=== PATIENT | female | born 1965 | race Caucasian/White ===

== ENCOUNTER 2023-09-10 12:27 | Emergency (ER) | payer BC, SELFPAY ==
[2023-09-10 12:56] VITALS: BP 142/93; PULSE 92; TEMP 36.8; O2SAT 98; BMI 30.1
[2023-09-10 14:05] LABS: Bilirubin Urine NEGATIVE (NEGATIVE); Blood Urine NEGATIVE (NEGATIVE); Clarity Urine CLEAR (CLEAR); Color Urine YELLOW (YELLOW); Glucose Urine UA >=1000 mg/dL (NEGATIVE); Ketones Urine 40 mg/dL (NEGATIVE); Leukocyte Esterase Urine NEGATIVE (NEGATIVE); Nitrite Urine NEGATIVE (NEGATIVE); Protein Urine NEGATIVE (NEG/TRACE); Urobilinogen Urine 0.2 EU/dL (0.2-1.0); pH Urine 5.5 (5.0-9.0)
[2023-09-10 14:08] LABS: Urine Microscopic Indicated NO
[2023-09-10] MEDS: PROMETHAZINE HCL 25 MG in 0.9 % SODIUM CHLORIDE 50 ML 204 MG IV (14:19)
[2023-09-10] MEDS: 0.9 % SODIUM CHLORIDE 1,000 ML 999 ML IV (14:20)
[2023-09-10 14:25] LABS: Basophils Absolute Auto 0.1 10^3/uL (0.0-0.1); Basophils Percent Auto 0.5 % (0.2-2.0); Hematocrit 39.7 % (36.0-48.0); Immature Granulocytes Abs Auto 0.05 10^3/uL (0.00-0.03); Immature Granulocytes Pct Auto 0.4 % (0.0-0.5); Lymphocytes Absolute Auto 1.1 10^3/uL (1.2-3.8); Lymphocytes Percent Auto 9.6 % (20.5-60.0); Mean Corpuscular HGB Conc 27.7 g/dL (29.9-35.2); Mean Corpuscular Hemoglobin 19.8 pg (26.7-34.0); Mean Corpuscular Volume 71.4 fL (81.0-99.0); Mean Platelet Volume 10.2 fL (9.5-13.5); Monocytes Absolute Auto 0.2 10^3/uL (0.3-0.8); Monocytes Percent Auto 1.8 % (1.7-12.0); Neutrophils Absolute Auto 9.8 10^3/uL (1.4-6.5); Neutrophils Percent Auto 87.7 % (43.0-75.0); Platelet Count 392 10^3/uL (150-450); Red Cell Distribution Width 19.1 % (11.0-15.0); White Blood Count 11.2 10^3/uL (4.0-11.0)
[2023-09-10 14:43] LABS: Alanine Aminotransferase 23 U/L (14-59); Albumin Globulin Ratio 0.8; Albumin Level 3.6 g/dL (3.4-5.0); Alkaline Phosphatase 108 U/L (46-116); Anion Gap 20.6; Aspartate Amino Transferase 15 U/L (15-37); BUN Creatinine Ratio 23.9; Bilirubin Total 0.4 mg/dL (0.2-1.0); Calcium 9.7 mg/dL (8.5-10.1); Carbon Dioxide 21.4 mmol/L (21.0-32.0); Chloride 100 mmol/L (98-107); Estimated GFR (African America >60 (>=60); Estimated GFR (Non-African Ame >60 (>=60); Globulin 4.6 g/dL; Glucose 355 mg/dL (74-106); Magnesium 1.8 mg/dL (1.8-2.4); Sodium 138 mmol/L (136-145); Total Protein 8.2 g/dL (6.4-8.2)
[2023-09-10 15:11] LABS: Red Blood Count 5.56 10^6/uL (4.20-5.40)
--- NOTE | 2023-09-10 16:22 | ED_ITS ---
HPI HPI - General Adult General Chief complaint: Nausea/Vomiting/Diarrhea Time Seen by Provider: 09/10/23 13:22 Source: patient Mode of arrival: walk-in Limitations: no limitations History of Present Illness HPI narrative: 57-year-old female presents to the emergency department complaint of nausea, vomiting, and diarrhea since last night. States she was exposed to her who has similar symptoms. Has not been able to keep anything down. Did have some abdominal discomfort, none now. She is diabetic. Denies any fever. Quality:?as above Severity:?moderate Timing:?as above, constant Context: Normal setting and activity? Modifying factors:?none Associated symptoms: as above Related Data Home Medications ?Medication ?Instructions ?Recorded ?Confirmed cyclobenzaprine 5 mg tablet 5 mg PO TID 09/10/23 09/10/23 esomeprazole magnesium 40 mg 40 mg PO DAILY 09/10/23 09/10/23 capsule,delayed release lisinopril 2.5 mg tablet 2.5 mg PO DAILY 09/10/23 09/10/23 pioglitazone 30 mg tablet 30 mg PO DAILY 09/10/23 09/10/23 Previous Rx's ?Medication ?Instructions ?Recorded ondansetron 4 mg disintegrating 4 mg PO Q8H PRN nausea and 09/10/23 tablet vomiting #10 tabs Allergies Allergy/AdvReac Type Severity Reaction Status Date / Time sulfamethoxazole AdvReac Mild Verified 09/10/23 13:00 [From Bactrim] trimethoprim [From Bactrim] AdvReac Mild Verified 09/10/23 13:00 Opioid HPI Opioid Management Most Recent Opioid Data: No Data to Display Review of Systems ROS Narrative CONST: Denies any fever, chills HENT: Denies any congestion, sore throat RESP: Denies any cough, shortness of breath CV: Denies any chest pain, peripheral edema GI: +abd pain, nausea, vomiting, diarrhea : Denies any flank pain, dysuria MS: Denies any back pain, myalgias SKIN: Denies any color change, rash NEURO: Denies numbness, weakness PSYCHIATRIC: Denies confusion, agitation Exam Narrative Exam Narrative: Vital signs reviewed Nurses notes noted CONST: Nontoxic, well appearing, well nourished, in no distress.? No diaphoresis.?? HENT: normocephalic, atraumatic, moist mucous membrane, no abnormalities of the nose noted, hearing normal EYES: normal appearing conjunctiva, no apparent discharge bilat NECK: normal appearance CV: normal rate, regular rhythm, no murmur RESP: normal effort, speaking in complete sentences. Lung sounds clear and equal bilat.? No wheezes, rales, rhonchi GI: normal bowel sounds, soft, no distension, nontender : no CVA tenderness MS: no edema, tenderness SKIN: no pallor NEURO: A&Ox 3, no focal findings PSYCH: normal mood, affect d Constitutional Vital Signs, click to edit/add: Last Vital Signs Temp 98.2 F 09/10/23 12:56 Pulse 92 H 09/10/23 12:56 Resp 16 09/10/23 12:56 BP 142/93 H 09/10/23 12:56 Pulse Ox 98 09/10/23 12:56 O2 Del Method Room Air 09/10/23 12:56 Course Reevaluation(s) Reevaluation #1: Patient reports overall improvement. Has been eating ice chips. Still n auseous, not vomiting. Discussed with patient results, plan, and disposition. She is agreeable with plan. Patient feeling comfortable with going home Time: 16:31 Vital Signs Vital signs: Vital Signs Temperature 98.2 F 09/10/23 12:56 Pulse Rate 92 H 09/10/23 12:56 Respiratory Rate 16 09/10/23 12:56 Blood Pressure 142/93 H 09/10/23 12:56 Pulse Oximetry 98 09/10/23 12:56 Oxygen Delivery Method Room Air 09/10/23 12:56 Temperature 98.2 F 09/10/23 12:56 Pulse Rate 92 H 09/10/23 12:56 Respiratory Rate 16 09/10/23 12:56 Blood Pressure 142/93 H 09/10/23 12:56 Pulse Oximetry 98 09/10/23 12:56 Oxygen Delivery Method Room Air 09/10/23 12:56 Medical Decision Making MDM Narrative Medical decision making narrative: This is a pleasant 57-year-old female who presents to the emergency department with complaint of nausea, vomiting, and diarrhea since yesterday evening. Did have some abdominal discomfort, but this is since resolved. Patient was exposed to similar symptoms through her . Denies any known fever. Has had some chills. She is diabetic. On arrival, afebrile, vital signs are stable. On exam, nontoxic, well-appearing patient in no distress. Heart regular rate and rhythm. Lung sounds clear and equal bilaterally. Abdomen soft, nontender. No CVA tenderness. Labs reveal no leukocytosis, anemia, thrombocytopenia, electrolyte imbalance, renal impairment. Glucose 355. Bicarb 21.4. LFTs, lipase unremarkable. Urinalysis reveals ketones, glucose, otherwise no evidence of infection. Patient was hydrated, given Phenergan with improvement of vomiting during ED course. Still felt a little nauseous, but states this is manageable. She is on a PPI at home. Patient understands that diarrhea, has to run its course. It was stressed that patient continue hydrating herself. She states she has Zofran at home. Likely viral nausea, vomiting, diarrhea DKA less likely based on bicarb and gap Urinary tract infection less likely based on laboratory testing Disposition ? The patient was discharged. Plan: Patient will be discharged to home. Condition at time of disposition: stable and improved. ? Advised to follow up with primary provider. Advised to return for any worsening and/or development of new, concerning signs or symptoms PLEASE NOTE: Portions of the medical record may have been produced using electronic directional drill operator and may contain errors with respect to translation of words which may not have been identified prior to finalization of the chart. Lab Data Lab results reviewed: Yes I reviewed the patient's lab results Labs: Lab Results 09/10/23 09/10/23 Range/Units 13:46 14:11 WBC 11.2 H (4.0-11.0) 10^3/uL RBC 5.56 H (4.20-5.40) 10^6/uL Hgb 11.0 L (12.0-16.0) g/dL Hct 39.7 (36.0-48.0) % MCV 71.4 L (81.0-99.0) fL MCH 19.8 L (26.7-34.0) pg MCHC 27.7 L (29.9-35.2) g/dL RDW 19.1 H (11.0-15.0) % Plt Count 392 (150-450) 10^3/uL MPV 10.2 (9.5-13.5) fL Neut % (Auto) 87.7 H (43.0-75.0) % Lymph % (Auto) 9.6 L (20.5-60.0) % [place] % (Auto) 1.8 (1.7-12.0) % Eos % (Auto) 0.0 L (0.9-7.0) % Baso % (Auto) 0.5 (0.2-2.0) % Neut # (Auto) 9.8 H (1.4-6.5) 10^3/uL Lymph # (Auto) 1.1 L (1.2-3.8) 10^3/uL [place] # (Auto) 0.2 L (0.3-0.8) 10^3/uL Eos # (Auto) 0.0 (0.0-0.7) 10^3/uL Baso # (Auto) 0.1 (0.0-0.1) 10^3/uL Abs Immat Gran (auto) 0.05 H (0.00-0.03) 10^3/uL Imm/Tot Granulo (auto) 0.4 (0.0-0.5) % Sodium 138 (136-145) mmol/L Potassium 4.0 (3.5-5.1) mmol/L Chloride 100 (98-107) mmol/L Carbon Dioxide 21.4 (21.0-32.0) mmol/L Anion Gap 20.6 BUN 17.0 (7.0-18.0) mg/dL Creatinine 0.71 (0.55-1.02) mg/dL Est GFR ( Amer) >60 (>=60) Est GFR (Non-Af Amer) >60 (>=60) BUN/Creatinine Ratio 23.9 Glucose 355 H (74-106) mg/dL Calcium 9.7 (8.5-10.1) mg/dL Magnesium 1.8 (1.8-2.4) mg/dL Total Bilirubin 0.4 (0.2-1.0) mg/dL AST 15 (15-37) U/L ALT 23 (14-59) U/L Alkaline Phosphatase 108 (46-116) U/L Total Protein 8.2 (6.4-8.2) g/dL Albumin 3.6 (3.4-5.0) g/dL Globulin 4.6 g/dL Albumin/Globulin Ratio 0.8 Lipase 23.0 (16.0-77.0) U/L Urine Color Yellow (YELLOW) Urine Clarity Clear (CLEAR) Urine pH 5.5 (5.0-9.0) Ur Specific [place] 1.020 (1.005-1.025) Urine Protein Negative (NEG/TRACE) mg/dL Urine Glucose (UA) >=1000 A (NEGATIVE) mg/dL Urine Ketones 40 A (NEGATIVE) mg/dL Urine Occult Blood Negative (NEGATIVE) Urine Nitrite Negative (NEGATIVE) Urine Bilirubin Negative (NEGATIVE) Urine Urobilinogen 0.2 (0.2-1.0) EU/dL Ur Leukocyte Esterase Negative (NEGATIVE) Discharge Plan Discharge Stand Alone Forms: Portal Instructions Chief Complaint: Nausea/Vomiting/Diarrhea Clinical Impression: Nausea vomiting and diarrhea, Generalized abdominal pain Patient Disposition: Home, Self-Care Time of Disposition Decision: 16:31 Condition: Good Prescriptions / Home Meds: New ondansetron 4 mg tablet,disintegrating 4 mg PO Q8H PRN (Reason: nausea and vomiting) Qty: 10 0RF No Action cyclobenzaprine 5 mg tablet 5 mg PO TID esomeprazole magnesium 40 mg capsule,delayed release(DR/EC) 40 mg PO DAILY lisinopril 2.5 mg tablet 2.5 mg PO DAILY pioglitazone 30 mg tablet 30 mg PO DAILY Print Language: Japanese Instructions: Clear Liquid Diet (ED), Acute Nausea and Vomiting (ED), Acute Diarrhea (ED) Referrals: HUSAM GREWAL [Primary Care Provider] - 1 week Discharge Date/Time: 09/10/23 16:49
== END 2023-09-10 16:49 | disposition home or self-care (01) ==
PROVIDERS: Physician Assistant; Emergency Provider Emergency Medicine; PCP Family Medicine
DX: R11.2 Nausea with vomiting, unspecified (principal); R19.7 Diarrhea, unspecified; R10.84 Generalized abdominal pain; E11.9 Type 2 diabetes mellitus without complications; Z79.84 Long term (current) use of oral hypoglycemic drugs
CPT/HCPCS: 36415; 80053; 81003; 83690; 83735; 85025; 96365; 99285

== ENCOUNTER 2024-05-18 00:22 | Emergency (ER) | payer BC, SELFPAY ==
[2024-05-18 00:31] VITALS: BP 146/96; PULSE 92; TEMP 36.8; O2SAT 99; BMI 33.3
--- OUTSIDE RECORDS SUMMARY | 2024-05-18 00:31 | XMS_ITS | CCD ---
Author Organization [facility] CliniSywa Care Team Providers Care Environmental Marketing Representative Name Role Phone Husam Zamora Unavailable Alexandro-NematollaNina salazar Unavailable Abu-Thomas, Chente Unavailable Unavailable Cardiac Surgery Unavailable Unavailable Husam Zamora Unavailable Unavailable Unavailable Unavailable Unavailable NOAH, DR HUSAM Herbert Consulting Unavailable NOAH, DR HUSAM Herbert Attending Unavailable NOAH, DR HUSAM Herbert Admitting Unavailable NOAH, DR HUSAM Herbert Primary Care Unavailable HENDRIX, DR COLLEEN Herbert Admitting Unavailable HENDRIX, DR COLLEEN Herbert Consulting Unavailable HENDRIX, DR COLLEEN Herbert Attending Unavailable Husam Zamora Unavailable Sandra Triplett Unavailable NOAH, HUSAM Herbert Primary Care Physician HUSAM ZAMORA Admitting Unavailable NOAHHUSAM Attending Unavailable NOAHHUSAM Admitting Unavailable NOAHHUSAM Attending Unavailable NoahDO Husam. Primary Care Provider DO Mario Sánchez Attending Provider Husam Zamora DO. Primary Care Provider Mario Sánchez DO Attending Provider [phone] MARIO SÁNCHEZ. Referring Unavailable MARIO SÁNCHEZ. Attending Unavailable Mario Sánchez Admitting Unavailable Mario Sánchez Attending Unavailable Husam Zamora. Primary Care Unavailable Mario Sánchez Admitting Unavailable Mario Sánchez Attending Unavailable Husam Zamora Primary Care Unavailable Allergies Allergy Classification Reported Allergen(s) Allergy Type Date of Onset Reaction(s) Facility Anti-Epileptic Agents (1 source) gabapentin Drug Allergy 4 migraines [facility] Azelate / Cupric oxide / Folic Acid / Niacinamide / pyridoxine / Zinc Oxide (1 source) Azelate / Cupric oxide / Folic Acid / Niacinamide / pyridoxine / Zinc Oxide; Translations: [multivitamin with minerals] Drug Allergy Weal (disorder) [facility] Dihydrofolate Reductase Inhibitors (antibiotic) (1 source) Trimethoprim Drug Allergy 4 [facility] metFORMIN (1 source) metFORMIN Drug Allergy 4 [facility] Sulfonamides (antibiotic) (1 source) Sulfamethoxazole Drug Allergy 4 [facility] (1 source) Sulfamethoxazole / Trimethoprim Drug Allergy Rash [facility] (20 sources) Sulfamethoxazole / Trimethoprim; Translations: [Bactrim] Drug Allergy rash [facility] 600 DO Work Phone: (20 sources) gabapentin Drug Allergy 4 [facility] (3 sources) Azelate / Cupric oxide / Folic Acid / Niacinamide / pyridoxine / Zinc Oxide; Translations: [multivitamin with minerals] Drug Allergy Weal (disorder) [facility] (7 sources) Sulfamethoxazole; Translations: [sulfamethoxazole] Drug Allergy 4 [facility] (7 sources) Trimethoprim; Translations: [trimethoprim] Drug Allergy 4 [facility] (6 sources) metFORMIN; Translations: [metformin] Drug Allergy 4 [facility] (5 sources) DULoxetine; Translations: [duloxetine] Drug Allergy 4 [facility] (1 source) gabapentin Drug Allergy 4 [facility] Repository Medications Current Medications Medication Drug Class(es) Dates Sig (Normalized) Sig (Original) acetaminophen 325 mg / oxyCODONE hydrochloride 5 mg oral tablet (7 sources) Opioid Agonist Start: 02-12-2021 take 1 tablet by mouth every twelve hours oxyCODONE-Acetami nophen 5-325 MG 1 tablet as needed Orally every 12 hrs for 7 days Feb, Active Start: 07-02-2015 End: 02-03-2021 take 1 tablet by mouth every six hours as needed oxycodone-acetaminophen 5 mg-325 mg oral tablet ; 1 tab(s) orally every 6 hours x 5 days, As Needed for moderate to severe acute postop pain [G89.18]. (Percocet) Do not take any additional acetaminophen with this medication; may switch to plain tylenol when no longer taking percocet. Quantity: 20 Refills: 0 Ordered: 30-Jan-2021 Lizzy Carvalho Start: 30-Jan-2021 End: 03-Feb-2021 Generic Substitution Allowed Comments: Caution federal law prohibits the transfer of this drug to any person other than the person for whom it was prescribed.May cause drowsiness. Alcohol may intensify this effect. Use care when operating dangerous machinery.This prescription cannot be refilled.This product contains acetaminophen. Do not use with any other product containing acetaminophen to prevent possible liver damage.Using more of this medication than prescribed may cause serious breathing problems. Comment on above: Caution federal law prohibits the transfer of this drug to any person other than the person for whom it was prescribed.May cause drowsiness. Alcohol may intensify this effect. Use care when operating dangerous machinery.This prescription cannot be refilled.This product contains acetaminophen. Do not use with any other product containing acetaminophen to prevent possible liver damage.Using more of this medication than prescribed may cause serious breathing problems. albuterol HFA 90 mcg/inh MDI (2 sources) Start: 04-04-20 albuterol HFA 90 mcg/inh MDI 2 puff(s), Inhalation, QID, 8.5 gm, Refill(s) 0, [facility]/pharmacy #[id number], 180, cm, 01/19/21 12:41:00 EDT, Height/Length Dosing, 93, kg, 04/04/21 14:14:00 EST, Weight Dosing Start Date: 04/04/21 Status: Ordered azithromycin 250 mg oral tablet (10 sources) Macrolide Antimicrobial Start: 01-22-20 11 Zithromax Z-Jayson 250 MG 2 tablet on the first day, then 1 tablet daily for 4 days Orally Once a day for 5 day(s) Jan, Active Blood Glucose Monitor (1 source) Start: 01-31-20 Blood Glucose Monitor ; Use as Directed[E11.65] Quantity: 1 Refills: 0 Ordered: 30-Jan-2021 Lizzy Carvalho Start: 30-Jan-2021 Generic Substitution Allowed celecoxib 100 mg oral capsule (3 sources) Nonsteroidal Anti-inflammatory Drug Start: 12-01-19 take 100 mg by mouth once daily Celebrex 100 mg, Oral, Daily, Refills(s) 0, Arthritis Start Date: 12/01/19 Status: Ordered take 1 capsule by mouth twice da dominick celecoxib 200 mg oral capsule ; 1 cap(s) orally 2 times a day Quantity: 0 Refills: 0 Ordered: 30-Jan-2021 Lizzy Carvalho Status: Discontinued Generic Substitution Allowed ciprofloxacin 500 mg oral tablet (5 sources) Quinolone Antimicrobial Start: 12-21-2020 End: 02-05-2021 take 1 tablet by mouth every twelve hours Cipro 500 MG 1 tablet Orally every 12 hrs for 7 day(s) Dec, Active diclofenac sodium 75 mg extended release oral tablet (1 source) Nonsteroidal Anti-inflammatory Drug take 75 mg by mouth once daily diclofenac ; 75 milligram(s) orally once a day Quantity: 0 Refills: 0 Ordered: 29-Jun-2015 Corazon Lloyd Status: Discontinued Generic Substitution Allowed docusate sodium 100 mg oral capsule (1 source) Start: 01-29-2021 docusate sodium 100 mg oral capsule ; 1 cap(s) orally 2 times a day while on opioids, then as needed for hard stools [[id number] stool softener] Quantity: 0 Refills: 0 Ordered: 30-Jan-2021 Lizzy Carvalho Start: 29-Jan-2021 Generic Substitution Allowed doxycycline hyclate 100 mg oral tablet (12 sources) Tetracycline-class Drug Start: 03-27-2021 take 1 tablet by mouth every twelve hours 0.5 ml dulaglutide 3 mg/ml auto-injector (8 sources) GLP-1 Receptor Agonist Start: 11-10-2019 inject 1.5 mg by subcutaneous injection every week Trulicity Pen 1.5 mg/0.5 mL subcutaneous solution 1.5 mg, SubCutaneous, qWeek, Refills(s) 0, High blood sugar Start Date: 12/01/19 Status: Ordered fluconazole 200 mg oral tablet (16 sources) Azole Antifungal Start: 02-25-2024 End: 02-25-2024 take 1 tablet by mouth once daily Fluconazole (Diflucan) 200 mg tablet Active 200 MG PO Daily 3 3 February 25, 2024 1:36pm Start: 09-02-2018 take 1 tablet by aggie th every twenty-four hours Diflucan 150 MG 1 tablet Orally Once a day for 7 days Aug, Active furosemide 20 mg oral tablet (1 source) Loop Diuretic Start: 01-30-2021 End: 02-05-2021 take 1 tablet by mouth once daily furosemide 20 mg oral tablet ; 1 tab(s) orally once a day x 7 days Quantity: 7 Refills: 0 Ordered: 30-Jan-2021 Lizzy Carvalho Start: 30-Jan-2021 End: 05-Feb-2021 Generic Substitution Allowed indomethacin 50 mg oral capsule (20 sources) Nonsteroidal Anti-inflammatory Drug Start: 12-31-2023 End: 01-05-2024 take 1 capsule by mouth once daily Indomethacin 50 mg capsule Active 50 MG PO Daily January 05, 2024 10:43am Start: 12-04-2023 End: 12-31-2023 take 1 capsule by mouth twice daily at mealtime as needed for pain Indomethacin 50 mg capsule Discontinued 0 .ROUTE .COMPLEX 60 December 04, 2023 8:08am December 31, 2023 1:40pm TAKE 1 CAPSULE BY MOUTH TWICE A DAY WITH FOOD OR MILK NEEDED FOR PAIN Start: 11-02-2023 End: 12-04-2023 take 1 capsule by mouth twice daily as needed for pain Indomethacin 50 mg capsule Discontinued 50 MG PO Twice daily as needed for pain 60 November 01, 2023 11:00pm December 04, 2023 8:08am administer with food or milk insulin lispro 100 unt/ml injectable solution (20 sources) Insulin Analog Start: 01-30-2021 End: 02-28-2021 Insulin Lispro KwikPen 100 units/mL injectable solution ; 10 unit(s) injectable 3 times a day (with meals) Quantity: 4 Refills: 0 Ordered: 30-Jan-2021 Lizzy Carvalho Start: 30-Jan-2021 End: 28-Feb-2021 Generic Substitution Allowed inject 10 [IU] by dotson bcutaneous injection three times daily Insulin Lispro 1 00 UNIT/ML Subcutaneous Solution USE DIRECTED. Quantity: 0 Refills: 0 Ordered: 31-Jan-2021 DO Active Iron (3 sources) take 1 tablet by mouth once daily Iron 325 (65 Fe) MG 1 tablet Orally Once a day Active magnesium oxide 400 mg oral tablet (4 sources) Start: 01-30-2021 End: 02-05-2021 magnesium oxide 400 mg oral tablet ; 1 tab(s) orally once a day x 7 days, with the furosemide/Lasix Quantity: 7 Refills: 0 Ordered: 30-Jan-2021 Lizzy Carvalho Start: 30-Jan-2021 End: 05-Feb-2021 Generic Substitution Allowed take 1 tablet by aggie th every twenty-four hours Magnesium Oxide 400 MG 1 tablet as needed Orally Once a day Active Multiple Vitamins with Minerals oral tablet (1 source) Start: 01-29-2021 take 1 tablet by mouth once daily Multiple Vitamins with Minerals oral tablet ; 1 tab(s) orally once a day Quantity: 0 Refills: 0 Ordered: 29-Jan-2021 Tere Wallace Start: 29-Jan-2021 Generic Substitution Allowed nitrofurantoin, macrocrystals 25 mg / nitrofurantoin, monohydrate 75 mg oral capsule (16 sources) Nitrofuran Antibacterial Start: 02-25-2024 End: 02-25-2024 take 1 capsule by mouth every twelve hours Nitrofurantoin Monohyd/M-Cryst (Macrobid) 100 mg capsule Active 100 MG PO Q12H 14 February 25, 2024 1:36pm Start: 07-20-2023 End: 07-20-2023 take 1 capsule by mouth twice daily Nitrofurantoin Monohyd/M-Cryst 100 mg capsule Discontinued 1 CAP PO Twice daily July 20, 2023 12:00am July 20, 2023 8:14am Free[employer]Si capsule Orally twice a day; Note: Source Status: Refill; Refills: 0; Qty: 14 Capsule; Provider: Noah Herbert Start: 12-12-2020 take 1 capsule by mo [facility] every twelve hours Macrobid 100 MG 1 capsule Orally twice a day for 7 days Nov, Active omeprazole 40 mg delayed release oral capsule (13 sources) Proton Pump Inhibitor Start: 06-12-2015 omeprazole 40 mg Cap-DR 40 mg = 1 cap(s), Oral, Daily, Refills(s) 0, Control of stomach acid Start Date: 12/01/19 Status: Ordered orphenadrine citrate 100 mg oral tablet (1 source) Muscle Relaxant take 100 mg by mouth twice daily Norflex ; 100 milligram(s) orally 2 times a day Quantity: 0 Refills: 0 Ordered: 29-Jun-2015 Corazon Lloyd Status: Discontinued Generic Substitution Allowed polyethylene glycol 3350 83231 mg powder for oral solution (1 source) Osmotic Laxative Start: 01-29-2021 polyethylene glycol 3350 oral powder for reconstitution ; 17 gram(s) orally once a day, As Needed for constipation. [Miralax, cshl-eep-iuluzkz laxative] Quantity: 0 Refills: 0 Ordered: 30-Jan-2021 Lizzy Carvalho Start: 29-Jan-2021 Generic Substitution Allowed polysaccharide iron complex 150 mg oral capsule (3 sources) Start: 01-30-2021 End: 02-28-2021 take 1 capsule by mouth once daily iron polysaccharide (as elemental iron) 150 mg oral capsule ; 1 cap(s) orally once a day x 30 days, then stop Quantity: 30 Refills: 0 Ordered: 30-Jan-2021 Lizzy Carvalho Start: 30-Jan-2021 End: 28-Feb-2021 Generic Substitution Allowed potassium 99 mg extended release oral tablet (20 sources) take 1 tablet by mouth once daily potassium chloride 10 meq extended release oral tablet (1 source) Start: 01-30-2021 End: 02-05-2021 take 1 tablet by mouth once daily at mealtime potassium chloride 10 mEq oral tablet, extended release ; 1 tab(s) orally once a day x 7 days with the furosemide/Lasix Quantity: 7 Refills: 0 Ordered: 30-Jan-2021 Lizzy Carvalho Start: 30-Jan-2021 End: 05-Feb-2021 Generic Substitution Allowed Comments: It is very important that you take or use this exactly as directed. Do not skip doses or discontinue unless directed by your doctor.Medication should be taken with plenty of water.Take with food or milk. Comment on above: It is very important that you take or use this exactly as directed. Do not skip doses or discontinue unless directed by your doctor.Medication should be taken with plenty of water.Take with food or milk. predniSONE 20 mg oral tablet (16 sources) Start: 02-12-2024 take 3 tablets by mouth once daily Prednisone 20 mg tablet Active 60 MG PO daily 29 09February 11, 2024 11:00pm Start: 02-12-2024 take 60 mg by mouth once daily Prednisone Active 60 MG PO daily 29 09February 12, 2024 12:00am Start: 04-01-2021 Start: 04-01-2021 predniSONE 20 MG as directed Orally 3 po qday x 3 days, 2 po qday x 3 days, 1 po qday x 3 days for 9 days Mar, Active Start: 12-01-2019 End: 12-06-2019 take 2 tablets by mouth once daily predniSONE 20 mg Tab 40 mg = 2 tab(s), Oral, Daily, # 10 tab(s), Refills(s) 0, Pharmacy: [facility]/pharmacy #[id number], 163, cm, 12/01/19 18:12:00 EDT, Height/Length Measured, 89.5, kg, 12/01/19 18:12:00 EDT, Weight Measured Start Date: 12/01/19 Stop Date: 12/06/19 Status: Ordered pregabalin 50 mg oral capsule (20 sources) Start: 02-02-2024 take 1 capsule by mouth once daily at bedtime Pregabalin (Lyrica) 50 mg capsule Active 50 MG PO Daily at bedtime February 01, 2024 11:00pm Start: 03-19-2021 take 1 capsule by [facility] every twelve hours Pregabalin 75 MG 1 capsule Orally Twice a day for 30 days Mar, Active promethazine hydrochloride 12.5 mg oral tablet (20 sources) Phenothiazine Start: 04-01-2021 take 1 tablet by mouth every six hours as needed Phenergan 12.5 MG 1 tablet as needed Orally every 6 hrs for 7 day(s) Mar, Active Start: 04-01-2021 Semaglutide (16 sources) Start: 12-28-2023 Semaglutide (O zempic) 0.25 mg or 0.5 mg (2 mg/3 mL) pen injector Active 0.25 MG SUBCUT every week 1.84 December 28, 2023 1:06pm Start: 12-28-2023 Semaglutide (O zempic) 0.25 mg or 0.5 mg (2 mg/3 mL) pen injector Active 0.25 MG SUBCUT every week 1.84 December 28, 2023 2:06pm Start: 12-02-2023 End: 12-28-2023 Semaglutide (Ozempic) 0.25 m g or 0.5 mg (2 mg/3 mL) pen injector Discontinued 0.25 MG SUBCUT every week 1.84 December 02, 2023 4:03pm December 28, 2023 1:06pm Start: 12-02-2023 End: 12-28-2023 Semaglutide (Ozempic) 0.25 m g or 0.5 mg (2 mg/3 mL) pen injector Discontinued 0.25 MG SUBCUT every week 1.84 December 02, 2023 5:03pm December 28, 2023 2:06pm Start: 11-02-2023 End: 12-02-2023 Semaglutide (Ozempic) 0.25 m g or 0.5 mg (2 mg/3 mL) pen injector Discontinued 0.25 MG SUBCUT every week 1.84 November 01, 2023 11:00pm December 02, 2023 4:04pm for 4 weeks Start: 11-02-2023 End: 12-02-2023 Semaglutide (Ozempic) 0.25 m g or 0.5 mg (2 mg/3 mL) pen injector Discontinued 0.25 MG SUBCUT every week 1.84 November 02, 2023 12:00am December 02, 2023 5:04pm for 4 weeks Start: 11-02-2023 Semaglutide (O zempic) 0.25 mg or 0.5 mg (2 mg/3 mL) pen injector Active 0.25 MG SUBCUT every week 1.84 November 02, 2023 12:00am for 4 weeks Vitamin B Complex (20 sources) Vitamin B Comple x - as directed Orally Not-Taking Vitamin B Comple x - as directed Orally Active Zinc Magnesium Aspartate 150 -3.83-10 MG (20 sources) take 2 capsules by m outh once daily at bedtime take 2 capsules by m outh once daily at bedtime Zinc Magnesium Aspartate 150-3.83-10 MG 2 capsules 30 to 60 minutes before bedtime on an empty stomach Orally Once a day with calcium Not-Taking take 2 capsules by m outh once daily at bedtime Zinc Magnesium Aspartate 150-3.83-10 MG 2 capsules 30 to 60 minutes before bedtime on an empty stomach Orally Once a day with calcium Active Completed/Discontinued Medications Medication Drug Class(es) Dates Sig (Normalized) Sig (Original) acetaminophen 325 mg oral tablet (2 sources) take 1-2 tablets by mouth every four hours as needed Acetaminophen 325 MG Oral Tablet TAKE 1 TO 2 TABLETS EVERY 4 HOURS NEEDED Quantity: 108 Refills: 0 Ordered: 31-Jan-2021 DO Active amoxicillin 875 mg / clavulanate 125 mg oral tablet (11 sources) Penicillin-class Antibacterial Start: 02-06-2021 take 1 tablet by mouth once daily Amoxicillin-Pot Clavulanate 875-125 MG Oral Tablet TAKE 1 TABLET EVERY 12 HOURS DAILY for 7 days Quantity: 14 Refills: 0 Ordered: 06-Feb-2021 Chente Rios MD Start : 06-Feb-2021 Active Start: 09-08-2012 take 1 tablet by aggie th every twelve hours take 1 tablet by aggie th every twelve hours Amoxicillin-Pot Clavulanate 500-125 MG 1 tablet Orally bid Active aspirin 81 mg delayed release oral tablet (8 sources) Platelet Aggregation Inhibitor, Nonsteroidal Anti-inflammatory Drug take 1 tablet by mouth once daily Aspirin 81 MG Oral Tablet Delayed Release TAKE 1 TABLET DAILY. Quantity: 30 Refills: 11 Ordered: 11-Jun-2021 Colleen Hendrix MD Active atorvastatin 80 mg oral tablet (20 sources) HMG-CoA Reductase Inhibitor Start: 07-20-19 End: 07-20-19 take 1 tablet by mouth once daily Atorvastatin 80 mg tablet Discontinued 80 MG PO Daily July 20, 2023 12:00am July 20, 2023 8:13am Start: 01-30-2021 take 1 tablet by aggie th once daily atorvastatin 80 mg oral tablet ; 1 tab(s) orally once a day Quantity: 30 Refills: 0 Ordered: 30-Jan-2021 Lizzy Carvalho Start: 30-Jan-2021 Generic Substitution Allowed clopidogrel 75 mg oral tablet (20 sources) [id number] Platelet Inhibitor Start: 07-20-2023 End: 07-20-2023 take 1 tablet by mouth once daily Clopidogrel 75 mg tablet Discontinued 75 MG PO Daily July 20, 2023 12:00am July 20, 2023 8:13am Start: 01-30-2021 take 1 tablet by aggie th once daily clopidogrel 75 mg oral tablet ; 1 tab(s) orally once a day Quantity: 30 Refills: 0 Ordered: 30-Jan-2021 Lizzy Carvalho Start: 30-Jan-2021 Generic Substitution Allowed cyclobenzaprine hydrochloride 5 mg oral tablet (20 sources) Muscle Relaxant Start: 01-13-2024 End: 02-02-2024 take 1 tablet by mouth three times daily as needed for muscle spasms Cyclobenzaprine 5 mg tablet Discontinued 0 .ROUTE .COMPLEX January 13, 2024 8:29am February 02, 2024 7:46am TAKE 5 MG ORALLY THREE TIMES DAILY NEEDED FOR MUSCLE SPASM FOR 90 DAYS Start: 07-20-2023 End: 02-02-2024 take 1 tablet by mouth three times daily as needed for muscle spasms Cyclobenzaprine 5 mg tablet Discontinued 5 MG PO Three times daily as needed for muscle spasm 270 90 July 20, 2023 8:28am January 13, 2024 8:29am Start: 04-09-2015 take 1 tablet by aggie three times daily cyclobenzaprine 10 mg Tab 10 mg = 1 tab(s), Oral, TID, Refills(s) 0, Muscle pain Start Date: 12/01/19 Status: Ordered Start: 04-09-2015 take 1 tablet by aggie every eight hours as needed Cyclobenzaprine HCl - 10 MG Oral Tablet Take 1 tablet every 8 hours as needed Quantity: 21 Refills: 0 Ordered: 31-Jan-2021 DO Active DULoxetine 30 mg delayed release oral capsule (20 sources) Serotonin and Norepinephrine Reuptake Inhibitor Start: 07-20-2023 End: 07-20-2023 Duloxetine 30 mg capsule,delayed release(DR/EC) Discontinued 30 MG PO July 20, 2023 12:00am July 20, 2023 8:13am Start: 07-20-2023 End: 07-20-2023 Duloxetine 60 mg capsule,del ayed release(DR/EC) Discontinued 60 MG PO July 20, 2023 12:00am July 20, 2023 8:13am Start: 04-22-2021 take 1 capsule by mo [facility] every twenty-four hours DULoxetine HCl 30 MG 1 capsule Orally Once a day for 30 day(s) Apr, Active Start: 04-22-2021 take 1 capsule by [facility] every twenty-four hours DULoxetine HCl 60 MG 1 capsule Orally Once a day for 30 day(s) Apr, Active esomeprazole 40 mg delayed release oral capsule (20 sources) Proton Pump Inhibitor Start: 12-14-2023 End: 12-31-2023 take 1 capsule by mouth once daily Esomeprazole Magnesium Discontinued 0 .ROUTE .COMPLEX December 14, 2023 12:45pm December 31, 2023 2:41pm TAKE 1 CAPSULE BY MOUTH EVERY DAY Start: 07-20-2023 End: 02-02-2024 take 1 capsule by mouth once daily Esomeprazole Magnesium 40 mg capsule,delayed release(DR/EC) Discontinued 40 MG PO Daily 90 90 December 31, 2023 1:40pm February 02, 2024 7:44am take 1 capsule by [facility] every twenty-four hours Esomeprazole Magnesium 40 mg capsule,delayed release(DR/EC) (1 source) Start: 12-14-2023 End: 12-31-2023 take 1 capsule by mouth once daily Esomeprazole Magnesium 40 mg capsule,delayed release(DR/EC) Discontinued 0 .ROUTE .COMPLEX December 14, 2023 11:45am December 31, 2023 1:41pm TAKE 1 CAPSULE BY MOUTH EVERY DAY 3 ml insulin glargine 100 unt/ml pen injector (20 sources) Insulin Analog Start: 07-20-2023 End: 07-20-2023 Start: 06-25-2021 Basaglar KwikP en 100 UNIT/ML 60 units Subcutaneous daily for 30 days Jun, Not-Taking Start: 01-30-2021 End: 02-28-2021 Lantus Solostar Pen 100 unit s/mL subcutaneous solution ; (insulin glargine) 60 unit(s) subcutaneous once a day (in the morning) Quantity: 2 Refills: 0 Ordered: 30-Jan-2021 Lizzy Carvalho Start: 30-Jan-2021 End: 28-Feb-2021 Generic Substitution Allowed Comments: Do not drink alcoholic beverages when taking this medication.It is very important that you take or use this exactly as directed. Do not skip doses or discontinue unless directed by your doctor.Keep in refrigerator. Do not freeze. Lantus 100 UNIT/ ML Subcutaneous Solution INJECT SUBCUTANEOUSLY DIRECTED. Quantity: 1 Refills: 0 Ordered: 31-Jan-2021 DO Active Comment on above: Do not drink alcohol ic beverages when taking this medication.It is very important that you take or use this exactly as directed. Do not skip doses or discontinue unless directed by your doctor.Keep in refrigerator. Do not freeze. Insulin Lispro (Humalog Kwikpen Insulin) 100 unit/mL insulin pen (7 sources) Start: 07-20-2023 End: 07-20-2023 inject 10 [IU] by subcutaneous injection three times daily Start: 07-20-2023 End: 07-20-2023 inject 10 [IU] by subcutaneous injection three times d aily lisinopril 2.5 mg oral tablet (20 sources) Angiotensin Converting Enzyme Inhibitor Start: 07-20-2023 End: 12-31-2023 take 1 tablet by mouth once daily Lisinopril 2.5 mg tablet Discontinued 2.5 MG PO Daily 90 90 July 20, 2023 8:30am December 31, 2023 1:42pm Start: 01-30-2021 take 1 tablet by aggie th once daily lisinopril 2.5 mg oral tablet ; 1 tab(s) orally once a day Quantity: 30 Refills: 0 Ordered: 30-Jan-2021 Lizzy Carvalho Start: 30-Jan-2021 Generic Substitution Allowed 24 hr metoprolol succinate 50 mg extended release oral tablet (20 sources) beta-Adrenergic Javier Start: 07-20-2023 End: 07-20-2023 take 1 tablet by mouth once daily Metoprolol Succinate 50 mg tablet extended release 24 hr Discontinued 50 MG PO Daily July 20, 2023 12:00am July 20, 2023 8:14am Start: 01-30-2021 take 1 tablet by aggie th once daily metoprolol succinate 50 mg oral tablet, extended release ; 1 tab(s) orally once a day Quantity: 30 Refills: 0 Ordered: 30-Jan-2021 Lizzy Carvalho Start: 30-Jan-2021 Generic Substitution Allowed Multi-Vitamin TABS (7 sources) Multi-Vitamin TA BS TAKE 1 TABLET DAILY. Quantity: 0 Refills: 0 Ordered: 31-Jan-2021 DO Active ondansetron 4 mg disintegrating oral tablet (14 sources) Serotonin-3 Receptor Antagonist Start: 09-14-2023 End: 02-02-2024 Ondansetron 4 mg tablet,disintegrating Discontinued 4 MG PO EVERY 8-12 HOURS as needed September 13, 2023 11:00pm February 02, 2024 7:55am Start: 09-14-2023 End: 02-02-2024 take 1 tablet by mouth every eight hours as needed for nausea and vomiting Ondansetron 8 mg tablet,disintegrating Discontinued 8 MG PO Every 8 hours as needed for nausea and vomiting 21 7 September 13, 2023 11:00pm February 02, 2024 7:55am pioglitazone 30 mg oral tablet (20 sources) Peroxisome Proliferator Receptor alpha Agonist, Peroxisome Proliferator Receptor gamma Agonist, Thiazolidinedione Start: 07-20-2023 End: 12-31-2023 take 1 tablet by mouth once daily Pioglitazone (Actos) 30 mg tablet Discontinued 30 MG PO Daily 90 90 July 20, 2023 8:28am December 31, 2023 1:42pm Start: 06-05-2022 take 1 tablet by mouth every t wenty-four hours potassium gluconate 2.5 meq oral tablet (7 sources) Start: 07-20-2023 End: 07-20-2023 take 1 tablet by mouth once daily Potassium Gluconate 595 mg (99 mg) tablet Discontinued 595 MG PO Daily July 20, 2023 12:00am July 20, 2023 8:14am riboflavin 25 mg oral tablet (7 sources) Start: 07-20-2023 End: 07-20-2023 take 1 tablet by mouth once daily Riboflavin (Vitamin B2) 25 mg tablet Discontinued 25 MG PO Daily July 20, 2023 12:00am July 20, 2023 8:14am SITagliptin 100 mg oral tablet (20 sources) Dipeptidyl Peptidase 4 Inhibitor Start: 10-06-2017 End: 07-20-2023 take 1 tablet by mouth once daily Sitagliptin Phosphate 100 mg tablet Discontinued 100 MG PO Daily July 20, 2023 12:00am July 20, 2023 8:14am traMADol hydrochloride 50 mg oral tablet (14 sources) Opioid Agonist Start: 07-20-2023 End: 07-20-2023 take 1 tablet by mouth every eight hours as needed Tramadol 50 mg tablet Discontinued 50 MG PO Every 8 hours as needed July 20, 2023 12:00am July 20, 2023 8:14am Start: 09-24-2022 take 1 tablet by aggie th every eight hours Start: 02-11-2022 End: 02-14-2022 take 1 tablet by mouth every six hours as needed for pain traMADOL 50 mg Tab 50 mg = 1 tab(s), Oral, q6hr, PRN for pain, X 3 day(s), # 12 tab(s), Refills(s) 0, Pharmacy: [facility]/pharmacy #[id number], 160, cm, 02/11/22 16:18:00 EDT, Height/Length Dosing, 89, kg, 02/11/22 16:18:00 EDT, Weight Dosing Start Date: 02/11/22 Stop Date: 02/14/22 Status: Ordered triamcinolone acetonide 0.00 5 mg/mg topical ointment (20 sources) Corticosteroid Start: 07-20-2023 End: 07-20-2023 Start: 07-20-2023 End: 07-20-2023 Start: 01-08-2022 Start: 06-06-2020 Triamcinolone Acetonide 0.1 % 1 application Externally Twice a day for 14 days May, Not-Taking zinc gluconate 30 mg oral tablet (7 sources) Start: 07-20-2023 End: 07-20-2023 take 1 tablet by mouth once daily Zinc Gluconate 30 mg tablet Discontinued 30 MG PO Daily July 20, 2023 12:00am July 20, 2023 8:14am Problems Active Problems Problem Classification Problem Date Documented Da te Episodic/Chronic Allergic reactions (20 sources) Atopic dermatitis; Translations: [Atopic dermatitis, unspecified] Chronic Allergic reactions (20 sources) Eczema; Translations: [Dermatitis, unspecified] Episodic Anxiety disorders (16 sources) Mixed anxiety and depressive disorder; Translations: [Other specified anxiety disorders] Chronic Asthma (20 sources) Asthma; Translations: [Unspecified asthma, uncomplicated] Chronic Coronary atherosclerosis and other heart disease (20 sources) Coronary arteriosclerosis; Translations: [Coronary atherosclerosis of unspecified type of vessel, [place] or graft] Onset: 1 01-25-2021 Chronic Coronary atherosclerosis and other heart disease (2 sources) Presence of aortocoronary bypass graft; Translations: [PRESENCE AORTOCORONARY BYPASS GRAFT] Onset: 1 Resolved: Episodic Deficiency and other anemia (6 sources) Iron deficiency anemia; Translations: [Iron deficiency anemia, unspecified] 11-02-2023 Episodic Deficiency and other anemia (2 sources) Iron deficiency anemia, unspecified; Translations: [Iron deficiency anemia, unspecified] 11-02-2023 Episodic Diabetes mellitus with complications (20 sources) Hyperglycemia due to type 2 diabetes mellitus; Translations: [Diabetes mellitus without mention of complication, type II or unspecified type, not stated as uncontrolled] Onset: 1 Resolved: 2 Chronic Diabetes mellitus with complications (2 sources) Diabetes mellitus with complications 01-24-2021 Diabetes mellitus without complication (8 sources) Type 2 diabetes mellitus; Translations: [Type 2 diabetes mellitus without complications] 02-02-2024 Chronic Disorders of lipid metabolism (20 sources) Hypercholesterolemia; Translations: [Pure hypercholesterolemia] Onset: 1 Resolved: 1 Chronic Esophageal disorders (20 sources) Gastroesophageal reflux disease; Translations: [Gastro-esophageal reflux disease without esophagitis] Chronic Essential hypertension (7 sources) Malignant essential hypertension; Translations: [Malignant essential hypertension] Onset: 1 01-22-2021 Chronic Genitourinary symptoms and ill-defined conditions (7 sources) H/O: urinary anomaly; Translations: [Personal history of other specified urinary system disorders] Episodic Malaise and fatigue (11 sources) Fatigue; Translations: [Chronic fatigue, unspecified] Chronic Menopausal disorders (20 sources) Perimenopausal state; Translations: [Menopausal and female climacteric states] Chronic Noninfectious gastroenteritis (2 sources) Noninfective gastroenteritis and colitis, unspecified; Translations: [Other and unspecified noninfectious gastroenteritis and colitis] 09-14-2023 Episodic Nutritional deficiencies (11 sources) Vitamin D deficiency; Translations: [Vitamin D deficiency, unspecified] Chronic Osteoarthritis (20 sources) Arthritis of hand; Translations: [Primary osteoarthritis, unspecified hand] 11-02-2023 Chronic Other connective tissue disease (7 sources) H/O: arthritis; Translations: [Personal history of arthritis] Episodic Other diseases of bladder and urethra (20 sources) Bladder dysfunction; Translations: [Neuromuscular dysfunction of bladder, unspecified] Chronic Other gastrointestinal disorders (20 sources) Dysphagia; Translations: [Dysphagia, unspecified] Episodic Other gastrointestinal disorders (7 sources) History of gastroesophageal reflux disease; Translations: [Personal history of other diseases of digestive system] Episodic Other gastrointestinal disorders (7 sources) H/O: abdominal hernia; Translations: [Personal history of other diseases of digestive system] Episodic Other lower respiratory disease (7 sources) Snoring; Translations: [Other respiratory abnormalities] Episodic Other nervous system disorders (2 sources) Postoperative pain ; Translations: [Other acute postoperative pain] 01-25-2021 Episodic Other nervous system disorders (6 sources) Anesthesia of skin; Translations: [Bilateral hand numbness R20.0] Onset: 1 Resolved: 2 Episodic Other nervous system disorders (20 sources) Numbness of hand; Translations: [Anesthesia of skin] Episodic Other non-traumatic joint disorders (20 sources) Shoulder pain; Translations: [Pain in right shoulder] Episodic Other non-traumatic joint disorders (4 sources) Pain in left knee; Translations: [Pain in joint, lower leg] Onset: 4 12-31-2023 Episodic Other nutritional; endocrine; and metabolic disorders (1 source) Body mass index 30+ - obesity; Translations: [Body Mass Index 35.0-35.9, adult] Chronic Other nutritional; endocrine; and metabolic disorders (1 source) Severe obesity; Translations: [Morbid obesity] Chronic Other nutritional; endocrine; and metabolic disorders (6 sources) Obesity; Translations: [Obesity, unspecified] 12-01-2019 Chronic Other nutritional; endocrine; and metabolic disorders (7 sources) H/O: diabetes mellitus; Translations: [Personal history of other endocrine, metabolic, and immunity disorders] Episodic Residual codes; unclassified (7 sources) History of heartburn; Translations: [Personal history of other diseases of digestive system] Episodic Residual codes; unclassified (1 source) Flushing; Translations: [Flushing] 07-20-2023 Episodic Screening and history of mental health and substance abuse codes (5 sources) Ex-smoker; Translations: [Personal history of tobacco use] Episodic Sprains and strains (1 source) Sprain of knee; Translations: [Sprain of unspecified site of unspecified knee, initial encounter] Onset: 2 Episodic Substance-related disorders (3 sources) Tobacco user; Translations: [Tobacco use disorder] 01-25-2021 Chronic Comment on above: Added secondary to d ocumentation in Social History. 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, unspecified] Chronic Unclassified (2 sources) PFT IN PATIENT LT-5 01-22-2021 Comment on above: PFT IN PATIENT LT-5 Unclassified (1 source) XRAY 1 HR PRIOR 01-30-2021 Comment on above: XRAY 1 HR PRIOR Unclassified (1 source) VIRTUAL ONLY 01-30-2021 Comment on above: VIRTUAL ONLY Unclassified (1 source) Primary hypertension 01-22-2021 Unclassified (1 source) CAD (coronary artery disease) 01-25-2021 Unclassified (1 source) Tobacco abuse 01-25-2021 Unclassified (1 source) S/P CABG x 3 01-29-2021 Unclassified (1 source) Low back pain, unspecified; Translations: [Low back pain, unspecified] Onset: 4 Urinary tract infections (1 source) Acute cystitis with hematuria Episodic Past or Other Problems Problem Classification Problem Date Documented Da te Episodic/Chronic Complications of surgical procedures or medical care (12 sources) Local infection of wound; Translations: [Other postoperative infection] Resolved: 06-11-2021 Episodic Immunizations and screening for infectious disease (1 source) Contact with and (suspected) exposure to other viral communicable diseases Onset: 06-24-2021 Resolved: 06-24-2021 Episodic Nonspecific chest pain (2 sources) Other chest pain; Translations: [Other chest pain R07.89] Onset: 02-12-2021 Resolved: 02-27-2021 Episodic Other gastrointestinal disorders (4 sources) Personal history of other diseases of the digestive system; Translations: [History of dysphagia] Resolved: 06-11-2021 Episodic Other nervous system disorders (1 source) Other acute postprocedural pain; Translations: [Other acute postprocedural pain G89.18] Onset: 02-12-2021 Resolved: 02-12-2021 Episodic Other non-traumatic joint disorders (1 source) Pain in right shoulder Onset: 04-01-2021 Resolved: 04-01-2021 Episodic Other skin disorders (1 source) Follicular disorder, unspecified Onset: 03-27-2021 Resolved: 03-27-2021 Episodic Other upper respiratory infections (1 source) Acute pharyngitis, unspecified Onset: 03-27-2021 Resolved: 03-27-2021 Episodic Spondylosis; intervertebral disc disorders; other back problems (1 source) Torticollis Onset: 04-01-2021 Resolved: 04-01-2021 Episodic Unclassified (1 source) CAD 01-22-2021 Comment on above: CAD Unclassified (1 source) Cough R05.9 Onset: 06-25-2021 Resolved: 06-25-2021 Results Test Name Value Interpretation Reference Range Facility Nonvisit Note - PTon 024 Nonvisit Note - PT Nonvisit Note - PT Pt cancelled outpatient PT apt this date, isn't feeling well. Normal [facility] Nonvisit Note - PTon 024 Nonvisit Note - PT Nonvisit Note - PT Chart reviewed with eval prepped for scheduled eval. KK Normal [facility] XR knee LT 3V - NOT FOR ER U [place] 03-02-2024 XR knee LT 3V - NOT FOR ER USE [facility] [address] [place] [address] XRay Report Signed Patient: Fco Conroy MR#: [id number] 0 : 1965 Acct:[id number] Age/Sex: 58 / F ADM Date: 03/02/24 Loc: [facility] Room: Type: [facility] Attending Dr: Mario Sánchez DO Copies to: Mario Sánchez DO Ordering Provider: Mario Sánchez DO Date of Service: 03/02/24 XR/XR knee LT 3V - NOT FOR ER USE: M25.562 - Pain in left knee LEFT KNEE - 3 views COMPARISON: 11/27/2016 CLINICAL DATA: Left lateral knee pain for months. No injury. Weightbearing AP, lateral and sunrise views were obtained. No acute fracture or dislocation is identified. There is minimal lateral patellar subluxation. There is slight squaring off of the articular margins. There is no knee effusion or soft tissue swelling. There are hemostasis clips medial to the proximal tibia. XR/XR knee LT 3V - NOT FOR ER USE IMPRESSION: NO ACUTE BONY FINDINGS. MINIMAL DEGENERATIVE CHANGE. Impression dictated by: Smita Alejandre M.D.03/02/2024 9:37 AM Dictation Location: [place] [address] Transcribed By: [facility] 03/02/2437 Dictated By: Smita Alejandre MD 03/02/2426 Signed By: 03/02/2437 Normal [facility] XR lumbar spine AP/LAT/FLX/E XTon 03-02-2024 XR lumbar spine AP/LAT/FLX/EXT [facility] [address] [place] [address] XRay Report Signed Patient: Fco Conroy MR#: [id number] 0 : 1965 Acct:[id number] Age/Sex: 58 / F ADM Date: 03/02/24 Loc: [facility] [place] Room: Type: [facility] Attending Dr: Mario Sánchez DO Copies to: Mario Sánchez DO Ordering Provider: Mario Sánchez DO Date of Service: 03/02/24 XR/XR lumbar spine AP/LAT/FLX/EXT: M54.50 - Low back pain, unspecified XR lumbar spine AP/LAT/FLX/EXT 03/02/2024 9:23 AM SIGNS AND SYMPTOMS: Left knee pain laterally radiating down left leg PROTOCOLS: Frontal, lateral, and flexion extension views of the lumbar spine COMPARISON: None FINDINGS: There is a dextro convex curvature of the lumbar spine. There is 4 mm of anterolisthesis of L4 upon L5 without pathologic movement on flexion or extension. There is preservation of the vertebral body heights. There is mild disc height loss with minimal anterior osteophyte formation throughout. Facet degenerative changes are present, greatest at L4-5. Degenerative changes are noted in the sacroiliac joints. There is evidence of prior cholecystectomy in the right upper quadrant. XR/XR lumbar spine AP/LAT/FLX/EXT IMPRESSION: No acute bony injury. There is a dextro convex curvature of the lumbar spine. There is 4 mm of anterolisthesis of L4 upon L5 without pathologic movement on flexion or extension. Degenerative changes are noted throughout, as above. Impression dictated by: Christiano Valdovinos M.D.03/02/2024 12:08 PM Dictation Location: [place] [address] Transcribed By: MANUEL 03/02/24 120 Dictated By: Christiano Valdovinos II, MD 03/02/241201 Signed By: 03/02/24 120 Normal [facility] HbA1c HPLC (Bld) [Mass fract ion]on 02-02-2024 HbA1c (Bld) [Mass fraction] 6.8 % [facility] HbA1c (Bld) [Mass fraction] Hemoglobin A1c/Hemoglobin.total in Blood by HPLC [facility] HbA1c HPLC (Bld) [Mass fract ion]on 11-02-2023 HbA1c (Bld) [Mass fraction] 9.3 % [facility] Estrogens Totalon 10-28-2023 Estrogen [Mass/Vol] 67 pg/mL Invalid Interpretation Code [id number] [facility] Comment on above: Result Comment: Prep ubertal < 40 Female Cycle: 1-10 Days 16 - 328 11-20 Days 34 - 501 21-30 Days 48 - 350 Post-Menopausal 40 244 Performed at: [facility] [id number] MD Mejia Qiu Performed By: #### 1 [id number] #### [facility] [address] [place] [address] FSHon 10-28-2023 Follitropin Qn 52.8 m[IU]/mL Invalid Interpretation Code [facility] Comment on above: Result Comment: Adul t Female Range Follicular phase 3.5 - 12.5 Ovulation phase 4.7 - 21.5 Luteal phase 1.7 - 7.7 Postmenopausal 25.8 - 134.8 Performed at: [facility] [address] [id number] PhD Jose Antonio Barone Performed By: #### 2 [id number] #### [facility] [address] [place] [address] LHon 10-28-2023 Lutropin Qn 36.9 m[IU]/mL Invalid Interpretation Code [facility] Comment on above: Result Comment: Adul t Female Range Follicular phase 2.4 - 12.6 Ovulation phase 14.0 - 95.6 Luteal phase 1.0 - 11.4 Postmenopausal 7.7 - 58.5 Performed at: [facility] [address] [id number] PhD Jose Antonio Barone Performed By: #### 2 [id number] #### [facility] [address] [place] [address] Anisocytosis LM Ql (Bld)on 0 10-24-2023 Anisocytosis Ql (Bld) PRESENT [facility] Automated basophil countOrde red By: SYSTEM SYSTEM on 10-24-2023 Basophils/100 WBC (Bld) 1.1 % 0.0-2.0 R emisol Heme Automated blood monocyte cou ntOrdered By: SYSTEM SYSTEM on 10-24-2023 Monocytes/100 WBC (Bld) 5.2 % 4.0-14.0 R emisol Heme Basophils/100 WBC Auto (Bld) on 10-24-2023 Basophils/100 WBC (Bld) 0.1 E9/L 0.0-0.2 [facility] CBC w/ Auto Diffon Anisocytosis Ql (Bld) PRESENT Invalid Interpretation Code [facility] Comment on above: Performed By: #### 2 [id number] #### [facility] [address] [place] [address] Basophils/100 WBC (Bld) 1.1 % Normal 0.0-2.0 [facility] Comment on above: Performed By: #### 2 [id number] #### [facility] [address] [place] [address] Basophils/Leukocytes Auto (Bld) [Pure # fraction] 0.1 E9/L Normal 0.0-0.2 [facility] Comment on above: Performed By: #### 2 [id number] #### [facility] [address] [place] [address] Eosinophils (Bld) [#/Vol] 0.2 E9/L Normal 0.0-0.5 [facility] Comment on above: Performed By: #### 2 [id number] #### [facility] [address] [place] [address] Eosinophils/100 WBC (Bld) 2.7 % Normal 0.0-8.0 [facility] Comment on above: Performed By: #### 2 [id number] #### [facility] [address] [place] [address] Erythrocyte distribution width (RBC) [Ratio] 20.0 % High 10.9-14.2 [facility] Comment on above: Performed By: #### 2 [id number] #### [facility] [address] [place] [address] Hematocrit (Bld) [Volume fraction] 32.8 % Low 34.0-46.0 [facility] Comment on above: Performed By: #### 2 [id number] #### [facility] [address] [place] [address] Hemoglobin (Bld) [Mass/Vol] 10.5 g/dL Low 12.0-16.0 [facility] Comment on above: Performed By: #### 2 [id number] #### [facility] [address] [place] [address] Hypochromia Auto Ql (Bld) PRESENT Invalid Interpretation Code [facility] Comment on above: Performed By: #### 2 [id number] #### [facility] [address] [place] [address] Lymphocytes (Bld) [#/Vol] 1.7 E9/L Normal 1.0-4.0 [facility] Comment on above: Performed By: #### 2 [id number] #### [facility] [address] [place] [address] Lymphocytes/100 WBC (Bld) 30.0 % Normal 14.0-50.0 [facility] Comment on above: Performed By: #### 2 [id number] #### [facility] [address] [place] [address] MCH (RBC) [Entitic mass] 21.4 pg Low 27.0-34.0 [facility] Comment on above: Performed By: #### 2 [id number] #### [facility] [address] [place] [address] MCHC (RBC) [Mass/Vol] 31.9 g/dL Normal 31.4-36.0 [facility] Comment on above: Performed By: #### 2 [id number] #### [facility] [address] [place] [address] MCV (RBC) [Entitic vol] 67.1 fL Low 80.0-100.0 F [facility] Comment on above: Performed By: #### 2 [id number] #### [facility] [address] [place] [address] Microcytes Ql (Bld) PRESENT Invalid Interpretation Code [facility] Comment on above: Performed By: #### 2 [id number] #### [facility] [address] [place] [address] Monocytes (Bld) [#/Vol] 0.3 E9/L Normal 0.2-1.0 F [facility] Comment on above: Performed By: #### 2 [id number] #### [facility] [address] [place] [address] Neutrophils (Bld) [#/Vol] 3.4 E9/L Normal 2.0-7.5 [facility] Comment on above: Performed By: #### 2 [id number] #### [facility] [address] [place] [address] Neutrophils/100 WBC (Bld) 61.0 % Normal 36.0-75.0 [facility] Comment on above: Performed By: #### 2 [id number] #### [facility] [address] [place] [address] Platelet 266.0 E9/L Normal 150.0-500.0 [facility] Comment on above: Performed By: #### 2 [id number] #### [facility] [address] [place] [address] Platelet mean volume (Bld) [Entitic vol] 8.4 fL Normal 6.4-10.8 [facility] Comment on above: Performed By: #### 2 [id number] #### [facility] [address] [place] [address] RBC (Bld) [#/Vol] 4.9 E12/L Normal 4.3-5.9 [facility] Comment on above: Performed By: #### 2 [id number] #### [facility] [address] [place] [address] RBC size Nom (Bld) SEE MORPHOLOGY Invalid Interpretation Code [facility] Comment on above: Performed By: #### 2 [id number] #### [facility] [address] [place] [address] WBC corrected for nucl RBC Auto (Bld) [#/Vol] 5.6 E9/L Normal 4.0-11.0 [facility] Comment on above: Performed By: #### 2 [id number] #### [facility] [address] [place] [address] CHEMISTRYOrdered By: SYSTEM SYSTEM on 10-24-2023 ALP [Catalytic activity/Vol] 70 [iU]/d Normal 21 - 98 Int._Unit/L Remisol Chem ALT No additional P-5'-P [Catalytic activity/Vol] 11 [iU]/d Normal 6 - 46 Int._Unit/L Remisol Chem AST [Catalytic activity/Vol] 11 [iU]/d Normal 5 - 43 Int._Unit/L Remisol Chem eGFR 110 mL/min/1.73 m2 Normal >=59mL/mi n/ 1.73 m2 Remisol Chem Urea nitrogen/Creatinine [Mass ratio] 42 mg/mg High 10 - 20 Remisol Chem CMPon 10-24-2023 Albumin [Mass/Vol] 4.2 g/dL Normal 3.3-5.0 [facility] Comment on above: Performed By: #### 2 [id number] #### [facility] [address] [place] [address] Albumin/Globulin (S) [Mass conc ratio] 1.2 Normal 1.1-2.2 [facility] Comment on above: Performed By: #### 2 [id number] #### [facility] [address] [place] [address] ALP [Catalytic activity/Vol] 70 Int._Unit/L Normal 21-98 [facility] Comment on above: Performed By: #### 2 [id number] #### [facility] [address] [place] [address] ALT No additional P-5'-P [Catalytic activity/Vol] 11 Int._Unit/L Normal 6-46 [facility] Comment on above: Performed By: #### 2 [id number] #### [facility] [address] [place] [address] AST [Catalytic activity/Vol] 11 Int._Unit/L Normal 5-43 [facility] Comment on above: Performed By: #### 2 [id number] #### [facility] [address] [place] [address] Bilirubin [Mass/Vol] 0.4 mg/dL Normal 0.0-1.1 [facility] Comment on above: Performed By: #### 2 193917 #### [facility] [address] [place] [address] Globulin (S) [Mass/Vol] 3.4 g/dL Normal 1.4-4.0 [facility] Comment on above: Performed By: #### 2 [id number] #### [facility] [address] [place] [address] Protein [Mass/Vol] 7.6 g/dL Normal 6.0-7.8 [facility] Comment on above: Performed By: #### 2 [id number] #### [facility] [address] [place] [address] Anion gap [Moles/Vol] 12 mmol/L Normal 6-16 [facility] Comment on above: Performed By: #### 2 [id number] #### [facility] [address] [place] [address] Calcium [Mass/Vol] 9.0 mg/dL Normal 8.9-11.1 [facility] Comment on above: Performed By: #### 2 [id number] #### [facility] [address] [place] [address] Chloride [Moles/Vol] 103 mmol/L Normal 101-111 [facility] Comment on above: Performed By: #### 2 [id number] #### [facility] [address] [place] [address] CO2 [Moles/Vol] 26 mmol/L Normal 21-31 [facility] Comment on above: Performed By: #### 2 [id number] #### [facility] [address] [place] [address] Creatinine [Mass/Vol] 0.5 mg/dL Normal 0.5-1.3 [facility] Comment on above: Performed By: #### 2 [id number] #### [facility] [facility] [address] [place] [address] Glucose [Mass/Vol] 204 mg/dL High 55-199 [facility] Comment on above: Performed By: #### 2 [id number] #### [facility] [address] [place] [address] Potassium [Moles/Vol] 4.1 mmol/L Normal 3.5-5.3 [facility] Comment on above: Performed By: #### 2 [id number] #### [facility] [address] [place] [address] Sodium [Moles/Vol] 137 mmol/L Normal 135-145 [facility] Comment on above: Performed By: #### 2 [id number] #### [facility] [address] [place] [address] Urea nitrogen [Mass/Vol] 21 mg/dL Normal 5-21 [facility] Comment on above: Performed By: #### 2 [id number] #### [facility] [address] [place] [address] Urea nitrogen/Creatinine [Mass ratio] 42 No Units High - [facility] Comment on above: Performed By: #### 2 [id number] #### [facility] [address] [place] [address] Cholesterol in VLDL [Mass/vo lume] in Serum or Plasma by calculationOrdered By: SYSTEM SYSTEM on 10-24-2023 Cholesterol in VLDL [Mass/Vol] 26 mg/dL 7-40 Remisol Chem Consent for Treatmenton Consent for Treatment [id number] #1.00TIFF Normal [facility] Eosinophils/100 leukocytes i n Blood by Manual countOrdered By: SYSTEM SYSTEM on 10-24-2023 Eosinophils/100 WBC (Bld) 2.7 % 0.0-8.0 Remisol Heme Erythrocyte distribution wid th [Ratio] by Automated countOrdered By: SYSTEM SYSTEM on 10-24-2023 Erythrocyte distribution width (RBC) [Ratio] 20.0 % High 10.9-14.2 Remisol Heme Erythrocytes [#/volume] in B lood by Automated countOrdered By: SYSTEM SYSTEM on 10-24-2023 RBC (Bld) [#/Vol] 4.9 E12/L 4.3-5.9 Remisol Heme Estimated glomerular filtrat ion rate (GFR) non- Americanon 10-24-2023 GFR/1.73 sq M.predicted among non-blacks MDRD (S/P/Bld) [Vol rate/Area] 110 mL/min/1.73 m2 >=59 [facility] HEMATOLOGYOrdered By: SYSTEM SYSTEM on 10-24-2023 Anisocytosis Ql (Bld) PRESENT *NA* (10/24/23 10:28 AM) Invalid Interpretation Code Remisol Heme Basophils/Leukocytes Auto (Bld) [Pure # fraction] 0.1 E9/L Normal 0.0 - 0.2 E9/L Remisol Heme Eosinophils (Bld) [#/Vol] 0.2 E9/L Normal 0.0 - 0.5 E9/L Remisol Heme Hypochromia Auto Ql (Bld) PRESENT *NA* (10/24/23 10:28 AM) Invalid Interpretation Code Remisol Heme Lymphocytes (Bld) [#/Vol] 1.7 E9/L Normal 1.0 - 4.0 E9/L Remisol Heme Microcytes Ql (Bld) PRESENT *NA* (10/24/23 10:28 AM) Invalid Interpretation Code Remisol Heme Monocytes (Bld) [#/Vol] 0.3 E9/L Normal 0.2 - 1.0 E9/L Remisol Heme Platelet 266.0 E9/L Normal 150.0 - 500.0 E9/L Remisol Heme RBC size Nom (Bld) SEE MORPHOLOGY *NA* (10/24/23 10:28 AM) Invalid Interpretation Code Remisol Heme Hematocrit [Volume Fraction] of Blood by Automated countOrdered By: SYSTEM SYSTEM on 10-24-2023 Hematocrit (Bld) [Volume fraction] 32.8 % Low 34.0-46.0 Remisol Heme Hemoglobin [Mass/volume] in BloodOrdered By: SYSTEM SYSTEM on 10-24-2023 Hemoglobin (Bld) [Mass/Vol] 10.5 g/dL Low 12.0-16.0 Remisol Heme Hypochromia LM Ql (Bld)on Hypochromia Ql (Bld) PRESENT [facility] - Chemistry and C hemistry - challengeOrdered By: SYSTEM SYSTEM on 10-24-2023 Albumin [Mass/Vol] 4.2 g/dL 3.3-5.0 Remiso l Chem Bilirubin [Mass/Vol] 0.4 mg/dL 0.0-1.1 Cristi maynor Chem Calcium [Mass/Vol] 9.0 mg/dL 8.9-11.1 Remiso l Chem Chloride [Moles/Vol] 103 mmol/L 101-111 Cristi maynor Chem Cholesterol [Mass/Vol] 287 mg/dL High 120-200 Re misol Chem Cholesterol in HDL [Mass/Vol] 52 mg/dL Remisol Chem Comment on above: Result Comment: '>= 60 LOW RISK' '<= 40 HIGH RISK' Cholesterol in LDL [Mass/Vol] 205 mg/dL High <=129 Remisol Chem CO2 [Moles/Vol] 26 mmol/L 21-31 Remisol C hem Creatinine [Mass/Vol] 0.5 mg/dL 0.5-1.3 Rem isol Chem Glucose [Mass/Vol] 204 mg/dL High 55-199 Remiso l Chem Potassium [Moles/Vol] 4.1 mmol/L 3.5-5.3 Rem isol Chem Protein [Mass/Vol] 7.6 g/dL 6.0-7.8 Remiso l Chem Sodium [Moles/Vol] 137 mmol/L 135-145 Remiso l Chem Triglyceride [Mass/Vol] 128 mg/dL <=149 R emisol Chem TSH Qn 0.41 m[IU]/L 0.34-5.60 Remisol Chem Urea nitrogen [Mass/Vol] 21 mg/dL 5-21 Remisol Chem Laboratory - Hematology and Cell countsOrdered By: SYSTEM SYSTEM on 10-24-2023 Neutrophils/100 WBC (Bld) 61.0 % 36.0-75.0 Remisol Heme Leukocytes [#/volume] correc dulce maria for nucleated erythrocytes in Blood by Automated counOrdered By: SYSTEM SYSTEM on 10-24-2023 WBC corrected for nucl RBC Auto (Bld) [#/Vol] 5.6 E9/L 4.0-11.0 Remisol H julia Lipid Panelon 10-24-2023 Cholesterol [Mass/Vol] 287 mg/dL High 120-200 [facility] Comment on above: Performed By: #### 2 [id number] #### [facility] [address] [place] [address] Cholesterol in HDL [Mass/Vol] 52 mg/dL Invalid Interpretation Code [facility] Comment on above: Result Comment: '>= 60 LOW RISK' '<= 40 HIGH RISK' Performed By: #### 2 [id number] #### [facility] [address] [place] [address] Cholesterol in LDL [Mass/Vol] 205 mg/dL High <=129 [facility] Comment on above: Performed By: #### 2 [id number] #### [facility] [address] [place] [address] Cholesterol in VLDL [Mass/Vol] 26 mg/dL Normal 7-40 [facility] Comment on above: Performed By: #### 2 [id number] #### [facility] [address] [place] [address] Triglyceride [Mass/Vol] 128 mg/dL Normal <=149 [facility] Comment on above: Performed By: #### 2 [id number] #### [facility] [address] [place] [address] Lymphocytes [#/volume] in Bl ood by Automated countOrdered By: SYSTEM SYSTEM on 10-24-2023 Lymphocytes/100 WBC (Bld) 30.0 % 14.0-50.0 Remisol Heme MCH [Entitic mass] by Automa dulce maria countOrdered By: SYSTEM SYSTEM on 10-24-2023 MCH (RBC) [Entitic mass] 21.4 pg Low 27.0-34.0 Remisol Heme MCHC [Mass/volume] by Automa dulce maria countOrdered By: SYSTEM SYSTEM on 10-24-2023 MCHC (RBC) [Mass/Vol] 31.9 g/dL 31.4-36.0 Rem isol Heme MCV [Entitic volume] by Auto mated countOrdered By: SYSTEM SYSTEM on 10-24-2023 MCV (RBC) [Entitic vol] 67.1 fL Low 80.0-100.0 R emisol Heme Microcytes LM Ql (Bld)on Microcytes Ql (Bld) PRESENT [facility] Neutrophils [#/volume] in Bl ood by Automated countOrdered By: SYSTEM SYSTEM on 10-24-2023 Neutrophils (Bld) [#/Vol] 3.4 E9/L 2.0-7.5 Remisol Heme No Panel Informationon 10-23 Alanine Aminotransferase (ALT/SGPT) 11 Int._Unit/L 6-46 [facility] Alkaline Phosphatase 70 Int._Unit/L 21-98 [facility] Aspartate Amino Transf (AST/SGOT) 11 Int._Unit/L 5-43 [facility] BUN/Creatinine Ratio 42 No Units High 10-20 [facility] Eosinophils # (Auto) 0.2 E9/L 0.0-0.5 [facility] Follicle Stimulating Hormone 52.8 mIU/mL [facility] Lymphocytes # (Manual) 1.7 E9/L 1.0-4.0 Fi [facility] Miscellaneous Test 5 Peripheral Blood Smear: [facility] RBC Size SEE MORPHOLOGY [facility] Physician Orderon 10-24-2023 Physician Order [id number] #1.00TIFF Normal [facility] Platelet mean volume [Entiti c volume] in Blood by Automated countOrdered By: SYSTEM SYSTEM on 10-24-2023 Platelet mean volume (Bld) [Entitic vol] 8.4 fL 6.4-10.8 Remisol Heme Platelets Auto (Bld) [#/Vol] on 10-24-2023 Platelets (Bld) [#/Vol] 266.0 E9/L 150.0-500.0 [facility] Serum globulin measurement b y calculation (mass/volume)Ordered By: SYSTEM SYSTEM on 10-24-2023 Globulin (S) [Mass/Vol] 3.4 g/dL 1.4-4.0 R emisol Chem Serum or plasma albumin/glob ulin mass ratioOrdered By: SYSTEM SYSTEM on 10-24-2023 Albumin/Globulin [Mass ratio] 1.2 {ratio} 1.1-2.2 Remisol Chem Serum or plasma anion gap de terminationOrdered By: SYSTEM SYSTEM on 10-24-2023 Anion gap [Moles/Vol] 12 mmol/L 6-16 Rem isol Chem Serum or plasma lutropin zaida surement (units/volume)on 10-24-2023 Lutropin Qn 36.9 m[IU]/mL [facility] TSHon 10-24-2023 TSH Qn 0.41 m[IU]/L Normal 0.34-5.60 [facility] Comment on above: Performed By: #### 2 [id number] #### [facility] [address] [place] [address] Total estrogen measurementon 10-24-2023 Estrogen [Mass/Vol] 67 pg/mL 40-244 [facility] eGFRon 10-24-2023 eGFR 110 mL/min/1.73 m2 Normal >=59 [facility] Comment on above: Order Comment: Order added by Discern Expert. Performed By: #### 1 [id number] #### [facility] [address] [place] [address] Automated urine specific gra vity by refractometryon 09-10-2023 Specific gravity Refractometry automated (U) [Rel density] 1.020 1.005-1.025 [facility] Basophils Auto (Bld) [#/Vol] on 09-10-2023 Basophils (Bld) [#/Vol] 0.1 10 3/uL 0.0-0.1 [facility] Basophils/100 WBC Auto (Bld) on 09-10-2023 Basophils/100 WBC (Bld) 0.5 % 0.2-2.[address] [facility] Bilirubin Auto test strip (U ) [Mass/Vol]on 09-10-2023 Bilirubin (U) [Mass/Vol] Negative NEGATIVE [facility] Color Auto (U)on 09-10-2023 Color (U) YELLOW YELLOW [facility] Eosinophils/100 WBC Auto (Bl d)on 09-10-2023 Eosinophils/100 WBC (Bld) 0.0 % 0.9-7.0 [facility] Erythrocyte distribution wid th Auto (RBC) [Ratio]on 09-10-2023 Erythrocyte distribution width (RBC) [Ratio] 19.1 % 11.0-15.0 [facility] Estimated glomerular filtrat ion rate (GFR) non- Americanon 09-10-2023 GFR/1.73 sq M.predicted among non-blacks MDRD (S/P/Bld) [Vol rate/Area] mL/min/{1.73_m2} >=60 [facility] Globulin Calc (S) [Mass/Vol] on 09-10-2023 Globulin (S) [Mass/Vol] 4.6 g/dL [facility] Hematocrit Auto (Bld) [Volum e fraction]on 09-10-2023 Hematocrit (Bld) [Volume fraction] 39.7 % 36.0-48.0 [facility] Hemoglobin [Mass/volume] in Bloodon 09-10-2023 Hemoglobin (Bld) [Mass/Vol] 11.0 g/dL 12.0-16.0 [facility] Ketones Auto test strip (U) [Mass/Vol]on 09-10-2023 Ketones (U) [Mass/Vol] 40 mg/dL NEGATIVE [facility] - Chemistry and C hemistry - challengeon 09-10-2023 Albumin [Mass/Vol] 3.6 g/dL 3.4-5.0 [facility] ALP [Catalytic activity/Vol] 108 U/L 46-116 [facility] ALT [Catalytic activity/Vol] 23 U/L 14-59 [facility] AST [Catalytic activity/Vol] 15 U/L 15-37 [facility] Bilirubin [Mass/Vol] 0.4 mg/dL 0.2-1.0 [facility] Calcium [Mass/Vol] 9.7 mg/dL 8.5-10.1 [facility] Chloride [Moles/Vol] 100 mmol/L 98-107 [facility] CO2 [Moles/Vol] 21.4 mmol/L 21.0-32.0 [facility] Creatinine [Mass/Vol] 0.71 mg/dL 0.55-1.02 [facility] GFR/1.73 sq M.predicted MDRD (S/P/Bld) [Vol rate/Area] mL/min/{1.73_m2} >=60 [facility] Glucose [Mass/Vol] 355 mg/dL 74-106 [facility] Lipase [Catalytic activity/Vol] 23.0 U/L 16.0-77.0 [facility] Magnesium [Mass/Vol] 1.8 mg/dL 1.8-2.4 [facility] Potassium [Moles/Vol] 4.0 mmol/L 3.5-5.1 [facility] Protein [Mass/Vol] 8.2 g/dL 6.4-8.2 [facility] Sodium [Moles/Vol] 138 mmol/L 136-145 [facility] Urea nitrogen [Mass/Vol] 17.0 mg/dL 7.0-18.0 [facility] Urea nitrogen/Creatinine [Mass ratio] 23.9 mg/mg [facility] Laboratory - Hematology and Cell countson 09-10-2023 Immature granulocytes/100 WBC (Bld) 0.4 % 0.0-0.5 [facility] Leukocytes [#/volume] correc dulce maria for nucleated erythrocytes in Blood by Automated counon 09-10-2023 WBC corrected for nucl RBC Auto (Bld) [#/Vol] 11.2 10 3/uL 4.0-11.0 [facility] Lymphocytes Auto (Bld) [#/Vo l]on 09-10-2023 Lymphocytes (Bld) [#/Vol] 1.1 10 3/uL 1.2-3.8 [facility] Lymphocytes/100 WBC Auto (Bl d)on 09-10-2023 Lymphocytes/100 WBC (Bld) 9.6 % 20.5-60.0 [facility] MCH Auto (RBC) [Entitic mass ]on 09-10-2023 MCH (RBC) [Entitic mass] 19.8 pg 26.7-34.0 [facility] MCHC Auto (RBC) [Mass/Vol]on 09-10-2023 MCHC (RBC) [Mass/Vol] 27.7 g/dL 29.9-35.2 [facility] MCV Auto (RBC) [Entitic vol] on 09-10-2023 MCV (RBC) [Entitic vol] 71.4 fL 81.0-99.[address] [facility] Monocytes Auto (Bld) [#/Vol] on 09-10-2023 Monocytes (Bld) [#/Vol] 0.2 10 3/uL 0.3-0.8 [facility] Monocytes/100 WBC Auto (Bld) on 09-10-2023 Monocytes/100 WBC (Bld) 1.8 % 1.7-12.[address] [facility] Neutrophils Auto (Bld) [#/Vo l]on 09-10-2023 Neutrophils (Bld) [#/Vol] 9.8 10 3/uL 1.4-6.5 [facility] Neutrophils/100 WBC Auto (Bl d)on 09-10-2023 Neutrophils/100 WBC (Bld) 87.7 % 43.0-75.0 [facility] No Panel Informationon 09-09 Eosinophils # (Auto) 0.0 10 3/uL 0.0-0.7 [facility] Immature Granulocyte # (Auto) 0.05 10 3/uL 0.00-0.03 [facility] Urine Microscopic Review NO [facility] Platelet mean volume Auto (B ld) [Entitic vol]on 09-10-2023 Platelet mean volume (Bld) [Entitic vol] 10.2 fL 9.5-13.5 [facility] Platelets Auto (Bld) [#/Vol] on 09-10-2023 Platelets (Bld) [#/Vol] 392 10 3/uL 150-450 [facility] Protein Auto test strip (U) [Mass/Vol]on 09-10-2023 Protein (U) [Mass/Vol] Negative NEG/TRACE Fi [facility] RBC Auto (Bld) [#/Vol]on RBC (Bld) [#/Vol] 5.56 10 6/uL 4.20-5.40 [facility] Comment on above: HYPOCHROMASIA 1+MICR OCYTES 2+POLYCHROMASIA 1+ Serum or plasma albumin/glob ulin mass ratioon 09-10-2023 Albumin/Globulin [Mass ratio] 0.8 {ratio} [facility] Serum or plasma anion gap de terminationon 09-10-2023 Anion gap [Moles/Vol] 20.6 mmol/L Fi [facility] Specific gravity Auto test s trip (U) [Rel density]on 09-10-2023 Specific gravity (U) [Rel density] CLEAR CLEAR [facility] Urine glucose measurement by test strip (mass/volume)on 09-10-2023 Glucose Test strip (U) [Mass/Vol] >=1000 mg/dL NEGATIVE [facility] Urine hemoglobin detection b y automated test stripon 09-10-2023 Hemoglobin Auto test strip Ql (U) Negative NEGATIVE [facility] Urine nitrite detection by a utomated test stripon 09-10-2023 Nitrite Auto test strip Ql (U) Negative NEGATIVE [facility] Urobilinogen Auto test strip (U) [Mass/Vol]on 09-10-2023 Urobilinogen Qn (U) 0.2 {Rancho'U}/dL 0.2-1.0 [facility] pH Auto test strip (U)on pH (U) 5.5 [pH] 5.0-9.0 [facility] HbA1c HPLC (Bld) [Mass fract ion]on 07-20-2023 HbA1c (Bld) [Mass fraction] 10.2 % [facility] A1C HEMOGLOBINon 06-05-2022 HbA1c (Bld) [Mass fraction] 12.4 % [employer] Other HbA1c (Bld) [Mass fraction]o n 06-05-2022 A1C HEMOGLOBIN [facility] [employer] Other Echocardiogramon 07-01-[address], [place] [address] TRANSTHORACIC ECHOCARDIOGRAM REPORT Patient Name: FCO RAFIQ Huffman Physician: [id number] Colleen Hendrix MD, [facility] Study Date: 07/01/2021 Referring [id number] COLLEEN HENDRIX Physician: MRN/PID: [id number] PCP: Husam Zamora MD Accession/Order#: [id number] Department [facility] Location: Date of : 1965 Fellow: Gender: F Nurse: Admit Date: [employer] Worker: Lucretia Chan [facility], T Height: 160.02 cm CC Report to: Weight: 89.81 kg Study Type: Echocardiogram BSA: 1.93 m2 Blood Pressure: 146 /84 mmHg Diagnosis/ICD: I25.10-Atherosclerot ic heart disease of [place] coronary artery without angina pectoris; I25.5-Ischemic cardiomyopathy Indication: Diabetes, HTN, Hyperlipidemia, HI-01/19/2021, CABG-01/24/2021, Former Smoker, Obesity, COVID-19 03/2021 Procedure/CPT: Echo Complete w Full [id number] Study Detail: The following Echo studies were performed: 2D, M-Mode, Doppler and color flow. PHYSICIAN INTERPRETATION: Left Ventricle: The left ventricular systolic function is mildly decreased, with an estimated ejection fraction of 45-50%. Wall motion is abnormal. The left ventricular cavity size is normal. Spectral Doppler shows an impaired relaxation pattern of left ventricular diastolic filling. Severe septal hypokinesis. Left Atrium: The left atrium is normal in size. Right Ventricle: The right ventricle is normal in size. There is normal right ventricular global systolic function. Right Atrium: The right atrium is normal in size. Aortic Valve: The aortic valve appears structurally normal. There is no evidence of aortic valve regurgitation. The peak instantaneous gradient of the aortic valve is 12.7 mmHg. The mean gradient of the aortic valve is 6.0 mmHg. Mitral Valve: The mitral valve is normal in structure. There is no evidence of mitral valve regurgitation. Tricuspid Valve: The tricuspid valve is structurally normal. No evidence of tricuspid regurgitation. Pulmonic Valve: The pulmonic valve is structurally normal. There is no indication of pulmonic valve regurgitation. Pericardium: There is no pericardial effusion noted. Aorta: The aortic root is normal. Systemic Veins: The inferior vena cava appears to be of normal size. In comparison to the previous echocardiogram(s): When compared to a study from 02/05, the previously reported hypokinesis of the infrolateral wall has resolved. CONCLUSIONS: 1. The left ventricular systolic function is mildly decreased with a 45-50% estimated ejection fraction. 2. Severe septal hypokinesis. 3. Spectral Doppler shows an impaired relaxation pattern of left ventricular diastolic filling. 4. When compared to a study from 02/05, the previously reported hypokinesis of the infrolateral wall has resolved. QUANTITATIVE DATA SUMMARY: 2D MEASUREMENTS: Normal Ranges: Ao Root d: 2.50 cm (2.0-3.7cm) LAs: 3.30 cm (2.7-4.0cm) RVIDd: 2.20 cm (0.9-3.6cm) IVSd: 1.00 cm (0.6-1.1cm) LVPWd: 0.80 cm (0.6-1.1cm) LVIDd: 5.00 cm (3.9-5.9cm) LVIDs: 3.30 cm LV Mass Index: 82.2 g/m2 LV % FS 34.0 % LV SYSTOLIC FUNCTION BY 2D PLANIMETRY (MOD): Normal Ranges: EF-A4C View: 43.5 % (>55%) LV DIASTOLIC FUNCTION: Normal Ranges: MV Peak E: 0.74 m/s (0.7-1.2 m/s) MV Peak A: 0.93 m/s (0.42-0.7 m/s) E/A Ratio: 0.79 (1.0-2.2) MV lateral e' 0.10 m/s MV medial e' 0.05 m/s E/e' Ratio: 7.50 (<8.0) MITRAL VALVE: Normal Ranges: MV Vmax: 0.97 m/s (<1.3m/s) MV peak P.8 mmHg (<5mmHg) MV mean P.0 mmHg (<48mmHg) MITRAL INSUFFICIENCY: Normal Ranges: MR Vmax: 294.00 cm/s AORTIC VALVE: Normal Ranges: AoV Vmax: 1.78 m/s (<1.7m/s) AoV Peak P.7 mmHg (<20mmHg) AoV Mean P.0 mmHg (1.7-11.5mmHg) LVOT Max Phoenix: 0.96 m/s (<1.1m/s) AoV VTI: 31.10 cm (18-25cm) LVOT VTI: 17.40 cm LVOT Diameter: 2.10 cm (1.8-2.4cm) AoV Area, VTI: 1.94 cm2 (2.5-5.5cm2) AoV Area,Vmax: 1.86 cm2 (2.5-4.5cm2) AoV Dimensionless Index: 0.56 PULMONIC VALVE: Normal Ranges: PV Max Phoenix: 0.7 m/s (0.6-0.9m/s) PV Max P.0 mmHg [id number] Colleen Hendrix MD, FACC Electronically signed on 07/02/2021 at 9:28:[address] [facility] Echocardiography Please click on the link to view the study images Normal [facility] [address] [place] Work Phone: A1C HEMOGLOBINon 06-25-2021 HbA1c (Bld) [Mass fraction] 7.3 % Front [employer] Other HbA1c (Bld) [Mass fraction]o n 06-25-2021 A1C HEMOGLOBIN [employer] Other Office Visit (Cardiology)on 06-11-2021 Follow-up visit Diagnoses/Problems Assessed CAD (coronary artery disease) (414.00) (I25.10) S/P CABG x 3 (V45.81) (Z95.1) HOLLAND to LAD, SVG to OM, SVG to PDA Dyslipidemia (272.4) (E78.5) Essential hypertension, benign (401.1) (I10) Type 2 diabetes mellitus with hyperglycemia, unspecified whether snf insulin use (250.00) (E11.65) Class 2 obesity with body mass index (BMI) of 35.0 to 35.9 in adult (278.00,V85.35) (E66.9,Z68.35) Former smoker (V15.82) (Z87.891) Ischemic cardiomyopathy (414.8) (I25.5) 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) Orders CAD (coronary artery disease) Renew: Aspirin 81 MG Oral Tablet Delayed Release; TAKE 1 TABLET DAILY CAD (coronary artery disease), Essential hypertension, benign Renew: Lisinopril 2.5 MG Oral Tablet; TAKE 1 TABLET DAILY CAD (coronary artery disease), Essential hypertension, benign, Ischemic cardiomyopathy Renew: Metoprolol Succinate ER 50 MG Oral Tablet Extended Release 24 Hour; TAKE 1 TABLET DAILY CAD (coronary artery disease), Ischemic cardiomyopathy Echocardiogram; Status:Hold For - Scheduling,Retrospec tive Authorization; Requested for:11Jun2021; Class 2 obesity with body mass index (BMI) of 35.0 to 35.9 in adult Healthy Weight Tips; Status:Complete - Retrospective Authorization; Done: 11Jun2021 SocHx: Former smoker Tobacco Use Screening; Status:Complete; Done: 11Jun2021 Follow up in [6 ] months Retrieve lab Patient Instructions By signing my name below, IMargarette Lpn, Scribnaresh, attest that this documentation has been prepared under the direction and in the presence of Dr. Colleen Hendrix MD. All medical record entries made by the Scribe were at my direction and personally dictated by me. I have reviewed the chart and agree that the record accurately reflects my personal performance of the history, physical exam, discussion and plan. Please bring all medicines, vitamins, and herbal supplements with you when you come to the office. Prescriptions will not be filled unless you are compliant with your follow up appointments or have a follow up appointment scheduled as per instruction of your physician. Refills should be requested at the time of your visit. Chief Complaint FCO CONROY is being seen for a 3 month follow-up of. Patient came back to the office for follow-up her last visit back in February and has had no events since except for developing COVID-19 infection which was mild. She finished cardiac rehab she is currently back working full-time in a [employer] in [place]. She is motivated lost 3 pounds with a plan to lose more. She denies any palpitations, chest pain or dyspnea. She feels great and has been compliant medical therapy. She had blood work since her last visit which we requested from PCP. She tolerated medical therapy without any problems. Apart from obesity physical examination was unremarkable. Her medical therapy was reviewed with her. She is known to have mild left ventricular systolic dysfunction at 45%, repeat echocardiogram will be scheduled Assessment/recommend ations: 1?severe three-vessel coronary artery disease status post coronary artery bypass surgery January 2021 at [facility] using HOLLAND graft to LAD, left radial artery to left circumflex and saphenous vein graft to PDA. The patient was educated extensively on secondary prevention for CAD. Currently she is stable and present medical therapy will be left unchanged. 2?mild asymptomatic left ventricular systolic dysfunction, ejection fraction 45% by echocardiogram January 2021. A follow-up echocardiogram is scheduled 3?longstanding diabetes with no evidence of retinopathy, neuropathy or nephropathy. This is been managed by PCP. 4?hyperlipidemia on maximal dose atorvastatin. Target LDL 55-70, will retrieve recent lab done through PCP and make some determination on medical therapy 5?hypertension, currently under control on a small dose of AGUSTINA inhibitor plus beta-javier therapy. 6?longstanding history of tobacco abuse ended January 2021 with no plan to go back to smoking 7?significant obesity. Patient was advised that her weight is come down with lifestyle modifications including aggressive dieting and exercise. 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 The patient will be back in the office in 6 months Surgical History Problems History of Ablation Of Vaginal Lesion(S) History of Section History of Coronary artery bypass graft History of Gallbladder Surgery History Of Prior Surgery Lumpectomy History of Hysterectomy Past Medical History Problems History of High cholesterol (272.0) (E78.00) History of arthritis (V13.4) (Z87.39) History of bladder problems (V13.09) (Z87.448) History of diabetes mellitus (V12.29) (Z86.39) History of dysphagia (V12.79) (Z87.19) History of esophageal reflux (V12.79) (Z87.19) History of heartburn (V12.79) (Z87.898) History of hiatal hernia (V12.7 (more content not included)... Normal wishkicker Tobacco Screening.on 022 Fall risk assessment a) No falls within the last year [facility] 250 DO Work Phone: Tobacco use status CPHS b) No M [facility] ASSET4 DO Work Phone: LIPID PROFILEon 03-20-2021 CHOL-HDL RATIO NORM SEE BELOW Normal [facility] Comment on above: Result Comment: 3.3 - 4.4 LOW RISK 4.4 - 7.1 AVERAGE RISK 7.1 - 11.0 MODERATE RISK >11.0 HIGH RISK Performed By: #### L IPID #### [facility] [address] [place] [address] Dr. Gray Garcia Cholesterol [Mass/Vol] 143 mg/dL Normal <=200 Th [facility] Comment on above: Performed By: #### L IPID #### [facility] [address] [place] [address] Dr. Gray Garcia Cholesterol in HDL [Mass/Vol] 50 mg/dL Normal [facility] Comment on above: Performed By: #### L IPID #### [facility] [address] [address] [address] Gray Garcia Cholesterol in LDL [Mass/Vol] 71.6 mg/dL Normal [facility] Comment on above: Performed By: #### L IPID #### [facility] [address] [address] [address] Gray Garcia Cholesterol.total/Sheridan sterol in HDL [Mass ratio] 2.9 {ratio} Normal [facility] Comment on above: Performed By: #### L IPID #### [facility] [address] [place], [place] [address] Dr. Gray Garcia HDL NORMAL > or = 60 mg/dl - LOW CARDIOVASCULAR RISK <40 mg/dl - HIGH CARDIOVASCULAR RISK Normal [facility] Comment on above: Performed By: #### L IPID #### [facility] [address], [place] [address] Dr. Gray Garcia LDL CALC NORMAL SEE BELOW Normal [facility] Comment on above: Result Comment: <100 mg/dl OPTIMAL 100 - 129 mg/dl NEAR OR ABOVE OPTIMAL 130 - 159 mg/dl BORDERLINE HIGH 160 - 189 mg/dl HIGH >190 mg/dl VERY HIGH Performed By: #### L IPID #### [facility] [address], [place] [address] Dr. Gray Garcia Triglyceride [Mass/Vol] 107 mg/dL Normal <=150 T [facility] Comment on above: Performed By: #### L IPID #### [facility] [address], [place] [address] Dr. Gray Garcia VLDL CALC 21.4 mg/dL Normal [facility] Comment on above: Performed By: #### L IPID #### [facility] [address], [place] [address] Dr. Gray Garcia A1C HEMOGLOBINon 03-19-2021 HbA1c (Bld) [Mass fraction] 7.1 % Front App Other Office Visit (Cardiac Surger y)on 02-22-2021 Follow-up visit Diagnoses/Problems Assessed CAD (coronary artery disease) (414.00) (I25.10) Incisional infection (998.59) (T81.49XA) S/P CABG x 3 (V45.81) (Z95.1) HOLLAND to LAD, SVG to OM, SVG to PDA Provider Impressions Overall she has made an excellent recovery following coronary bypass grafting x3. I reassured her. I have discharged him from further follow-up. In view of her symptoms and signs of carpal tunnel syndrome advised her to contact her primary care physician. I am of course very happy to see her again if required. Chief Complaint Patient is here for a wound check s/p CABG x 3 done on January 24, 2021. Lennox Saenz RN Adult Risk ScreeningThere are no spiritual/cultural practices/values/nee ds that are important to know Initial Fall Risk Screening: FCO has not fallen in the last 6 months. The patient is not using an assistive device. Advance directives: Living Will: No living will on file. Healthcare POA: No healthcare proxy on file. History of Present Illness I reviewed her at the clinic today. She underwent CABG x3 on January 24 from which she made an excellent recovery. I I saw her recently where she complained of some discharge from the distal wound from the endoscopic radial artery harvest site. She reports that this radial artery harvest site is improving however she does report some occasional discharge from it. She also complains of some numbness and tingling in the tips of her fingers which are new since surgery. Otherwise she continues to improve and is making excellent progress overall. She was recently seen by Dr. Hendrix. Review of Systems Constitutional: not feeling tired. Cardiovascular: no intermittent leg claudication and as noted in HPI. Respiratory: no cough and no shortness of breath. Gastrointestinal: no change in bowel habits and no blood in stools. Integumentary: no skin rashes. Neurological: no seizures and no frequent falls. All other systems have been reviewed and are negative for complaint. 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) Past Medical History Problems History of High cholesterol (272.0) (E78.00) History of arthritis (V13.4) (Z87.39) History of bladder problems (V13.09) (Z87.448) History of diabetes mellitus (V12.29) (Z86.39) History of esophageal reflux (V12.79) (Z87.19) History of heartburn (V12.79) (Z87.898) History of hiatal hernia (V12.79) (Z87.19) History of Snoring (786.09) (R06.83) Surgical History Problems History of Ablation Of Vaginal Lesion(S) History of Section History of Coronary artery bypass graft History of Gallbladder Surgery History Of Prior Surgery Lumpectomy History of Hysterectomy Family History Mother Family history of arthritis (V17.7) (Z82.61) Family history of cerebrovascular accident (CVA) (V17.1) (Z82.3) Family history of chronic obstructive pulmonary disease (V17.6) (Z82.5) Family history of thyroid disease (V18.19) (Z83.49) Father Family history of arthritis (V17.7) (Z82.61) Family history of coronary artery disease (V17.3) (Z82.49) Family history of diabetes mellitus (V18.0) (Z83.3) Family history of lung cancer (V16.1) (Z80.1) Sister Family history of arthritis (V17.7) (Z82.61) Family history of cardiac arrest (V17.49) (Z82.49) Family history of chronic obstructive pulmonary disease (V17.6) (Z82.5) Family history of diabetes mellitus (V18.0) (Z83.3) Brother Family history of arthritis (V17.7) (Z82.61) Family history of Graves' disease (V18.19) (Z83.49) Social History Problems Currently working Drinks wine (V49.89) (Z78.9) Former smoker (V15.82) (Z87.891) *Allergies NonMedication No Known Environmental Allergies Recorded By: Olga Siu; 06/12/2015 10:27:15 AM No Known Drug Allergies Current Meds Medication NameInstruction Aspirin 81 MG Oral Tablet Delayed ReleaseTAKE 1 TABLET DAILY. Atorvastatin Calcium 80 MG Oral TabletTAKE 1 TABLET DAILY. Clopidogrel Bisulfate 75 MG Oral TabletTAKE 1 TABLET DAILY. Cyclobenzaprine HCl - 10 MG Oral TabletTake 1 tablet every 8 hours as needed Insulin Lispro 100 UNIT/ML Subcutaneous SolutionUSE DIRECTED. Januvia 100 MG Oral TabletTAKE 1 TABLET DAILY. Lantus 100 UNIT/ML Subcutaneous SolutionINJECT SUBCUTANEOUSLY DIRECTED. Lisinopril 2.5 MG Oral TabletTAKE 1 TABLET DAILY. Metoprolol Succinate ER 50 MG Oral Tablet Extended Release 24 HourTAKE 1 TABLET DAILY. Multi-Vitamin TABSTAKE 1 TABLET DAILY. Omeprazole 40 MG Oral Capsule Delayed ReleaseTAKE 1 CAPSULE Daily Trulicity 1.5 MG/0.5ML Subcutaneous Solution Pen-injectorUSE DIRECTED Vitals Vital Signs Recorded: 22Feb2021 03:02PM Heart Rate82 [id number], RUE, Sitting [id number], RUE, Sitting Blood Pressure C (more content not included)... Normal [facility] TH CHEST 2 VIEW PA AND LATon 02-22-2021 TH CHEST 2 VIEW PA AND LAT Normal [facility] Office Visit (Cardiology)on 02-21-2021 Follow-up visit Diagnoses/Problems Assessed CAD (coronary artery disease) (414.00) (I25.10) Dyslipidemia (272.4) (E78.5) Essential hypertension, benign (401.1) (I10) S/P CABG x 3 (V45.81) (Z95.1) HOLLAND to LAD, SVG to OM, SVG to PDA Sternal wound infection (875.1) (S21.101A,L08.9) Type 2 diabetes mellitus with hyperglycemia, unspecified whether snf insulin use (250.00) (E11.65) BMI 35.0-35.9,adult (V85.35) (Z68.35) Class 3 severe obesity due to excess calories without serious comorbidity with body mass index (BMI) greater than or equal to 70 in adult (278.01,V85.45) (E66.01,Z68.45) Orders CAD (coronary artery disease), Essential hypertension, benign, S/P CABG x 3 Cardiac Rehab Referral Evaluation and Treatment Evaluate AND Treat Status: Hold For - Scheduling Requested for: 21Feb2021 Agreement : I agree to have my patient participate in the phase III outpatient cardiac rehabilitation program after completion of the phase II program. Consent : I consent to have my patient participate in the cardiac rehabilitation program. I will continue regular medical care of my patient throughout his/her participation in the program. Individualized Treatment Plan and Exercise Prescription : Defer the patients ITP and exercise prescription to be developed by the staff for your review and approval I authorize the Cardiac Rehabilitation Department to : Current lab values are helpful in order to assess the lipid status and individualize diet therapy. A venous blood sample will be drawn and lipids analyzed at the laboratory I authorize the Cardiac Rehabilitation Department to : Schedule a symptom limited graded exercise test with 12 lead ECG prior to starting cardiac rehabilitation and at discharge, if needed. Follow-up visit in 3 months Outpatient Follow-up Status: Hold For - Scheduling Requested for: 21Feb2021 Health Maintenance Please bring all medicines, vitamins, and herbal supplements with you when you come to the office.; Status:Complete; Done: 21Feb2021 S/P CABG x 3 IO EKG Electrocardiogram- 12 Lead; Status:Complete; Done: 21Feb2021 SocHx: Former smoker Tobacco Use Screening; Status:Complete; Done: 21Feb2021 Patient Instructions I, Tracy Zimmerman LPN am scribing for, and in the presence of Dr. Colleen Hendrix MD, FACC I Dr. Colleen Hendrix MD, FACC, personally performed the service described in the documentation as scribed by Tracy Zimmerman LPN in my presence, and confirmed it is both accurate and complete. Chief Complaint FCO CONROY is being seen for New Patient. Patient is a new patient to be followed in the office after having acute ST elevation anterior myocardial infarction on January 19, 2021 and was transferred from [facility] to [facility] and underwent three-vessel coronary artery bypass surgery by means of HOLLAND graft to the LAD, left radial artery bypass to marginal and saphenous vein graft to the right coronary artery and the PDA. Her EF at that time was 45% by echocardiogram. The surgery was complicated by wound infection in the sternum which eventually healed and currently has healing wound in the left radial artery harvest site. The patient quit smoking the day of the event and has not been back to smoking and has no desire to do that anymore. She is known to be diabetic for nearly 15 years on medical therapy along with hypertension and dyslipidemia. She does have family history of diabetes. She is significantly obese with a BMI of 35 kg/m. The patient is scheduled tomorrow to be seen by cardiac surgery at [facility] for follow-up. Her EKG today revealed normal sinus rhythm with a heart rate in the upper 90s. Her cardiac summation is normal her lungs sounded normal and currently there is no oozing from the left radial artery harvest site. Sternal wounds have healed nicely. She complains of healing pains in the chest and reassurance is provided in that regard. Also since surgery she has numbness in her hands which I believe is related to trauma to the brachial plexus bilaterally during surgery which would likely be reversible over time. Her pulses are normal her hands are warm and the feet are warm. Her medical therapy was reviewed. Long-term therapy for secondary prevention of CAD were emphasized and discussed at length with the patient and her . Assessment/recommend ations: 1?severe three-vessel coronary artery disease status post coronary artery bypass surgery January 2021 at [facility] using HOLLAND graft to LAD, left radial artery to left circumflex and saphenous vein graft to PDA. The patient was educated extensively on secondary prevention for CAD. Currently she is stable and present medical therapy will be left unchanged. She will be enrolled in cardiac rehab at [facility] at her request. She is not allowed to drive yet. She will get the clearance from thoracic/cardiac surgery during next visit tomorrow. 2?mild asymptomat (more content not included)... Normal wishkicker Tobacco Screening.on 021 Tobacco use status CPHS b) No M [facility] 600 DO Work Phone: Blood Pressure Cuff Sizeon 0 02-08-2021 Fall risk assessment a) No falls within the last year [facility] [address] [address] [place] Work Phone: Tobacco use status CPHS b) No M -[facility] [address] [place] Work Phone: Blood Pressure Cuff Size Large [facility] [address] [place] Work Phone: Office Visit (Cardiac Surger y)on 02-08-2021 Follow-up visit Diagnoses/Problems Assessed CAD (coronary artery disease) (414.00) (I25.10) S/P CABG x 3 (V45.81) (Z95.1) Incisional infection (998.59) (T81.49XA) Provider Impressions Overall Mrs. Conroy is making good recovery. I have reassured her. She has been started on a course of antibiotics. I encouraged her to remain active within the usual limitations. I will arrange for her to be reviewed again in a few weeks time to check on her wounds and her overall recovery. She was rather anxious today and I reassured her repeatedly. Chief Complaint Patient is here for a wound check s/p CABG x 3 on Jan 24, 2021. GALEN MontesN, RN. Adult Risk ScreeningThere are no spiritual/cultural practices/values/nee ds that are important to know Initial Fall Risk Screening: FCO has not fallen in the last 6 months. The patient is not using an assistive device. Advance directives: Living Will: No living will on file. Healthcare POA: No healthcare proxy on file. History of Present Illness She requested to be reviewed today as she was concerned about her wounds. In general she is doing very well since the surgery and is. Shortness of with the radial artery was harvested. She was also concerned about some scabbing over the wounds. Review of Systems Constitutional: not feeling tired. Cardiovascular: no intermittent leg claudication and as noted in HPI . distal sternal incision open with drainage. Respiratory: no cough and no shortness of breath. Gastrointestinal: no change in bowel habits and no blood in stools. Musculoskeletal: limb pain, but as noted in HPI . left wrist incision drainage and pain. Integumentary: no skin rashes. Neurological: no seizures and no frequent falls. All other systems have been reviewed and are negative for complaint. 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) Past Medical History Problems History of High cholesterol (272.0) (E78.00) History of arthritis (V13.4) (Z87.39) History of bladder problems (V13.09) (Z87.448) History of diabetes mellitus (V12.29) (Z86.39) History of esophageal reflux (V12.79) (Z87.19) History of heartburn (V12.79) (Z87.898) History of hiatal hernia (V12.79) (Z87.19) History of Snoring (786.09) (R06.83) Surgical History Problems History of Ablation Of Vaginal Lesion(S) History of Section History of Coronary artery bypass graft History of Gallbladder Surgery History Of Prior Surgery Lumpectomy History of Hysterectomy Family History Mother Family history of arthritis (V17.7) (Z82.61) Family history of cerebrovascular accident (CVA) (V17.1) (Z82.3) Family history of chronic obstructive pulmonary disease (V17.6) (Z82.5) Family history of thyroid disease (V18.19) (Z83.49) Father Family history of arthritis (V17.7) (Z82.61) Family history of coronary artery disease (V17.3) (Z82.49) Family history of diabetes mellitus (V18.0) (Z83.3) Family history of lung cancer (V16.1) (Z80.1) Sister Family history of arthritis (V17.7) (Z82.61) Family history of cardiac arrest (V17.49) (Z82.49) Family history of chronic obstructive pulmonary disease (V17.6) (Z82.5) Family history of diabetes mellitus (V18.0) (Z83.3) Brother Family history of arthritis (V17.7) (Z82.61) Family history of Graves' disease (V18.19) (Z83.49) Social History Problems Currently working Drinks wine (V49.89) (Z78.9) Former smoker (V15.82) (Z87.891) Allergies Medication No Known Drug Allergies Recorded By: Olga Siu; 06/12/2015 10:27:15 AM NonMedication No Known Environmental Allergies Recorded By: Olga Siu; 06/12/2015 10:27:15 AM Current Meds Medication NameInstruction Acetaminophen 325 MG Oral TabletTAKE 1 TO 2 TABLETS EVERY 4 HOURS NEEDED Amoxicillin-Pot Clavulanate 875-125 MG Oral TabletTAKE 1 TABLET EVERY 12 HOURS DAILY for 7 days Aspirin 81 MG Oral Tablet Delayed ReleaseTAKE 1 TABLET DAILY. Atorvastatin Calcium 80 MG Oral TabletTAKE 1 TABLET DAILY. Clopidogrel Bisulfate 75 MG Oral TabletTAKE 1 TABLET DAILY. Cyclobenzaprine HCl - 10 MG Oral TabletTake 1 tablet every 8 hours as needed Insulin Lispro 100 UNIT/ML Subcutaneous SolutionUSE DIRECTED. Januvia 100 MG Oral TabletTAKE 1 TABLET DAILY. Lantus 100 UNIT/ML Subcutaneous SolutionINJECT SUBCUTANEOUSLY DIRECTED. Lisinopril 2.5 MG Oral TabletTAKE 1 TABLET DAILY. Metoprolol Succinate ER 50 MG Oral Tablet Extended Release 24 HourTAKE 1 TABLET DAILY. Multi-Vitamin TABSTAKE 1 TABLET DAILY. Omeprazole 40 MG Oral Capsule Delayed ReleaseTAKE 1 CAPSULE Daily oxyCODONE-Acetaminop hen 5-325 MG Oral Tablet Polyethylene Glycol 3350 17 GM/SCOOP Oral PowderMIX 1 CAPFUL (17GM) IN 8 OUNCES OF WATER, JUICE, OR TEA AND DRINK DAILY. Polysaccharide Iron 150 MG CAPSTake one capsule da (more content not included)... Normal [facility] CBCon 01-30-2021 Erythrocyte distribution width (RBC) [Ratio] 17.5 % High 11.5 - 14.5 [facility] Comment on above: Performed By: #### C BC ####[id number] [place] [address] Hematocrit (Bld) [Volume fraction] 24.3 % Low 36.0 - 46.0 [facility] Comment on above: Performed By: #### C BC ####[id number] [place] [address] Hemoglobin (Bld) [Mass/Vol] 7.8 g/dL Low 12.0 - 16.0 [facility] Comment on above: Performed By: #### C BC ####[id number] [place] [address] MCHC (RBC) [Mass/Vol] 32.1 g/dL Normal 32.0 - 36.0 [facility] Comment on above: Performed By: #### C BC ####[id number] [place] [address] MCV (RBC) [Entitic vol] 82 fL Normal 80 - 100 [facility] Comment on above: Performed By: #### C BC ####[id number] [place] [address] NUCLEATED RBC 0.4 /100 WBC Normal 0.0-0.0 [facility] Comment on above: Performed By: #### C BC ####[id number] [place] [address] Platelets (Bld) [#/Vol] 321 10*3/uL Normal 150 - 450 [facility] Comment on above: Performed By: #### C BC ####[id number] [place] [address] RBC 2.96 x10E12/L Low 4.00 - 5.20 [facility] Comment on above: Performed By: #### C BC ####[id number] [place] [address] WBC (Bld) [#/Vol] 11.1 10*3/uL Normal 4.4 - 11.3 [facility] Comment on above: Performed By: #### C BC ####[id number] [place] [address] Clinical Event Note-Epicardi al wire cuton 01-30-2021 Clinical Event Note-Epicardial wire cut Normal [facility] Cult, Urineon 01-30-2021 Bacteria identified Cx Nom (U) Abnormal [facility]- Admin Button Work Phone: Daily Progress Note-Cardiac Surgeryon 01-30-2021 Daily Progress Note-Cardiac Surgery Normal [facility] Daily Progress Note-Endocrin ologyon 01-30-2021 Daily Progress Note-Endocrinology Normal [facility] GLUCOSE-POCTon 01-30-2021 Glucose [Mass/Vol] 125 mg/dL High 74 - 99 [facility] Comment on above: Performed By: #### G PRASHANTH ####[id number] [place] [address] Glucose [Mass/Vol] 173 mg/dL High 74 - 99 [facility] Comment on above: Performed By: #### G PRASHANTH ####[id number] [place] [address] Glucose [Mass/Vol] 196 mg/dL High 74 - 99 [facility] Comment on above: Performed By: #### G PRASHANTH ####[id number] [place] [address] Laboratory - Chemistry and C hemistry - challengeon 01-30-2021 Glucose [Mass/Vol] 125 mg/dL above high threshold 74 - 99 [facility] Admin [place] Work Phone: Glucose [Mass/Vol] 173 mg/dL above high threshold 74 - 99 [facility] [place] Work Phone: Glucose [Mass/Vol] 196 mg/dL above high threshold 74 - 99 [facility] [place] Work Phone: Laboratory - Hematology and Cell countson 01-30-2021 Erythrocyte distribution width (RBC) [Ratio] 17.5 % above high threshold See Below [facility] [place] Work Phone: Comment on above: Reference Range: 11. 5 - 14.5 Hematocrit (Bld) [Volume fraction] 24.3 % below low threshold See Below [facility] [place] Work Phone: Comment on above: Reference Range: 36. 0 - 46.0 Hemoglobin (Bld) [Mass/Vol] 7.8 g/dL below low threshold See Below [facility] [place] Work Phone: Comment on above: Reference Range: 12. 0 - 16.0 MCHC (RBC) [Mass/Vol] 32.1 g/dL See Below [facility]- [facility]- [facility] [place] Work Phone: Comment on above: Reference Range: 32. 0 - 36.0 MCV (RBC) [Entitic vol] 82 fL 80 - 100 M [facility]- [facility] [place] Work Phone: Platelets (Bld) [#/Vol] 321 10*3/uL 150 - 450 [facility] [place] Work Phone: RBC (Bld) [#/Vol] 2.96 {x10E12/L} below low threshold See Below [facility] [place] Work Phone: Comment on above: Reference Range: 4.0 0 - 5.20 WBC (Bld) [#/Vol] 11.1 10*3/uL 4.4 - 11.3 MG-Ca rdiology- Admin [place] Work Phone: MAGNESIUMon 01-30-2021 Magnesium [Mass/Vol] 1.79 mg/dL Normal 1.60 - 2.40 [facility] Comment on above: Performed By: #### M G ####[id number] [place] [address] Magnesium, Serumon Magnesium [Mass/Vol] 1.79 mg/dL See Below MG-C ardiology- Admin [place] Work Phone: Comment on above: Reference Range: 1.6 0 - 2.40 No Panel Informationon 01-30 0.4 {/100_WBC} 0.0-0.0 [facility]iol ogy- [facility] [place] Work Phone: RENAL FUNCTION PANELon 01-30 Albumin [Mass/Vol] 3.2 g/dL Low 3.4 - 5.0 [facility] Comment on above: Performed By: #### R ENAL ####[id number] [place] [address] Anion gap [Moles/Vol] 16 mmol/L Normal 10 - 20 [facility] Comment on above: Performed By: #### R ENAL ####[id number] [place] [address] Calcium [Mass/Vol] 8.6 mg/dL Normal 8.6 - 10.6 [facility] Comment on above: Performed By: #### R ENAL ####[id number] [place] [address] Chloride [Moles/Vol] 98 mmol/L Normal 98 - 107 [facility] Comment on above: Performed By: #### R ENAL ####[id number] [place] [address] Creatinine [Mass/Vol] 0.36 mg/dL Low 0.50 - 1.05 [facility] Comment on above: Performed By: #### R ENAL ####[id number] [place] [address] GFR- AM. >60 Normal >60 [facility] Comment on above: Result Comment: CALC ULATIONS OF ESTIMATED GFR ARE PERFORMED USING THE MDRD STUDY EQUATION FOR THE IDMS-TRACEABLE CREATININE METHODS. CLIN CHEM 2007;53:766-72 Performed By: #### R ENAL ####[id number] [place] [address] GFR-NON AM. >60 Normal >60 [facility] Comment on above: Performed By: #### R ENAL ####[id number] [place] [address] Glucose [Mass/Vol] 173 mg/dL High 74 - 99 [facility] Comment on above: Performed By: #### R ENAL ####[id number] [place] [address] HCO3 (Bld) [Moles/Vol] 22 mmol/L Normal 21 - 32 [facility] Comment on above: Performed By: #### R ENAL ####[id number] [place] [address] Phosphate [Mass/Vol] 3.6 mg/dL Normal 2.5 - 4.9 [facility] Comment on above: Result Comment: The performance characteristics of phosphorus testing in heparinized plasma have been validated by the individual laboratory site where testing is performed. Testing on heparinized plasma is not approved by the FDA; however, such approval is not necessary. Performed By: #### R ENAL ####[id number] [place] [address] Potassium [Moles/Vol] 4.2 mmol/L Normal 3.5 - 5.3 [facility] Comment on above: Performed By: #### R ENAL ####[id number] [place] [address] Sodium [Moles/Vol] 132 mmol/L Low 136 - 145 [facility] Comment on above: Performed By: #### R ENAL ####[id number] [place] [address] Urea nitrogen [Mass/Vol] 9 mg/dL Normal 6 - 23 [facility] Comment on above: Performed By: #### R ENAL ####[id number] [place] [address] Renal Function Panelon 01-30 Albumin BCP dye [Mass/Vol] 3.2 g/dL below low threshold 3.4 - 5.0 [facility] Work Phone: Anion gap [Moles/Vol] 16 mmol/L 10 - 20 [facility] Work Phone: Calcium [Mass/Vol] 8.6 mg/dL 8.6 - 10.6 [facility] diology- [facility] Work Phone: Chloride [Moles/Vol] 98 mmol/L 98 - 107 [facility] ardiology- [facility] Work Phone: CO2 [Moles/Vol] 22 mmol/L 21 - 32 [facility] logy- [facility] Work Phone: Creatinine [Mass/Vol] 0.36 mg/dL below low threshold See Below [facility] Work Phone: Comment on above: Reference Range: 0.5 0 - 1.05 Glucose [Mass/Vol] 173 mg/dL above high threshold 74 - 99 [facility] Work Phone: Phosphate [Mass/Vol] 3.6 mg/dL 2.5 - 4.9 [facility] ardiology- [facility] Work Phone: Comment on above: The performance jam acteristics of phosphorus testing in heparinized plasma have been validated by the individual laboratory site where testing is performed. Testing on heparinized plasma is not approved by the FDA; however, such approval is not necessary. Potassium [Moles/Vol] 4.2 mmol/L 3.5 - 5.3 [facility] Work Phone: Sodium [Moles/Vol] 132 mmol/L below low threshold 136 - 145 [facility] Work Phone: Urea nitrogen [Mass/Vol] 9 mg/dL 6 - 23 [facility] Work Phone: Renal Function Panel >60 >60 [facility] ardiology- [facility] Work Phone: Comment on above: CALCULATIONS OF YARA MATED GFR ARE PERFORMED USING THE MDRD STUDY EQUATION FOR THE IDMS-TRACEABLE CREATININE METHODS. CLIN CHEM 2007;53:766-72 UA MICROSCOPICon 01-30-2021 BACTERIA 3+ /HPF Abnormal [facility] Comment on above: Performed By: #### U AMIC ####[id number] [place] [address] Mucus Ql (Urine sed) 1+ /LPF Normal [facility] Comment on above: Performed By: #### U AMIC ####[id number] [place] [address] RBC 14 /HPF Abnormal 0-5 [facility] Comment on above: Performed By: #### U AMIC ####[id number] [place] [address] SQUAMOUS EPITH. CELLS 2 /HPF Normal [facility] Comment on above: Performed By: #### U AMIC ####[id number] [place] [address] WBC (U) [#/Vol] /uL Abnormal 0-5 [facility] Comment on above: Performed By: #### U AMIC ####[id number] [place] [address] WBC CLUMPS RARE Normal [facility] Comment on above: Performed By: #### U AMIC ####[id number] [place] [address] URINALYSIS WITH CULTURE IF I NDICATEDon 01-30-2021 Appearance (U) HAZY Normal CLEAR [facility] Comment on above: Performed By: #### U ARFX ####[id number] [place] [address] Bilirubin Ql (U) Negative Normal NEGATIVE [facility] Comment on above: Performed By: #### U ARFX ####[id number] [place] [address] Color (U) BERHANE Normal STRAW,YELLO W [facility] Comment on above: Performed By: #### U ARFX ####[id number] [place] [address] Glucose Ql (U) Negative Normal NEGATIVE [facility] Comment on above: Performed By: #### U ARFX ####[id number] [place] [address] Hemoglobin Ql (U) SMALL (1+) Abnormal NEGATIVE [facility] Comment on above: Performed By: #### U ARFX ####[id number] [place] [address] Ketones Ql (U) Negative Normal NEGATIVE [facility] Comment on above: Performed By: #### U ARFX ####[id number] [place] [address] Leukocyte esterase Test strip Ql (U) LARGE (3+) Abnormal NEGATIVE [facility] Comment on above: Performed By: #### U ARFX ####[id number] [place] [address] Nitrite Ql (U) Positive Abnormal NEGATIVE [facility] Comment on above: Performed By: #### U ARFX ####[id number] [place] [address] pH (U) 6.0 [pH] Normal 5.0 - 8.0 [facility] Comment on above: Performed By: #### U ARFX ####[id number] [place] [address] Protein Ql (U) 30 (1+) Abnormal NEGATIVE [facility] Comment on above: Performed By: #### U ARFX ####[id number] [place] [address] Specific gravity (U) [Rel density] 1.016 Normal 1.005 - 1.035 [facility] Comment on above: Performed By: #### U ARFX ####[id number] [place] [address] Urobilinogen (U) [Mass/Vol] mg/dL Normal 0.0 - 1.9 [facility] Comment on above: Performed By: #### U ARFX ####[id number] [place] [address] Color (U) BERHANE See Below [facility] Work Phone: Comment on above: Reference Range: STR AW,YELLOW Glucose Ql (U) Negative NEGATIVE [facility]- [facility] Work Phone: Ketones Ql (U) Negative NEGATIVE [facility]- [facility] Work Phone: Leukocyte esterase Test strip Ql (U) LARGE (3+) Abnormal NEGATIVE [facility] Work Phone: pH (U) 6.0 [pH] 5.0 - 8.0 [facility] Work Phone: Protein (U) [Mass/Vol] 30 (1+) Abnormal NEGATIVE [facility] Work Phone: RBC (U) [#/Vol] SMALL (1+) Abnormal NEGATIVE [facility] logy- [facility] Work Phone: Specific gravity (U) [Rel density] 1.016 1 See Below [facility] Work Phone: Comment on above: Reference Range: 1.0 05 - 1.035 URINALYSIS WITH CULTURE IF INDICATED Positive Abnormal NEGATIVE [facility] Work Phone: URINALYSIS WITH CULTURE IF INDICATED <2.0 0.0 - 1.9 [facility] Work Phone: URINALYSIS WITH CULTURE IF INDICATED Negative NEGATIVE [facility] Work Phone: URINALYSIS WITH CULTURE IF INDICATED HAZY CLEAR [facility] Work Phone: URINE CULTURE,BACTERIALon 09 -15-2021 URINE CULTURE,BACTERIAL Normal [facility] Comment on above: Performed By: #### U RINC ####[id number] [place] [address] Urinalysis, Microscopicon Urinalysis, Microscopic 1+ M [facility] Work Phone: Urinalysis, Microscopic 3+ Abnormal M -Cardiology- [facility] Work Phone: Urinalysis, Microscopic 2 {/HPF} M [facility] Work Phone: Urinalysis, Microscopic 14 {/HPF} Abnormal 0-5 [facility]- [facility] Work Phone: Urinalysis, Microscopic RARE [facility] -Cardiology- [facility] Work Phone: Urinalysis, Microscopic >182 Abnormal 0-5 [facility] -Cardiology- [facility] Work Phone: CBCon 01-29-2021 Erythrocyte distribution width (RBC) [Ratio] 17.5 % High 11.5 - 14.5 [facility] Comment on above: Performed By: #### C BC ####[id number] [place] [address] Hematocrit (Bld) [Volume fraction] 25.7 % Low 36.0 - 46.0 [facility] Comment on above: Performed By: #### C BC ####[id number] [place] [address] Hemoglobin (Bld) [Mass/Vol] 7.9 g/dL Low 12.0 - 16.0 [facility] Comment on above: Performed By: #### C BC ####[id number] [place] [address] MCHC (RBC) [Mass/Vol] 30.7 g/dL Low 32.0 - 36.0 [facility] Comment on above: Performed By: #### C BC ####[id number] [place] [address] MCV (RBC) [Entitic vol] 82 fL Normal 80 - 100 [facility] Comment on above: Performed By: #### C BC ####[id number] [place] [address] NUCLEATED RBC 0.5 /100 WBC Normal 0.0-0.0 [facility] Comment on above: Performed By: #### C BC ####[id number] [place] [address] Platelets (Bld) [#/Vol] 284 10*3/uL Normal 150 - 450 [facility] Comment on above: Performed By: #### C BC ####[id number] [place] [address] RBC 3.12 x10E12/L Low 4.00 - 5.20 [facility] Comment on above: Performed By: #### C BC ####[id number] [place] [address] WBC (Bld) [#/Vol] 10.5 10*3/uL Normal 4.4 - 11.3 [facility] Comment on above: Performed By: #### C BC ####[id number] [place] [address] HCT Canceled Normal [facility] Comment on above: Order Comment: TEST CBC WAS CANCELLED, 01/29/2021 09:26 NO SPECIMEN RECEIVED IN LAB. Performed By: #### C BC ####[id number] [place] [address] HGB Canceled Normal [facility] Comment on above: Order Comment: TEST CBC WAS CANCELLED, 01/29/2021 09:26 NO SPECIMEN RECEIVED IN LAB. Performed By: #### C BC ####[id number] [place] [address] MCHC Canceled Normal [facility] Comment on above: Order Comment: TEST CBC WAS CANCELLED, 01/29/2021 09:26 NO SPECIMEN RECEIVED IN LAB. Performed By: #### C BC ####[id number] [place] [address] MCV Canceled Normal [facility] Comment on above: Order Comment: TEST CBC WAS CANCELLED, 01/29/2021 09:26 NO SPECIMEN RECEIVED IN LAB. Performed By: #### C BC ####[id number] [place] [address] NUCLEATED RBC Canceled Normal [facility] Comment on above: Order Comment: TEST CBC WAS CANCELLED, 01/29/2021 09:26 NO SPECIMEN RECEIVED IN LAB. Performed By: #### C BC ####[id number] [place] [address] PLT Canceled Normal [facility] Comment on above: Order Comment: TEST CBC WAS CANCELLED, 01/29/2021 09:26 NO SPECIMEN RECEIVED IN LAB. Performed By: #### C BC ####[id number] [place] [address] RBC Canceled Normal [facility] Comment on above: Order Comment: TEST CBC WAS CANCELLED, 01/29/2021 09:26 NO SPECIMEN RECEIVED IN LAB. Performed By: #### C BC ####[id number] [place] [address] RDW-CV Canceled Normal [facility] Comment on above: Order Comment: TEST CBC WAS CANCELLED, 01/29/2021 09:26 NO SPECIMEN RECEIVED IN LAB. Performed By: #### C BC ####[id number] [place] [address] WBC Canceled Normal [facility] Comment on above: Order Comment: TEST CBC WAS CANCELLED, 01/29/2021 09:26 NO SPECIMEN RECEIVED IN LAB. Performed By: #### C BC ####[id number] [place] [address] Daily Progress Note-Cardiac Surgeryon 01-29-2021 Daily Progress Note-Cardiac Surgery Normal [facility] Daily Progress Note-Endocrin ologyon 01-29-2021 Daily Progress Note-Endocrinology Normal [facility] Discharge [id number] Discharge Profile2 Normal [facility] EMR ADDONon 01-29-2021 ADDON CONFIRMATION REQUEST REC'D Normal [facility] Comment on above: Performed By: #### E MRAD ####NO LOCATION NEEDED GLUCOSE-POCTon 01-29-2021 Glucose [Mass/Vol] 161 mg/dL High 74 - 99 [facility] Comment on above: Performed By: #### G PRASHANTH ####[id number] [place] [address] Glucose [Mass/Vol] 202 mg/dL High 74 - 99 [facility] Comment on above: Performed By: #### G PRASHANTH ####[id number] [place] [address] Glucose [Mass/Vol] 301 mg/dL High 74 - 99 [facility] Comment on above: Performed By: #### G PRASHANTH ####[id number] [place] [address] Glucose [Mass/Vol] 235 mg/dL High - 99 [facility] Comment on above: Performed By: #### G PRASHANTH ####[id number] [place] [address] Glucose [Mass/Vol] 216 mg/dL High 74 - 99 [facility] Comment on above: Performed By: #### G PRASHANTH ####[id number] [place] [address] Glucose [Mass/Vol] 281 mg/dL High - 99 [facility] Comment on above: Performed By: #### G PRASHANTH ####[id number] [place] [address] HEMOGLOBIN A1Con 01-29-2021 Glucose [Mass/Vol] 212 mg/dL Normal [facility] Comment on above: Performed By: #### H BA1E ####[id number] [place] [address] HbA1c (Bld) [Mass fraction] 9.0 % Abnormal [facility] Comment on above: Result Comment: Diag nosis of Diabetes-Adults Non-Diabetic: < or = 5.6% Increased risk for developing diabetes: 5.7-6.4% Diagnostic of diabetes: > or = 6.5%. Monitoring of Diabetes Age (y) Therapeutic Goal (%) Adults: >18 <7.0 Pediatrics: 13-18 <7.5 7-12 <8.0 0- 6 7.5-8.5 [employer]. Diabetes Care 33(S1), May 2009. Performed By: #### H BA1E ####[id number] [place] [address] Hemoglobin A1Con 01-29-2021 Glucose [Mass/Vol] 212 mg/dL [facility] diology- [facility] Work Phone: HbA1c (Bld) [Mass fraction] 9.0 % Abnormal [facility] Work Phone: Comment on above: Diagnosis of Diabete s-Adults Non-Diabetic: < or = 5.6% Increased risk for developing diabetes: 5.7-6.4% Diagnostic of diabetes: > or = 6.5%. Monitoring of Diabetes Age (y) Therapeutic Goal (%) Adults: >18 <7.0 Pediatrics: 13-18 <7.5 7-12 <8.0 0- 6 7.5-8.5 [employer]. Diabetes Care 33(S1), May 2009. Laboratory - Chemistry and C hemistry - challengeon 01-29-2021 Glucose [Mass/Vol] 161 mg/dL above high threshold 74 - 99 [facility] Work Phone: Glucose [Mass/Vol] 202 mg/dL above high threshold 74 - 99 [facility] Work Phone: Glucose [Mass/Vol] 301 mg/dL above high threshold 74 - 99 [facility] Work Phone: Glucose [Mass/Vol] 235 mg/dL above high threshold 74 - 99 [facility] Work Phone: Glucose [Mass/Vol] 216 mg/dL above high threshold 74 - 99 [facility] Work Phone: Laboratory - Hematology and Cell countson 01-29-2021 Erythrocyte distribution width (RBC) [Ratio] 17.5 % above high threshold See Below [facility] Work Phone: Comment on above: Reference Range: 11. 5 - 14.5 Hematocrit (Bld) [Volume fraction] 25.7 % below low threshold See Below [facility] Work Phone: Comment on above: Reference Range: 36. 0 - 46.0 Hemoglobin (Bld) [Mass/Vol] 7.9 g/dL below low threshold See Below [facility] Work Phone: Comment on above: Reference Range: 12. 0 - 16.0 MCHC (RBC) [Mass/Vol] 30.7 g/dL below low threshold See Below [facility] Work Phone: Comment on above: Reference Range: 32. 0 - 36.0 MCV (RBC) [Entitic vol] 82 fL 80 - 100 [facility] Work Phone: Platelets (Bld) [#/Vol] 284 10*3/uL 150 - 450 [facility] Work Phone: RBC (Bld) [#/Vol] 3.12 {x10E12/L} below low threshold See Below [facility] Work Phone: Comment on above: Reference Range: 4.0 0 - 5.20 WBC (Bld) [#/Vol] 10.5 10*3/uL 4.4 - 11.3 MG-Ca rdiology- [facility] Work Phone: MAGNESIUMon 01-29-2021 Magnesium [Mass/Vol] 1.87 mg/dL Normal 1.60 - 2.40 [facility] Comment on above: Performed By: #### M G ####[id number] [place] [address] Magnesium, Serumon Magnesium [Mass/Vol] 1.87 mg/dL See Below MG-C ardiology- [facility] Work Phone: Comment on above: Reference Range: 1.6 0 - 2.40 No Panel Informationon 01-29 0.5 {/100_WBC} 0.0-0.0 [facility] Work Phone: Order Reconciliationon 01-29 Order Reconciliation Normal [facility] RENAL FUNCTION PANELon 01-29 Albumin [Mass/Vol] 3.4 g/dL Normal 3.4 - 5.0 [facility] Comment on above: Performed By: #### R ENAL ####[id number] [place] [address] Anion gap [Moles/Vol] 15 mmol/L Normal 10 - 20 [facility] Comment on above: Performed By: #### R ENAL ####[id number] [place] [address] Calcium [Mass/Vol] 8.8 mg/dL Normal 8.6 - 10.6 [facility] Comment on above: Performed By: #### R ENAL ####[id number] [place] [address] Chloride [Moles/Vol] 98 mmol/L Normal 98 - 107 [facility] Comment on above: Performed By: #### R ENAL ####[id number] [place] [address] Creatinine [Mass/Vol] 0.44 mg/dL Low 0.50 - 1.05 [facility] Comment on above: Performed By: #### R ENAL ####[id number] [place] [address] GFR- AM. >60 Normal >60 [facility] Comment on above: Result Comment: CALC ULATIONS OF ESTIMATED GFR ARE PERFORMED USING THE MDRD STUDY EQUATION FOR THE IDMS-TRACEABLE CREATININE METHODS. CLIN CHEM 2007;53:766-72 Performed By: #### R ENAL ####[id number] [place] [address] GFR-NON AM. >60 Normal >60 [facility] Comment on above: Performed By: #### R ENAL ####[id number] [place] [address] Glucose [Mass/Vol] 244 mg/dL High 74 - 99 [facility] Comment on above: Performed By: #### R ENAL ####[id number] [place] [address] HCO3 (Bld) [Moles/Vol] 23 mmol/L Normal 21 - 32 [facility] Comment on above: Performed By: #### R ENAL ####[id number] [place] [address] Phosphate [Mass/Vol] 3.2 mg/dL Normal 2.5 - 4.9 [facility] Comment on above: Result Comment: The performance characteristics of phosphorus testing in heparinized plasma have been validated by the individual laboratory site where testing is performed. Testing on heparinized plasma is not approved by the FDA; however, such approval is not necessary. Performed By: #### R ENAL ####[id number] [place] [address] Potassium [Moles/Vol] 4.1 mmol/L Normal 3.5 - 5.3 [facility] Comment on above: Result Comment: MILD HEMOLYSIS DETECTED. The result may be falsely elevated due tohemolysis or other interferents. Clinical correlation is recommended.Repeat testing may be considered. Performed By: #### R ENAL ####[id number] [place] [address] Sodium [Moles/Vol] 132 mmol/L Low 136 - 145 [facility] Comment on above: Performed By: #### R ENAL ####[id number] [place] [address] Urea nitrogen [Mass/Vol] 7 mg/dL Normal 6 - 23 [facility] Comment on above: Performed By: #### R ENAL ####[id number] [place] [address] Renal Function Panelon 01-29 Albumin BCP dye [Mass/Vol] 3.4 g/dL 3.4 - 5.0 [facility] Work Phone: Anion gap [Moles/Vol] 15 mmol/L 10 - 20 [facility] Work Phone: Calcium [Mass/Vol] 8.8 mg/dL 8.6 - 10.6 [facility] diology- [facility] Work Phone: Chloride [Moles/Vol] 98 mmol/L 98 - 107 MG-C ardiology- [facility] Work Phone: CO2 [Moles/Vol] 23 mmol/L 21 - 32 MG-Cardio logy- [facility] Work Phone: Creatinine [Mass/Vol] 0.44 mg/dL below low threshold See Below [facility] Work Phone: Comment on above: Reference Range: 0.5 0 - 1.05 Glucose [Mass/Vol] 244 mg/dL above high threshold 74 - 99 [facility] Work Phone: Phosphate [Mass/Vol] 3.2 mg/dL 2.5 - 4.9 [facility] Work Phone: Comment on above: The performance jam acteristics of phosphorus testing in heparinized plasma have been validated by the individual laboratory site where testing is performed. Testing on heparinized plasma is not approved by the FDA; however, such approval is not necessary. Potassium [Moles/Vol] 4.1 mmol/L 3.5 - 5.3 [facility] Work Phone: Comment on above: MILD HEMOLYSIS DETEC DULCE MARIA. The result may be falsely elevated due tohemolysis or other interferents. Clinical correlation is recommended.Repeat testing may be considered. Sodium [Moles/Vol] 132 mmol/L below low threshold 136 - 145 [facility] Work Phone: Urea nitrogen [Mass/Vol] 7 mg/dL 6 - 23 [facility] Work Phone: Renal Function Panel >60 >60 [facility] Work Phone: Comment on above: CALCULATIONS OF YARA MATED GFR ARE PERFORMED USING THE MDRD STUDY EQUATION FOR THE IDMS-TRACEABLE CREATININE METHODS. CLIN CHEM 2007;53:766-72 T3 - Free Triiodothyronine, Serumon 01-29-2021 Free T3 [Mass/Vol] 3.1 pg/mL 2.3 - 4.2 [facility] diology- [facility] Work Phone: THYROXINEon 01-29-2021 T4 [Mass/Vol] 13.8 ug/dL High 4.5 - 11.1 [facility] Comment on above: Performed By: #### T 4 ####[id number] [place] [address] TRIIODOTHYRONINEon TRIIODOTHYRONINE 156 ng/dL Normal 60 - 200 [facility] Comment on above: Performed By: #### T 3 ####[id number] [place] [address] TRIIODOTHYRONINE,FREEon 01-16 TRIIODOTHYRONINE,FREE 3.1 pg/mL Normal 2.3 - 4.2 [facility] Comment on above: Performed By: #### T 3FRE ####[id number] [place] [address] TSHon 01-29-2021 TSH Qn 1.88 m[IU]/L Normal 0.44 - 3.98 [facility] Comment on above: Result Comment: TSH testing is performed using different testing methodology at [facility] than at other [facility]. Direct result comparisons should only be made within the same method. Performed By: #### T SH2 ####[id number] [place] [address] Triiodothyronine, Level (T3) on 01-29-2021 T3 [Mass/Vol] 156 ng/dL 60 - 200 [facility]iolo gy- [facility] Work Phone: CBCon 01-28-2021 Erythrocyte distribution width (RBC) [Ratio] 16.9 % High 11.5 - 14.5 [facility] Comment on above: Performed By: #### C BC ####[id number] [place] [address] Hematocrit (Bld) [Volume fraction] 26.2 % Low 36.0 - 46.0 [facility] Comment on above: Performed By: #### C BC ####[id number] [place] [address] Hemoglobin (Bld) [Mass/Vol] 8.4 g/dL Low 12.0 - 16.0 [facility] Comment on above: Performed By: #### C BC ####[id number] [place] [address] MCHC (RBC) [Mass/Vol] 32.1 g/dL Normal 32.0 - 36.0 [facility] Comment on above: Performed By: #### C BC ####[id number] [place] [address] MCV (RBC) [Entitic vol] 82 fL Normal 80 - 100 [facility] Comment on above: Performed By: #### C BC ####[id number] [place] [address] NUCLEATED RBC 0.2 /100 WBC Normal 0.0-0.0 [facility] Comment on above: Performed By: #### C BC ####[id number] [place] [address] Platelets (Bld) [#/Vol] 272 10*3/uL Normal 150 - 450 [facility] Comment on above: Performed By: #### C BC ####[id number] [place] [address] RBC 3.20 x10E12/L Low 4.00 - 5.20 [facility] Comment on above: Performed By: #### C BC ####[id number] [place] [address] WBC (Bld) [#/Vol] 10.1 10*3/uL Normal 4.4 - 11.3 [facility] Comment on above: Performed By: #### C BC ####[id number] [place] [address] Clinical Event Noteon 2020 Clinical Event Note Normal [facility] Consult-Endocrinologyon 01-16 Consult-Endocrinology Normal [facility] Daily Progress Note-Anesthes ia - Painon 01-28-2021 Daily Progress Note-Anesthesia - Pain Normal [facility] Daily Progress Note-Cardiac Surgeryon 01-28-2021 Daily Progress Note-Cardiac Surgery Normal [facility] GLUCOSE-POCTon 01-28-2021 Glucose [Mass/Vol] 356 mg/dL High 74 - 99 [facility] Comment on above: Performed By: #### G PRASHANTH ####[id number] [place] [address] Glucose [Mass/Vol] 298 mg/dL High 74 - 99 [facility] Comment on above: Performed By: #### G PRASHANTH ####[id number] [place] [address] Glucose [Mass/Vol] 205 mg/dL High 74 - 99 [facility] Comment on above: Performed By: #### G PRASHANTH ####[id number] [place] [address] Laboratory - Chemistry and C hemistry - challengeon 01-28-2021 Glucose [Mass/Vol] 281 mg/dL above high threshold 74 - 99 [facility] Work Phone: Glucose [Mass/Vol] 356 mg/dL above high threshold 74 - 99 [facility] Work Phone: Glucose [Mass/Vol] 298 mg/dL above high threshold 74 - 99 [facility] Work Phone: Glucose [Mass/Vol] 205 mg/dL above high threshold 74 - 99 [facility] Work Phone: Laboratory - Hematology and Cell countson 01-28-2021 Erythrocyte distribution width (RBC) [Ratio] 16.9 % above high threshold See Below [facility] Work Phone: Comment on above: Reference Range: 11. 5 - 14.5 Hematocrit (Bld) [Volume fraction] 26.2 % below low threshold See Below [facility] Work Phone: Comment on above: Reference Range: 36. 0 - 46.0 Hemoglobin (Bld) [Mass/Vol] 8.4 g/dL below low threshold See Below [facility] Work Phone: Comment on above: Reference Range: 12. 0 - 16.0 MCHC (RBC) [Mass/Vol] 32.1 g/dL See Below [facility] Work Phone: Comment on above: Reference Range: 32. 0 - 36.0 MCV (RBC) [Entitic vol] 82 fL 80 - 100 [facility] Work Phone: Platelets (Bld) [#/Vol] 272 10*3/uL 150 - 450 [facility] Work Phone: RBC (Bld) [#/Vol] 3.20 {x10E12/L} below low threshold See Below [facility] Work Phone: Comment on above: Reference Range: 4.0 0 - 5.20 WBC (Bld) [#/Vol] 10.1 10*3/uL 4.4 - 11.3 [facility]-Ca rdiology- [facility] Work Phone: MAGNESIUMon 01-28-2021 Magnesium [Mass/Vol] 1.86 mg/dL Normal 1.60 - 2.40 [facility] Comment on above: Performed By: #### M G ####[id number] [place] [address] Magnesium, Serumon Magnesium [Mass/Vol] 1.86 mg/dL See Below [facility] ardiology- [facility] Work Phone: Comment on above: Reference Range: 1.6 0 - 2.40 No Panel Informationon 01-28 0.2 {/100_WBC} 0.0-0.0 [facility]iol ogy- [facility] Work Phone: RENAL FUNCTION PANELon 01-28 Albumin [Mass/Vol] 3.4 g/dL Normal 3.4 - 5.0 [facility] Comment on above: Performed By: #### R ENAL ####[id number] [place] [address] Anion gap [Moles/Vol] 15 mmol/L Normal 10 - 20 [facility] Comment on above: Performed By: #### R ENAL ####[id number] [place] [address] Calcium [Mass/Vol] 8.9 mg/dL Normal 8.6 - 10.6 [facility] Comment on above: Performed By: #### R ENAL ####[id number] [place] [address] Chloride [Moles/Vol] 99 mmol/L Normal 98 - 107 [facility] Comment on above: Performed By: #### R ENAL ####[id number] [place] [address] Creatinine [Mass/Vol] 0.40 mg/dL Low 0.50 - 1.05 [facility] Comment on above: Performed By: #### R ENAL ####[id number] [place] [address] GFR- AM. >60 Normal >60 [facility] Comment on above: Result Comment: CALC ULATIONS OF ESTIMATED GFR ARE PERFORMED USING THE MDRD STUDY EQUATION FOR THE IDMS-TRACEABLE CREATININE METHODS. CLIN CHEM 2007;53:766-72 Performed By: #### R ENAL ####[id number] [place] [address] GFR-NON AM. >60 Normal >60 [facility] Comment on above: Performed By: #### R ENAL ####[id number] [place] [address] Glucose [Mass/Vol] 264 mg/dL High 74 - 99 [facility] Comment on above: Performed By: #### R ENAL ####[id number] [place] [address] HCO3 (Bld) [Moles/Vol] 23 mmol/L Normal 21 - 32 [facility] Comment on above: Performed By: #### R ENAL ####[id number] [place] [address] Phosphate [Mass/Vol] 2.7 mg/dL Normal 2.5 - 4.9 [facility] Comment on above: Result Comment: The performance characteristics of phosphorus testing in heparinized plasma have been validated by the individual laboratory site where testing is performed. Testing on heparinized plasma is not approved by the FDA; however, such approval is not necessary. Performed By: #### R ENAL ####[id number] [place] [address] Potassium [Moles/Vol] 4.1 mmol/L Normal 3.5 - 5.3 [facility] Comment on above: Performed By: #### R ENAL ####[id number] [place] [address] Sodium [Moles/Vol] 133 mmol/L Low 136 - 145 [facility] Comment on above: Performed By: #### R ENAL ####[id number] [place] [address] Urea nitrogen [Mass/Vol] 8 mg/dL Normal 6 - 23 [facility] Comment on above: Performed By: #### R ENAL ####[id number] [place] [address] Radiologyon 01-28-2021 XR Chest 2 Views Normal [facility] ology- [facility] Work Phone: Renal Function Panelon 01-28 Albumin BCP dye [Mass/Vol] 3.4 g/dL 3.4 - 5.0 [facility] Work Phone: Anion gap [Moles/Vol] 15 mmol/L 10 - 20 [facility] Work Phone: Calcium [Mass/Vol] 8.9 mg/dL 8.6 - 10.6 MG-Car diology- [facility] Work Phone: Chloride [Moles/Vol] 99 mmol/L 98 - 107 MG-C ardiology- [employer] Work Phone: CO2 [Moles/Vol] 23 mmol/L 21 - 32 MG-Cardio logy- [facility] Work Phone: Creatinine [Mass/Vol] 0.40 mg/dL below low threshold See Below [facility] Work Phone: Comment on above: Reference Range: 0.5 0 - 1.05 Glucose [Mass/Vol] 264 mg/dL above high threshold 74 - 99 [facility] Work Phone: Phosphate [Mass/Vol] 2.7 mg/dL 2.5 - 4.9 MG-C Tinypay.mediology- [facility] Work Phone: Comment on above: The performance jam acteristics of phosphorus testing in heparinized plasma have been validated by the individual laboratory site where testing is performed. Testing on heparinized plasma is not approved by the FDA; however, such approval is not necessary. Potassium [Moles/Vol] 4.1 mmol/L 3.5 - 5.3 [facility] Work Phone: Sodium [Moles/Vol] 133 mmol/L below low threshold 136 - 145 [facility] Work Phone: Urea nitrogen [Mass/Vol] 8 mg/dL 6 - 23 [facility] Work Phone: Renal Function Panel >60 >60 [facility]-C ardiology- [facility] Work Phone: Comment on above: CALCULATIONS OF YARA MATED GFR ARE PERFORMED USING THE MDRD STUDY EQUATION FOR THE IDMS-TRACEABLE CREATININE METHODS. CLIN CHEM 2007;53:766-72 TH CHEST 2 VIEW PA AND LATon 01-28-2021 TH CHEST 2 VIEW PA AND LAT Normal [facility] TSH - Thyroid Stimulating Ho rmone, Serumon 01-28-2021 TSH Qn 1.88 m[IU]/L See Below [facility]iolog y- [facility] Work Phone: Comment on above: Reference Range: 0.4 4 - 3.98 TSH testing is performed using different testing methodology at [facility] than at other [facility]. Direct result comparisons should only be made within the same method. Thyroxine, Serum (T4)on 01-16 T4 [Mass/Vol] 13.8 ug/dL above high threshold 4.5 - 11.1 [facility] Work Phone: CALCIUM, IONIZEDon 1 CALCIUM,IONIZED 1.15 mmol/L Normal 1.10 - 1.33 [facility] Comment on above: Result Comment: The performance characteristics of ionized calcium tested in heparinized plasma or serum have been validated by the individual laboratory site where testing is performed. Testing on heparinized plasma or serum is not approved by the FDA; however, such approval is not necessary. Performed By: #### I ONC1 ####[id number] [place] [address] CBCon 01-27-2021 Erythrocyte distribution width (RBC) [Ratio] 17.1 % High 11.5 - 14.5 [facility] Comment on above: Performed By: #### C BC ####[id number] [place] [address] Hematocrit (Bld) [Volume fraction] 24.3 % Low 36.0 - 46.0 [facility] Comment on above: Performed By: #### C BC ####[id number] [place] [address] Hemoglobin (Bld) [Mass/Vol] 7.7 g/dL Low 12.0 - 16.0 [facility] Comment on above: Performed By: #### C BC ####[id number] [place] [address] MCHC (RBC) [Mass/Vol] 31.7 g/dL Low 32.0 - 36.0 [facility] Comment on above: Performed By: #### C BC ####[id number] [place] [address] MCV (RBC) [Entitic vol] 83 fL Normal 80 - 100 [facility] Comment on above: Performed By: #### C BC ####[id number] [place] [address] NUCLEATED RBC 0.0 /100 WBC Normal 0.0-0.0 [facility] Comment on above: Performed By: #### C BC ####[id number] [place] [address] Platelets (Bld) [#/Vol] 183 10*3/uL Normal 150 - 450 [facility] Comment on above: Performed By: #### C BC ####[id number] [place] [address] RBC 2.93 x10E12/L Low 4.00 - 5.20 [facility] Comment on above: Performed By: #### C BC ####[id number] [place] [address] WBC (Bld) [#/Vol] 11.9 10*3/uL High 4.4 - 11.3 [facility] Comment on above: Performed By: #### C BC ####[id number] [place] [address] Calcium, Ionized Levelon Calcium, Ionized Level 1.15 mmol/L See Below M [facility]- [facility] Work Phone: Comment on above: Reference Range: 1.1 0 - 1.33 The performance characteristics of ionized calcium tested in heparinized plasma or serum have been validated by the individual laboratory site where testing is performed. Testing on heparinized plasma or serum is not approved by the FDA; however, such approval is not necessary. Daily Progress Note - Critic al Care-CTICUon 01-27-2021 Daily Progress Note - Critical Care-CTICU Normal [facility] Daily Progress Note-Anesthes ia - Painon 01-27-2021 Daily Progress Note-Anesthesia - Pain Normal [facility] GLUCOSE-POCTon 01-27-2021 Glucose [Mass/Vol] 246 mg/dL High 74 - 99 [facility] Comment on above: Performed By: ###Darren ALFORD ####[id number] [place] [address] Glucose [Mass/Vol] 271 mg/dL High 74 - 99 [facility] Comment on above: Performed By: #### G PRASHANTH ####[id number] [place] [address] Glucose [Mass/Vol] 220 mg/dL High 74 - 99 [facility] Comment on above: Performed By: #### G PRASHANTH ####[id number] [place] [address] Glucose [Mass/Vol] 334 mg/dL High 74 - 99 [facility] Comment on above: Performed By: #### G PRASHANTH ####[id number] [place] [address] Laboratory - Chemistry and C hemistry - challengeon 01-27-2021 Glucose [Mass/Vol] 246 mg/dL above high threshold 74 - 99 [facility] Work Phone: Glucose [Mass/Vol] 271 mg/dL above high threshold 74 - 99 [facility] Work Phone: Glucose [Mass/Vol] 220 mg/dL above high threshold 74 - 99 [facility] Work Phone: Glucose [Mass/Vol] 334 mg/dL above high threshold 74 - 99 [facility] Work Phone: Laboratory - Hematology and Cell countson 01-27-2021 Erythrocyte distribution width (RBC) [Ratio] 17.1 % above high threshold See Below [facility] Work Phone: Comment on above: Reference Range: 11. 5 - 14.5 Hematocrit (Bld) [Volume fraction] 24.3 % below low threshold See Below [facility] Work Phone: Comment on above: Reference Range: 36. 0 - 46.0 Hemoglobin (Bld) [Mass/Vol] 7.7 g/dL below low threshold See Below [facility] Work Phone: Comment on above: Reference Range: 12. 0 - 16.0 MCHC (RBC) [Mass/Vol] 31.7 g/dL below low threshold See Below [facility] Work Phone: Comment on above: Reference Range: 32. 0 - 36.0 MCV (RBC) [Entitic vol] 83 fL 80 - 100 [facility] Work Phone: Platelets (Bld) [#/Vol] 183 10*3/uL 150 - 450 [facility] Work Phone: RBC (Bld) [#/Vol] 2.93 {x10E12/L} below low threshold See Below [facility] Work Phone: Comment on above: Reference Range: 4.0 0 - 5.20 WBC (Bld) [#/Vol] 11.9 10*3/uL above high threshold 4.4 - 11.3 [facility] Work Phone: MAGNESIUMon 01-27-2021 Magnesium [Mass/Vol] 4.42 mg/dL High 1.60 - 2.40 [facility] Comment on above: Performed By: #### M G ####[id number] [place] [address] Magnesium, Serumon Magnesium [Mass/Vol] 4.42 mg/dL above high threshold See Below [facility] Work Phone: Comment on above: Reference Range: 1.6 0 - 2.40 No Panel Informationon 01-27 0.0 {/100_WBC} 0.0-0.0 [facility]-Cardiol ogy- [facility] Work Phone: RENAL FUNCTION PANELon 01-27 Albumin [Mass/Vol] 3.1 g/dL Low 3.4 - 5.0 [facility] Comment on above: Performed By: #### R ENAL ####[id number] [place] [address] Anion gap [Moles/Vol] 12 mmol/L Normal 10 - 20 [facility] Comment on above: Performed By: #### R ENAL ####[id number] [place] [address] Calcium [Mass/Vol] 7.8 mg/dL Low 8.6 - 10.6 [facility] Comment on above: Performed By: #### R ENAL ####[id number] [place] [address] Chloride [Moles/Vol] 98 mmol/L Normal 98 - 107 [facility] Comment on above: Performed By: #### R ENAL ####[id number] [place] [address] Creatinine [Mass/Vol] 0.35 mg/dL Low 0.50 - 1.05 [facility] Comment on above: Performed By: #### R ENAL ####[id number] [place] [address] GFR- AM. >60 Normal >60 [facility] Comment on above: Result Comment: CALC ULATIONS OF ESTIMATED GFR ARE PERFORMED USING THE MDRD STUDY EQUATION FOR THE IDMS-TRACEABLE CREATININE METHODS. CLIN CHEM 2007;53:766-72 Performed By: #### R ENAL ####[id number] [place] [address] GFR-NON AM. >60 Normal >60 [facility] Comment on above: Performed By: #### R ENAL ####[id number] [place] [address] Glucose [Mass/Vol] 183 mg/dL High 74 - 99 [facility] Comment on above: Performed By: #### R ENAL ####[id number] [place] [address] HCO3 (Bld) [Moles/Vol] 25 mmol/L Normal 21 - 32 [facility] Comment on above: Performed By: #### R ENAL ####[id number] [place] [address] Phosphate [Mass/Vol] 2.3 mg/dL Low 2.5 - 4.9 [facility] Comment on above: Result Comment: The performance characteristics of phosphorus testing in heparinized plasma have been validated by the individual laboratory site where testing is performed. Testing on heparinized plasma is not approved by the FDA; however, such approval is not necessary. Performed By: #### R ENAL ####[id number] [place] [address] Potassium [Moles/Vol] 4.1 mmol/L Normal 3.5 - 5.3 [facility] Comment on above: Performed By: #### R ENAL ####[id number] [place] [address] Sodium [Moles/Vol] 131 mmol/L Low 136 - 145 [facility] Comment on above: Performed By: #### R ENAL ####[id number] [place] [address] Urea nitrogen [Mass/Vol] 9 mg/dL Normal 6 - 23 [facility] Comment on above: Performed By: #### R ENAL ####[id number] [place] [address] Radiologyon 01-27-2021 XR Chest Single view Normal [facility] ardiology- [facility] Work Phone: Renal Function Panelon 01-27 Albumin BCP dye [Mass/Vol] 3.1 g/dL below low threshold 3.4 - 5.0 [facility]- [facility] Work Phone: Anion gap [Moles/Vol] 12 mmol/L 10 - 20 [facility]- [facility] Work Phone: Calcium [Mass/Vol] 7.8 mg/dL below low threshold 8.6 - 10.6 [facility]- [facility] Work Phone: Chloride [Moles/Vol] 98 mmol/L 98 - 107 [facility] ardiology- [facility] Work Phone: CO2 [Moles/Vol] 25 mmol/L 21 - 32 [facility]-Cardio logy- [facility] Work Phone: Creatinine [Mass/Vol] 0.35 mg/dL below low threshold See Below [facility] Work Phone: Comment on above: Reference Range: 0.5 0 - 1.05 Glucose [Mass/Vol] 183 mg/dL above high threshold 74 - 99 [facility]- [facility] Work Phone: Phosphate [Mass/Vol] 2.3 mg/dL below low threshold 2.5 - 4.9 [facility] Work Phone: Comment on above: The performance jam acteristics of phosphorus testing in heparinized plasma have been validated by the individual laboratory site where testing is performed. Testing on heparinized plasma is not approved by the FDA; however, such approval is not necessary. Potassium [Moles/Vol] 4.1 mmol/L 3.5 - 5.3 [facility]- [facility] Work Phone: Sodium [Moles/Vol] 131 mmol/L below low threshold 136 - 145 [facility]- [facility] Work Phone: Urea nitrogen [Mass/Vol] 9 mg/dL 6 - 23 [facility]- [facility] Work Phone: Renal Function Panel >60 >60 [facility] ardiology- [facility] Work Phone: Comment on above: CALCULATIONS OF YARA MATED GFR ARE PERFORMED USING THE MDRD STUDY EQUATION FOR THE IDMS-TRACEABLE CREATININE METHODS. CLIN CHEM 2007;53:766-72 TH CHEST 1 VIEWon 01-27-2021 TH CHEST 1 VIEW Normal [facility] ARTERIAL FULL PANELon 2020 Anion gap [Moles/Vol] 7 mmol/L Low 10 - 25 [facility] Comment on above: Performed By: #### A FPA3 ####[id number] [place] [address] BASE EXCESS-BLOOD 1.9 mmol/L Normal -2.0 - 3.0 [facility] Comment on above: Performed By: #### A FPA3 ####[id number] [place] [address] BICARB, CALCULATED 25.3 mmol/L Normal 22.0 - 26.0 [facility] Comment on above: Performed By: #### A FPA3 ####[id number] [place] [address] CALCIUM,IONIZED 1.10 mmol/L Normal 1.10 - 1.33 [facility] Comment on above: Performed By: #### A FPA3 ####[id number] [place] [address] Chloride [Moles/Vol] 99 mmol/L Normal 98 - 107 [facility] Comment on above: Performed By: #### A FPA3 ####[id number] [place] [address] Glucose [Mass/Vol] 244 mg/dL High 74 - 99 [facility] Comment on above: Performed By: #### A FPA3 ####[id number] [place] [address] Hematocrit (Bld) [Volume fraction] 26.0 % Low 36.0 - 46.0 [facility] Comment on above: Performed By: #### A FPA3 ####[id number] [place] [address] HGB,CALCULATED 8.8 g/dL Low 12.0 - 16.0 [facility] Comment on above: Performed By: #### A FPA3 ####[id number] [place] [address] Lactate [Moles/Vol] 1.5 mmol/L Normal 0.4 - 2.0 [facility] Comment on above: Performed By: #### A FPA3 ####[id number] [place] [address] Oxygen (Bld) [Partial pressure] 119 mm[Hg] High 85 - 95 [facility] Comment on above: Performed By: #### A FPA3 ####[id number] [place] [address] PATIENT TEMPERATURE 37.0 degrees C Normal [facility] Comment on above: Result Comment: NOTE : PATIENT RESULTS ARE NOT CORRECTED FOR TEMPERATURE. Performed By: #### A FPA3 ####[id number] [place] [address] PCO2 34 mmHg Low 38 - 42 [facility] Comment on above: Performed By: #### A FPA3 ####[id number] [place] [address] pH (Bld) 7.48 [pH] High 7.38 - 7.42 [facility] Comment on above: Performed By: #### A FPA3 ####[id number] [place] [address] Potassium [Moles/Vol] 3.6 mmol/L Normal 3.5 - 5.3 [facility] Comment on above: Performed By: #### A FPA3 ####[id number] [place] [address] SO2 99 % Normal 94 - 100 [facility] Comment on above: Performed By: #### A FPA3 ####[id number] [place] [address] Sodium [Moles/Vol] 128 mmol/L Low 136 - 145 [facility] Comment on above: Performed By: #### A FPA3 ####[id number] [place] [address] CALCIUM, IONIZEDon 1 CALCIUM,IONIZED 1.12 mmol/L Normal 1.10 - 1.33 [facility] Comment on above: Result Comment: The performance characteristics of ionized calcium tested in heparinized plasma or serum have been validated by the individual laboratory site where testing is performed. Testing on heparinized plasma or serum is not approved by the FDA; however, such approval is not necessary. Performed By: #### I ONC1 ####[id number] [place] [address] CALCIUM,IONIZED 1.11 mmol/L Normal 1.10 - 1.33 [facility] Comment on above: Result Comment: The performance characteristics of ionized calcium tested in heparinized plasma or serum have been validated by the individual laboratory site where testing is performed. Testing on heparinized plasma or serum is not approved by the FDA; however, such approval is not necessary. Performed By: #### I ONC1 ####[id number] [place] [address] CBCon 01-26-2021 Erythrocyte distribution width (RBC) [Ratio] 17.0 % High 11.5 - 14.5 [facility] Comment on above: Performed By: #### C BC ####[id number] [place] [address] Hematocrit (Bld) [Volume fraction] 26.8 % Low 36.0 - 46.0 [facility] Comment on above: Performed By: #### C BC ####[id number] [place] [address] Hemoglobin (Bld) [Mass/Vol] 8.8 g/dL Low 12.0 - 16.0 [facility] Comment on above: Performed By: #### C BC ####[id number] [place] [address] MCHC (RBC) [Mass/Vol] 32.8 g/dL Normal 32.0 - 36.0 [facility] Comment on above: Performed By: #### C BC ####[id number] [place] [address] MCV (RBC) [Entitic vol] 78 fL Low 80 - 100 [facility] Comment on above: Performed By: #### C BC ####[id number] [place] [address] NUCLEATED RBC 0.0 /100 WBC Normal 0.0-0.0 [facility] Comment on above: Performed By: #### C BC ####[id number] [place] [address] Platelets (Bld) [#/Vol] 215 10*3/uL Normal 150 - 450 [facility] Comment on above: Performed By: #### C BC ####[id number] [place] [address] RBC 3.43 x10E12/L Low 4.00 - 5.20 [facility] Comment on above: Performed By: #### C BC ####[id number] [place] [address] WBC (Bld) [#/Vol] 13.6 10*3/uL High 4.4 - 11.3 [facility] Comment on above: Performed By: #### C BC ####[id number] [place] [address] Erythrocyte distribution width (RBC) [Ratio] 16.9 % High 11.5 - 14.5 [facility] Comment on above: Performed By: #### C BC ####[id number] [place] [address] Hematocrit (Bld) [Volume fraction] 26.6 % Low 36.0 - 46.0 [facility] Comment on above: Performed By: #### C BC ####[id number] [place] [address] Hemoglobin (Bld) [Mass/Vol] 8.6 g/dL Low 12.0 - 16.0 [facility] Comment on above: Performed By: #### C BC ####[id number] [place] [address] MCHC (RBC) [Mass/Vol] 32.3 g/dL Normal 32.0 - 36.0 [facility] Comment on above: Performed By: #### C BC ####[id number] [place] [address] MCV (RBC) [Entitic vol] 80 fL Normal 80 - 100 [facility] Comment on above: Performed By: #### C BC ####[id number] [place] [address] NUCLEATED RBC 0.0 /100 WBC Normal 0.0-0.0 [facility] [facility] Comment on above: Performed By: #### C BC ####[id number] [place] [address] Platelets (Bld) [#/Vol] 173 10*3/uL Normal 150 - 450 [facility] Comment on above: Performed By: #### C BC ####[id number] [place] [address] RBC 3.33 x10E12/L Low 4.00 - 5.20 [facility] Comment on above: Performed By: #### C BC ####[id number] [place] [address] WBC (Bld) [#/Vol] 11.7 10*3/uL High 4.4 - 11.3 [facility] Comment on above: Performed By: #### C BC ####[id number] [place] [address] Calcium, Ionized Levelon Calcium, Ionized Level 1.12 mmol/L See Below [facility] Button Work Phone: Comment on above: Reference Range: 1.1 0 - 1.33 The performance characteristics of ionized calcium tested in heparinized plasma or serum have been validated by the individual laboratory site where testing is performed. Testing on heparinized plasma or serum is not approved by the FDA; however, such approval is not necessary. Calcium, Ionized Level 1.11 mmol/L See Below [facility]iology[facility] Button Work Phone: Comment on above: Reference Range: 1.1 0 - 1.33 The performance characteristics of ionized calcium tested in heparinized plasma or serum have been validated by the individual laboratory site where testing is performed. Testing on heparinized plasma or serum is not approved by the FDA; however, such approval is not necessary. Complete Blood Count + Diffe rentialon 01-26-2021 Complete Blood Count + Differential 0.0 {/100_WBC} 0.0-0.0 [facility]- Admin Button Work Phone: Daily Progress Note - Critic al Care-CTICUon 01-26-2021 Daily Progress Note - Critical Care-CTICU Normal [facility] Daily Progress Note-Anesthes ia - Painon 01-26-2021 Daily Progress Note-Anesthesia - Pain Normal [facility] GLUCOSE-POCTon 01-26-2021 Glucose [Mass/Vol] 194 mg/dL High 74 - 99 [facility] Comment on above: Performed By: #### G PRASHANTH ####[id number] [place] [address] Glucose [Mass/Vol] 224 mg/dL High 74 - 99 [facility] Comment on above: Performed By: #### G PRASHANTH ####[id number] [place] [address] Glucose [Mass/Vol] 222 mg/dL High 74 - 99 [facility] Comment on above: Performed By: #### G PRASHANTH ####[id number] [place] [address] Glucose [Mass/Vol] 204 mg/dL High 74 - 99 [facility] Comment on above: Performed By: #### G PRASHANTH ####[id number] [place] [address] Glucose [Mass/Vol] 219 mg/dL High 74 - 99 [facility] Comment on above: Performed By: #### G PRASHANTH ####[id number] [place] [address] Glucose [Mass/Vol] 237 mg/dL High 74 - 99 [facility] Comment on above: Performed By: #### G PRASHANTH ####[id number] [place] [address] Laboratory - Blood bankon ABO group Nom (Bld) A [facility] rdiology- Admin [place] Work Phone: Blood group antibody screen Ql Negative [facility] [place] Work Phone: Rh immune globulin screen (Bld) [Interp] Positive [facility]- [facility] [place] Work Phone: Laboratory - Chemistry and C hemistry - challengeon 01-26-2021 Glucose [Mass/Vol] 194 mg/dL above high threshold 74 - 99 [facility] [place] Work Phone: Glucose [Mass/Vol] 224 mg/dL above high threshold 74 - 99 [facility] [place] Work Phone: Glucose [Mass/Vol] 222 mg/dL above high threshold 74 - 99 [facility] [place] Work Phone: Glucose [Mass/Vol] 204 mg/dL above high threshold 74 - 99 [facility] [place] Work Phone: Glucose [Mass/Vol] 219 mg/dL above high threshold 74 - 99 [facility] [place] Work Phone: Anion gap (Bld) [Moles/Vol] 7 mmol/L below low threshold 10 - 25 [facility] [place] Work Phone: Calcium.ionized (Bld) [Moles/Vol] 1.10 mmol/L See Below [facility] [place] Work Phone: Comment on above: Reference Range: 1.1 0 - 1.33 Chloride [Moles/Vol] 99 mmol/L 98 - 107 [facility] ardiology- Admin Button Work Phone: CO2 (Bld) [Partial pressure] 34 mm[Hg] below low threshold 38 - 42 [facility] [place] Work Phone: Glucose [Mass/Vol] 244 mg/dL above high threshold 74 - 99 [facility] [place] Work Phone: HCO3 (Bld) [Moles/Vol] 25.3 mmol/L See Below M [facility]- Admin Button Work Phone: Comment on above: Reference Range: 22. 0 - 26.0 Lactate [Moles/Vol] 1.5 mmol/L 0.4 - 2.0 [facility] rdiology- Admin Button Work Phone: Oxygen (Bld) [Partial pressure] 119 mm[Hg] above high threshold 85 - 95 [facility] [place] Work Phone: pH (Bld) 7.48 [pH] above high threshold See Below [facility] [place] Work Phone: Comment on above: Reference Range: 7.3 8 - 7.42 Potassium [Moles/Vol] 3.6 mmol/L 3.5 - 5.3 [facility]- Admin Button Work Phone: Sodium [Moles/Vol] 128 mmol/L below low threshold 136 - 145 [facility] Button Work Phone: Laboratory - Hematology and Cell countson 01-26-2021 Erythrocyte distribution width (RBC) [Ratio] 17.0 % above high threshold See Below [facility] Button Work Phone: Comment on above: Reference Range: 11. 5 - 14.5 Hematocrit (Bld) [Volume fraction] 26.8 % below low threshold See Below [facility] Group[facility]- Admin Button Work Phone: Comment on above: Reference Range: 36. 0 - 46.0 Hemoglobin (Bld) [Mass/Vol] 8.8 g/dL below low threshold See Below [facility]GM[facility] GroupCardiology- Admin Button Work Phone: Comment on above: Reference Range: 12. 0 - 16.0 MCHC (RBC) [Mass/Vol] 32.8 g/dL See Below [facility] Admin Button Work Phone: Comment on above: Reference Range: 32. 0 - 36.0 MCV (RBC) [Entitic vol] 78 fL below lo w threshold 80 - 100 [facility] Work Phone: Platelets (Bld) [#/Vol] 215 10*3/uL 150 - 450 [facility] Work Phone: RBC (Bld) [#/Vol] 3.43 {x10E12/L} below low threshold See Below [facility] GroupCardiologyM[facility] Admin Button Work Phone: Comment on above: Reference Range: 4.0 0 - 5.20 WBC (Bld) [#/Vol] 13.6 10*3/uL above high threshold 4.4 - 11.3 [facility] Admin Button Work Phone: Erythrocyte distribution width (RBC) [Ratio] 16.9 % above high threshold See Below [facility] Group[facility]- Admin Button Work Phone: Comment on above: Reference Range: 11. 5 - 14.5 Hematocrit (Bld) [Volume fraction] 26.6 % below low threshold See Below [facility]GM[facility] GroupCard[facility]- Admin Button Work Phone: Comment on above: Reference Range: 36. 0 - 46.0 Hemoglobin (Bld) [Mass/Vol] 8.6 g/dL below low threshold See Below [facility] Admin Button Work Phone: Comment on above: Reference Range: 12. 0 - 16.0 MCHC (RBC) [Mass/Vol] 32.3 g/dL See Below [facility] Admin Button Work Phone: Comment on above: Reference Range: 32. 0 - 36.0 MCV (RBC) [Entitic vol] 80 fL 80 - 100 M [facility] Work Phone: Platelets (Bld) [#/Vol] 173 10*3/uL 150 - 450 [facility] Work Phone: RBC (Bld) [#/Vol] 3.33 {x10E12/L} below low threshold See Below [facility] Admin Button Work Phone: Comment on above: Reference Range: 4.0 0 - 5.20 WBC (Bld) [#/Vol] 11.7 10*3/uL above high threshold 4.4 - 11.3 [facility] Work Phone: Hematocrit (Bld) [Volume fraction] 26.0 % below low threshold See Below [facility] Admin Button Work Phone: Comment on above: Reference Range: 36. 0 - 46.0 Hemoglobin (Bld) [Mass/Vol] 8.8 g/dL below low threshold See Below [facility] Admin Button Work Phone: Comment on above: Reference Range: 12. 0 - 16.0 MAGNESIUMon 01-26-2021 Magnesium [Mass/Vol] 1.92 mg/dL Normal 1.60 - 2.40 [facility] Comment on above: Performed By: #### M G ####[id number] [place] [address] Magnesium [Mass/Vol] 1.96 mg/dL Normal 1.60 - 2.40 [facility] Comment on above: Performed By: #### M G ####[id number] [place] [address] Magnesium, Serumon Magnesium [Mass/Vol] 1.92 mg/dL See Below [facility] ardiology- [facility] [place] Work Phone: Comment on above: Reference Range: 1.6 0 - 2.40 Magnesium [Mass/Vol] 1.96 mg/dL See Below [facility]- [facility] [place] Work Phone: Comment on above: Reference Range: 1.6 0 - 2.40 No Panel Informationon 01-26 0.0 {/100_WBC} 0.0-0.0 [facility]- [facility] [place] Work Phone: 1.9 mmol/L -2.0 - 3.0 [facility] [place] Work Phone: 99 % 94 - 100 [facility] [place] Work Phone: 37.0 {degrees_C} [facility]- [facility] [place] Work Phone: Comment on above: NOTE: PATIENT RESULT S ARE NOT CORRECTED FOR TEMPERATURE. RENAL FUNCTION PANELon 01-26 Albumin [Mass/Vol] 3.6 g/dL Normal 3.4 - 5.0 [facility] Comment on above: Performed By: #### R ENAL ####[id number] [place] [address] Anion gap [Moles/Vol] 14 mmol/L Normal 10 - 20 [facility] Comment on above: Performed By: #### R ENAL ####[id number] [place] [address] Calcium [Mass/Vol] 8.3 mg/dL Low 8.6 - 10.6 [facility] Comment on above: Performed By: #### R ENAL ####[id number] [place] [address] Chloride [Moles/Vol] 95 mmol/L Low 98 - 107 [facility] Comment on above: Performed By: #### R ENAL ####[id number] [place] [address] Creatinine [Mass/Vol] 0.42 mg/dL Low 0.50 - 1.05 [facility] Comment on above: Performed By: #### R ENAL ####[id number] [place] [address] GFR- AM. >60 Normal >60 [facility] Comment on above: Result Comment: CALC ULATIONS OF ESTIMATED GFR ARE PERFORMED USING THE MDRD STUDY EQUATION FOR THE IDMS-TRACEABLE CREATININE METHODS. CLIN CHEM 2007;53:766-72 Performed By: #### R ENAL ####[id number] [place] [address] GFR-NON AM. >60 Normal >60 [facility] Comment on above: Performed By: #### R ENAL ####[id number] [place] [address] Glucose [Mass/Vol] 254 mg/dL High 74 - 99 [facility] Comment on above: Performed By: #### R ENAL ####[id number] [place] [address] HCO3 (Bld) [Moles/Vol] 23 mmol/L Normal 21 - 32 [facility] Comment on above: Performed By: #### R ENAL ####[id number] [place] [address] Phosphate [Mass/Vol] 2.0 mg/dL Low 2.5 - 4.9 [facility] Comment on above: Result Comment: The performance characteristics of phosphorus testing in heparinized plasma have been validated by the individual laboratory site where testing is performed. Testing on heparinized plasma is not approved by the FDA; however, such approval is not necessary. Performed By: #### R ENAL ####[id number] [place] [address] Potassium [Moles/Vol] 3.6 mmol/L Normal 3.5 - 5.3 [facility] Comment on above: Performed By: #### R ENAL ####[id number] [place] [address] Sodium [Moles/Vol] 128 mmol/L Low 136 - 145 [facility] Comment on above: Performed By: #### R ENAL ####[id number] [place] [address] Urea nitrogen [Mass/Vol] 8 mg/dL Normal 6 - 23 [facility] Comment on above: Performed By: #### R ENAL ####[id number] [place] [address] Albumin [Mass/Vol] 3.4 g/dL Normal 3.4 - 5.0 [facility] Comment on above: Performed By: #### R ENAL ####[id number] [place] [address] Anion gap [Moles/Vol] 13 mmol/L Normal 10 - 20 [facility] Comment on above: Performed By: #### R ENAL ####[id number] [place] [address] Calcium [Mass/Vol] 7.9 mg/dL Low 8.6 - 10.6 [facility] Comment on above: Performed By: #### R ENAL ####[id number] [place] [address] Chloride [Moles/Vol] 97 mmol/L Low 98 - 107 [facility] Comment on above: Performed By: #### R ENAL ####[id number] [place] [address] Creatinine [Mass/Vol] 0.37 mg/dL Low 0.50 - 1.05 [facility] Comment on above: Performed By: #### R ENAL ####[id number] [place] [address] GFR- AM. >60 Normal >60 [facility] Comment on above: Result Comment: CALC ULATIONS OF ESTIMATED GFR ARE PERFORMED USING THE MDRD STUDY EQUATION FOR THE IDMS-TRACEABLE CREATININE METHODS. CLIN CHEM 2007;53:766-72 Performed By: #### R ENAL ####[id number] [place] [address] GFR-NON AM. >60 Normal >60 [facility] Comment on above: Performed By: #### R ENAL ####[id number] [place] [address] Glucose [Mass/Vol] 238 mg/dL High 74 - 99 [facility] Comment on above: Performed By: #### R ENAL ####[id number] [place] [address] HCO3 (Bld) [Moles/Vol] 25 mmol/L Normal 21 - 32 [facility] Comment on above: Performed By: #### R ENAL ####[id number] [place] [address] Phosphate [Mass/Vol] 2.7 mg/dL Normal 2.5 - 4.9 [facility] Comment on above: Result Comment: The performance characteristics of phosphorus testing in heparinized plasma have been validated by the individual laboratory site where testing is performed. Testing on heparinized plasma is not approved by the FDA; however, such approval is not necessary. Performed By: #### R ENAL ####[id number] [place] [address] Potassium [Moles/Vol] 3.6 mmol/L Normal 3.5 - 5.3 [facility] Comment on above: Performed By: #### R ENAL ####[id number] [place] [address] Sodium [Moles/Vol] 131 mmol/L Low 136 - 145 [facility] Comment on above: Performed By: #### R ENAL ####[id number] [place] [address] Urea nitrogen [Mass/Vol] 11 mg/dL Normal 6 - 23 [facility] Comment on above: Performed By: #### R ENAL ####[id number] [place] [address] Radiologyon 01-26-2021 XR Chest Single view Normal [facility]- [facility] [place] Work Phone: Renal Function Panelon 01-26 Albumin BCP dye [Mass/Vol] 3.6 g/dL 3.4 - 5.0 [facility] [place] Work Phone: Anion gap [Moles/Vol] 14 mmol/L 10 - 20 [facility] [place] Work Phone: Calcium [Mass/Vol] 8.3 mg/dL below low threshold 8.6 - 10.6 [facility] [place] Work Phone: Chloride [Moles/Vol] 95 mmol/L below low threshold 98 - 107 [facility] [place] Work Phone: CO2 [Moles/Vol] 23 mmol/L 21 - 32 [facility] logy- [facility] [place] Work Phone: Creatinine [Mass/Vol] 0.42 mg/dL below low threshold See Below [facility] [place] Work Phone: Comment on above: Reference Range: 0.5 0 - 1.05 Glucose [Mass/Vol] 254 mg/dL above high threshold 74 - 99 [facility] [place] Work Phone: Phosphate [Mass/Vol] 2.0 mg/dL below low threshold 2.5 - 4.9 [facility] [place] Work Phone: Comment on above: The performance jam acteristics of phosphorus testing in heparinized plasma have been validated by the individual laboratory site where testing is performed. Testing on heparinized plasma is not approved by the FDA; however, such approval is not necessary. Potassium [Moles/Vol] 3.6 mmol/L 3.5 - 5.3 [facility] [place] Work Phone: Sodium [Moles/Vol] 128 mmol/L below low threshold 136 - 145 [facility] [place] Work Phone: Urea nitrogen [Mass/Vol] 8 mg/dL 6 - 23 [facility] [place] Work Phone: Renal Function Panel >60 >60 [facility] ardiology- Admin Button Work Phone: Comment on above: CALCULATIONS OF YARA MATED GFR ARE PERFORMED USING THE MDRD STUDY EQUATION FOR THE IDMS-TRACEABLE CREATININE METHODS. CLIN CHEM 2007;53:766-72 Albumin BCP dye [Mass/Vol] 3.4 g/dL 3.4 - 5.0 [facility] [place] Work Phone: Anion gap [Moles/Vol] 13 mmol/L 10 - 20 [facility] [place] Work Phone: Calcium [Mass/Vol] 7.9 mg/dL below low threshold 8.6 - 10.6 [facility] [place] Work Phone: Chloride [Moles/Vol] 97 mmol/L below low threshold 98 - 107 [facility] [place] Work Phone: CO2 [Moles/Vol] 25 mmol/L 21 - 32 [facility] logy- [facility] [place] Work Phone: Creatinine [Mass/Vol] 0.37 mg/dL below low threshold See Below [facility] [place] Work Phone: Comment on above: Reference Range: 0.5 0 - 1.05 Glucose [Mass/Vol] 238 mg/dL above high threshold 74 - 99 [facility] [place] Work Phone: Phosphate [Mass/Vol] 2.7 mg/dL 2.5 - 4.9 [facility]- [facility] [place] Work Phone: Comment on above: The performance jam acteristics of phosphorus testing in heparinized plasma have been validated by the individual laboratory site where testing is performed. Testing on heparinized plasma is not approved by the FDA; however, such approval is not necessary. Potassium [Moles/Vol] 3.6 mmol/L 3.5 - 5.3 [facility] [place] Work Phone: Sodium [Moles/Vol] 131 mmol/L below low threshold 136 - 145 [facility] [place] Work Phone: Urea nitrogen [Mass/Vol] 11 mg/dL 6 - 23 [facility] [place] Work Phone: Renal Function Panel >60 >60 [facility]diology- [facility] [place] Work Phone: Comment on above: CALCULATIONS OF YARA MATED GFR ARE PERFORMED USING THE MDRD STUDY EQUATION FOR THE IDMS-TRACEABLE CREATININE METHODS. CLIN CHEM 2007;53:766-72 TH CHEST 1 VIEWon 01-26-2021 TH CHEST 1 VIEW Normal [facility] TYPE + SCREENon 01-26-2021 ABO TYPE A Normal [facility] Comment on above: Performed By: #### T +S ####[id number] [place] [address] RH TYPE Positive Normal [facility] Comment on above: Performed By: #### T +S ####[id number] [place] [address] ARTERIAL FULL PANELon 2020 BASE EXCESS-BLOOD 0.6 mmol/L Normal -2.0 - 3.0 [facility] Comment on above: Performed By: #### A FPA3 ####[id number] [place] [address] BICARB, CALCULATED 24.0 mmol/L Normal 22.0 - 26.0 [facility] Comment on above: Performed By: #### A FPA3 ####[id number] [place] [address] CALCIUM,IONIZED 1.14 mmol/L Normal 1.10 - 1.33 [facility] Comment on above: Performed By: #### A FPA3 ####[id number] [place] [address] Chloride [Moles/Vol] 98 mmol/L Normal 98 - 107 [facility] Comment on above: Performed By: #### A FPA3 ####[id number] [place] [address] Glucose [Mass/Vol] 236 mg/dL High 74 - 99 [facility] Comment on above: Performed By: #### A FPA3 ####[id number] [place] [address] Hematocrit (Bld) [Volume fraction] 28.0 % Low 36.0 - 46.0 [facility] Comment on above: Performed By: #### A FPA3 ####[id number] [place] [address], [place] HGB,CALCULATED 9.5 g/dL Low 12.0 - 16.0 [facility] Comment on above: Performed By: #### A FPA3 ####[id number], [place] Lactate [Moles/Vol] 1.0 mmol/L Normal 0.4 - 2.0 [facility] Comment on above: Performed By: #### A FPA3 ####[id number], [place] Oxygen (Bld) [Partial pressure] 64 mm[Hg] Low 85 - 95 [facility] Comment on above: Performed By: #### A FPA3 ####[id number], [place] PATIENT TEMPERATURE 37.0 degrees C Normal [facility] Comment on above: Result Comment: NOTE : PATIENT RESULTS ARE NOT CORRECTED FOR TEMPERATURE. Performed By: #### A FPA3 ####[id number] [place] [address] PCO2 33 mmHg Low 38 - 42 [facility] Comment on above: Performed By: #### A FPA3 ####[id number] [place] [address] pH (Bld) 7.47 [pH] High 7.38 - 7.42 [facility] Comment on above: Performed By: #### A FPA3 ####[id number] [place] [address] Potassium [Moles/Vol] 3.9 mmol/L Normal 3.5 - 5.3 [facility] Comment on above: Performed By: #### A FPA3 ####[id number] [place] [address] SO2 96 % Normal 94 - 100 [facility] Comment on above: Performed By: #### A FPA3 ####[id number] [place] [address] Sodium [Moles/Vol] 129 mmol/L Low 136 - 145 [facility] Comment on above: Performed By: #### A FPA3 ####[id number] [place] [address] Anion gap [Moles/Vol] 8 mmol/L Low 10 - 25 [facility] Comment on above: Performed By: #### A FPA3 ####[id number] [place] [address] BASE EXCESS-BLOOD 2.5 mmol/L Normal -2.0 - 3.0 [facility] Comment on above: Performed By: #### A FPA3 ####[id number] [place] [address] BICARB, CALCULATED 26.2 mmol/L High 22.0 - 26.0 [facility] Comment on above: Performed By: #### A FPA3 ####[id number] [place] [address] CALCIUM,IONIZED 1.08 mmol/L Low 1.10 - 1.33 [facility] Comment on above: Performed By: #### A FPA3 ####[id number] [place] [address] Chloride [Moles/Vol] 100 mmol/L Normal 98 - 107 [facility] Comment on above: Performed By: #### A FPA3 ####[id number] [place] [address] Glucose [Mass/Vol] 142 mg/dL High 74 - 99 [facility] Comment on above: Performed By: #### A FPA3 ####[id number] [place] [address] Hematocrit (Bld) [Volume fraction] 30.0 % Low 36.0 - 46.0 [facility] Comment on above: Performed By: #### A FPA3 ####[id number] [place] [address] HGB,CALCULATED 10.2 g/dL Low 12.0 - 16.0 [facility] Comment on above: Performed By: #### A FPA3 ####[id number] [place] [address] Lactate [Moles/Vol] 1.2 mmol/L Normal 0.4 - 2.0 [facility] Comment on above: Performed By: #### A FPA3 ####[id number] [place] [address] Oxygen (Bld) [Partial pressure] 79 mm[Hg] Low 85 - 95 [facility] Comment on above: Performed By: #### A FPA3 ####[id number] [place] [address] PATIENT TEMPERATURE 37.0 degrees C Normal [facility] Comment on above: Result Comment: NOTE : PATIENT RESULTS ARE NOT CORRECTED FOR TEMPERATURE. Performed By: #### A FPA3 ####[id number] [place] [address] PCO2 36 mmHg Low 38 - 42 [facility] Comment on above: Performed By: #### A FPA3 ####[id number] [place] [address] pH (Bld) 7.47 [pH] High 7.38 - 7.42 [facility] Comment on above: Performed By: #### A FPA3 ####[id number] [place] [address] Potassium [Moles/Vol] 3.6 mmol/L Normal 3.5 - 5.3 [facility] Comment on above: Performed By: #### A FPA3 ####[id number] [place] [address] SO2 97 % Normal 94 - 100 [facility] Comment on above: Performed By: #### A FPA3 ####[id number] [place] [address] Sodium [Moles/Vol] 131 mmol/L Low 136 - 145 [facility] Comment on above: Performed By: #### A FPA3 ####[id number] [place] [address] Anion gap [Moles/Vol] 7 mmol/L Low 10 - 25 [facility] Comment on above: Performed By: #### A FPA3 ####[id number] [place] [address] BASE EXCESS-BLOOD 1.8 mmol/L Normal -2.0 - 3.0 [facility] Comment on above: Performed By: #### A FPA3 ####[id number] [place] [address] BICARB, CALCULATED 25.6 mmol/L Normal 22.0 - 26.0 [facility] Comment on above: Performed By: #### A FPA3 ####[id number] [place] [address] CALCIUM,IONIZED 1.10 mmol/L Normal 1.10 - 1.33 [facility] Comment on above: Performed By: #### A FPA3 ####[id number] [place] [address] Chloride [Moles/Vol] 102 mmol/L Normal 98 - 107 [facility] Comment on above: Performed By: #### A FPA3 ####[id number] [place] [address] Glucose [Mass/Vol] 141 mg/dL High 74 - 99 [facility] Comment on above: Performed By: #### A FPA3 ####[id number] [place] [address] Hematocrit (Bld) [Volume fraction] 29.0 % Low 36.0 - 46.0 [facility] Comment on above: Performed By: #### A FPA3 ####[id number] [place] [address] HGB,CALCULATED 9.9 g/dL Low 12.0 - 16.0 [facility] Comment on above: Performed By: #### A FPA3 ####[id number] [place] [address] Lactate [Moles/Vol] 1.1 mmol/L Normal 0.4 - 2.0 [facility] Comment on above: Performed By: #### A FPA3 ####[id number] [place] [address] Oxygen (Bld) [Partial pressure] 59 mm[Hg] Low 85 - 95 [facility] Comment on above: Performed By: #### A FPA3 ####[id number] [place] [address] PATIENT TEMPERATURE 37.0 degrees C Normal [facility] Comment on above: Result Comment: NOTE : PATIENT RESULTS ARE NOT CORRECTED FOR TEMPERATURE. Performed By: #### A FPA3 ####[id number] [place] [address] PCO2 36 mmHg Low 38 - 42 [facility] Comment on above: Performed By: #### A FPA3 ####[id number] [place] [address] pH (Bld) 7.46 [pH] High 7.38 - 7.42 [facility] Comment on above: Performed By: #### A FPA3 ####[id number] [place] [address] SO2 93 % Low 94 - 100 [facility] Comment on above: Performed By: #### A FPA3 ####[id number] [place] [address] Sodium [Moles/Vol] 131 mmol/L Low 136 - 145 [facility] Comment on above: Performed By: #### A FPA3 ####[id number] [place] [address] CALCIUM, IONIZEDon 1 CALCIUM,IONIZED 1.11 mmol/L Normal 1.10 - 1.33 [facility] Comment on above: Result Comment: The performance characteristics of ionized calcium tested in heparinized plasma or serum have been validated by the individual laboratory site where testing is performed. Testing on heparinized plasma or serum is not approved by the FDA; however, such approval is not necessary. Performed By: #### I ONC1 ####[id number] [place] [address] CALCIUM,IONIZED 1.10 mmol/L Normal 1.10 - 1.33 [facility] Comment on above: Result Comment: The performance characteristics of ionized calcium tested in heparinized plasma or serum have been validated by the individual laboratory site where testing is performed. Testing on heparinized plasma or serum is not approved by the FDA; however, such approval is not necessary. Performed By: #### I ONC1 ####[id number] [place] [address] CALCIUM,IONIZED 1.10 mmol/L Normal 1.10 - 1.33 [facility] Comment on above: Result Comment: The performance characteristics of ionized calcium tested in heparinized plasma or serum have been validated by the individual laboratory site where testing is performed. Testing on heparinized plasma or serum is not approved by the FDA; however, such approval is not necessary. Performed By: #### I ONC1 ####[id number] [place] [address] CBC AND DIFFERENTIALon 01-25 % AUTOMATED IMMATURE GRAN 0.6 % Normal 0.0 - 0.9 [facility] Comment on above: Result Comment: Leatha ture Granulocyte Count (IG) includes promyelocytes, myelocytes and metamyelocytes but does not include bands. Percent differential counts (%) should be interpreted in the context of the absolute cell counts (cells/L). Performed By: #### C BCDF ####[id number] [place] [address] Basophils (Bld) [#/Vol] 0.05 10*3/uL Normal 0.00 - 0.1 0 [facility] Comment on above: Performed By: #### C BCDF ####[id number] [place] [address] Eosinophils (Bld) [#/Vol] 0.16 10*3/uL Normal 0.00 - 0.70 [facility] Comment on above: Performed By: #### C BCDF ####[id number] [place] [address] Eosinophils/100 WBC (Bld) 1.3 % Normal 0.0 - 6.0 [facility] Comment on above: Performed By: #### C BCDF ####[id number] [place] [address] Lymphocytes (Bld) [#/Vol] 1.17 10*3/uL Low 1.20 - 4.80 [facility] Comment on above: Performed By: #### C BCDF ####[id number] [place] [address] Monocytes (Bld) [#/Vol] 0.70 10*3/uL Normal 0.10 - 1.0 0 [facility] Comment on above: Performed By: #### C BCDF ####[id number] [place] [address] Neutrophils (Bld) [#/Vol] 10.46 10*3/uL High 1.20 - 7.70 [facility] Comment on above: Performed By: #### C BCDF ####[id number] [place] [address] NUCLEATED RBC 0.0 /100 WBC Normal 0.0-0.0 [facility] Comment on above: Performed By: #### C BCDF ####[id number] [place] [address] RBC 3.70 x10E12/L Low 4.00 - 5.20 [facility] Comment on above: Performed By: #### C BCDF ####[id number] [place] [address] Calcium, Ionized Levelon Calcium, Ionized Level 1.11 mmol/L See Below [facility] Work Phone: Comment on above: Reference Range: 1.1 0 - 1.33 The performance characteristics of ionized calcium tested in heparinized plasma or serum have been validated by the individual laboratory site where testing is performed. Testing on heparinized plasma or serum is not approved by the FDA; however, such approval is not necessary. Calcium, Ionized Level 1.10 mmol/L See Below [facility] Work Phone: Comment on above: Reference Range: 1.1 0 - 1.33 The performance characteristics of ionized calcium tested in heparinized plasma or serum have been validated by the individual laboratory site where testing is performed. Testing on heparinized plasma or serum is not approved by the FDA; however, such approval is not necessary. Complete Blood Count + Diffe fernando 01-25-2021 RBC (Bld) [#/Vol] 3.70 {x10E12/L} below low threshold See Below [facility] Work Phone: Comment on above: Reference Range: 4.0 0 - 5.20 Complete Blood Count + Differential 0.05 {x10E9/L} See Below [facility] Work Phone: Comment on above: Reference Range: 0.0 0 - 0.10 Complete Blood Count + Differential 0.16 {x10E9/L} See Below [facility] Work Phone: Comment on above: Reference Range: 0.0 0 - 0.70 Complete Blood Count + Differential 0.70 {x10E9/L} See Below [facility] Work Phone: Comment on above: Reference Range: 0.1 0 - 1.00 Complete Blood Count + Differential 1.17 {x10E9/L} below low threshold See Below [facility] Work Phone: Comment on above: Reference Range: 1.2 0 - 4.80 Complete Blood Count + Differential 10.46 {x10E9/L} above high threshold See Below [facility] Work Phone: Comment on above: Reference Range: 1.2 0 - 7.70 Complete Blood Count + Differential 1.3 % 0.0 - 6.0 [facility] Work Phone: Complete Blood Count + Differential 0.6 % 0.0 - 0.9 [facility] Work Phone: Comment on above: Immature Granulocyte Count (IG) includes promyelocytes, myelocytes and metamyelocytes but does not include bands. Percent differential counts (%) should be interpreted in the context of the absolute cell counts (cells/L). Basophils/100 WBC (Bld) 0.4 % Normal 0.0 - 2.0 [facility] Work Phone: Comment on above: Performed By: #### C BCDF ####[id number] [place] [address] Erythrocyte distribution width (RBC) [Ratio] 16.2 % High 11.5 - 14.5 [facility] Work Phone: Comment on above: Reference Range: 11. 5 - 14.5 Performed By: #### C BCDF ####[id number] [place] [address] Hematocrit (Bld) [Volume fraction] 29.3 % Low 36.0 - 46.0 [facility] Work Phone: Comment on above: Reference Range: 36. 0 - 46.0 Performed By: #### C BCDF ####[id number] [place] [address] Hemoglobin (Bld) [Mass/Vol] 9.4 g/dL Low 12.0 - 16.0 [facility] Work Phone: Comment on above: Reference Range: 12. 0 - 16.0 Performed By: #### C BCDF ####[id number] [place] [address] Lymphocytes/100 WBC (Bld) 9.3 % Normal 13.0 - 44.0 [facility] Work Phone: Comment on above: Reference Range: 13. 0 - 44.0 Performed By: #### C BCDF ####[id number] [place] [address] MCHC (RBC) [Mass/Vol] 32.1 g/dL Normal 32.0 - 36.0 [facility] Work Phone: Comment on above: Reference Range: 32. 0 - 36.0 Performed By: #### C BCDF ####[id number] [place] [address] MCV (RBC) [Entitic vol] 79 fL Low 80 - 100 [facility] Work Phone: Comment on above: Performed By: #### C BCDF ####[id number] [place] [address] Monocytes/100 WBC (Bld) 5.5 % Normal 2.0 - 10.0 [facility] Work Phone: Comment on above: Performed By: #### C BCDF ####[id number] [place] [address] Neutrophils/100 WBC (Bld) 82.9 % Normal 40.0 - 80.0 [facility] Work Phone: Comment on above: Reference Range: 40. 0 - 80.0 Performed By: #### C BCDF ####[id number] [place] [address] Platelets (Bld) [#/Vol] 171 10*3/uL Normal 150 - 450 [facility] Work Phone: Comment on above: Performed By: #### C BCDF ####[id number] [place] [address] WBC (Bld) [#/Vol] 12.6 10*3/uL High 4.4 - 11.3 [facility] Work Phone: Comment on above: Performed By: #### C BCDF ####[id number] [place] [address] Daily Progress Note - Critic al Careon 01-25-2021 Daily Progress Note - Critical Care Normal [facility] Daily Progress Note-Anesthes ia - Painon 01-25-2021 Daily Progress Note-Anesthesia - Pain Normal [facility] GLUCOSE-POCTon 01-25-2021 Glucose [Mass/Vol] 245 mg/dL High 74 - 99 [facility] Comment on above: Performed By: #### Jodee ALFORD ####[id number] [place] [address] Glucose [Mass/Vol] 229 mg/dL High 74 - 99 [facility] Comment on above: Performed By: #### G PRASHANTH ####[id number] [place] [address] Glucose [Mass/Vol] 282 mg/dL High 74 - 99 [facility] Comment on above: Performed By: #### G PRASHANTH ####[id number] [place] [address] Glucose [Mass/Vol] 138 mg/dL High 74 - 99 [facility] Comment on above: Performed By: #### G PRASHANTH ####[id number] [place] [address] Glucose [Mass/Vol] 147 mg/dL High 74 - 99 [facility] Comment on above: Performed By: #### G PRASHANTH ####[id number] [place] [address] Glucose [Mass/Vol] 145 mg/dL High 74 - 99 [facility] Comment on above: Performed By: #### G PRASHANTH ####[id number] [place] [address] Glucose [Mass/Vol] 172 mg/dL High 74 - 99 [facility] Comment on above: Performed By: #### G PRASHANTH ####[id number] [place] [address] Glucose [Mass/Vol] 164 mg/dL High 74 - 99 [facility] Comment on above: Performed By: #### G PRASHANTH ####[id number] [place] [address] Glucose [Mass/Vol] 164 mg/dL High 74 - 99 [facility] Comment on above: Performed By: #### G PRASHANTH ####[id number] [place] [address] Glucose [Mass/Vol] 178 mg/dL High 74 - 99 [facility] Comment on above: Performed By: #### G PRASHANTH ####[id number] [place] [address] Glucose [Mass/Vol] 184 mg/dL High 74 - 99 [facility] Comment on above: Performed By: #### G PRASHANTH ####[id number] [place] [address] Glucose [Mass/Vol] 143 mg/dL High 74 - 99 [facility] Comment on above: Performed By: #### G PRASHANTH ####[id number] [place] [address] Glucose [Mass/Vol] 175 mg/dL High 74 - 99 [facility] Comment on above: Performed By: #### G PRASHANTH ####[id number] [place] [address] Glucose [Mass/Vol] 189 mg/dL High 74 - 99 [facility] Comment on above: Performed By: #### G PRASHANTH ####[id number] [place] [address] Laboratory - Chemistry and C hemistry - challengeon 01-25-2021 Glucose [Mass/Vol] 237 mg/dL above high threshold 74 - 99 [facility] Work Phone: Glucose [Mass/Vol] 245 mg/dL above high threshold 74 - 99 [facility] Work Phone: Glucose [Mass/Vol] 229 mg/dL above high threshold 74 - 99 [facility] Work Phone: Anion gap (Bld) [Moles/Vol] 11 mmol/L 10 - 25 [facility] Work Phone: Calcium.ionized (Bld) [Moles/Vol] 1.14 mmol/L See Below [facility] Work Phone: Comment on above: Reference Range: 1.1 0 - 1.33 Chloride [Moles/Vol] 98 mmol/L 98 - 107 [facility] Work Phone: CO2 (Bld) [Partial pressure] 33 mm[Hg] below low threshold 38 - 42 [facility] Work Phone: Glucose [Mass/Vol] 236 mg/dL above high threshold 74 - 99 [facility] Work Phone: HCO3 (Bld) [Moles/Vol] 24.0 mmol/L See Below [facility] Work Phone: Comment on above: Reference Range: 22. 0 - 26.0 Lactate [Moles/Vol] 1.0 mmol/L 0.4 - 2.0 [facility] Work Phone: Oxygen (Bld) [Partial pressure] 64 mm[Hg] below low threshold 85 - 95 [facility] Work Phone: pH (Bld) 7.47 [pH] above high threshold See Below [facility] Work Phone: Comment on above: Reference Range: 7.3 8 - 7.42 Potassium [Moles/Vol] 3.9 mmol/L 3.5 - 5.3 [facility] Work Phone: Sodium [Moles/Vol] 129 mmol/L below low threshold 136 - 145 [facility] Work Phone: Glucose [Mass/Vol] 282 mg/dL above high threshold 74 - 99 [facility] Work Phone: Glucose [Mass/Vol] 138 mg/dL above high threshold 74 - 99 [facility] Work Phone: Glucose [Mass/Vol] 147 mg/dL above high threshold 74 - 99 [facility] Work Phone: Anion gap (Bld) [Moles/Vol] 8 mmol/L below low threshold 10 - 25 [facility] Work Phone: Calcium.ionized (Bld) [Moles/Vol] 1.08 mmol/L below low threshold See Below [facility] Work Phone: Comment on above: Reference Range: 1.1 0 - 1.33 Chloride [Moles/Vol] 100 mmol/L 98 - 107 [facility] Work Phone: CO2 (Bld) [Partial pressure] 36 mm[Hg] below low threshold 38 - 42 [facility] Work Phone: Glucose [Mass/Vol] 142 mg/dL above high threshold 74 - 99 [facility] Work Phone: HCO3 (Bld) [Moles/Vol] 26.2 mmol/L above hig h threshold See Below [facility] Work Phone: Comment on above: Reference Range: 22. 0 - 26.0 Lactate [Moles/Vol] 1.2 mmol/L 0.4 - 2.0 [facility] Work Phone: Oxygen (Bld) [Partial pressure] 79 mm[Hg] below low threshold 85 - 95 [facility] Work Phone: pH (Bld) 7.47 [pH] above high threshold See Below [facility] Work Phone: Comment on above: Reference Range: 7.3 8 - 7.42 Potassium [Moles/Vol] 3.6 mmol/L 3.5 - 5.3 [facility] Work Phone: Sodium [Moles/Vol] 131 mmol/L below low threshold 136 - 145 [facility] Work Phone: Anion gap (Bld) [Moles/Vol] 7 mmol/L below low threshold 10 - 25 [facility] Work Phone: Calcium.ionized (Bld) [Moles/Vol] 1.10 mmol/L See Below [facility] Work Phone: Comment on above: Reference Range: 1.1 0 - 1.33 Chloride [Moles/Vol] 102 mmol/L 98 - 107 [facility] Work Phone: CO2 (Bld) [Partial pressure] 36 mm[Hg] below low threshold 38 - 42 [facility] Work Phone: Glucose [Mass/Vol] 141 mg/dL above high threshold 74 - 99 [facility] Work Phone: HCO3 (Bld) [Moles/Vol] 25.6 mmol/L See Below [facility] Work Phone: Comment on above: Reference Range: 22. 0 - 26.0 Lactate [Moles/Vol] 1.1 mmol/L 0.4 - 2.0 [facility] Work Phone: Oxygen (Bld) [Partial pressure] 59 mm[Hg] below low threshold 85 - 95 [facility] Work Phone: pH (Bld) 7.46 [pH] above high threshold See Below [facility] Work Phone: Comment on above: Reference Range: 7.3 8 - 7.42 Sodium [Moles/Vol] 131 mmol/L below low threshold 136 - 145 [facility] Work Phone: Anion gap (Bld) [Moles/Vol] 8 mmol/L below low threshold 10 - 25 [facility] Work Phone: Calcium.ionized (Bld) [Moles/Vol] 1.07 mmol/L below low threshold See Below [facility] Work Phone: Comment on above: Reference Range: 1.1 0 - 1.33 CO2 (BldMV) [Partial pressure] 41 {mmHg} [facility] Work Phone: Glucose [Mass/Vol] 135 mg/dL above high threshold 74 - 99 [facility] Work Phone: HCO3 (Bld) [Moles/Vol] 26.6 mmol/L [facility] Work Phone: Lactate [Moles/Vol] 1.4 mmol/L 0.4 - 2.0 [facility] Work Phone: Oxygen (BldMV) [Partial pressure] 33 {mmHg} [facility] Work Phone: pH (BldMV) 7.42 1 [facility] Work Phone: Potassium [Moles/Vol] 4.5 mmol/L 3.5 - 5.3 [facility] Work Phone: Sodium [Moles/Vol] 133 mmol/L below low threshold 136 - 145 [facility] Work Phone: Glucose [Mass/Vol] 145 mg/dL above high threshold 74 - 99 [facility] Work Phone: Glucose [Mass/Vol] 172 mg/dL above high threshold 74 - 99 [facility] Work Phone: Glucose [Mass/Vol] 164 mg/dL above high threshold 74 - 99 [facility] Work Phone: Glucose [Mass/Vol] 164 mg/dL above high threshold 74 - 99 [facility] Work Phone: Glucose [Mass/Vol] 178 mg/dL above high threshold 74 - 99 [facility] Work Phone: Glucose [Mass/Vol] 184 mg/dL above high threshold 74 - 99 [facility] Work Phone: Glucose [Mass/Vol] 143 mg/dL above high threshold 74 - 99 [facility] Work Phone: Laboratory - Hematology and Cell countson 01-25-2021 Hematocrit (Bld) [Volume fraction] 28.0 % below low threshold See Below [facility] Work Phone: Comment on above: Reference Range: 36. 0 - 46.0 Hemoglobin (Bld) [Mass/Vol] 9.5 g/dL below low threshold See Below [facility] Work Phone: Comment on above: Reference Range: 12. 0 - 16.0 Hematocrit (Bld) [Volume fraction] 30.0 % below low threshold See Below [facility] Work Phone: Comment on above: Reference Range: 36. 0 - 46.0 Hemoglobin (Bld) [Mass/Vol] 10.2 g/dL below low threshold See Below [facility] Work Phone: Comment on above: Reference Range: 12. 0 - 16.0 Hematocrit (Bld) [Volume fraction] 29.0 % below low threshold See Below [facility] Work Phone: Comment on above: Reference Range: 36. 0 - 46.0 Hemoglobin (Bld) [Mass/Vol] 9.9 g/dL below low threshold See Below [facility] Work Phone: Comment on above: Reference Range: 12. 0 - 16.0 Hematocrit (Bld) [Volume fraction] 29.0 % below low threshold See Below [facility] Work Phone: Comment on above: Reference Range: 36. 0 - 46.0 Hemoglobin (Bld) [Mass/Vol] 9.9 g/dL below low threshold See Below [facility] Work Phone: Comment on above: Reference Range: 12. 0 - 16.0 MAGNESIUMon 01-25-2021 Magnesium [Mass/Vol] 2.40 mg/dL Normal 1.60 - 2.40 [facility] Comment on above: Performed By: #### M G ####[id number] [place] [address] Magnesium [Mass/Vol] 2.47 mg/dL High 1.60 - 2.40 [facility] Comment on above: Performed By: #### M G ####[id number] [place] [address] MV FULL PANELon 01-25-2021 Anion gap [Moles/Vol] 8 mmol/L Low 10 - 25 [facility] Comment on above: Performed By: #### M VPA3 ####[id number] [place] [address] BASE EXCESS-BLOOD 1.9 mmol/L Normal [facility] Comment on above: Performed By: #### M VPA3 ####[id number] [place] [address] BICARB, CALCULATED 26.6 mmol/L Normal [facility] Comment on above: Performed By: #### M VPA3 ####[id number] [place] [address] CALCIUM,IONIZED 1.07 mmol/L Low 1.10 - 1.33 [facility] Comment on above: Performed By: #### M VPA3 ####[id number] [place] [address] Glucose [Mass/Vol] 135 mg/dL High 74 - 99 [facility] Comment on above: Performed By: #### M VPA3 ####[id number] [place] [address] Hematocrit (Bld) [Volume fraction] 29.0 % Low 36.0 - 46.0 [facility] Comment on above: Performed By: #### M VPA3 ####[id number] [place] [address] HGB,CALCULATED 9.9 g/dL Low 12.0 - 16.0 [facility] Comment on above: Performed By: #### M VPA3 ####[id number] [place] [address] Lactate [Moles/Vol] 1.4 mmol/L Normal 0.4 - 2.0 [facility] Comment on above: Performed By: #### M VPA3 ####[id number] [place] [address] Oxygen (Bld) [Partial pressure] 33 mm[Hg] Normal [facility] Comment on above: Performed By: #### M VPA3 ####[id number] [place] [address] PATIENT TEMPERATURE 37.0 degrees Normal [facility] Comment on above: Result Comment: NOTE : PATIENT RESULTS ARE NOT CORRECTED FOR TEMPERATURE. Performed By: #### M VPA3 ####[id number] [place] [address] PCO2 41 mmHg Normal [facility] Comment on above: Performed By: #### M VPA3 ####[id number] [place] [address] pH (Bld) 7.42 [pH] Normal [facility] Comment on above: Performed By: #### M VPA3 ####[id number] [place] [address] Potassium [Moles/Vol] 4.5 mmol/L Normal 3.5 - 5.3 [facility] Comment on above: Performed By: #### M VPA3 ####[id number] [place] [address] SO2 59 % Normal [facility] Comment on above: Performed By: #### M VPA3 ####[id number] [place] [address] Sodium [Moles/Vol] 133 mmol/L Low 136 - 145 [facility] Comment on above: Performed By: #### M VPA3 ####[id number] [place] [address] Magnesium, Serumon 1 Magnesium [Mass/Vol] 2.40 mg/dL See Below [facility] Work Phone: Comment on above: Reference Range: 1.6 0 - 2.40 Magnesium [Mass/Vol] 2.47 mg/dL above high threshold See Below [facility] Work Phone: Comment on above: Reference Range: 1.6 0 - 2.40 Magnesium [Mass/Vol] 2.84 mg/dL High 1.60 - 2.40 [facility] Work Phone: Comment on above: Reference Range: 1.6 0 - 2.40 Performed By: #### M G ####[id number] [place] [address] No Panel Informationon 01-25 0.6 mmol/L -2.0 - 3.0 [facility] Work Phone: 96 % 94 - 100 [facility] Work Phone: 37.0 {degrees_C} [facility] Work Phone: Comment on above: NOTE: PATIENT RESULT S ARE NOT CORRECTED FOR TEMPERATURE. 2.5 mmol/L -2.0 - 3.0 [facility] Work Phone: 97 % 94 - 100 [facility] Work Phone: 37.0 {degrees_C} [facility] Work Phone: Comment on above: NOTE: PATIENT RESULT S ARE NOT CORRECTED FOR TEMPERATURE. 1.8 mmol/L -2.0 - 3.0 [facility] Work Phone: 93 % below low threshold 94 - 100 [facility] Work Phone: 37.0 {degrees_C} [facility] Work Phone: Comment on above: NOTE: PATIENT RESULT S ARE NOT CORRECTED FOR TEMPERATURE. 1.9 mmol/L [facility] Work Phone: 59 % [facility] Work Phone: 37.0 {degrees} [facility] Work Phone: Comment on above: NOTE: PATIENT RESULT S ARE NOT CORRECTED FOR TEMPERATURE. RENAL FUNCTION PANELon 01-25 Albumin [Mass/Vol] 3.6 g/dL Normal 3.4 - 5.0 [facility] Comment on above: Performed By: #### R ENAL ####[id number] [place] [address] Anion gap [Moles/Vol] 10 mmol/L Normal 10 - 20 [facility] Comment on above: Performed By: #### R ENAL ####[id number] [place] [address] Calcium [Mass/Vol] 8.5 mg/dL Low 8.6 - 10.6 [facility] Comment on above: Performed By: #### R ENAL ####[id number] [place] [address] Chloride [Moles/Vol] 97 mmol/L Low 98 - 107 [facility] Comment on above: Performed By: #### R ENAL ####[id number] [place] [address] Creatinine [Mass/Vol] 0.41 mg/dL Low 0.50 - 1.05 [facility] Comment on above: Performed By: #### R ENAL ####[id number] [place] [address] GFR- AM. >60 Normal >60 [facility] Comment on above: Result Comment: CALC ULATIONS OF ESTIMATED GFR ARE PERFORMED USING THE MDRD STUDY EQUATION FOR THE IDMS-TRACEABLE CREATININE METHODS. CLIN CHEM 2007;53:766-72 Performed By: #### R ENAL ####[id number] [place] [address] GFR-NON AM. >60 Normal >60 [facility] Comment on above: Performed By: #### R ENAL ####[id number] [place] [address] Glucose [Mass/Vol] 259 mg/dL High 74 - 99 [facility] Comment on above: Performed By: #### R ENAL ####[id number] [place] [address] HCO3 (Bld) [Moles/Vol] 28 mmol/L Normal 21 - 32 [facility] Comment on above: Performed By: #### R ENAL ####[id number] [place] [address] Phosphate [Mass/Vol] 3.3 mg/dL Normal 2.5 - 4.9 [facility] Comment on above: Result Comment: The performance characteristics of phosphorus testing in heparinized plasma have been validated by the individual laboratory site where testing is performed. Testing on heparinized plasma is not approved by the FDA; however, such approval is not necessary. Performed By: #### R ENAL ####[id number] [place] [address] Potassium [Moles/Vol] 4.5 mmol/L Normal 3.5 - 5.3 [facility] Comment on above: Performed By: #### R ENAL ####[id number] [place] [address] Sodium [Moles/Vol] 130 mmol/L Low 136 - 145 [facility] Comment on above: Performed By: #### R ENAL ####[id number] [place] [address] Urea nitrogen [Mass/Vol] 14 mg/dL Normal 6 - 23 [facility] Comment on above: Performed By: #### R ENAL ####[id number] [place] [address] Albumin [Mass/Vol] 3.7 g/dL Normal 3.4 - 5.0 [facility] Comment on above: Performed By: #### R ENAL ####[id number] [place] [address] Anion gap [Moles/Vol] 15 mmol/L Normal 10 - 20 [facility] Comment on above: Performed By: #### R ENAL ####[id number] [place] [address] Calcium [Mass/Vol] 8.0 mg/dL Low 8.6 - 10.6 [facility] Comment on above: Performed By: #### R ENAL ####[id number] [place] [address] Chloride [Moles/Vol] 98 mmol/L Normal 98 - 107 [facility] Comment on above: Performed By: #### R ENAL ####[id number] [place] [address] Creatinine [Mass/Vol] 0.38 mg/dL Low 0.50 - 1.05 [facility] Comment on above: Performed By: #### R ENAL ####[id number] [place] [address] GFR- AM. >60 Normal >60 [facility] Comment on above: Result Comment: CALC ULATIONS OF ESTIMATED GFR ARE PERFORMED USING THE MDRD STUDY EQUATION FOR THE IDMS-TRACEABLE CREATININE METHODS. CLIN CHEM 2007;53:766-72 Performed By: #### R ENAL ####[id number] [place] [address] GFR-NON AM. >60 Normal >60 [facility] Comment on above: Performed By: #### R ENAL ####[id number] [place] [address] Glucose [Mass/Vol] 114 mg/dL High 74 - 99 [facility] Comment on above: Performed By: #### R ENAL ####[id number] [place] [address] HCO3 (Bld) [Moles/Vol] 24 mmol/L Normal 21 - 32 [facility] Comment on above: Performed By: #### R ENAL ####[id number] [place] [address] Phosphate [Mass/Vol] 3.6 mg/dL Normal 2.5 - 4.9 [facility] Comment on above: Result Comment: The performance characteristics of phosphorus testing in heparinized plasma have been validated by the individual laboratory site where testing is performed. Testing on heparinized plasma is not approved by the FDA; however, such approval is not necessary. Performed By: #### R ENAL ####[id number] [place] [address] Sodium [Moles/Vol] 133 mmol/L Low 136 - 145 [facility] Comment on above: Performed By: #### R ENAL ####[id number] [place] [address] Urea nitrogen [Mass/Vol] 13 mg/dL Normal 6 - 23 [facility] Comment on above: Performed By: #### R ENAL ####[id number] [place] [address] Albumin [Mass/Vol] 3.7 g/dL Normal 3.4 - 5.0 [facility] Comment on above: Performed By: #### R ENAL ####[id number] [address] GFR- AM. >60 Normal >60 [facility] Comment on above: Result Comment: CALC ULATIONS OF ESTIMATED GFR ARE PERFORMED USING THE MDRD STUDY EQUATION FOR THE IDMS-TRACEABLE CREATININE METHODS. CLIN CHEM 2007;53:766-72 Performed By: #### R ENAL ####[id number] [address], [place] GFR-NON AM. >60 Normal >60 [facility] Comment on above: Performed By: #### R ENAL ####[id number], [place] HCO3 (Bld) [Moles/Vol] 27 mmol/L Normal 21 - 32 [facility] Comment on above: Performed By: #### R ENAL ####[id number] [address], [place] Radiologyon 01-25-2021 XR Chest Single view Normal [facility] ardiology- [facility] Work Phone: Renal Function Panelon 01-25 Anion gap [Moles/Vol] 11 mmol/L Normal 10 - 20 [facility]- [facility] Work Phone: Comment on above: Performed By: #### A FPA3 ####[id number] [address], [place] Performed By: #### R ENAL ####[id number] [address], [place] Albumin BCP dye [Mass/Vol] 3.6 g/dL 3.4 - 5.0 [facility] Work Phone: Anion gap [Moles/Vol] 10 mmol/L 10 - 20 [facility] Work Phone: Calcium [Mass/Vol] 8.5 mg/dL below low threshold 8.6 - 10.6 [facility] Work Phone: Chloride [Moles/Vol] 97 mmol/L below low threshold 98 - 107 [facility] Work Phone: CO2 [Moles/Vol] 28 mmol/L 21 - 32 [facility] logy- [facility] Work Phone: Creatinine [Mass/Vol] 0.41 mg/dL below low threshold See Below [facility] Work Phone: Comment on above: Reference Range: 0.5 0 - 1.05 Glucose [Mass/Vol] 259 mg/dL above high threshold 74 - 99 [facility] Work Phone: Phosphate [Mass/Vol] 3.3 mg/dL 2.5 - 4.9 [facility] Work Phone: Comment on above: The performance jam acteristics of phosphorus testing in heparinized plasma have been validated by the individual laboratory site where testing is performed. Testing on heparinized plasma is not approved by the FDA; however, such approval is not necessary. Potassium [Moles/Vol] 4.5 mmol/L 3.5 - 5.3 [facility]- [facility] Work Phone: Sodium [Moles/Vol] 130 mmol/L below low threshold 136 - 145 [facility] Work Phone: Urea nitrogen [Mass/Vol] 14 mg/dL 6 - 23 [facility] Work Phone: Renal Function Panel >60 >60 [facility] ardiology- [facility] Work Phone: Comment on above: CALCULATIONS OF YARA MATED GFR ARE PERFORMED USING THE MDRD STUDY EQUATION FOR THE IDMS-TRACEABLE CREATININE METHODS. CLIN CHEM 2007;53:766-72 CO2 [Moles/Vol] 27 mmol/L 21 - 32 [facility] logy- [facility] Work Phone: Albumin BCP dye [Mass/Vol] 3.7 g/dL 3.4 - 5.0 [facility] Work Phone: Anion gap [Moles/Vol] 15 mmol/L 10 - 20 [facility]- [facility] Work Phone: Calcium [Mass/Vol] 8.0 mg/dL below low threshold 8.6 - 10.6 [facility] Work Phone: Chloride [Moles/Vol] 98 mmol/L 98 - 107 [facility] ardiology- [facility] Work Phone: CO2 [Moles/Vol] 24 mmol/L 21 - 32 [facility] logy- [facility] Work Phone: Creatinine [Mass/Vol] 0.38 mg/dL below low threshold See Below [facility]- [facility] Work Phone: Comment on above: Reference Range: 0.5 0 - 1.05 Glucose [Mass/Vol] 114 mg/dL above high threshold 74 - 99 [facility] Work Phone: Phosphate [Mass/Vol] 3.6 mg/dL 2.5 - 4.9 [facility] ardiology- [facility] Work Phone: Comment on above: The performance jam acteristics of phosphorus testing in heparinized plasma have been validated by the individual laboratory site where testing is performed. Testing on heparinized plasma is not approved by the FDA; however, such approval is not necessary. Potassium [Moles/Vol] 4.0 mmol/L Normal 3.5 - 5.3 [facility]- [facility] Work Phone: Comment on above: Performed By: #### R ENAL ####[id number] [place] [address] Performed By: #### Lonnie FPA3 ####[id number] [place] [address] Sodium [Moles/Vol] 133 mmol/L below low threshold 136 - 145 [facility] Work Phone: Urea nitrogen [Mass/Vol] 13 mg/dL 6 - 23 [facility] Work Phone: Renal Function Panel >60 >60 [facility] ardiology- [facility] Work Phone: Comment on above: CALCULATIONS OF YARA MATED GFR ARE PERFORMED USING THE MDRD STUDY EQUATION FOR THE IDMS-TRACEABLE CREATININE METHODS. CLIN CHEM 2007;53:766-72 Chloride [Moles/Vol] 103 mmol/L Normal 98 - 107 [facility] ardiology- [facility] Work Phone: Comment on above: Performed By: #### M VPA3 ####[id number] [place] [address] Performed By: #### R ENAL ####[id number] [place] [address] Calcium [Mass/Vol] 7.8 mg/dL Low 8.6 - 10.6 [facility] diology- [facility] Work Phone: Comment on above: Performed By: #### R ENAL ####[id number] [place] [address] Creatinine [Mass/Vol] 0.32 mg/dL Low 0.50 - 1.05 [facility] Work Phone: Comment on above: Reference Range: 0.5 0 - 1.05 Performed By: #### R ENAL ####[id number] [id number] Glucose [Mass/Vol] 181 mg/dL High 74 - 99 [facility] diology- [facility] Work Phone: Comment on above: Performed By: #### R ENAL ####[id number] [place] [address] Phosphate [Mass/Vol] 3.5 mg/dL Normal 2.5 - 4.9 [facility] azdiology- [facility] Work Phone: Comment on above: The performance jam acteristics of phosphorus testing in heparinized plasma have been validated by the individual laboratory site where testing is performed. Testing on heparinized plasma is not approved by the FDA; however, such approval is not necessary. Result Comment: The performance characteristics of phosphorus testing in heparinized plasma have been validated by the individual laboratory site where testing is performed. Testing on heparinized plasma is not approved by the FDA; however, such approval is not necessary. Performed By: #### R ENAL ####[id number] [place] [address] Sodium [Moles/Vol] 137 mmol/L Normal 136 - 145 [facility] diology- [facility] Work Phone: Comment on above: Performed By: #### R ENAL ####[id number] [place] [address] Urea nitrogen [Mass/Vol] 15 mg/dL Normal 6 - 23 [facility] Work Phone: Comment on above: Performed By: #### R ENAL ####[id number] [place] [address] TH CHEST 1 VIEWon 01-25-2021 TH CHEST 1 VIEW Normal [facility] ACT-HIGH RANGEon 01-24-2021 ACT-HIGH RANGE 122 SECONDS Normal 96 - 152 [facility] Comment on above: Result Comment: Note new reference range as of 08/20/2018. Target ACT range will vary based on the patient population, clinical status, and surgical intervention occurring. Performed By: #### A CTP ####[id number] [place] [address] ACT-HIGH RANGE 433 SECONDS High 96 - 152 [facility] Comment on above: Result Comment: Note new reference range as of 08/20/2018. Target ACT range will vary based on the patient population, clinical status, and surgical intervention occurring. Performed By: #### A CTP ####[id number] [place] [address] ACT-HIGH RANGE 498 SECONDS High 96 - 152 [facility] Comment on above: Result Comment: Note new reference range as of 08/20/2018. Target ACT range will vary based on the patient population, clinical status, and surgical intervention occurring. Performed By: #### A CTP ####[id number] [place] [address] ACT-HIGH RANGE 469 SECONDS High 96 - 152 [facility] Comment on above: Result Comment: Note new reference range as of 08/20/2018. Target ACT range will vary based on the patient population, clinical status, and surgical intervention occurring. Performed By: #### A CTP ####[id number] [place] [address] ACT-HIGH RANGE 429 SECONDS High 96 - 152 [facility] Comment on above: Result Comment: Note new reference range as of 08/20/2018. Target ACT range will vary based on the patient population, clinical status, and surgical intervention occurring. Performed By: #### A CTP ####[id number] [place] [address] ACT-HIGH RANGE 465 SECONDS High 96 - 152 [facility] Comment on above: Result Comment: Note new reference range as of 08/20/2018. Target ACT range will vary based on the patient population, clinical status, and surgical intervention occurring. Performed By: #### A CTP ####[id number] [place] [address] ACT-HIGH RANGE 437 SECONDS High 96 - 152 [facility] Comment on above: Result Comment: Note new reference range as of 08/20/2018. Target ACT range will vary based on the patient population, clinical status, and surgical intervention occurring. Performed By: #### A CTP ####[id number] [place] [address] ACT-HIGH RANGE 491 SECONDS High 96 - 152 [facility] Comment on above: Result Comment: Note new reference range as of 08/20/2018. Target ACT range will vary based on the patient population, clinical status, and surgical intervention occurring. Performed By: #### A CTP ####[id number] [place] [address] ACT-HIGH RANGE 463 SECONDS High 96 - 152 [facility] Comment on above: Result Comment: Note new reference range as of 08/20/2018. Target ACT range will vary based on the patient population, clinical status, and surgical intervention occurring. Performed By: #### A CTP ####[id number] [place] [address] ACT-HIGH RANGE 470 SECONDS High 96 - 152 [facility] Comment on above: Result Comment: Note new reference range as of 08/20/2018. Target ACT range will vary based on the patient population, clinical status, and surgical intervention occurring. Performed By: #### A CTP ####[id number] [place] [address] ACT-HIGH RANGE 485 SECONDS High 96 - 152 [facility] Comment on above: Result Comment: Note new reference range as of 08/20/2018. Target ACT range will vary based on the patient population, clinical status, and surgical intervention occurring. Performed By: #### A CTP ####[id number] [id number] ACT-HIGH RANGE 108 SECONDS Normal 96 - 152 [facility] Comment on above: Result Comment: Note new reference range as of 08/20/2018. Target ACT range will vary based on the patient population, clinical status, and surgical intervention occurring. Performed By: #### A CTP ####[id number] [id number] ARTERIAL FULL PANELon 2020 Anion gap [Moles/Vol] 8 mmol/L Low 10 - 25 [facility] Comment on above: Performed By: #### A FPA3 ####[id number] [id number] BASE EXCESS-BLOOD 1.4 mmol/L Normal -2.0 - 3.0 [facility] Comment on above: Performed By: #### A FPA3 ####[id number] [id number] BICARB, CALCULATED 26.6 mmol/L High 22.0 - 26.0 [facility] Comment on above: Performed By: #### A FPA3 ####[id number] [id number] CALCIUM,IONIZED 1.09 mmol/L Low 1.10 - 1.33 [facility] Comment on above: Performed By: #### A FPA3 ####[id number] [place] [address] Chloride [Moles/Vol] 106 mmol/L Normal 98 - 107 [facility] Comment on above: Performed By: #### A FPA3 ####[id number] [place] [address] Glucose [Mass/Vol] 222 mg/dL High 74 - 99 [facility] Comment on above: Performed By: #### A FPA3 ####[id number] [place] [address] Hematocrit (Bld) [Volume fraction] 30.0 % Low 36.0 - 46.0 [facility] Comment on above: Performed By: #### A FPA3 ####[id number] [place] [address] HGB,CALCULATED 10.2 g/dL Low 12.0 - 16.0 [facility] Comment on above: Performed By: #### A FPA3 ####[id number] [place] [address] Lactate [Moles/Vol] 2.0 mmol/L Normal 0.4 - 2.0 [facility] Comment on above: Performed By: #### A FPA3 ####[id number] [place] [address] Oxygen (Bld) [Partial pressure] 69 mm[Hg] Low 85 - 95 [facility] Comment on above: Performed By: #### A FPA3 ####[id number] [place] [address] PATIENT TEMPERATURE 37.0 degrees C Normal [facility] Comment on above: Result Comment: NOTE : PATIENT RESULTS ARE NOT CORRECTED FOR TEMPERATURE. Performed By: #### A FPA3 ####[id number] [place] [address] PCO2 44 mmHg High 38 - 42 [facility] Comment on above: Performed By: #### A FPA3 ####[id number] [place] [address] pH (Bld) 7.39 [pH] Normal 7.38 - 7.42 [facility] Comment on above: Performed By: #### A FPA3 ####[id number] [place] [address] Potassium [Moles/Vol] 4.6 mmol/L Normal 3.5 - 5.3 [facility] Comment on above: Performed By: #### A FPA3 ####[id number] [place] [address] SO2 96 % Normal 94 - 100 [facility] Comment on above: Performed By: #### A FPA3 ####[id number] [place] [address] Sodium [Moles/Vol] 136 mmol/L Normal 136 - 145 [facility] Comment on above: Performed By: #### A FPA3 ####[id number] [place] [address] Anion gap [Moles/Vol] 8 mmol/L Low 10 - 25 [facility] Comment on above: Performed By: #### A FPA3 ####[id number] [place] [address] BASE EXCESS-BLOOD 1.2 mmol/L Normal -2.0 - 3.0 [facility] Comment on above: Performed By: #### A FPA3 ####[id number] [place] [address] BICARB, CALCULATED 26.6 mmol/L High 22.0 - 26.0 [facility] Comment on above: Performed By: #### A FPA3 ####[id number] [place] [address] CALCIUM,IONIZED 1.12 mmol/L Normal 1.10 - 1.33 [facility] Comment on above: Performed By: #### A FPA3 ####[id number] [place] [address] Chloride [Moles/Vol] 106 mmol/L Normal 98 - 107 [facility] Comment on above: Performed By: #### A FPA3 ####[id number] [place] [address] Glucose [Mass/Vol] 217 mg/dL High 74 - 99 [facility] Comment on above: Performed By: #### A FPA3 ####[id number] [place] [address] Hematocrit (Bld) [Volume fraction] 29.0 % Low 36.0 - 46.0 [facility] Comment on above: Performed By: #### A FPA3 ####[id number] [place] [address] HGB,CALCULATED 9.9 g/dL Low 12.0 - 16.0 [facility] Comment on above: Performed By: #### A FPA3 ####[id number] [place] [address] Lactate [Moles/Vol] 2.3 mmol/L High 0.4 - 2.0 [facility] Comment on above: Performed By: #### A FPA3 ####[id number] [place] [address] Oxygen (Bld) [Partial pressure] 106 mm[Hg] High 85 - 95 [facility] Comment on above: Performed By: #### A FPA3 ####[id number] [place] [address] PATIENT TEMPERATURE 37.0 degrees C Normal [facility] Comment on above: Result Comment: NOTE : PATIENT RESULTS ARE NOT CORRECTED FOR TEMPERATURE. Performed By: #### A FPA3 ####[id number] [place] [address] PCO2 45 mmHg High 38 - 42 [facility] Comment on above: Performed By: #### A FPA3 ####[id number] [place] [address] pH (Bld) 7.38 [pH] Normal 7.38 - 7.42 [facility] Comment on above: Performed By: #### A FPA3 ####[id number] [place] [address] Potassium [Moles/Vol] 5.0 mmol/L Normal 3.5 - 5.3 [facility] Comment on above: Performed By: #### A FPA3 ####[id number] [place] [address] SO2 99 % Normal 94 - 100 [facility] Comment on above: Performed By: #### A FPA3 ####[id number] [place] [address] Sodium [Moles/Vol] 136 mmol/L Normal 136 - 145 [facility] Comment on above: Performed By: #### A FPA3 ####[id number] [place] [address] Anion gap [Moles/Vol] 11 mmol/L Normal 10 - 25 [facility] Comment on above: Performed By: #### A FPA3 ####[id number] [place] [address] BASE EXCESS-BLOOD -0.6 mmol/L Normal -2.0 - 3.0 [facility] Comment on above: Performed By: #### A FPA3 ####[id number] [place] [address] BICARB, CALCULATED 25.4 mmol/L Normal 22.0 - 26.0 [facility] Comment on above: Performed By: #### A FPA3 ####[id number] [place] [address] CALCIUM,IONIZED 1.15 mmol/L Normal 1.10 - 1.33 [facility] Comment on above: Performed By: #### A FPA3 ####[id number] [place] [address] Chloride [Moles/Vol] 105 mmol/L Normal 98 - 107 [facility] Comment on above: Performed By: #### A FPA3 ####[id number] [place] [address] Glucose [Mass/Vol] 228 mg/dL High 74 - 99 [facility] Comment on above: Performed By: #### A FPA3 ####[id number] [place] [address] Hematocrit (Bld) [Volume fraction] 30.0 % Low 36.0 - 46.0 [facility] Comment on above: Performed By: #### A FPA3 ####[id number] [address], [place] HGB,CALCULATED 10.2 g/dL Low 12.0 - 16.0 [facility] Comment on above: Performed By: #### A FPA3 ####[id number] [place] [address] Lactate [Moles/Vol] 3.3 mmol/L High 0.4 - 2.0 [facility] Comment on above: Performed By: #### A FPA3 ####[id number] [place] [address], [place] Oxygen (Bld) [Partial pressure] 88 mm[Hg] Normal 85 - 95 [facility] Comment on above: Performed By: #### A FPA3 ####[id number] [place] [address], [place] PATIENT TEMPERATURE 37.0 degrees C Normal [facility] Comment on above: Result Comment: NOTE : PATIENT RESULTS ARE NOT CORRECTED FOR TEMPERATURE. Performed By: #### A FPA3 ####[id number] [place] [address] PCO2 47 mmHg High 38 - 42 [facility] Comment on above: Performed By: #### A FPA3 ####[id number] [place] [address] pH (Bld) 7.34 [pH] Low 7.38 - 7.42 [facility] Comment on above: Performed By: #### A FPA3 ####[id number] [place] [address] Potassium [Moles/Vol] 4.4 mmol/L Normal 3.5 - 5.3 [facility] Comment on above: Performed By: #### A FPA3 ####[id number] [place] [address] SO2 98 % Normal 94 - 100 [facility] Comment on above: Performed By: #### A FPA3 ####[id number] [place] [address] Sodium [Moles/Vol] 137 mmol/L Normal 136 - 145 [facility] Comment on above: Performed By: #### A FPA3 ####[id number] [place] [address] Anion gap [Moles/Vol] 10 mmol/L Normal 10 - 25 [facility] Comment on above: Performed By: #### A FPA3 ####[id number] [place] [address] BASE EXCESS-BLOOD -2.2 mmol/L Low -2.0 - 3.0 [facility] Comment on above: Performed By: #### A FPA3 ####[id number] [place] [address] BICARB, CALCULATED 23.7 mmol/L Normal 22.0 - 26.0 [facility] Comment on above: Performed By: #### A FPA3 ####[id number] [place] [address] CALCIUM,IONIZED 1.17 mmol/L Normal 1.10 - 1.33 [facility] Comment on above: Performed By: #### A FPA3 ####[id number] [place] [address] Chloride [Moles/Vol] 107 mmol/L Normal 98 - 107 [facility] Comment on above: Performed By: #### A FPA3 ####[id number] [place] [address] Glucose [Mass/Vol] 261 mg/dL High 74 - 99 [facility] Comment on above: Performed By: #### A FPA3 ####[id number] [place] [address] Hematocrit (Bld) [Volume fraction] 26.0 % Low 36.0 - 46.0 [facility] Comment on above: Performed By: #### A FPA3 ####[id number] [place] [address] HGB,CALCULATED 8.8 g/dL Low 12.0 - 16.0 [facility] Comment on above: Performed By: #### A FPA3 ####[id number] [place] [address] Lactate [Moles/Vol] 4.2 mmol/L Critically high 0.4 - 2.0 [facility] Comment on above: Performed By: #### A FPA3 ####[id number] [place] [address] Oxygen (Bld) [Partial pressure] 147 mm[Hg] High 85 - 95 [facility] Comment on above: Performed By: #### A FPA3 ####[id number] [place] [address] PATIENT TEMPERATURE 37.0 degrees C Normal [facility] Comment on above: Result Comment: NOTE : PATIENT RESULTS ARE NOT CORRECTED FOR TEMPERATURE. Performed By: #### A FPA3 ####[id number] [place] [address] PCO2 45 mmHg High 38 - 42 [facility] Comment on above: Performed By: #### A FPA3 ####[id number] [place] [address] pH (Bld) 7.33 [pH] Low 7.38 - 7.42 [facility] Comment on above: Performed By: #### A FPA3 ####[id number] [place] [address] Potassium [Moles/Vol] 3.8 mmol/L Normal 3.5 - 5.3 [facility] Comment on above: Performed By: #### A FPA3 ####[id number] [place] [address] SO2 99 % Normal 94 - 100 [facility] Comment on above: Performed By: #### A FPA3 ####[id number] [place] [address] Sodium [Moles/Vol] 137 mmol/L Normal 136 - 145 [facility] Comment on above: Performed By: #### A FPA3 ####[id number] [place] [address] Anion gap [Moles/Vol] 11 mmol/L Normal 10 - 25 [facility] Comment on above: Performed By: #### A FPA3 ####[id number] [place] [address] BASE EXCESS-BLOOD -1.9 mmol/L Normal -2.0 - 3.0 [facility] Comment on above: Performed By: #### A FPA3 ####[id number] [place] [address] BICARB, CALCULATED 24.2 mmol/L Normal 22.0 - 26.0 [facility] Comment on above: Performed By: #### A FPA3 ####[id number] [place] [address] CALCIUM,IONIZED 1.24 mmol/L Normal 1.10 - 1.33 [facility] Comment on above: Performed By: #### A FPA3 ####[id number] [place] [address] Chloride [Moles/Vol] 105 mmol/L Normal 98 - 107 [facility] Comment on above: Performed By: #### A FPA3 ####[id number] [place] [address] Glucose [Mass/Vol] 324 mg/dL High 74 - 99 [facility] Comment on above: Performed By: #### A FPA3 ####[id number] [place] [address] Hematocrit (Bld) [Volume fraction] 22.0 % Low 36.0 - 46.0 [facility] Comment on above: Performed By: #### A FPA3 ####[id number] [place] [address] HGB,CALCULATED 7.5 g/dL Low 12.0 - 16.0 [facility] Comment on above: Performed By: #### A FPA3 ####[id number] [place] [address] Lactate [Moles/Vol] 5.4 mmol/L Critically high 0.4 - 2.0 [facility] Comment on above: Performed By: #### A FPA3 ####[id number] [place] [address] Oxygen (Bld) [Partial pressure] 407 mm[Hg] High 85 - 95 [facility] Comment on above: Performed By: #### A FPA3 ####[id number] [place] [address] PATIENT TEMPERATURE 37.0 degrees C Normal [facility] Comment on above: Result Comment: NOTE : PATIENT RESULTS ARE NOT CORRECTED FOR TEMPERATURE. Performed By: #### A FPA3 ####[id number] [place] [address] PCO2 47 mmHg High 38 - 42 [facility] Comment on above: Performed By: #### A FPA3 ####[id number] [place] [address] pH (Bld) 7.32 [pH] Low 7.38 - 7.42 [facility] Comment on above: Performed By: #### A FPA3 ####[id number] [place] [address] Potassium [Moles/Vol] 3.8 mmol/L Normal 3.5 - 5.3 [facility] Comment on above: Performed By: #### A FPA3 ####[id number] [place] [address] SO2 100 % Normal 94 - 100 [facility] Comment on above: Performed By: #### A FPA3 ####[id number] [place] [address] Sodium [Moles/Vol] 136 mmol/L Normal 136 - 145 [facility] Comment on above: Performed By: #### A FPA3 ####[id number] [place] [address] Anion gap [Moles/Vol] 11 mmol/L Normal 10 - 25 [facility] Comment on above: Performed By: #### A FPA3 ####[id number] [place] [address] BASE EXCESS-BLOOD -4.3 mmol/L Low -2.0 - 3.0 [facility] Comment on above: Performed By: #### A FPA3 ####[id number] [place] [address] BICARB, CALCULATED 22.1 mmol/L Normal 22.0 - 26.0 [facility] Comment on above: Performed By: #### A FPA3 ####[id number] [place] [address] CALCIUM,IONIZED 1.54 mmol/L High 1.10 - 1.33 [facility] Comment on above: Performed By: #### A FPA3 ####[id number] [place] [address] Chloride [Moles/Vol] 105 mmol/L Normal 98 - 107 [facility] Comment on above: Performed By: #### A FPA3 ####[id number] [place] [address] Glucose [Mass/Vol] 317 mg/dL High 74 - 99 [facility] Comment on above: Performed By: #### A FPA3 ####[id number] [place] [address] Hematocrit (Bld) [Volume fraction] 20.0 % Low 36.0 - 46.0 [facility] Comment on above: Performed By: #### A FPA3 ####[id number] [place] [address] HGB,CALCULATED 6.8 g/dL Low 12.0 - 16.0 [facility] Comment on above: Performed By: #### A FPA3 ####[id number] [place] [address] Lactate [Moles/Vol] 5.4 mmol/L Critically high 0.4 - 2.0 [facility] Comment on above: Performed By: #### A FPA3 ####[id number] [place] [address] Oxygen (Bld) [Partial pressure] 346 mm[Hg] High 85 - 95 [facility] Comment on above: Performed By: #### A FPA3 ####[id number] [place] [address] PATIENT TEMPERATURE 37.0 degrees C Normal [facility] Comment on above: Result Comment: NOTE : PATIENT RESULTS ARE NOT CORRECTED FOR TEMPERATURE. Performed By: #### A FPA3 ####[id number] [place] [address] PCO2 46 mmHg High 38 - 42 [facility] Comment on above: Performed By: #### A FPA3 ####[id number] [place] [address] pH (Bld) 7.29 [pH] Low 7.38 - 7.42 [facility] Comment on above: Performed By: #### A FPA3 ####[id number] [place] [address] Potassium [Moles/Vol] 4.6 mmol/L Normal 3.5 - 5.3 [facility] Comment on above: Performed By: #### A FPA3 ####[id number] [place] [address] SO2 99 % Normal 94 - 100 [facility] Comment on above: Performed By: #### A FPA3 ####[id number] [place] [address] Sodium [Moles/Vol] 133 mmol/L Low 136 - 145 [facility] Comment on above: Performed By: #### A FPA3 ####[id number] [place] [address] Anion gap [Moles/Vol] 9 mmol/L Low 10 - 25 [facility] Comment on above: Performed By: #### A FPA3 ####[id number] [place] [address] BASE EXCESS-BLOOD -1.8 mmol/L Normal -2.0 - 3.0 [facility] Comment on above: Performed By: #### A FPA3 ####[id number] [place] [address] BICARB, CALCULATED 23.7 mmol/L Normal 22.0 - 26.0 [facility] Comment on above: Performed By: #### A FPA3 ####[id number] [place] [address] CALCIUM,IONIZED 1.00 mmol/L Low 1.10 - 1.33 [facility] Comment on above: Performed By: #### A FPA3 ####[id number] [place] [address] Chloride [Moles/Vol] 105 mmol/L Normal 98 - 107 [facility] Comment on above: Performed By: #### A FPA3 ####[id number] [place] [address] Glucose [Mass/Vol] 300 mg/dL High 74 - 99 [facility] Comment on above: Performed By: #### A FPA3 ####[id number] [place] [address] Hematocrit (Bld) [Volume fraction] 21.0 % Low 36.0 - 46.0 [facility] Comment on above: Performed By: #### A FPA3 ####[id number] [place] [address] HGB,CALCULATED 7.1 g/dL Low 12.0 - 16.0 [facility] Comment on above: Performed By: #### A FPA3 ####[id number] [place] [address] Lactate [Moles/Vol] 4.1 mmol/L Critically high 0.4 - 2.0 [facility] Comment on above: Performed By: #### A FPA3 ####[id number] [place] [address] Oxygen (Bld) [Partial pressure] 384 mm[Hg] High 85 - 95 [facility] Comment on above: Performed By: #### A FPA3 ####[id number] [place] [address] PATIENT TEMPERATURE 37.0 degrees C Normal [facility] Comment on above: Result Comment: NOTE : PATIENT RESULTS ARE NOT CORRECTED FOR TEMPERATURE. Performed By: #### A FPA3 ####[id number] [place] [address] PCO2 43 mmHg High 38 - 42 [facility] Comment on above: Performed By: #### A FPA3 ####[id number] [place] [address] pH (Bld) 7.35 [pH] Low 7.38 - 7.42 [facility] Comment on above: Performed By: #### A FPA3 ####[id number] [place] [address] Potassium [Moles/Vol] 4.6 mmol/L Normal 3.5 - 5.3 [facility] Comment on above: Performed By: #### A FPA3 ####[id number] [place] [address] SO2 100 % Normal 94 - 100 [facility] Comment on above: Performed By: #### A FPA3 ####[id number] [place] [address] Sodium [Moles/Vol] 133 mmol/L Low 136 - 145 [facility] Comment on above: Performed By: #### A FPA3 ####[id number] [place] [address] Anion gap [Moles/Vol] 10 mmol/L Normal 10 - 25 [facility] Comment on above: Performed By: #### A FPA3 ####[id number] [place] [address] BASE EXCESS-BLOOD -1.9 mmol/L Normal -2.0 - 3.0 [facility] Comment on above: Performed By: #### A FPA3 ####[id number] [place] [address] BICARB, CALCULATED 24.2 mmol/L Normal 22.0 - 26.0 [facility] Comment on above: Performed By: #### A FPA3 ####[id number] [place] [address] CALCIUM,IONIZED 0.99 mmol/L Low 1.10 - 1.33 [facility] Comment on above: Performed By: #### A FPA3 ####[id number] [place] [address] Chloride [Moles/Vol] 105 mmol/L Normal 98 - 107 [facility] Comment on above: Performed By: #### A FPA3 ####[id number] [place] [address] Glucose [Mass/Vol] 301 mg/dL High 74 - 99 [facility] Comment on above: Performed By: #### A FPA3 ####[id number] [place] [address] Hematocrit (Bld) [Volume fraction] 20.0 % Low 36.0 - 46.0 [facility] Comment on above: Performed By: #### A FPA3 ####[id number] [place] [address] HGB,CALCULATED 6.8 g/dL Low 12.0 - 16.0 [facility] Comment on above: Performed By: #### A FPA3 ####[id number] [place] [address] Lactate [Moles/Vol] 3.7 mmol/L High 0.4 - 2.0 [facility] Comment on above: Performed By: #### A FPA3 ####[id number] [place] [address] Oxygen (Bld) [Partial pressure] 335 mm[Hg] High 85 - 95 [facility] Comment on above: Performed By: #### A FPA3 ####[id number] [place] [address] PATIENT TEMPERATURE 37.0 degrees C Normal [facility] Comment on above: Result Comment: NOTE : PATIENT RESULTS ARE NOT CORRECTED FOR TEMPERATURE. Performed By: #### A FPA3 ####[id number] [place] [address] PCO2 47 mmHg High 38 - 42 [facility] Comment on above: Performed By: #### A FPA3 ####[id number] [place] [address] pH (Bld) 7.32 [pH] Low 7.38 - 7.42 [facility] Comment on above: Performed By: #### A FPA3 ####[id number] [place] [address] Potassium [Moles/Vol] 5.9 mmol/L High 3.5 - 5.3 [facility] Comment on above: Performed By: #### A FPA3 ####[id number] [place] [address] SO2 100 % Normal 94 - 100 [facility] Comment on above: Performed By: #### A FPA3 ####[id number] [place] [address] Sodium [Moles/Vol] 133 mmol/L Low 136 - 145 [facility] Comment on above: Performed By: #### A FPA3 ####[id number] [place] [address] Anion gap [Moles/Vol] 15 mmol/L Normal 10 - 25 [facility] Comment on above: Performed By: #### A FPA3 ####[id number] [place] [address] BASE EXCESS-BLOOD -4.5 mmol/L Low -2.0 - 3.0 [facility] Comment on above: Performed By: #### A FPA3 ####[id number] [place] [address] BICARB, CALCULATED 21.1 mmol/L Low 22.0 - 26.0 [facility] Comment on above: Performed By: #### A FPA3 ####[id number] [place] [address] CALCIUM,IONIZED 0.90 mmol/L Low 1.10 - 1.33 [facility] Comment on above: Performed By: #### A FPA3 ####[id number] [place] [address] Chloride [Moles/Vol] 100 mmol/L Normal 98 - 107 [facility] Comment on above: Performed By: #### A FPA3 ####[id number] [place] [address] FIO2 80 % Normal [facility] Comment on above: Performed By: #### A FPA3 ####[id number] [place] [address] Glucose [Mass/Vol] 267 mg/dL High 74 - 99 [facility] Comment on above: Performed By: #### A FPA3 ####[id number] [place] [address] Hematocrit (Bld) [Volume fraction] 24.0 % Low 36.0 - 46.0 [facility] Comment on above: Performed By: #### A FPA3 ####[id number] [place] [address] HGB,CALCULATED 8.2 g/dL Low 12.0 - 16.0 [facility] Comment on above: Performed By: #### A FPA3 ####[id number] [place] [address] Lactate [Moles/Vol] 2.8 mmol/L High 0.4 - 2.0 [facility] Comment on above: Performed By: #### A FPA3 ####[id number] [place] [address] Oxygen (Bld) [Partial pressure] 365 mm[Hg] High 85 - 95 [facility] Comment on above: Performed By: #### A FPA3 ####[id number] [place] [address] PATIENT TEMPERATURE 37.0 degrees C Normal [facility] Comment on above: Result Comment: NOTE : PATIENT RESULTS ARE NOT CORRECTED FOR TEMPERATURE. Performed By: #### A FPA3 ####[id number] [place] [address] PCO2 40 mmHg Normal 38 - 42 [facility] Comment on above: Performed By: #### A FPA3 ####[id number] [place] [address] pH (Bld) 7.33 [pH] Low 7.38 - 7.42 [facility] Comment on above: Performed By: #### A FPA3 ####[id number] [place] [address] Potassium [Moles/Vol] 3.6 mmol/L Normal 3.5 - 5.3 [facility] Comment on above: Performed By: #### A FPA3 ####[id number] [place] [address] SO2 100 % Normal 94 - 100 [facility] Comment on above: Performed By: #### A FPA3 ####[id number] [place] [address] Sodium [Moles/Vol] 132 mmol/L Low 136 - 145 [facility] Comment on above: Performed By: #### A FPA3 ####[id number] [place] [address] Anion gap [Moles/Vol] 11 mmol/L Normal 10 - 25 [facility] Comment on above: Performed By: #### A FPA3 ####[id number] [place] [address] BASE EXCESS-BLOOD -3.7 mmol/L Low -2.0 - 3.0 [facility] Comment on above: Performed By: #### A FPA3 ####[id number] [place] [address] BICARB, CALCULATED 22.1 mmol/L Normal 22.0 - 26.0 [facility] Comment on above: Performed By: #### A FPA3 ####[id number] [place] [address] CALCIUM,IONIZED 0.99 mmol/L Low 1.10 - 1.33 [facility] Comment on above: Performed By: #### A FPA3 ####[id number] [place] [address] Chloride [Moles/Vol] 106 mmol/L Normal 98 - 107 [facility] Comment on above: Performed By: #### A FPA3 ####[id number] [place] [address] FIO2 60 % Normal [facility] Comment on above: Performed By: #### A FPA3 ####[id number] [place] [address] Glucose [Mass/Vol] 249 mg/dL High 74 - 99 [facility] Comment on above: Performed By: #### A FPA3 ####[id number] [place] [address] Hematocrit (Bld) [Volume fraction] 30.0 % Low 36.0 - 46.0 [facility] Comment on above: Performed By: #### A FPA3 ####[id number] [place] [address] HGB,CALCULATED 10.2 g/dL Low 12.0 - 16.0 [facility] Comment on above: Performed By: #### A FPA3 ####[id number] [place] [address] Lactate [Moles/Vol] 2.4 mmol/L High 0.4 - 2.0 [facility] Comment on above: Performed By: #### A FPA3 ####[id number] [place] [address] Oxygen (Bld) [Partial pressure] 264 mm[Hg] High 85 - 95 [facility] Comment on above: Performed By: #### A FPA3 ####[id number] [place] [address] PATIENT TEMPERATURE 37.0 degrees C Normal [facility] Comment on above: Result Comment: NOTE : PATIENT RESULTS ARE NOT CORRECTED FOR TEMPERATURE. Performed By: #### A FPA3 ####[id number] [place] [address] PCO2 42 mmHg Normal 38 - 42 [facility] Comment on above: Performed By: #### A FPA3 ####[id number] [place] [address] pH (Bld) 7.33 [pH] Low 7.38 - 7.42 [facility] Comment on above: Performed By: #### A FPA3 ####[id number] [place] [address] Potassium [Moles/Vol] 3.0 mmol/L Low 3.5 - 5.3 [facility] Comment on above: Performed By: #### A FPA3 ####[id number] [place] [address] SO2 100 % Normal 94 - 100 [facility] Comment on above: Performed By: #### A FPA3 ####[id number] [place] [address] Sodium [Moles/Vol] 136 mmol/L Normal 136 - 145 [facility] Comment on above: Performed By: #### A FPA3 ####[id number] [place] [address] Anion gap [Moles/Vol] 11 mmol/L Normal 10 - 25 [facility] Comment on above: Performed By: #### A FPA3 ####[id number] [place] [address] BASE EXCESS-BLOOD -1.4 mmol/L Normal -2.0 - 3.0 [facility] Comment on above: Performed By: #### A FPA3 ####[id number] [place] [address] BICARB, CALCULATED 24.8 mmol/L Normal 22.0 - 26.0 [facility] Comment on above: Performed By: #### A FPA3 ####[id number] [place] [address] CALCIUM,IONIZED 1.08 mmol/L Low 1.10 - 1.33 [facility] Comment on above: Performed By: #### A FPA3 ####[id number] [place] [address] Chloride [Moles/Vol] 102 mmol/L Normal 98 - 107 [facility] Comment on above: Performed By: #### A FPA3 ####[id number] [place] [address] FIO2 60 % Normal [facility] Comment on above: Performed By: #### A FPA3 ####[id number] [place] [address] Glucose [Mass/Vol] 253 mg/dL High 74 - 99 [facility] Comment on above: Performed By: #### A FPA3 ####[id number] [place] [address] Hematocrit (Bld) [Volume fraction] 35.0 % Low 36.0 - 46.0 [facility] Comment on above: Performed By: #### A FPA3 ####[id number] [place] [address] HGB,CALCULATED 11.9 g/dL Low 12.0 - 16.0 [facility] Comment on above: Performed By: #### A FPA3 ####[id number] [place] [address] Lactate [Moles/Vol] 2.4 mmol/L High 0.4 - 2.0 [facility] Comment on above: Performed By: #### A FPA3 ####[id number] [place] [address] Oxygen (Bld) [Partial pressure] 332 mm[Hg] High 85 - 95 [facility] Comment on above: Performed By: #### A FPA3 ####[id number] [place] [address] PATIENT TEMPERATURE 37.0 degrees C Normal [facility] Comment on above: Result Comment: NOTE : PATIENT RESULTS ARE NOT CORRECTED FOR TEMPERATURE. Performed By: #### A FPA3 ####[id number] [place] [address] PCO2 47 mmHg High 38 - 42 [facility] Comment on above: Performed By: #### A FPA3 ####[id number] [place] [address] pH (Bld) 7.33 [pH] Low 7.38 - 7.42 [facility] Comment on above: Performed By: #### A FPA3 ####[id number] [place] [address] Potassium [Moles/Vol] 3.6 mmol/L Normal 3.5 - 5.3 [facility] Comment on above: Performed By: #### A FPA3 ####[id number] [place] [address] SO2 100 % Normal 94 - 100 [facility] Comment on above: Performed By: #### A FPA3 ####[id number] [place] [address] Sodium [Moles/Vol] 134 mmol/L Low 136 - 145 [facility] Comment on above: Performed By: #### A FPA3 ####[id number] [place] [address] Anion gap [Moles/Vol] 10 mmol/L Normal 10 - 25 [facility] Comment on above: Performed By: #### A FPA3 ####[id number] [place] [address] BASE EXCESS-BLOOD 0.1 mmol/L Normal -2.0 - 3.0 [facility] Comment on above: Performed By: #### A FPA3 ####[id number] [place] [address] BICARB, CALCULATED 25.4 mmol/L Normal 22.0 - 26.0 [facility] Comment on above: Performed By: #### A FPA3 ####[id number] [place] [address] Chloride [Moles/Vol] 100 mmol/L Normal 98 - 107 [facility] Comment on above: Performed By: #### A FPA3 ####[id number] [place] [address] FIO2 60 % Normal [facility] Comment on above: Performed By: #### A FPA3 ####[id number] [place] [address] Glucose [Mass/Vol] 306 mg/dL High 74 - 99 [facility] Comment on above: Performed By: #### A FPA3 ####[id number] [place] [address] Hematocrit (Bld) [Volume fraction] 39.0 % Normal 36.0 - 46.0 [facility] Comment on above: Performed By: #### A FPA3 ####[id number] [place] [address] HGB,CALCULATED 13.3 g/dL Normal 12.0 - 16.0 [facility] Comment on above: Performed By: #### A FPA3 ####[id number] [place] [address] Lactate [Moles/Vol] 1.9 mmol/L Normal 0.4 - 2.0 [facility] Comment on above: Performed By: #### A FPA3 ####[id number] [place] [address] Oxygen (Bld) [Partial pressure] 175 mm[Hg] High 85 - 95 [facility] Comment on above: Performed By: #### A FPA3 ####[id number] [place] [address] PATIENT TEMPERATURE 37.0 degrees C Normal [facility] Comment on above: Result Comment: NOTE : PATIENT RESULTS ARE NOT CORRECTED FOR TEMPERATURE. Performed By: #### A FPA3 ####[id number] [place] [address] PCO2 43 mmHg High 38 - 42 [facility] Comment on above: Performed By: #### A FPA3 ####[id number] [place] [address] pH (Bld) 7.38 [pH] Normal 7.38 - 7.42 [facility] Comment on above: Performed By: #### A FPA3 ####[id number] [place] [address] Potassium [Moles/Vol] 4.2 mmol/L Normal 3.5 - 5.3 [facility] Comment on above: Performed By: #### A FPA3 ####[id number] [place] [address] SO2 100 % Normal 94 - 100 [facility] Comment on above: Performed By: #### A FPA3 ####[id number] [address] Sodium [Moles/Vol] 131 mmol/L Low 136 - 145 [facility] Comment on above: Performed By: #### A FPA3 ####[id number] [place] [address] CALCIUM, IONIZEDon 1 CALCIUM,IONIZED 1.14 mmol/L Normal 1.10 - 1.33 [facility] Comment on above: Result Comment: The performance characteristics of ionized calcium tested in heparinized plasma or serum have been validated by the individual laboratory site where testing is performed. Testing on heparinized plasma or serum is not approved by the FDA; however, such approval is not necessary. Performed By: #### I ONC1 ####[id number] [place] [address] Performed By: #### A FPA3 ####[id number] [place] [address] CBCon 01-24-2021 Erythrocyte distribution width (RBC) [Ratio] 16.1 % High 11.5 - 14.5 [facility] Comment on above: Performed By: #### C BC ####[id number] [place] [address] Hematocrit (Bld) [Volume fraction] 34.0 % Low 36.0 - 46.0 [facility] Comment on above: Performed By: #### C BC ####[id number] [place] [address] Hemoglobin (Bld) [Mass/Vol] 10.5 g/dL Low 12.0 - 16.0 [facility] Comment on above: Performed By: #### C BC ####[id number] [place] [address] MCHC (RBC) [Mass/Vol] 30.9 g/dL Low 32.0 - 36.0 [facility] Comment on above: Performed By: #### C BC ####[id number] [place] [address] MCV (RBC) [Entitic vol] 83 fL Normal 80 - 100 [facility] Comment on above: Performed By: #### C BC ####[id number] [place] [address] NUCLEATED RBC 0.0 /100 WBC Normal 0.0-0.0 [facility] Comment on above: Performed By: #### C BC ####[id number] [place] [address] Platelets (Bld) [#/Vol] 174 10*3/uL Normal 150 - 450 [facility] Comment on above: Performed By: #### C BC ####[id number] [place] [address] RBC 4.12 x10E12/L Normal 4.00 - 5.20 [facility] Comment on above: Performed By: #### C BC ####[id number] [place] [address] WBC (Bld) [#/Vol] 12.1 10*3/uL High 4.4 - 11.3 [facility] Comment on above: Performed By: #### C BC ####[id number] [place] [address] HCT Canceled Normal [facility] Comment on above: Order Comment: TEST CBC WAS CANCELLED, 01/24/2021 13:48 Performed By: #### C BC ####[id number] [place] [address] HGB Canceled Normal [facility] Comment on above: Order Comment: TEST CBC WAS CANCELLED, 01/24/2021 13:48 Performed By: #### C BC ####[id number] [place] [address] MCHC Canceled Normal [facility] Comment on above: Order Comment: TEST CBC WAS CANCELLED, 01/24/2021 13:48 Performed By: #### C BC ####[id number] [place] [address] MCV Canceled Normal [facility] Comment on above: Order Comment: TEST CBC WAS CANCELLED, 01/24/2021 13:48 Performed By: #### C BC ####[id number] [place] [address] NUCLEATED RBC Canceled Normal [facility] Comment on above: Order Comment: TEST CBC WAS CANCELLED, 01/24/2021 13:48 Performed By: #### C BC ####[id number] [place] [address] PLT Canceled Normal [facility] Comment on above: Order Comment: TEST CBC WAS CANCELLED, 01/24/2021 13:48 Performed By: #### C BC ####[id number] [place] [address] RBC Canceled Normal [facility] Comment on above: Order Comment: TEST CBC WAS CANCELLED, 01/24/2021 13:48 Performed By: #### C BC ####[id number] [place] [address] RDW-CV Canceled Normal [facility] Comment on above: Order Comment: TEST CBC WAS CANCELLED, 01/24/2021 13:48 Performed By: #### C BC ####[id number] [place] [address] WBC Canceled Normal [facility] Comment on above: Order Comment: TEST CBC WAS CANCELLED, 01/24/2021 13:48 Performed By: #### C BC ####[id number] [place] [address] COOX PANEL, ARTERIALon 01-24 CO HGB 1.5 % Normal [facility] Comment on above: Result Comment: REF VALUESNONSMOKERS 0.5-1.5%SMOKERS 0.5-10.0% Performed By: #### C OOXA ####[id number] [place] [address] DEOXY HGB 0.9 % Normal 0.0 - 5.0 [facility] Comment on above: Performed By: #### C OOXA ####[id number] [place] [address] Hemoglobin (Bld) [Mass/Vol] 9.3 g/dL Low 12.0 - 16.0 [facility] Comment on above: Performed By: #### C OOXA ####[id number] [place] [address] MET HGB 0.0 % Normal 0.0 - 1.5 [facility] Comment on above: Performed By: #### C OOXA ####[id number] [place] [address] OXY HGB 97.7 % Normal 94.0 - 98.0 [facility] Comment on above: Performed By: #### C OOXA ####[id number] [place] [address] CO HGB 1.6 % Abnormal [facility] Comment on above: Result Comment: REF VALUESNONSMOKERS 0.5-1.5%SMOKERS 0.5-10.0% Performed By: #### C OOXA ####[id number] [place] [address] DEOXY HGB 0.0 % Normal 0.0 - 5.0 [facility] Comment on above: Performed By: #### C OOXA ####[id number] [place] [address] Hemoglobin (Bld) [Mass/Vol] 8.1 g/dL Low 12.0 - 16.0 [facility] Comment on above: Performed By: #### C OOXA ####[id number] [place] [address] MET HGB 0.0 % Normal 0.0 - 1.5 [facility] Comment on above: Performed By: #### C OOXA ####[id number] [place] [address] OXY HGB 98.4 % High 94.0 - 98.0 [facility] Comment on above: Performed By: #### C OOXA ####[id number] [place] [address] CO HGB 0.8 % Normal [facility] Comment on above: Result Comment: REF VALUESNONSMOKERS 0.5-1.5%SMOKERS 0.5-10.0% Performed By: #### C OOXA ####[id number] [place] [address] DEOXY HGB 1.1 % Normal 0.0 - 5.0 [facility] Comment on above: Performed By: #### C OOXA ####[id number] [place] [address] Hemoglobin (Bld) [Mass/Vol] 7.9 g/dL Low 12.0 - 16.0 [facility] Comment on above: Performed By: #### C OOXA ####[id number] [place] [address] MET HGB 0.0 % Normal 0.0 - 1.5 [facility] Comment on above: Performed By: #### C OOXA ####[id number] [place] [address] OXY HGB 98.1 % High 94.0 - 98.0 [facility] Comment on above: Performed By: #### C OOXA ####[id number] [place] [address] CO HGB 1.4 % Normal [facility] Comment on above: Result Comment: REF VALUESNONSMOKERS 0.5-1.5%SMOKERS 0.5-10.0% Performed By: #### C OOXA ####[id number] [place] [address] DEOXY HGB 0.2 % Normal 0.0 - 5.0 [facility] Comment on above: Performed By: #### C OOXA ####[id number] [place] [address] Hemoglobin (Bld) [Mass/Vol] 8.0 g/dL Low 12.0 - 16.0 [facility] Comment on above: Performed By: #### C OOXA ####[id number] [place] [address] MET HGB 0.0 % Normal 0.0 - 1.5 [facility] Comment on above: Performed By: #### C OOXA ####[id number] [place] [address] OXY HGB 98.4 % High 94.0 - 98.0 [facility] Comment on above: Performed By: #### C OOXA ####[id number] [place] [address] CO HGB 1.4 % Normal [facility] Comment on above: Result Comment: REF VALUESNONSMOKERS 0.5-1.5%SMOKERS 0.5-10.0% Performed By: #### C OOXA ####[id number] [place] [address] DEOXY HGB 0.2 % Normal 0.0 - 5.0 [facility] Comment on above: Performed By: #### C OOXA ####[id number] [place] [address] Hemoglobin (Bld) [Mass/Vol] 7.9 g/dL Low 12.0 - 16.0 [facility] Comment on above: Performed By: #### C OOXA ####[id number] [place] [address] MET HGB 0.0 % Normal 0.0 - 1.5 [facility] Comment on above: Performed By: #### C OOXA ####[id number] [place] [address] OXY HGB 98.3 % High 94.0 - 98.0 [facility] Comment on above: Performed By: #### C OOXA ####[id number] [place] [address] CO HGB 1.6 % Abnormal [facility] Comment on above: Result Comment: REF VALUESNONSMOKERS 0.5-1.5%SMOKERS 0.5-10.0% Performed By: #### C OOXA ####[id number] [place] [address] DEOXY HGB 0.2 % Normal 0.0 - 5.0 [facility] Comment on above: Performed By: #### C OOXA ####[id number] [place] [address] Hemoglobin (Bld) [Mass/Vol] 8.5 g/dL Low 12.0 - 16.0 [facility] Comment on above: Performed By: #### C OOXA ####[id number] [place] [address] MET HGB 0.4 % Normal 0.0 - 1.5 [facility] Comment on above: Performed By: #### C OOXA ####[id number] [place] [address] OXY HGB 97.8 % Normal 94.0 - 98.0 [facility] Comment on above: Performed By: #### C OOXA ####[id number] [place] [address] CO HGB 1.7 % Abnormal [facility] Comment on above: Result Comment: REF VALUESNONSMOKERS 0.5-1.5%SMOKERS 0.5-10.0% Performed By: #### C OOXA ####[id number] [place] [address] DEOXY HGB 0.2 % Normal 0.0 - 5.0 [facility] Comment on above: Performed By: #### C OOXA ####[id number] [place] [address] Hemoglobin (Bld) [Mass/Vol] 10.3 g/dL Low 12.0 - 16.0 [facility] Comment on above: Performed By: #### C OOXA ####[id number] [place] [address] MET HGB 0.0 % Normal 0.0 - 1.5 [facility] Comment on above: Performed By: #### C OOXA ####[id number] [place] [address] OXY HGB 98.0 % Normal 94.0 - 98.0 [facility] Comment on above: Performed By: #### C OOXA ####[id number] [place] [address] CO HGB 1.7 % Abnormal [facility] Comment on above: Result Comment: REF VALUESNONSMOKERS 0.5-1.5%SMOKERS 0.5-10.0% Performed By: #### C OOXA ####[id number] [place] [address] DEOXY HGB 0.1 % Normal 0.0 - 5.0 [facility] Comment on above: Performed By: #### C OOXA ####[id number] [place] [address] Hemoglobin (Bld) [Mass/Vol] 11.5 g/dL Low 12.0 - 16.0 [facility] Comment on above: Performed By: #### C OOXA ####[id number] [place] [address] MET HGB 0.0 % Normal 0.0 - 1.5 [facility] Comment on above: Performed By: #### C OOXA ####[id number] [place] [address] OXY HGB 98.2 % High 94.0 - 98.0 [facility] Comment on above: Performed By: #### C OOXA ####[id number] [place] [address] CO HGB 1.8 % Abnormal [facility] Comment on above: Result Comment: REF VALUESNONSMOKERS 0.5-1.5%SMOKERS 0.5-10.0% Performed By: #### C OOXA ####[id number] [place] [address] DEOXY HGB 0.4 % Normal 0.0 - 5.0 [facility] Comment on above: Performed By: #### C OOXA ####[id number] [place] [address] Hemoglobin (Bld) [Mass/Vol] 12.4 g/dL Normal 12.0 - 16.0 [facility] Comment on above: Performed By: #### C OOXA ####[id number] [place] [address] MET HGB 0.1 % Normal 0.0 - 1.5 [facility] Comment on above: Performed By: #### C OOXA ####[id number] [place] [address] OXY HGB 97.7 % Normal 94.0 - 98.0 [facility] Comment on above: Performed By: #### C OOXA ####[id number] [place] [address] COOX PANEL,VENOUSon 01-25-20 21 CO HGB 1.6 % Abnormal [facility] Comment on above: Result Comment: REF VALUESNONSMOKERS 0.5-1.5%SMOKERS 0.5-10.0% Performed By: #### C OOXV ####[id number] [place] [address] MET HGB 0.0 % Normal 0.0 - 1.5 [facility] Comment on above: Performed By: #### C OOXV ####[id number] [place] [address] Calcium, Ionized Levelon Calcium, Ionized Level 1.14 mmol/L See Below [facility] [place] Work Phone: Comment on above: Reference Range: 1.1 0 - 1.33 The performance characteristics of ionized calcium tested in heparinized plasma or serum have been validated by the individual laboratory site where testing is performed. Testing on heparinized plasma or serum is not approved by the FDA; however, such approval is not necessary. Consult-Anesthesia - Painon 01-24-2021 Consult-Anesthesia - Pain Normal [facility] GLUCOSE-POCTon 01-24-2021 Glucose [Mass/Vol] 192 mg/dL High 74 - 99 [facility] Comment on above: Performed By: #### Jodee ALFORD ####[id number] [place] [address] Glucose [Mass/Vol] 227 mg/dL High 74 - 99 [facility] Comment on above: Performed By: #### Jodee PRASHANTH ####[id number] [place] [address] Intraoperative Transesophage al Echoon 01-24-2021 Intraoperative Transesophageal Echo Normal [facility] - Chemistry and C hemistry - challengeon 01-24-2021 Glucose [Mass/Vol] 175 mg/dL above high threshold 74 - 99 [facility] [place] Work Phone: Glucose [Mass/Vol] 189 mg/dL above high threshold 74 - 99 [facility] [place] Work Phone: Glucose [Mass/Vol] 192 mg/dL above high threshold 74 - 99 [facility] [place] Work Phone: Glucose [Mass/Vol] 227 mg/dL above high threshold 74 - 99 [facility] [place] Work Phone: Anion gap (Bld) [Moles/Vol] 8 mmol/L below low threshold 10 - 25 [facility] [place] Work Phone: Calcium.ionized (Bld) [Moles/Vol] 1.09 mmol/L below low threshold See Below [facility] [place] Work Phone: Comment on above: Reference Range: 1.1 0 - 1.33 Chloride [Moles/Vol] 106 mmol/L 98 - 107 [facility]di[facility]- [facility] [place] Work Phone: CO2 (Bld) [Partial pressure] 44 mm[Hg] above high threshold 38 - 42 [facility] [place] Work Phone: Glucose [Mass/Vol] 222 mg/dL above high threshold 74 - 99 [facility] [place] Work Phone: HCO3 (Bld) [Moles/Vol] 26.6 mmol/L above hig h threshold See Below [facility] [place] Work Phone: Comment on above: Reference Range: 22. 0 - 26.0 Lactate [Moles/Vol] 2.0 mmol/L 0.4 - 2.0 [facility] rdiology- [facility] [place] Work Phone: Oxygen (Bld) [Partial pressure] 69 mm[Hg] below low threshold 85 - 95 [facility] [place] Work Phone: pH (Bld) 7.39 [pH] See Below [facility] [place] Work Phone: Comment on above: Reference Range: 7.3 8 - 7.42 Potassium [Moles/Vol] 4.6 mmol/L 3.5 - 5.3 [facility] [place] Work Phone: Sodium [Moles/Vol] 136 mmol/L 136 - 145 [facility]- [facility] [place] Work Phone: Anion gap (Bld) [Moles/Vol] 8 mmol/L below low threshold 10 - 25 [facility] [place] Work Phone: Calcium.ionized (Bld) [Moles/Vol] 1.12 mmol/L See Below [facility] [place] Work Phone: Comment on above: Reference Range: 1.1 0 - 1.33 Chloride [Moles/Vol] 106 mmol/L 98 - 107 [facility]di[facility]- [facility] [place] Work Phone: CO2 (Bld) [Partial pressure] 45 mm[Hg] above high threshold 38 - 42 [facility] [place] Work Phone: Glucose [Mass/Vol] 217 mg/dL above high threshold 74 - 99 [facility] [place] Work Phone: HCO3 (Bld) [Moles/Vol] 26.6 mmol/L above hig h threshold See Below [facility] [place] Work Phone: Comment on above: Reference Range: 22. 0 - 26.0 Lactate [Moles/Vol] 2.3 mmol/L above high threshold 0.4 - 2.0 [facility] [place] Work Phone: Oxygen (Bld) [Partial pressure] 106 mm[Hg] above high threshold 85 - 95 [facility] [place] Work Phone: pH (Bld) 7.38 [pH] See Below [facility] [place] Work Phone: Comment on above: Reference Range: 7.3 8 - 7.42 Potassium [Moles/Vol] 5.0 mmol/L 3.5 - 5.3 [facility] [place] Work Phone: Sodium [Moles/Vol] 136 mmol/L 136 - 145 [facility] [place] Work Phone: Anion gap (Bld) [Moles/Vol] 11 mmol/L 10 - 25 [facility] Work Phone: Calcium.ionized (Bld) [Moles/Vol] 1.15 mmol/L See Below [facility] Work Phone: Comment on above: Reference Range: 1.1 0 - 1.33 Chloride [Moles/Vol] 105 mmol/L 98 - 107 [facility]diology- [employer] Work Phone: CO2 (Bld) [Partial pressure] 47 mm[Hg] above high threshold 38 - 42 [facility] [employer] Work Phone: Glucose [Mass/Vol] 228 mg/dL above high threshold 74 - 99 [facility] [place] Work Phone: HCO3 (Bld) [Moles/Vol] 25.4 mmol/L See Below [facility] [employer] Work Phone: Comment on above: Reference Range: 22. 0 - 26.0 Lactate [Moles/Vol] 3.3 mmol/L above high threshold 0.4 - 2.0 [facility] Work Phone: Oxygen (Bld) [Partial pressure] 88 mm[Hg] 85 - 95 [facility] [employer] [place] Work Phone: pH (Bld) 7.34 [pH] below low threshold See Below [facility] [place] Work Phone: Comment on above: Reference Range: 7.3 8 - 7.42 Potassium [Moles/Vol] 4.4 mmol/L 3.5 - 5.3 [facility] Work Phone: Sodium [Moles/Vol] 137 mmol/L 136 - 145 [facility]- [facility] Work Phone: Anion gap (Bld) [Moles/Vol] 10 mmol/L 10 - 25 [facility] Work Phone: Calcium.ionized (Bld) [Moles/Vol] 1.17 mmol/L See Below [facility] [place] Work Phone: Comment on above: Reference Range: 1.1 0 - 1.33 Carboxyhemoglobin (BldA) [Mass fraction] 1.5 % [facility] logy- [facility] [place] Work Phone: Comment on above: REF VALUESNONSMOKERS 0.5-1.5%SMOKERS 0.5-10.0% Chloride [Moles/Vol] 107 mmol/L 98 - 107 [facility]diology- [employer] [place] Work Phone: CO2 (Bld) [Partial pressure] 45 mm[Hg] above high threshold 38 - 42 [facility] [place] Work Phone: Glucose [Mass/Vol] 261 mg/dL above high threshold 74 - 99 [facility] [place] Work Phone: HCO3 (Bld) [Moles/Vol] 23.7 mmol/L See Below [facility] [place] Work Phone: Comment on above: Reference Range: 22. 0 - 26.0 Lactate [Moles/Vol] 4.2 mmol/L Critically high 0.4 - 2.0 [facility] [place] Work Phone: Methemoglobin (BldA) [Mass fraction] 0.0 % 0.0 - 1.5 [facility] [place] Work Phone: Oxygen (Bld) [Partial pressure] 147 mm[Hg] above high threshold 85 - 95 [facility] [place] Work Phone: Oxyhemoglobin (BldA) [Mass fraction] 97.7 % See Below [facility] [place] Work Phone: Comment on above: Reference Range: 94. 0 - 98.0 pH (Bld) 7.33 [pH] below low threshold See Below [facility] [place] Work Phone: Comment on above: Reference Range: 7.3 8 - 7.42 Potassium [Moles/Vol] 3.8 mmol/L 3.5 - 5.3 [facility] Work Phone: Sodium [Moles/Vol] 137 mmol/L 136 - 145 [facility]- [facility] Work Phone: Anion gap (Bld) [Moles/Vol] 11 mmol/L 10 - 25 [facility] [place] Work Phone: Calcium.ionized (Bld) [Moles/Vol] 1.24 mmol/L See Below [facility] [place] Work Phone: Comment on above: Reference Range: 1.1 0 - 1.33 Carboxyhemoglobin (BldA) [Mass fraction] 1.6 % Abnormal [facility] logy- [facility] [employer] Work Phone: Comment on above: REF VALUESNONSMOKERS 0.5-1.5%SMOKERS 0.5-10.0% Chloride [Moles/Vol] 105 mmol/L 98 - 107 [facility] ardiology- [employer] Work Phone: CO2 (Bld) [Partial pressure] 47 mm[Hg] above high threshold 38 - 42 [facility] [place] Work Phone: Glucose [Mass/Vol] 324 mg/dL above high threshold 74 - 99 [facility] [place] Work Phone: HCO3 (Bld) [Moles/Vol] 24.2 mmol/L See Below [facility] Work Phone: Comment on above: Reference Range: 22. 0 - 26.0 Lactate [Moles/Vol] 5.4 mmol/L Critically high 0.4 - 2.0 [facility] Work Phone: Methemoglobin (BldA) [Mass fraction] 0.0 % 0.0 - 1.5 [facility] Work Phone: Oxygen (Bld) [Partial pressure] 407 mm[Hg] above high threshold 85 - 95 [facility] Work Phone: Oxyhemoglobin (BldA) [Mass fraction] 98.4 % above high threshold See Below [facility] Work Phone: Comment on above: Reference Range: 94. 0 - 98.0 pH (Bld) 7.32 [pH] below low threshold See Below [facility] Work Phone: Comment on above: Reference Range: 7.3 8 - 7.42 Potassium [Moles/Vol] 3.8 mmol/L 3.5 - 5.3 [facility] Work Phone: Sodium [Moles/Vol] 136 mmol/L 136 - 145 [facility]- [facility] Work Phone: Anion gap (Bld) [Moles/Vol] 11 mmol/L 10 - 25 [facility] Work Phone: Calcium.ionized (Bld) [Moles/Vol] 1.54 mmol/L above high threshold See Below [facility] Work Phone: Comment on above: Reference Range: 1.1 0 - 1.33 Carboxyhemoglobin (BldA) [Mass fraction] 0.8 % [facility] logy- [employer] Work Phone: Comment on above: REF VALUESNONSMOKERS 0.5-1.5%SMOKERS 0.5-10.0% Chloride [Moles/Vol] 105 mmol/L 98 - 107 [facility] ardiology- [facility] [employer] Work Phone: CO2 (Bld) [Partial pressure] 46 mm[Hg] above high threshold 38 - 42 [facility] Work Phone: Glucose [Mass/Vol] 317 mg/dL above high threshold 74 - 99 [facility] Work Phone: HCO3 (Bld) [Moles/Vol] 22.1 mmol/L See Below [facility] Work Phone: Comment on above: Reference Range: 22. 0 - 26.0 Lactate [Moles/Vol] 5.4 mmol/L Critically high 0.4 - 2.0 [facility] Work Phone: Methemoglobin (BldA) [Mass fraction] 0.0 % 0.0 - 1.5 [facility] [place] Work Phone: Oxygen (Bld) [Partial pressure] 346 mm[Hg] above high threshold 85 - 95 [facility] Work Phone: Oxyhemoglobin (BldA) [Mass fraction] 98.1 % above high threshold See Below [facility] [place] Work Phone: Comment on above: Reference Range: 94. 0 - 98.0 pH (Bld) 7.29 [pH] below low threshold See Below [facility] [place] Work Phone: Comment on above: Reference Range: 7.3 8 - 7.42 Potassium [Moles/Vol] 4.6 mmol/L 3.5 - 5.3 [facility] Work Phone: Sodium [Moles/Vol] 133 mmol/L below low threshold 136 - 145 [facility] [place] Work Phone: Anion gap (Bld) [Moles/Vol] 9 mmol/L below low threshold 10 - 25 [facility] [place] Work Phone: Calcium.ionized (Bld) [Moles/Vol] 1.00 mmol/L below low threshold See Below [facility] Work Phone: Comment on above: Reference Range: 1.1 0 - 1.33 Carboxyhemoglobin (BldA) [Mass fraction] 1.4 % [facility] logy- [facility] Work Phone: Comment on above: REF VALUESNONSMOKERS 0.5-1.5%SMOKERS 0.5-10.0% Chloride [Moles/Vol] 105 mmol/L 98 - 107 [facility] ardiology- [facility] [place] Work Phone: CO2 (Bld) [Partial pressure] 43 mm[Hg] above high threshold 38 - 42 [facility] [place] Work Phone: Glucose [Mass/Vol] 300 mg/dL above high threshold 74 - 99 [facility] [place] Work Phone: HCO3 (Bld) [Moles/Vol] 23.7 mmol/L See Below [facility] [place] Work Phone: Comment on above: Reference Range: 22. 0 - 26.0 Lactate [Moles/Vol] 4.1 mmol/L Critically high 0.4 - 2.0 [facility] [place] Work Phone: Methemoglobin (BldA) [Mass fraction] 0.0 % 0.0 - 1.5 [facility] [place] Work Phone: Oxygen (Bld) [Partial pressure] 384 mm[Hg] above high threshold 85 - 95 [facility] [place] Work Phone: Oxyhemoglobin (BldA) [Mass fraction] 98.4 % above high threshold See Below [facility] [place] Work Phone: Comment on above: Reference Range: 94. 0 - 98.0 pH (Bld) 7.35 [pH] below low threshold See Below [facility] [place] Work Phone: Comment on above: Reference Range: 7.3 8 - 7.42 Potassium [Moles/Vol] 4.6 mmol/L 3.5 - 5.3 [facility] [place] Work Phone: Sodium [Moles/Vol] 133 mmol/L below low threshold 136 - 145 [facility] [place] Work Phone: Anion gap (Bld) [Moles/Vol] 10 mmol/L 10 - 25 [facility] [place] Work Phone: Calcium.ionized (Bld) [Moles/Vol] 0.99 mmol/L below low threshold See Below [facility] Admin Button Work Phone: Comment on above: Reference Range: 1.1 0 - 1.33 Carboxyhemoglobin (BldA) [Mass fraction] 1.4 % [facility]io logy- Admin Button Work Phone: Comment on above: REF VALUESNONSMOKERS 0.5-1.5%SMOKERS 0.5-10.0% Chloride [Moles/Vol] 105 mmol/L 98 - 107 [facility] ardiology- Admin Button Work Phone: CO2 (Bld) [Partial pressure] 47 mm[Hg] above high threshold 38 - 42 [facility] Admin Button Work Phone: Glucose [Mass/Vol] 301 mg/dL above high threshold 74 - 99 [facility] [employer] Work Phone: HCO3 (Bld) [Moles/Vol] 24.2 mmol/L See Below M [facility]- Admin Button Work Phone: Comment on above: Reference Range: 22. 0 - 26.0 Lactate [Moles/Vol] 3.7 mmol/L above high threshold 0.4 - 2.0 [facility] Admin Button Work Phone: Methemoglobin (BldA) [Mass fraction] 0.0 % 0.0 - 1.5 [facility] Admin Button Work Phone: Oxygen (Bld) [Partial pressure] 335 mm[Hg] above high threshold 85 - 95 [facility] Admin Button Work Phone: Oxyhemoglobin (BldA) [Mass fraction] 98.3 % above high threshold See Below [facility] Admin Button Work Phone: Comment on above: Reference Range: 94. 0 - 98.0 pH (Bld) 7.32 [pH] below low threshold See Below [facility] Admin Button Work Phone: Comment on above: Reference Range: 7.3 8 - 7.42 Potassium [Moles/Vol] 5.9 mmol/L above high threshold 3.5 - 5.3 [facility] Admin Button Work Phone: Sodium [Moles/Vol] 133 mmol/L below low threshold 136 - 145 [facility] Admin [place] Work Phone: Anion gap (Bld) [Moles/Vol] 11 mmol/L 10 - 25 [facility] Admin [place] Work Phone: Calcium.ionized (Bld) [Moles/Vol] 1.00 mmol/L below low threshold See Below [facility] [place] Work Phone: Comment on above: Reference Range: 1.1 0 - 1.33 Carboxyhemoglobin (BldV) [Mass fraction] 1.6 % Abnormal [facility] logy- Admin [place] Work Phone: Comment on above: REF VALUESNONSMOKERS 0.5-1.5%SMOKERS 0.5-10.0% Chloride [Moles/Vol] 101 mmol/L 98 - 107 [facility] ardiology- Admin Button Work Phone: CO2 (BldV) [Partial pressure] 59 mm[Hg] above high threshold 41 - 51 [facility] Admin [place] Work Phone: Glucose [Mass/Vol] 309 mg/dL above high threshold 74 - 99 [facility] [place] Work Phone: HCO3 (Bld) [Moles/Vol] 27.7 mmol/L above hig h threshold See Below [facility] [place] Work Phone: Comment on above: Reference Range: 22. 0 - 26.0 Lactate [Moles/Vol] 3.6 mmol/L above high threshold 0.4 - 2.0 [facility] Admin Button Work Phone: Methemoglobin (BldV) [Mass fraction] 0.0 % 0.0 - 1.5 [facility] Admin Button Work Phone: Oxygen (BldV) [Partial pressure] 48 mm[Hg] above high threshold 35 - 45 [facility] Admin Button Work Phone: pH (BldV) 7.28 [pH] below low threshold See Below [facility] Admin [place] Work Phone: Comment on above: Reference Range: 7.3 3 - 7.43 Potassium [Moles/Vol] 3.7 mmol/L 3.5 - 5.3 [facility] [place] Work Phone: Sodium [Moles/Vol] 136 mmol/L 136 - 145 [facility] diology- Admin Button Work Phone: Anion gap (Bld) [Moles/Vol] 15 mmol/L 10 - 25 [facility] [place] Work Phone: Calcium.ionized (Bld) [Moles/Vol] 0.90 mmol/L below low threshold See Below [facility] [place] Work Phone: Comment on above: Reference Range: 1.1 0 - 1.33 Carboxyhemoglobin (BldA) [Mass fraction] 1.6 % Abnormal [facility] logy- [employer] [place] Work Phone: Comment on above: REF VALUESNONSMOKERS 0.5-1.5%SMOKERS 0.5-10.0% Chloride [Moles/Vol] 100 mmol/L 98 - 107 [facility] ardiology- [employer] [place] Work Phone: CO2 (Bld) [Partial pressure] 40 mm[Hg] 38 - 42 [facility] Admin [place] Work Phone: Glucose [Mass/Vol] 267 mg/dL above high threshold 74 - 99 [facility] [place] Work Phone: HCO3 (Bld) [Moles/Vol] 21.1 mmol/L below low threshold See Below [facility] [place] Work Phone: Comment on above: Reference Range: 22. 0 - 26.0 Lactate [Moles/Vol] 2.8 mmol/L above high threshold 0.4 - 2.0 [facility] [place] Work Phone: Methemoglobin (BldA) [Mass fraction] 0.4 % 0.0 - 1.5 [facility] Admin Button Work Phone: Oxygen (Bld) [Partial pressure] 365 mm[Hg] above high threshold 85 - 95 [facility] Admin Button Work Phone: Oxyhemoglobin (BldA) [Mass fraction] 97.8 % See Below [facility] Admin [place] Work Phone: Comment on above: Reference Range: 94. 0 - 98.0 pH (Bld) 7.33 [pH] below low threshold See Below [facility] [place] Work Phone: Comment on above: Reference Range: 7.3 8 - 7.42 Potassium [Moles/Vol] 3.6 mmol/L 3.5 - 5.3 [facility] Admin [place] Work Phone: Sodium [Moles/Vol] 132 mmol/L below low threshold 136 - 145 [facility] [place] Work Phone: Anion gap (Bld) [Moles/Vol] 11 mmol/L 10 - 25 [facility]- [employer] [place] Work Phone: Calcium.ionized (Bld) [Moles/Vol] 0.99 mmol/L below low threshold See Below [facility] [place] Work Phone: Comment on above: Reference Range: 1.1 0 - 1.33 Carboxyhemoglobin (BldA) [Mass fraction] 1.7 % Abnormal [facility] log[facility]- [employer] Work Phone: Comment on above: REF VALUESNONSMOKERS 0.5-1.5%SMOKERS 0.5-10.0% Chloride [Moles/Vol] 106 mmol/L 98 - 107 [facility] ardiology- [employer] Work Phone: CO2 (Bld) [Partial pressure] 42 mm[Hg] 38 - 42 [facility] [employer] Work Phone: Glucose [Mass/Vol] 249 mg/dL above high threshold 74 - 99 [facility] Admin [place] Work Phone: HCO3 (Bld) [Moles/Vol] 22.1 mmol/L See Below M [facility]- Admin [place] Work Phone: Comment on above: Reference Range: 22. 0 - 26.0 Lactate [Moles/Vol] 2.4 mmol/L above high threshold 0.4 - 2.0 [facility] [place] Work Phone: Methemoglobin (BldA) [Mass fraction] 0.0 % 0.0 - 1.5 [facility] [place] Work Phone: Oxygen (Bld) [Partial pressure] 264 mm[Hg] above high threshold 85 - 95 [facility] [place] Work Phone: Oxyhemoglobin (BldA) [Mass fraction] 98.0 % See Below [facility] [place] Work Phone: Comment on above: Reference Range: 94. 0 - 98.0 pH (Bld) 7.33 [pH] below low threshold See Below [facility] [place] Work Phone: Comment on above: Reference Range: 7.3 8 - 7.42 Potassium [Moles/Vol] 3.0 mmol/L below low threshold 3.5 - 5.3 [facility] [place] Work Phone: Sodium [Moles/Vol] 136 mmol/L 136 - 145 [facility] diology- Admin [place] Work Phone: Anion gap (Bld) [Moles/Vol] 11 mmol/L 10 - 25 [facility] [place] Work Phone: Calcium.ionized (Bld) [Moles/Vol] 1.08 mmol/L below low threshold See Below [facility] [place] Work Phone: Comment on above: Reference Range: 1.1 0 - 1.33 Carboxyhemoglobin (BldA) [Mass fraction] 1.7 % Abnormal [facility] logy- Admin Button Work Phone: Comment on above: REF VALUESNONSMOKERS 0.5-1.5%SMOKERS 0.5-10.0% Chloride [Moles/Vol] 102 mmol/L 98 - 107 [facility] ardiology- Admin Button Work Phone: CO2 (Bld) [Partial pressure] 47 mm[Hg] above high threshold 38 - 42 [facility] [place] Work Phone: Glucose [Mass/Vol] 253 mg/dL above high threshold 74 - 99 [facility] [place] Work Phone: HCO3 (Bld) [Moles/Vol] 24.8 mmol/L See Below M [facility]- Admin Button Work Phone: Comment on above: Reference Range: 22. 0 - 26.0 Lactate [Moles/Vol] 2.4 mmol/L above high threshold 0.4 - 2.0 [facility] [place] Work Phone: Methemoglobin (BldA) [Mass fraction] 0.0 % 0.0 - 1.5 [facility] [place] Work Phone: Oxygen (Bld) [Partial pressure] 332 mm[Hg] above high threshold 85 - 95 [facility] [place] Work Phone: Oxyhemoglobin (BldA) [Mass fraction] 98.2 % above high threshold See Below [facility] [place] Work Phone: Comment on above: Reference Range: 94. 0 - 98.0 pH (Bld) 7.33 [pH] below low threshold See Below [facility] [place] Work Phone: Comment on above: Reference Range: 7.3 8 - 7.42 Potassium [Moles/Vol] 3.6 mmol/L 3.5 - 5.3 [facility] Admin Button Work Phone: Sodium [Moles/Vol] 134 mmol/L below low threshold 136 - 145 [facility] Admin Button Work Phone: Anion gap (Bld) [Moles/Vol] 10 mmol/L 10 - 25 [facility] [place] Work Phone: Calcium.ionized (Bld) [Moles/Vol] 1.14 mmol/L See Below [facility] [place] Work Phone: Comment on above: Reference Range: 1.1 0 - 1.33 Carboxyhemoglobin (BldA) [Mass fraction] 1.8 % Abnormal [facility] logy- Admin [place] Work Phone: Comment on above: REF VALUESNONSMOKERS 0.5-1.5%SMOKERS 0.5-10.0% Chloride [Moles/Vol] 100 mmol/L 98 - 107 [facility] ardiology- [employer] [place] Work Phone: CO2 (Bld) [Partial pressure] 43 mm[Hg] above high threshold 38 - 42 [facility] Admin [place] Work Phone: Glucose [Mass/Vol] 306 mg/dL above high threshold 74 - 99 [facility] Admin [place] Work Phone: HCO3 (Bld) [Moles/Vol] 25.4 mmol/L See Below M [facility]- Admin [place] Work Phone: Comment on above: Reference Range: 22. 0 - 26.0 Lactate [Moles/Vol] 1.9 mmol/L 0.4 - 2.0 MG-Ca rdiology- Admin [place] Work Phone: Methemoglobin (BldA) [Mass fraction] 0.1 % 0.0 - 1.5 [facility] Admin [place] Work Phone: Oxygen (Bld) [Partial pressure] 175 mm[Hg] above high threshold 85 - 95 [facility] Admin [place] Work Phone: Oxyhemoglobin (BldA) [Mass fraction] 97.7 % See Below [facility] Admin [place] Work Phone: Comment on above: Reference Range: 94. 0 - 98.0 pH (Bld) 7.38 [pH] See Below [facility] Work Phone: Comment on above: Reference Range: 7.3 8 - 7.42 Potassium [Moles/Vol] 4.2 mmol/L 3.5 - 5.3 [employer] Work Phone: Sodium [Moles/Vol] 131 mmol/L below low threshold 136 - 145 [employer] Work Phone: Laboratory - Hematology and Cell countson 01-24-2021 Hematocrit (Bld) [Volume fraction] 30.0 % below low threshold See Below [facility] Work Phone: Comment on above: Reference Range: 36. 0 - 46.0 Hemoglobin (Bld) [Mass/Vol] 10.2 g/dL below low threshold See Below [employer] Work Phone: Comment on above: Reference Range: 12. 0 - 16.0 Hematocrit (Bld) [Volume fraction] 29.0 % below low threshold See Below [employer] Work Phone: Comment on above: Reference Range: 36. 0 - 46.0 Hemoglobin (Bld) [Mass/Vol] 9.9 g/dL below low threshold See Below [employer] Work Phone: Comment on above: Reference Range: 12. 0 - 16.0 Erythrocyte distribution width (RBC) [Ratio] 16.1 % above high threshold See Below [facility] Work Phone: Comment on above: Reference Range: 11. 5 - 14.5 Hematocrit (Bld) [Volume fraction] 34.0 % below low threshold See Below [facility] Work Phone: Comment on above: Reference Range: 36. 0 - 46.0 Hemoglobin (Bld) [Mass/Vol] 10.5 g/dL below low threshold See Below [facility] Work Phone: Comment on above: Reference Range: 12. 0 - 16.0 MCHC (RBC) [Mass/Vol] 30.9 g/dL below low threshold See Below [employer] [facility] Admin Button Work Phone: Comment on above: Reference Range: 32. 0 - 36.0 MCV (RBC) [Entitic vol] 83 fL 80 - 100 [facility] Work Phone: Platelets (Bld) [#/Vol] 174 10*3/uL 150 - 450 [facility] [place] Work Phone: RBC (Bld) [#/Vol] 4.12 {x10E12/L} See Below [employer] [facility] Admin [place] Work Phone: Comment on above: Reference Range: 4.0 0 - 5.20 WBC (Bld) [#/Vol] 12.1 10*3/uL above high threshold 4.4 - 11.3 [facility] Work Phone: Hematocrit (Bld) [Volume fraction] 30.0 % below low threshold See Below [facility] Work Phone: Comment on above: Reference Range: 36. 0 - 46.0 Hemoglobin (Bld) [Mass/Vol] 10.2 g/dL below low threshold See Below [facility] [place] Work Phone: Comment on above: Reference Range: 12. 0 - 16.0 Deoxyhemoglobin (BldA) [Mass fraction] 0.9 % 0.0 - 5.0 [facility] Work Phone: Hematocrit (Bld) [Volume fraction] 26.0 % below low threshold See Below [employer] [facility] Admin [place] Work Phone: Comment on above: Reference Range: 36. 0 - 46.0 Hemoglobin (Bld) [Mass/Vol] 9.3 g/dL below low threshold See Below [employer] [facility] Admin [place] Work Phone: Comment on above: Reference Range: 12. 0 - 16.0 Hemoglobin (Bld) [Mass/Vol] 8.8 g/dL below low threshold See Below [employer] [facility] Admin Button Work Phone: Comment on above: Reference Range: 12. 0 - 16.0 Deoxyhemoglobin (BldA) [Mass fraction] 0.0 % 0.0 - 5.0 [facility]- Admin Button Work Phone: Hematocrit (Bld) [Volume fraction] 22.0 % below low threshold See Below [facility] Work Phone: Comment on above: Reference Range: 36. 0 - 46.0 Hemoglobin (Bld) [Mass/Vol] 7.5 g/dL below low threshold See Below [employer]-[facility]- Admin Button Work Phone: Comment on above: Reference Range: 12. 0 - 16.0 Hemoglobin (Bld) [Mass/Vol] 8.1 g/dL below low threshold See Below [facility] Work Phone: Comment on above: Reference Range: 12. 0 - 16.0 Deoxyhemoglobin (BldA) [Mass fraction] 1.1 % 0.0 - 5.0 [employer]-[facility]- Admin Button Work Phone: Hematocrit (Bld) [Volume fraction] 20.0 % below low threshold See Below [facility] Work Phone: Comment on above: Reference Range: 36. 0 - 46.0 Hemoglobin (Bld) [Mass/Vol] 6.8 g/dL below low threshold See Below [employer]-[facility]- Admin Button Work Phone: Comment on above: Reference Range: 12. 0 - 16.0 Hemoglobin (Bld) [Mass/Vol] 7.9 g/dL below low threshold See Below [facility] Admin Button Work Phone: Comment on above: Reference Range: 12. 0 - 16.0 Deoxyhemoglobin (BldA) [Mass fraction] 0.2 % 0.0 - 5.0 [facility]- Admin Button Work Phone: Hematocrit (Bld) [Volume fraction] 21.0 % below low threshold See Below [facility] Work Phone: Comment on above: Reference Range: 36. 0 - 46.0 Hemoglobin (Bld) [Mass/Vol] 7.1 g/dL below low threshold See Below [employer] [facility] [place] Work Phone: Comment on above: Reference Range: 12. 0 - 16.0 Hemoglobin (Bld) [Mass/Vol] 8.0 g/dL below low threshold See Below [employer] [facility] Admin [facility] Work Phone: Comment on above: Reference Range: 12. 0 - 16.0 Deoxyhemoglobin (BldA) [Mass fraction] 0.2 % 0.0 - 5.0 [employer] [facility] Admin [place] Work Phone: Hematocrit (Bld) [Volume fraction] 20.0 % below low threshold See Below [employer] [facility] [place] Work Phone: Comment on above: Reference Range: 36. 0 - 46.0 Hemoglobin (Bld) [Mass/Vol] 6.8 g/dL below low threshold See Below [employer] [facility] Admin [place] Work Phone: Comment on above: Reference Range: 12. 0 - 16.0 Hemoglobin (Bld) [Mass/Vol] 7.9 g/dL below low threshold See Below [employer] [facility] [place] Work Phone: Comment on above: Reference Range: 12. 0 - 16.0 Hematocrit (Bld) [Volume fraction] 22.0 % below low threshold See Below [employer] [facility] Admin [facility] Work Phone: Comment on above: Reference Range: 36. 0 - 46.0 Hemoglobin (Bld) [Mass/Vol] 7.5 g/dL below low threshold See Below [employer] [facility] [place] Work Phone: Comment on above: Reference Range: 12. 0 - 16.0 Deoxyhemoglobin (BldA) [Mass fraction] 0.2 % 0.0 - 5.0 [employer] [facility]iology[facility] Admin Button Work Phone: Hematocrit (Bld) [Volume fraction] 24.0 % below low threshold See Below [employer]iology[facility] Work Phone: Comment on above: Reference Range: 36. 0 - 46.0 Hemoglobin (Bld) [Mass/Vol] 8.2 g/dL below low threshold See Below [facility]- Admin [facility] Work Phone: Comment on above: Reference Range: 12. 0 - 16.0 Hemoglobin (Bld) [Mass/Vol] 8.5 g/dL below low threshold See Below [facility]- Admin [facility] Work Phone: Comment on above: Reference Range: 12. 0 - 16.0 Deoxyhemoglobin (BldA) [Mass fraction] 0.2 % 0.0 - 5.0 [employer]-Cardiology- Admin Button Work Phone: Hematocrit (Bld) [Volume fraction] 30.0 % below low threshold See Below [facility] Work Phone: Comment on above: Reference Range: 36. 0 - 46.0 Hemoglobin (Bld) [Mass/Vol] 10.2 g/dL below low threshold See Below [employer]-Cardiology- Admin Button Work Phone: Comment on above: Reference Range: 12. 0 - 16.0 Hemoglobin (Bld) [Mass/Vol] 10.3 g/dL below low threshold See Below [employer]-Cardiology- Admin Button Work Phone: Comment on above: Reference Range: 12. 0 - 16.0 Deoxyhemoglobin (BldA) [Mass fraction] 0.1 % 0.0 - 5.0 [facility] Work Phone: Hematocrit (Bld) [Volume fraction] 35.0 % below low threshold See Below [facility] Work Phone: Comment on above: Reference Range: 36. 0 - 46.0 Hemoglobin (Bld) [Mass/Vol] 11.9 g/dL below low threshold See Below [facility]- Admin [facility] Work Phone: Comment on above: Reference Range: 12. 0 - 16.0 Hemoglobin (Bld) [Mass/Vol] 11.5 g/dL below low threshold See Below [facility]- Admin [place] Work Phone: Comment on above: Reference Range: 12. 0 - 16.0 Deoxyhemoglobin (BldA) [Mass fraction] 0.4 % 0.0 - 5.0 [facility]- Admin [place] Work Phone: Hematocrit (Bld) [Volume fraction] 39.0 % See Below [facility]- Admin [place] Work Phone: Comment on above: Reference Range: 36. 0 - 46.0 Hemoglobin (Bld) [Mass/Vol] 13.3 g/dL See Below [facility]- Admin [place] Work Phone: Comment on above: Reference Range: 12. 0 - 16.0 Hemoglobin (Bld) [Mass/Vol] 12.4 g/dL See Below [facility] Admin [place] Work Phone: Comment on above: Reference Range: 12. 0 - 16.0 MAGNESIUMon 01-24-2021 Magnesium [Mass/Vol] 4.21 mg/dL High 1.60 - 2.40 [facility] Comment on above: Performed By: #### M G [id number] [address] [address] Magnesium, Serumon Magnesium [Mass/Vol] 4.21 mg/dL above high threshold See Below [facility]- Admin [place] Work Phone: Comment on above: Reference Range: 1.6 0 - 2.40 No Panel Informationon 01-24 1.4 mmol/L -2.0 - 3.0 [facility]- Admin [place] Work Phone: 96 % 94 - 100 [facility]- Admin [place] Work Phone: 37.0 {degrees_C} [facility]-Cardi ology- Admin [place] Work Phone: Comment on above: NOTE: PATIENT RESULT S ARE NOT CORRECTED FOR TEMPERATURE. 1.2 mmol/L -2.0 - 3.0 [facility]- Admin [place] Work Phone: 99 % 94 - 100 [facility]- Admin [place] Work Phone: 37.0 {degrees_C} [facility]i ology- Admin [place] Work Phone: Comment on above: NOTE: PATIENT RESULT S ARE NOT CORRECTED FOR TEMPERATURE. 0.0 {/100_WBC} 0.0-0.0 [facility]-Cardiol ogy- Admin [place] Work Phone: -0.6 mmol/L -2.0 - 3.0 [facility] - Admin [place] Work Phone: 98 % 94 - 100 [facility]- Admin [place] Work Phone: 37.0 {degrees_C} [facility]i ology- Admin [place] Work Phone: Comment on above: NOTE: PATIENT RESULT S ARE NOT CORRECTED FOR TEMPERATURE. [email or web address] [id number]=0 01-24-2021&Time=15%3a [id number]&TestTyp e=ECG&Site=1&OutputT ype=PDF&Ext=PDF [facility]- Admin [place] Work Phone: Sinus rhythm with Premature supraventricular complexes [facility]- Admin [place] Work Phone: Abnormal [facility]- Admin [place] Work Phone: [phone] [facility]- Admin [place] Work Phone: [phone] [facility]- Admin [place] Work Phone: 190 1 [facility]- Admin [place] Work Phone: 140 1 [facility]- Admin [place] Work Phone: [phone] [facility]- Admin [place] Work Phone: 16 1 [facility]- Admin [place] Work Phone: 2 1 [facility]- Admin [place] Work Phone: -13 1 [facility]- Admin [place] Work Phone: 26 1 [facility]- Admin [place] Work Phone: [phone] [facility]- Admin [place] Work Phone: [phone] [facility]- Admin [place] Work Phone: 86 1 [facility]- Admin [place] Work Phone: 148 1 [facility]- Admin [place] Work Phone: 100 1 [facility]- Admin [place] Work Phone: -2.2 mmol/L below low threshold -2.0 - 3.0 [facility]- Admin [place] Work Phone: 99 % 94 - 100 [facility]- Admin [place] Work Phone: 37.0 {degrees_C} [facility]i ology- Admin [place] Work Phone: Comment on above: NOTE: PATIENT RESULT S ARE NOT CORRECTED FOR TEMPERATURE. 122 {SECONDS} 96 - 152 [facility]-Cardiolo gy- Admin [place] Work Phone: Comment on above: Note new reference r corine as of 08/20/2018. Target ACT range will vary based on the patient population, clinical status, and surgical intervention occurring. -1.9 mmol/L -2.0 - 3.0 [facility] - Admin [place] Work Phone: 100 % 94 - 100 [facility]- Admin [place] Work Phone: 37.0 {degrees_C} [facility]i ology- Admin [place] Work Phone: Comment on above: NOTE: PATIENT RESULT S ARE NOT CORRECTED FOR TEMPERATURE. 433 {SECONDS} above high threshold 96 - 152 [facility]- Admin [place] Work Phone: Comment on above: Note new reference r corine as of 08/20/2018. Target ACT range will vary based on the patient population, clinical status, and surgical intervention occurring. -4.3 mmol/L below low threshold -2.0 - 3.0 [facility]- Admin [place] Work Phone: 99 % 94 - 100 [facility]- Admin [place] Work Phone: 37.0 {degrees_C} [facility]i ology- Admin [place] Work Phone: Comment on above: NOTE: PATIENT RESULT S ARE NOT CORRECTED FOR TEMPERATURE. 498 {SECONDS} above high threshold 96 - 152 [facility]- Admin [place] Work Phone: Comment on above: Note new reference r corine as of 08/20/2018. Target ACT range will vary based on the patient population, clinical status, and surgical intervention occurring. -1.8 mmol/L -2.0 - 3.0 [facility] - Admin [place] Work Phone: 100 % 94 - 100 [facility]- Admin [place] Work Phone: 37.0 {degrees_C} [facility]i ology- Admin [place] Work Phone: Comment on above: NOTE: PATIENT RESULT S ARE NOT CORRECTED FOR TEMPERATURE. 469 {SECONDS} above high threshold 96 - 152 [facility]- Admin [place] Work Phone: Comment on above: Note new reference r corine as of 08/20/2018. Target ACT range will vary based on the patient population, clinical status, and surgical intervention occurring. -1.9 mmol/L -2.0 - 3.0 [facility] - Admin [place] Work Phone: 100 % 94 - 100 [facility]- [facility] [place] Work Phone: 37.0 {degrees_C} [facility]i ology- Admin [place] Work Phone: Comment on above: NOTE: PATIENT RESULT S ARE NOT CORRECTED FOR TEMPERATURE. 429 {SECONDS} above high threshold 96 - 152 [facility]- [facility] [place] Work Phone: Comment on above: Note new reference r corine as of 08/20/2018. Target ACT range will vary based on the patient population, clinical status, and surgical intervention occurring. Inhaled oxygen concentration 75 % [facility]- Admin [place] Work Phone: 0.5 mmol/L -2.0 - 3.0 [facility]- [facility] [place] Work Phone: 80 % above high threshold 45 - 75 [facility]- [facility] [place] Work Phone: 37.0 {degrees_C} [facility]i ology- Admin [place] Work Phone: Comment on above: NOTE: PATIENT RESULT S ARE NOT CORRECTED FOR TEMPERATURE. 465 {SECONDS} above high threshold 96 - 152 [facility]- Admin [place] Work Phone: Comment on above: Note new reference r corine as of 08/20/2018. Target ACT range will vary based on the patient population, clinical status, and surgical intervention occurring. Inhaled oxygen concentration 80 % [facility]- [facility] [place] Work Phone: -4.5 mmol/L below low threshold -2.0 - 3.0 [facility]- [facility] [place] Work Phone: 100 % 94 - 100 [facility]- Admin [place] Work Phone: 37.0 {degrees_C} [facility]i ology- Admin [place] Work Phone: Comment on above: NOTE: PATIENT RESULT S ARE NOT CORRECTED FOR TEMPERATURE. 437 {SECONDS} above high threshold 96 - 152 [facility]- [facility] [place] Work Phone: Comment on above: Note new reference r corine as of 08/20/2018. Target ACT range will vary based on the patient population, clinical status, and surgical intervention occurring. 491 {SECONDS} above high threshold 96 - 152 [facility]- [facility] [place] Work Phone: Comment on above: Note new reference r corine as of 08/20/2018. Target ACT range will vary based on the patient population, clinical status, and surgical intervention occurring. 463 {SECONDS} above high threshold 96 - 152 [facility]- [facility] [place] Work Phone: Comment on above: Note new reference r corine as of 08/20/2018. Target ACT range will vary based on the patient population, clinical status, and surgical intervention occurring. Inhaled oxygen concentration 60 % [facility]- [facility] [place] Work Phone: -3.7 mmol/L below low threshold -2.0 - 3.0 [facility] [place] Work Phone: 100 % 94 - 100 [facility] Work Phone: 37.0 {degrees_C} [facility]- [facility] [place] Work Phone: Comment on above: NOTE: PATIENT RESULT S ARE NOT CORRECTED FOR TEMPERATURE. 470 {SECONDS} above high threshold 96 - 152 [facility] Work Phone: Comment on above: Note new reference r corine as of 08/20/2018. Target ACT range will vary based on the patient population, clinical status, and surgical intervention occurring. 485 {SECONDS} above high threshold 96 - 152 [facility] [place] Work Phone: Comment on above: Note new reference r corine as of 08/20/2018. Target ACT range will vary based on the patient population, clinical status, and surgical intervention occurring. [facility] [place] Work Phone: Inhaled oxygen concentration 60 % [facility] [place] Work Phone: -1.4 mmol/L -2.0 - 3.0 [facility] [place] Work Phone: 100 % 94 - 100 [facility] [place] Work Phone: 37.0 {degrees_C} [facility]- [facility] [place] Work Phone: Comment on above: NOTE: PATIENT RESULT S ARE NOT CORRECTED FOR TEMPERATURE. 108 {SECONDS} 96 - 152 [facility] gy- [facility] [place] Work Phone: Comment on above: Note new reference r corine as of 08/20/2018. Target ACT range will vary based on the patient population, clinical status, and surgical intervention occurring. Inhaled oxygen concentration 60 % [facility] Work Phone: 0.1 mmol/L -2.0 - 3.0 [facility] [place] Work Phone: 100 % 94 - 100 [facility] [place] Work Phone: 37.0 {degrees_C} [facility]- [facility] [place] Work Phone: Comment on above: NOTE: PATIENT RESULT S ARE NOT CORRECTED FOR TEMPERATURE. Operative Reports - CMCon Operative Reports - [facility] [place] [facility] Preop Checkliston 01-24-2021 Preop Checklist Normal [facility] RENAL FUNCTION PANELon 01-24 Albumin [Mass/Vol] 3.8 g/dL Normal 3.4 - 5.0 [facility] Comment on above: Performed By: #### R ENAL ####[id number] [place] [address] Anion gap [Moles/Vol] 14 mmol/L Normal 10 - 20 [facility] Comment on above: Performed By: #### R ENAL ####[id number] [place] [address] Calcium [Mass/Vol] 8.3 mg/dL Low 8.6 - 10.6 [facility] Comment on above: Performed By: #### R ENAL ####[id number] [place] [address] Chloride [Moles/Vol] 104 mmol/L Normal 98 - 107 [facility] Comment on above: Performed By: #### R ENAL ####[id number] [place] [address] Creatinine [Mass/Vol] 0.53 mg/dL Normal 0.50 - 1.05 [facility] Comment on above: Performed By: #### R ENAL ####[id number] [place] [address] GFR- AM. >60 Normal >60 [facility] Comment on above: Result Comment: CALC ULATIONS OF ESTIMATED GFR ARE PERFORMED USING THE MDRD STUDY EQUATION FOR THE IDMS-TRACEABLE CREATININE METHODS. CLIN CHEM 2007;53:766-72 Performed By: #### R ENAL ####[id number] [place] [address] GFR-NON AM. >60 Normal >60 [facility] Comment on above: Performed By: #### R ENAL ####[id number] [place] [address] Glucose [Mass/Vol] 228 mg/dL High 74 - 99 [facility] Comment on above: Performed By: #### R ENAL ####[id number] [place] [address] HCO3 (Bld) [Moles/Vol] 26 mmol/L Normal 21 - 32 [facility] Comment on above: Performed By: #### R ENAL ####[id number] [place] [address] Phosphate [Mass/Vol] 4.4 mg/dL Normal 2.5 - 4.9 [facility] Comment on above: Result Comment: The performance characteristics of phosphorus testing in heparinized plasma have been validated by the individual laboratory site where testing is performed. Testing on heparinized plasma is not approved by the FDA; however, such approval is not necessary. Performed By: #### R ENAL ####[id number] [place] [address] Potassium [Moles/Vol] 4.2 mmol/L Normal 3.5 - 5.3 [facility] Comment on above: Performed By: #### R ENAL ####[id number] [place] [address] Sodium [Moles/Vol] 140 mmol/L Normal 136 - 145 [facility] Comment on above: Performed By: #### R ENAL ####[id number] [place] [address] Urea nitrogen [Mass/Vol] 12 mg/dL Normal 6 - 23 [facility] Comment on above: Performed By: #### R ENAL ####[id number] [place] [address] ALBUMIN Canceled Normal [facility] Comment on above: Order Comment: TEST RENAL FUNCTION PANEL WAS CANCELLED, 01/24/2021 13:48 Performed By: #### R ENAL ####[id number] [place] [address] ANION GAP Canceled Normal [facility] Comment on above: Order Comment: TEST RENAL FUNCTION PANEL WAS CANCELLED, 01/24/2021 13:48 Performed By: #### R ENAL ####[id number] [place] [address] BICARBONATE Canceled Normal [facility] Comment on above: Order Comment: TEST RENAL FUNCTION PANEL WAS CANCELLED, 01/24/2021 13:48 Performed By: #### R ENAL ####[id number] [place] [address] CALCIUM Canceled Normal [facility] Comment on above: Order Comment: TEST RENAL FUNCTION PANEL WAS CANCELLED, 01/24/2021 13:48 Performed By: #### R ENAL ####[id number] [place] [address] CHLORIDE Canceled Normal [facility] Comment on above: Order Comment: TEST RENAL FUNCTION PANEL WAS CANCELLED, 01/24/2021 13:48 Performed By: #### R ENAL ####[id number] [place] [address] CREATININE Canceled Normal [facility] Comment on above: Order Comment: TEST RENAL FUNCTION PANEL WAS CANCELLED, 01/24/2021 13:48 Performed By: #### R ENAL ####[id number] [place] [address] GFR- AM. Canceled Normal [facility] Comment on above: Order Comment: TEST RENAL FUNCTION PANEL WAS CANCELLED, 01/24/2021 13:48 Result Comment: CALC ULATIONS OF ESTIMATED GFR ARE PERFORMED USING THE MDRD STUDY EQUATION FOR THE IDMS-TRACEABLE CREATININE METHODS. CLIN CHEM 2007;53:766-72 Performed By: #### R ENAL ####[id number] [place] [address] GFR-NON AM. Canceled Normal [facility] Comment on above: Order Comment: TEST RENAL FUNCTION PANEL WAS CANCELLED, 01/24/2021 13:48 Performed By: #### R ENAL ####[id number] [place] [address] GLUCOSE Canceled Normal [facility] Comment on above: Order Comment: TEST RENAL FUNCTION PANEL WAS CANCELLED, 01/24/2021 13:48 Performed By: #### R ENAL ####[id number] [place] [address] PHOSPHORUS Canceled Normal [facility] Comment on above: Order Comment: TEST RENAL FUNCTION PANEL WAS CANCELLED, 01/24/2021 13:48 Result Comment: The performance characteristics of phosphorus testing in heparinized plasma have been validated by the individual laboratory site where testing is performed. Testing on heparinized plasma is not approved by the FDA; however, such approval is not necessary. Performed By: #### R ENAL ####[id number] [place] [address] POTASSIUM Canceled Normal [facility] Comment on above: Order Comment: TEST RENAL FUNCTION PANEL WAS CANCELLED, 01/24/2021 13:48 Performed By: #### R ENAL ####[id number] [place] [address] SODIUM Canceled Normal [facility] Comment on above: Order Comment: TEST RENAL FUNCTION PANEL WAS CANCELLED, 01/24/2021 13:48 Performed By: #### R ENAL ####[id number] [place] [address] UREA NITROGEN Canceled Normal [facility] Comment on above: Order Comment: TEST RENAL FUNCTION PANEL WAS CANCELLED, 01/24/2021 13:48 Performed By: #### R ENAL ####[id number] [place] [address] Radiologyon 01-24-2021 XR Chest Single view Normal [facility]diology- [facility] [place] Work Phone: Renal Function Panelon 01-24 Albumin BCP dye [Mass/Vol] 3.8 g/dL 3.4 - 5.0 [facility] [place] Work Phone: Anion gap [Moles/Vol] 14 mmol/L 10 - 20 [facility] [place] Work Phone: Calcium [Mass/Vol] 8.3 mg/dL below low threshold 8.6 - 10.6 [facility] [place] Work Phone: Chloride [Moles/Vol] 104 mmol/L 98 - 107 [facility] ardiology- [employer] Work Phone: CO2 [Moles/Vol] 26 mmol/L 21 - 32 [facility] logy- [facility] [place] Work Phone: Creatinine [Mass/Vol] 0.53 mg/dL See Below [facility] [place] Work Phone: Comment on above: Reference Range: 0.5 0 - 1.05 Glucose [Mass/Vol] 228 mg/dL above high threshold 74 - 99 [facility] [place] Work Phone: Phosphate [Mass/Vol] 4.4 mg/dL 2.5 - 4.9 [facility] [employer] [place] Work Phone: Comment on above: The performance jam acteristics of phosphorus testing in heparinized plasma have been validated by the individual laboratory site where testing is performed. Testing on heparinized plasma is not approved by the FDA; however, such approval is not necessary. Potassium [Moles/Vol] 4.2 mmol/L 3.5 - 5.3 [facility] [place] Work Phone: Sodium [Moles/Vol] 140 mmol/L 136 - 145 [facility] diology- [facility] [place] Work Phone: Urea nitrogen [Mass/Vol] 12 mg/dL 6 - 23 [facility] [place] Work Phone: Renal Function Panel >60 >60 [facility] ardiology- [employer] Work Phone: Comment on above: CALCULATIONS OF YARA MATED GFR ARE PERFORMED USING THE MDRD STUDY EQUATION FOR THE IDMS-TRACEABLE CREATININE METHODS. CLIN CHEM 2007;53:766-72 TH CHEST 1 VIEWon 01-24-2021 CHEST 1 VIEW Normal [facility] VENOUS FULL PANELon 01-25-20 21 Anion gap [Moles/Vol] 11 mmol/L Normal 10 - 25 [facility] Comment on above: Performed By: #### V FPA3 ####[id number] [place] [address] BASE EXCESS-BLOOD 0.5 mmol/L Normal -2.0 - 3.0 [facility] Comment on above: Performed By: #### V FPA3 ####[id number] [place] [address] BICARB, CALCULATED 27.7 mmol/L High 22.0 - 26.0 [facility] Comment on above: Performed By: #### V FPA3 ####[id number] [place] [address] CALCIUM,IONIZED 1.00 mmol/L Low 1.10 - 1.33 [facility] Comment on above: Performed By: #### V FPA3 ####[id number] [place] [address] Chloride [Moles/Vol] 101 mmol/L Normal 98 - 107 [facility] Comment on above: Performed By: #### V FPA3 ####[id number] [place] [address] FIO2 75 % Normal [facility] Comment on above: Performed By: #### V FPA3 ####[id number] [place] [address] Glucose [Mass/Vol] 309 mg/dL High 74 - 99 [facility] Comment on above: Performed By: #### V FPA3 ####[id number] [place] [address] Hematocrit (Bld) [Volume fraction] 22.0 % Low 36.0 - 46.0 [facility] Comment on above: Performed By: #### V FPA3 ####[id number] [place] [address] HGB,CALCULATED 7.5 g/dL Low 12.0 - 16.0 [facility] Comment on above: Performed By: #### V FPA3 ####[id number] [place] [address] Lactate [Moles/Vol] 3.6 mmol/L High 0.4 - 2.0 [facility] Comment on above: Performed By: #### V FPA3 ####[id number] [place] [address] Oxygen (Bld) [Partial pressure] 48 mm[Hg] High 35 - 45 [facility] Comment on above: Performed By: #### V FPA3 ####[id number] [place] [address] PATIENT TEMPERATURE 37.0 degrees C Normal [facility] Comment on above: Result Comment: NOTE : PATIENT RESULTS ARE NOT CORRECTED FOR TEMPERATURE. Performed By: #### V FPA3 ####[id number] [place] [address] PCO2 59 mmHg High 41 - 51 [facility] Comment on above: Performed By: #### V FPA3 ####[id number] [place] [address] pH (Bld) 7.28 [pH] Low 7.33 - 7.43 [facility] Comment on above: Performed By: #### V FPA3 ####[id number] [place] [address] Potassium [Moles/Vol] 3.7 mmol/L Normal 3.5 - 5.3 [facility] Comment on above: Performed By: #### V FPA3 ####[id number] [place] [address] SO2 80 % High 45 - 75 [facility] Comment on above: Performed By: #### V FPA3 ####[id number] [place] [address] Sodium [Moles/Vol] 136 mmol/L Normal 136 - 145 [facility] Comment on above: Performed By: #### V FPA3 ####[id number] [place] [address] CBCon 01-23-2021 Erythrocyte distribution width (RBC) [Ratio] 16.2 % High 11.5 - 14.5 [facility] Comment on above: Performed By: #### C BC ####[id number] [place] [address] Hematocrit (Bld) [Volume fraction] 38.7 % Normal 36.0 - 46.0 [facility] Comment on above: Performed By: #### C BC ####[id number] [place] [address] Hemoglobin (Bld) [Mass/Vol] 12.6 g/dL Normal 12.0 - 16.0 [facility] Comment on above: Performed By: #### C BC ####[id number] [place] [address] MCHC (RBC) [Mass/Vol] 32.6 g/dL Normal 32.0 - 36.0 [facility] Comment on above: Performed By: #### C BC ####[id number] [place] [address] MCV (RBC) [Entitic vol] 80 fL Normal 80 - 100 [facility] Comment on above: Performed By: #### C BC ####[id number] [place] [address] NUCLEATED RBC 0.0 /100 WBC Normal 0.0-0.0 [facility] Comment on above: Performed By: #### C BC ####[id number] [place] [address] Platelets (Bld) [#/Vol] 259 10*3/uL Normal 150 - 450 [facility] Comment on above: Performed By: #### C BC ####[id number] [place] [address] RBC 4.81 x10E12/L Normal 4.00 - 5.20 [facility] Comment on above: Performed By: #### C BC ####[id number] [place] [address] WBC (Bld) [#/Vol] 7.2 10*3/uL Normal 4.4 - 11.3 [facility] Comment on above: Performed By: #### C BC ####[id number] [place] [address] Daily Progress Note-Cardiolo gyon 01-23-2021 Daily Progress Note-Cardiology Normal [facility] GLUCOSE-POCTon 01-23-2021 Glucose [Mass/Vol] 184 mg/dL High 74 - 99 [facility] Comment on above: Performed By: #### G PRASHANTH ####[id number] [place] [address] Glucose [Mass/Vol] 239 mg/dL High 74 - 99 [facility] Comment on above: Performed By: #### G PRASHANTH ####[id number] [place] [address] Glucose [Mass/Vol] 223 mg/dL High 74 - 99 [facility] Comment on above: Performed By: #### G PRASHANTH ####[id number] [place] [address] HEPARIN ASSAY,UFHon 01-24-20 21 HEPARIN ASSAY,UFH 0.3 IU/mL Normal [facility] Comment on above: Result Comment: The therapeutic reference range for UFH may be either 0.3-0.6 IU/mL or 0.3-0.7 IU/mL based on the clinical setting for anticoagulant therapy and the associated nomogram used. For heparin dosing guidelines based on clinical scenario and Heparin Assay results, please refer to local Pharmacy and the [facility] Guidelines for Anticoagulation therapy available on the [facility] intranet at:[email or web address]_Guidelines_[email or web address]_Anticoagu.aspx Performed By: #### H AUF ####[id number] [place] [address] HEPARIN ASSAY,UFH 0.3 IU/mL Normal [facility] Comment on above: Result Comment: The therapeutic reference range for UFH may be either 0.3-0.6 IU/mL or 0.3-0.7 IU/mL based on the clinical setting for anticoagulant therapy and the associated nomogram used. For heparin dosing guidelines based on clinical scenario and Heparin Assay results, please refer to local Pharmacy and the [facility] Guidelines for Anticoagulation therapy available on the [facility] intranet at:https://counts include 234 beds at the [facility]/Pharmacy/Pages/[facility]_Guidelines_for_Anticoagu.aspx Performed By: #### H AUF ####[id number] [place] [address] Heparin assay, UFHon 021 Heparin unfractionated Chromogenic method Qn (PPP) 0.3 {IU/mL} [facility] Work Phone: Comment on above: The therapeutic refe rence range for UFH may be either 0.3-0.6 IU/mL or 0.3-0.7 IU/mL based on the clinical setting for anticoagulant therapy and the associated nomogram used. For heparin dosing guidelines based on clinical scenario and Heparin Assay results, please refer to local Pharmacy and the [facility] Guidelines for Anticoagulation therapy available on the [facility] intranet at:[email or web address]://[facility]/Pharmacy/Pages/[facility]_Guidelines_for_Anticoagu.aspx Heparin unfractionated Chromogenic method Qn (PPP) 0.3 {IU/mL} [facility] [place] Work Phone: Comment on above: The therapeutic refe rence range for UFH may be either 0.3-0.6 IU/mL or 0.3-0.7 IU/mL based on the clinical setting for anticoagulant therapy and the associated nomogram used. For heparin dosing guidelines based on clinical scenario and Heparin Assay results, please refer to local Pharmacy and the [facility] Guidelines for Anticoagulation therapy available on the [facility] intranet at:https://counts include 234 beds at the [facility].org/Pharmacy/Pages/[facility]_Guidelines_for_Anticoagu.aspx Laboratory - Blood bankon ABO group Nom (Bld) A [facility] rdiology- [facility] Work Phone: Blood group antibody screen Ql Negative [facility] [place] Work Phone: Rh immune globulin screen (Bld) [Interp] Positive [facility] ogy- [facility] Work Phone: Laboratory - Chemistry and C hemistry - challengeon 01-23-2021 Glucose [Mass/Vol] 184 mg/dL above high threshold 74 - 99 [facility] [place] Work Phone: Glucose [Mass/Vol] 239 mg/dL above high threshold 74 - 99 [facility] [place] Work Phone: Glucose [Mass/Vol] 223 mg/dL above high threshold 74 - 99 [facility] [place] Work Phone: Laboratory - Hematology and Cell countson 01-23-2021 Erythrocyte distribution width (RBC) [Ratio] 16.2 % above high threshold See Below [facility] Work Phone: Comment on above: Reference Range: 11. 5 - 14.5 Hematocrit (Bld) [Volume fraction] 38.7 % See Below [facility] [employer] Work Phone: Comment on above: Reference Range: 36. 0 - 46.0 Hemoglobin (Bld) [Mass/Vol] 12.6 g/dL See Below [facility] [employer] Work Phone: Comment on above: Reference Range: 12. 0 - 16.0 MCHC (RBC) [Mass/Vol] 32.6 g/dL See Below [facility] [employer] Work Phone: Comment on above: Reference Range: 32. 0 - 36.0 MCV (RBC) [Entitic vol] 80 fL 80 - 100 M [facility]- [facility] [employer] Work Phone: Platelets (Bld) [#/Vol] 259 10*3/uL 150 - 450 [facility] [employer] Work Phone: RBC (Bld) [#/Vol] 4.81 {x10E12/L} See Below [facility]- [facility] [employer] Work Phone: Comment on above: Reference Range: 4.0 0 - 5.20 WBC (Bld) [#/Vol] 7.2 10*3/uL 4.4 - 11.3 [facility] diology- [employer] Work Phone: MAGNESIUMon 01-23-2021 Magnesium [Mass/Vol] 1.70 mg/dL Normal 1.60 - 2.40 [facility] Comment on above: Performed By: #### M G ####[id number] [place] [address] Magnesium, Serumon Magnesium [Mass/Vol] 1.70 mg/dL See Below [facility] ardiology- [employer] Work Phone: Comment on above: Reference Range: 1.6 0 - 2.40 No Panel Informationon 01-23 0.0 {/100_WBC} 0.0-0.0 [facility] ogy- [facility] [employer] Work Phone: [email or web address] estByDateTime?Patien [email or web address]=[id number]&Date=0 12-24-2020&Time=06%3a 13%3a40%3a00&TestTyp e=ECG&Site=1&OutputT ype=PDF&Ext=PDF [facility] [employer] Work Phone: Normal sinus rhythm [facility] rdiology- [employer] Work Phone: Abnormal [facility] [employer] Work Phone: [phone] [facility]- [facility] [employer] Work Phone: [phone] [facility]- [employer] Work Phone: 194 1 [facility]- [facility] [employer] Work Phone: 145 1 [facility]- [facility] [employer] Work Phone: 216 1 [facility]- [facility] [employer] Work Phone: 12 1 [facility]- [facility] [employer] Work Phone: 54 1 [facility]- [facility] [employer] Work Phone: -6 1 [facility]- [facility] [employer] Work Phone: 41 1 [facility]- [facility] [employer] Work Phone: 453 1 [facility]- [facility] [employer] Work Phone: [phone] 1 [facility]- [facility] [employer] Work Phone: 98 1 [facility] [employer] Work Phone: 142 1 [facility]- [facility] [employer] Work Phone: 73 1 [facility] [employer] Work Phone: [email or web address] estByDateTime?Patien bHF=[id number]&Date=0 12-24-2020&Time=06%3a 12%3a28%3a00&TestTyp e=ECG&Site=1&OutputT ype=PDF&Ext=PDF [facility] [employer] Work Phone: Normal sinus rhythm [facility] rdiology- [facility] [employer] Work Phone: Abnormal [facility]- [facility] [employer] Work Phone: [phone] [facility] [employer] Work Phone: [phone] [facility]- [facility] [employer] Work Phone: 204 1 [facility]- [facility] [employer] Work Phone: 155 1 [facility]- [facility] [employer] Work Phone: 222 1 [facility]- [facility] [employer] Work Phone: 13 1 [facility]- [facility] [employer] Work Phone: 49 1 [facility]- [facility] [employer] Work Phone: -5 1 [facility]- [facility] [employer] Work Phone: 38 1 [facility]- [facility] [employer] Work Phone: [phone] 1 [facility]- [facility] [employer] Work Phone: [phone] 1 [facility]- [facility] [employer] Work Phone: 100 1 [facility]- [facility] [employer] Work Phone: 134 1 [facility]- [facility] [employer] Work Phone: [phone] 1 [facility] [employer] Work Phone: RENAL FUNCTION PANELon 01-23 Albumin [Mass/Vol] 3.9 g/dL Normal 3.4 - 5.0 [facility] Comment on above: Performed By: #### R ENAL ####[id number] [place] [address] Anion gap [Moles/Vol] 15 mmol/L Normal 10 - 20 [facility] Comment on above: Performed By: #### R ENAL ####[id number] [place] [address] Calcium [Mass/Vol] 9.4 mg/dL Normal 8.6 - 10.6 [facility] Comment on above: Performed By: #### R ENAL ####[id number] [place] [address] Chloride [Moles/Vol] 100 mmol/L Normal 98 - 107 [facility] Comment on above: Performed By: #### R ENAL ####[id number] [place] [address] Creatinine [Mass/Vol] 0.55 mg/dL Normal 0.50 - 1.05 [facility] Comment on above: Performed By: #### R ENAL ####[id number] [place] [address] GFR- AM. >60 Normal >60 [facility] Comment on above: Result Comment: CALC ULATIONS OF ESTIMATED GFR ARE PERFORMED USING THE MDRD STUDY EQUATION FOR THE IDMS-TRACEABLE CREATININE METHODS. CLIN CHEM 2007;53:766-72 Performed By: #### R ENAL ####[id number] [place] [address] GFR-NON AM. >60 Normal >60 [facility] Comment on above: Performed By: #### R ENAL ####[id number] [place] [address] Glucose [Mass/Vol] 248 mg/dL High 74 - 99 [facility] Comment on above: Performed By: #### R ENAL ####[id number] [place] [address] HCO3 (Bld) [Moles/Vol] 23 mmol/L Normal 21 - 32 [facility] Comment on above: Performed By: #### R ENAL ####[id number] [place] [address] Phosphate [Mass/Vol] 3.7 mg/dL Normal 2.5 - 4.9 [facility] Comment on above: Result Comment: The performance characteristics of phosphorus testing in heparinized plasma have been validated by the individual laboratory site where testing is performed. Testing on heparinized plasma is not approved by the FDA; however, such approval is not necessary. Performed By: #### R ENAL ####[id number] [place] [address] Potassium [Moles/Vol] 4.3 mmol/L Normal 3.5 - 5.3 [facility] Comment on above: Performed By: #### R ENAL ####[id number] [place] [address] Sodium [Moles/Vol] 134 mmol/L Low 136 - 145 [facility] Comment on above: Performed By: #### R ENAL ####[id number] [place] [address] Urea nitrogen [Mass/Vol] 12 mg/dL Normal 6 - 23 [facility] Comment on above: Performed By: #### R ENAL ####[id number] [place] [address] Renal Function Panelon 01-23 Albumin BCP dye [Mass/Vol] 3.9 g/dL 3.4 - 5.0 [facility] [employer] Work Phone: Anion gap [Moles/Vol] 15 mmol/L 10 - 20 [facility] [place] Work Phone: Calcium [Mass/Vol] 9.4 mg/dL 8.6 - 10.6 MG-Car diology- [facility] [place] Work Phone: Chloride [Moles/Vol] 100 mmol/L 98 - 107 MG-C ardiology- [facility] [place] Work Phone: CO2 [Moles/Vol] 23 mmol/L 21 - 32 [facility]-Cardio logy- [facility] [place] Work Phone: Creatinine [Mass/Vol] 0.55 mg/dL See Below [facility] [place] Work Phone: Comment on above: Reference Range: 0.5 0 - 1.05 Glucose [Mass/Vol] 248 mg/dL above high threshold 74 - 99 [facility] [place] Work Phone: Phosphate [Mass/Vol] 3.7 mg/dL 2.5 - 4.9 MG-[facility] ardiology- [employer] [place] Work Phone: Comment on above: The performance jam acteristics of phosphorus testing in heparinized plasma have been validated by the individual laboratory site where testing is performed. Testing on heparinized plasma is not approved by the FDA; however, such approval is not necessary. Potassium [Moles/Vol] 4.3 mmol/L 3.5 - 5.3 [facility] [place] Work Phone: Sodium [Moles/Vol] 134 mmol/L below low threshold 136 - 145 [facility] [place] Work Phone: Urea nitrogen [Mass/Vol] 12 mg/dL 6 - 23 [facility] [place] Work Phone: Renal Function Panel >60 >60 [facility] ardiology- [facility] [place] Work Phone: Comment on above: CALCULATIONS OF YARA MATED GFR ARE PERFORMED USING THE MDRD STUDY EQUATION FOR THE IDMS-TRACEABLE CREATININE METHODS. CLIN CHEM 2007;53:766-72 TYPE + SCREENon 01-23-2021 ABO TYPE A Normal [facility] Comment on above: Performed By: #### T +S ####[id number] [id number] RH TYPE Positive Normal [facility] Comment on above: Performed By: #### T +S ####[id number] [place] [address] ARTERIAL BLOOD GASon 021 BASE EXCESS-BLOOD 0.8 mmol/L Normal -2.0 - 3.0 [facility] Comment on above: Performed By: #### B LGA1 ####[id number] [id number] BICARB, CALCULATED 24.2 mmol/L Normal 22.0 - 26.0 [facility] Comment on above: Performed By: #### B LGA1 ####[id number] [id number] FIO2 21 % Normal [facility] Comment on above: Performed By: #### B LGA1 ####[id number] [place] [address] Oxygen (Bld) [Partial pressure] 89 mm[Hg] Normal 85 - 95 [facility] Comment on above: Performed By: #### B LGA1 ####[id number] [place] [address] PATIENT TEMPERATURE 37.0 degrees C Normal [facility] Comment on above: Result Comment: NOTE : PATIENT RESULTS ARE NOT CORRECTED FOR TEMPERATURE. Performed By: #### B LGA1 ####[id number] [place] [address] PCO2 34 mmHg Low 38 - 42 [facility] Comment on above: Performed By: #### B LGA1 ####[id number] [id number] pH (Bld) 7.46 [pH] High 7.38 - 7.42 [facility] Comment on above: Performed By: #### B LGA1 ####[id number] [place] [address] SO2 98 % Normal 94 - 100 [facility] Comment on above: Performed By: #### B LGA1 ####[id number], [place] ARTERIAL H+Hon 01-22-2021 Hematocrit (Bld) [Volume fraction] 43.0 % Normal 36.0 - 46.0 [facility] Comment on above: Performed By: #### H HNA1 ####[id number], [place] HGB,CALCULATED 14.6 g/dL Normal 12.0 - 16.0 [facility] Comment on above: Performed By: #### H HNA1 ####[id number], [place] ARTERIAL POTASSIUMon 021 Potassium [Moles/Vol] 4.2 mmol/L Normal 3.5 - 5.3 [facility] Comment on above: Performed By: #### P OTGA ####[id number], [place] CBCon 01-22-2021 Erythrocyte distribution width (RBC) [Ratio] 16.8 % High 11.5 - 14.5 [facility] Comment on above: Performed By: #### C BC ####[id number] Hematocrit (Bld) [Volume fraction] 41.9 % Normal 36.0 - 46.0 [facility] Comment on above: Performed By: #### C BC ####[id number] [place] [address] Hemoglobin (Bld) [Mass/Vol] 13.4 g/dL Normal 12.0 - 16.0 [facility] Comment on above: Performed By: #### C BC ####[id number] MCHC (RBC) [Mass/Vol] 32.0 g/dL Normal 32.0 - 36.0 [facility] Comment on above: Performed By: #### C BC ####[id number] [place] [address] MCV (RBC) [Entitic vol] 82 fL Normal 80 - 100 [facility] Comment on above: Performed By: #### C BC ####[id number] [place] [address] NUCLEATED RBC 0.0 /100 WBC Normal 0.0-0.0 [facility] Comment on above: Performed By: #### C BC ####[id number] [place] [address] Platelets (Bld) [#/Vol] 305 10*3/uL Normal 150 - 450 [facility] Comment on above: Performed By: #### C BC ####[id number] [place] [address] RBC 5.14 x10E12/L Normal 4.00 - 5.20 [facility] Comment on above: Performed By: #### C BC ####[id number] [place] [address] WBC (Bld) [#/Vol] 8.3 10*3/uL Normal 4.4 - 11.3 [facility] Comment on above: Performed By: #### C BC ####[id number] [place] [address] COOX PANEL, ARTERIALon 01-22 CO HGB 1.5 % Normal [facility] Comment on above: Result Comment: REF VALUESNONSMOKERS 0.5-1.5%SMOKERS 0.5-10.0% Performed By: #### C OOXA ####[id number] [place] [address] DEOXY HGB 1.6 % Normal 0.0 - 5.0 [facility] Comment on above: Performed By: #### C OOXA ####[id number] [place] [address] Hemoglobin (Bld) [Mass/Vol] 13.6 g/dL Normal 12.0 - 16.0 [facility] Comment on above: Performed By: #### C OOXA ####[id number] [place] [address] MET HGB 0.7 % Normal 0.0 - 1.5 [facility] Comment on above: Performed By: #### C OOXA ####[id number] [place] [address] OXY HGB 96.1 % Normal 94.0 - 98.0 [facility] Comment on above: Performed By: #### C OOXA ####[id number] [place] [address] Daily Progress Note-Cardiolo gyon 01-22-2021 Daily Progress Note-Cardiology Normal [facility] GLUCOSE-POCTon 01-22-2021 Glucose [Mass/Vol] 166 mg/dL High 74 - 99 [facility] Comment on above: Performed By: #### G PRASHANTH ####[id number] [place] [address] Glucose [Mass/Vol] 190 mg/dL High 74 - 99 [facility] Comment on above: Performed By: #### G PARSHANTH ####[id number] [place] [address] Glucose [Mass/Vol] 164 mg/dL High 74 - 99 [facility] Comment on above: Performed By: #### Jodee ALFORD ####[id number] [place] [address] Laboratory - Chemistry and C hemistry - challengeon 01-22-2021 Glucose [Mass/Vol] 166 mg/dL above high threshold 74 - 99 [facility] [place] Work Phone: Carboxyhemoglobin (BldA) [Mass fraction] 1.5 % [facility] logy- [facility] [place] Work Phone: Comment on above: REF VALUESNONSMOKERS 0.5-1.5%SMOKERS 0.5-10.0% CO2 (Bld) [Partial pressure] 34 mm[Hg] below low threshold 38 - 42 [facility] [employer] Work Phone: HCO3 (Bld) [Moles/Vol] 24.2 mmol/L See Below M [facility] [employer] [facility] [employer] Work Phone: Comment on above: Reference Range: 22. 0 - 26.0 Methemoglobin (BldA) [Mass fraction] 0.7 % 0.0 - 1.5 [facility] Admin [facility] Work Phone: Oxygen (Bld) [Partial pressure] 89 mm[Hg] 85 - 95 [facility] GroupCardiology[facility] Admin [facility] Work Phone: Oxyhemoglobin (BldA) [Mass fraction] 96.1 % See Below [employer] [facility] [employer] [facility] [place] Work Phone: Comment on above: Reference Range: 94. 0 - 98.0 pH (Bld) 7.46 [pH] above high threshold See Below [employer] [facility] [place] Work Phone: Comment on above: Reference Range: 7.3 8 - 7.42 Potassium [Moles/Vol] 4.2 mmol/L 3.5 - 5.3 - [facility] Work Phone: Glucose [Mass/Vol] 190 mg/dL above high threshold 74 - 99 [facility] [place] Work Phone: Glucose [Mass/Vol] 164 mg/dL above high threshold 74 - 99 [facility] [place] Work Phone: Laboratory - Hematology and Cell countson 01-22-2021 Erythrocyte distribution width (RBC) [Ratio] 16.8 % above high threshold See Below MGMerr[facility] GroupCardiology- [facility] [place] Work Phone: Comment on above: Reference Range: 11. 5 - 14.5 Hematocrit (Bld) [Volume fraction] 41.9 % See Below MGMerr[facility] Technologies GroupCardiology- [facility] [place] Work Phone: Comment on above: Reference Range: 36. 0 - 46.0 Hemoglobin (Bld) [Mass/Vol] 13.4 g/dL See Below MGMerr[facility] GroupCardiology- [facility] [place] Work Phone: Comment on above: Reference Range: 12. 0 - 16.0 MCHC (RBC) [Mass/Vol] 32.0 g/dL See Below [facility] [place] Work Phone: Comment on above: Reference Range: 32. 0 - 36.0 MCV (RBC) [Entitic vol] 82 fL 80 - 100 M GC[facility]iology[facility] [place] Work Phone: Platelets (Bld) [#/Vol] 305 10*3/uL 150 - 450 [facility] [place] Work Phone: RBC (Bld) [#/Vol] 5.14 {x10E12/L} See Below MG [employer] Group[facility] [place] Work Phone: Comment on above: Reference Range: 4.0 0 - 5.20 WBC (Bld) [#/Vol] 8.3 10*3/uL 4.4 - 11.3 [facility]ology[facility] Work Phone: Deoxyhemoglobin (BldA) [Mass fraction] 1.6 % 0.0 - 5.0 [facility] [place] Work Phone: Hematocrit (Bld) [Volume fraction] 43.0 % See Below [employer] [facility]iology[facility] [employer] [facility] Admin [place] Work Phone: Comment on above: Reference Range: 36. 0 - 46.0 Hemoglobin (Bld) [Mass/Vol] 14.6 g/dL See Below [employer] [facility] [place] Work Phone: Comment on above: Reference Range: 12. 0 - 16.0 Hemoglobin (Bld) [Mass/Vol] 13.6 g/dL See Below MGMerrill Technologies GroupCardiologyM[facility] Admin [place] Work Phone: Comment on above: Reference Range: 12. 0 - 16.0 No Panel Informationon 01-22 0.0 {/100_WBC} 0.0-0.0 MG-Cardiol ogy- [facility] Work Phone: Inhaled oxygen concentration 21 % [facility] [place] Work Phone: 0.8 mmol/L -2.0 - 3.0 [facility] [place] Work Phone: 98 % 94 - 100 [facility] [place] Work Phone: 37.0 {degrees_C} [facility]i ology- [facility] [place] Work Phone: Comment on above: NOTE: PATIENT RESULT S ARE NOT CORRECTED FOR TEMPERATURE. RENAL FUNCTION PANELon 01-22 Albumin [Mass/Vol] 4.0 g/dL Normal 3.4 - 5.0 [facility] Comment on above: Performed By: #### R ENAL ####[id number] [place] [address] Anion gap [Moles/Vol] 18 mmol/L Normal 10 - 20 [facility] Comment on above: Performed By: #### R ENAL ####[id number] [place] [address] Calcium [Mass/Vol] 9.1 mg/dL Normal 8.6 - 10.6 [facility] Comment on above: Performed By: #### R ENAL ####[id number] [place] [address] Chloride [Moles/Vol] 100 mmol/L Normal 98 - 107 [facility] Comment on above: Performed By: #### R ENAL ####[id number] [place] [address] Creatinine [Mass/Vol] 0.56 mg/dL Normal 0.50 - 1.05 [facility] Comment on above: Performed By: #### R ENAL ####[id number] [place] [address] GFR- AM. >60 Normal >60 [facility] Comment on above: Result Comment: CALC ULATIONS OF ESTIMATED GFR ARE PERFORMED USING THE MDRD STUDY EQUATION FOR THE IDMS-TRACEABLE CREATININE METHODS. CLIN CHEM 2007;53:766-72 Performed By: #### R ENAL ####[id number] [place] [address] GFR-NON AM. >60 Normal >60 [facility] Comment on above: Performed By: #### R ENAL ####[id number] [place] [address] Glucose [Mass/Vol] 164 mg/dL High 74 - 99 [facility] Comment on above: Performed By: #### R ENAL ####[id number] [place] [address] HCO3 (Bld) [Moles/Vol] 21 mmol/L Normal 21 - 32 [facility] Comment on above: Performed By: #### R ENAL ####[id number] [place] [address] Phosphate [Mass/Vol] 4.8 mg/dL Normal 2.5 - 4.9 [facility] Comment on above: Result Comment: The performance characteristics of phosphorus testing in heparinized plasma have been validated by the individual laboratory site where testing is performed. Testing on heparinized plasma is not approved by the FDA; however, such approval is not necessary. Performed By: #### R ENAL ####[id number] [place] [address] Potassium [Moles/Vol] 4.3 mmol/L Normal 3.5 - 5.3 [facility] Comment on above: Performed By: #### R ENAL ####[id number] [place] [address] Sodium [Moles/Vol] 135 mmol/L Low 136 - 145 [facility] Comment on above: Performed By: #### R ENAL ####[id number] [place] [address] Urea nitrogen [Mass/Vol] 12 mg/dL Normal 6 - 23 [facility] Comment on above: Performed By: #### R ENAL ####[id number] [place] [address] Renal Function Panelon 01-22 Albumin BCP dye [Mass/Vol] 4.0 g/dL 3.4 - 5.0 [facility] [place] Work Phone: Anion gap [Moles/Vol] 18 mmol/L 10 - 20 [facility] [place] Work Phone: Calcium [Mass/Vol] 9.1 mg/dL 8.6 - 10.6 MG-Car diology- Admin [employer] Work Phone: Chloride [Moles/Vol] 100 mmol/L 98 - 107 [facility] ardiology- [employer] Work Phone: CO2 [Moles/Vol] 21 mmol/L 21 - 32 MG-Cardio logy- [employer] Work Phone: Creatinine [Mass/Vol] 0.56 mg/dL See Below [facility] [place] Work Phone: Comment on above: Reference Range: 0.5 0 - 1.05 Glucose [Mass/Vol] 164 mg/dL above high threshold 74 - 99 [facility] [place] Work Phone: Phosphate [Mass/Vol] 4.8 mg/dL 2.5 - 4.9 [facility] Work Phone: Comment on above: The performance jam acteristics of phosphorus testing in heparinized plasma have been validated by the individual laboratory site where testing is performed. Testing on heparinized plasma is not approved by the FDA; however, such approval is not necessary. Potassium [Moles/Vol] 4.3 mmol/L 3.5 - 5.3 [facility]- [facility] [place] Work Phone: Sodium [Moles/Vol] 135 mmol/L below low threshold 136 - 145 [facility]- Admin [facility] Work Phone: Urea nitrogen [Mass/Vol] 12 mg/dL 6 - 23 [facility] [place] Work Phone: Renal Function Panel >60 >60 [facility] Work Phone: Comment on above: CALCULATIONS OF YARA MATED GFR ARE PERFORMED USING THE MDRD STUDY EQUATION FOR THE IDMS-TRACEABLE CREATININE METHODS. CLIN CHEM 2007;53:766-72 [facility] Arterial Duplex Ult rasoundon 01-22-2021 VASC LAB Arterial Duplex Ultrasound Normal [facility] VASC LAB Carotid Artery Dupl ex Ultrasounon 01-22-2021 VASC LAB Carotid Artery Duplex Ultrasoun Normal [facility] VASC LAB Carotid Artery Dupl ex Ultrasoundon 01-22-2021 US.doppler Carotid arteries [facility] [place] Work Phone: VASC LAB PVR CARLOS onlyon VASC LAB PVR CARLOS only Normal [facility] VASC LAB PVR CARLOS only Normal [facility] VASC LAB PVR CARLOS only [facility]- [facility]- [facility] [place] Work Phone: VASC LAB PVR CARLOS only [facility]- [facility] [place] Work Phone: [facility] LAB Pre-op Vessel Vein Mappingon 01-22-2021 [facility]ASC LAB Pre-op Vessel Vein Mapping Normal [facility] VASC LAB Pre-op Vessel Vein Mapping [facility] [place] Work Phone: Admission Risk Screen - Adul ton 01-21-2021 Admission Risk Screen - Adult Normal [facility] CBCon 01-21-2021 Erythrocyte distribution width (RBC) [Ratio] 16.4 % High 11.5 - 14.5 [facility] Comment on above: Performed By: #### C BC ####[id number] [place] [address] Hematocrit (Bld) [Volume fraction] 45.1 % Normal 36.0 - 46.0 [facility] Comment on above: Performed By: #### C BC ####[id number] [place] [address] Hemoglobin (Bld) [Mass/Vol] 13.4 g/dL Normal 12.0 - 16.0 [facility] Comment on above: Performed By: #### C BC ####[id number] [place] [address] MCHC (RBC) [Mass/Vol] 29.7 g/dL Low 32.0 - 36.0 [facility] Comment on above: Performed By: #### C BC ####[id number] [place] [address] MCV (RBC) [Entitic vol] 84 fL Normal 80 - 100 [facility] Comment on above: Performed By: #### C BC ####[id number] [place] [address] NUCLEATED RBC 0.0 /100 WBC Normal 0.0-0.0 [facility] Comment on above: Performed By: #### C BC ####[id number] [place] [address] Platelets (Bld) [#/Vol] 242 10*3/uL Normal 150 - 450 [facility] Comment on above: Performed By: #### C BC ####[id number] [place] [address] RBC 5.38 x10E12/L High 4.00 - 5.20 [facility] Comment on above: Performed By: #### C BC ####[id number] [place] [address] WBC (Bld) [#/Vol] 7.3 10*3/uL Normal 4.4 - 11.3 [facility] Comment on above: Performed By: #### C BC ####[id number] [place] [address] CBC AND DIFFERENTIALon 01-21 % AUTOMATED IMMATURE GRAN 0.5 % Normal 0.0 - 0.9 [facility] Comment on above: Result Comment: Leatha ture Granulocyte Count (IG) includes promyelocytes, myelocytes and metamyelocytes but does not include bands. Percent differential counts (%) should be interpreted in the context of the absolute cell counts (cells/L). Performed By: #### C BCDF ####[id number] [place] [address] Basophils (Bld) [#/Vol] 0.05 10*3/uL Normal 0.00 - 0.1 0 [facility] Comment on above: Performed By: #### C BCDF ####[id number] [place] [address] Basophils/100 WBC (Bld) 0.8 % Normal 0.0 - 2.0 [facility] Comment on above: Performed By: #### C BCDF ####[id number] [place] [address] Eosinophils (Bld) [#/Vol] 0.12 10*3/uL Normal 0.00 - 0.70 [facility] Comment on above: Performed By: #### C BCDF ####[id number] [place] [address] Eosinophils/100 WBC (Bld) 1.8 % Normal 0.0 - 6.0 [facility] Comment on above: Performed By: #### C BCDF ####[id number] [place] [address] Erythrocyte distribution width (RBC) [Ratio] 16.7 % High 11.5 - 14.5 [facility] Comment on above: Performed By: #### C BCDF ####[id number] [place] [address] Hematocrit (Bld) [Volume fraction] 40.4 % Normal 36.0 - 46.0 [facility] Comment on above: Performed By: #### C BCDF ####[id number] [place] [address] Hemoglobin (Bld) [Mass/Vol] 12.7 g/dL Normal 12.0 - 16.0 [facility] Comment on above: Performed By: #### C BCDF ####[id number] [place] [address] Lymphocytes (Bld) [#/Vol] 2.97 10*3/uL Normal 1.20 - 4.80 [facility] Comment on above: Performed By: #### C BCDF ####[id number] [place] [address] Lymphocytes/100 WBC (Bld) 44.9 % Normal 13.0 - 44.0 [facility] Comment on above: Performed By: #### C BCDF ####[id number] [place] [address] MCHC (RBC) [Mass/Vol] 31.4 g/dL Low 32.0 - 36.0 [facility] Comment on above: Performed By: #### C BCDF ####[id number] [place] [address] MCV (RBC) [Entitic vol] 81 fL Normal 80 - 100 [facility] Comment on above: Performed By: #### C BCDF ####[id number] [place] [address] Monocytes (Bld) [#/Vol] 0.33 10*3/uL Normal 0.10 - 1.0 0 [facility] Comment on above: Performed By: #### C BCDF ####[id number] [place] [address] Monocytes/100 WBC (Bld) 5.0 % Normal 2.0 - 10.0 [facility] Comment on above: Performed By: #### C BCDF ####[id number] [place] [address] Neutrophils (Bld) [#/Vol] 3.12 10*3/uL Normal 1.20 - 7.70 [facility] Comment on above: Performed By: #### C BCDF ####[id number] [place] [address] Neutrophils/100 WBC (Bld) 47.0 % Normal 40.0 - 80.0 [facility] Comment on above: Performed By: #### C BCDF ####[id number] [place] [address] NUCLEATED RBC 0.0 /100 WBC Normal 0.0-0.0 [facility] Comment on above: Performed By: #### C BCDF ####[id number] [place] [address] Platelets (Bld) [#/Vol] 251 10*3/uL Normal 150 - 450 [facility] Comment on above: Performed By: #### C BCDF ####[id number] [place] [address] RBC 5.00 x10E12/L Normal 4.00 - 5.20 [facility] Comment on above: Performed By: #### C BCDF ####[id number] [place] [address] WBC (Bld) [#/Vol] 6.6 10*3/uL Normal 4.4 - 11.3 [facility] Comment on above: Performed By: #### C BCDF ####[id number] [place] [address] COAGULATION SCREENon 021 aPTT Coag (Bld) [Time] 25 s Normal 25 - 35 [facility] Comment on above: Result Comment: THE APTT IS NO LONGER USED FOR MONITORING UNFRACTIONATED HEPARIN THERAPY. FOR MONITORING HEPARIN THERAPY, USE THE HEPARIN ASSAY. Performed By: #### C OAGS ####[id number] [place] [address] PT Coag (PPP) [Time] 11.7 s Normal 10.1 - 13.3 [facility] Comment on above: Performed By: #### C OAGS ####[id number] [place] [address] PT, INR 1.0 Normal 0.9 - 1.1 [facility] Comment on above: Performed By: #### C OAGS ####[id number] [place] [address] COMPREHENSIVE PANELon 2020 Albumin [Mass/Vol] 3.7 g/dL Normal 3.4 - 5.0 [facility] Comment on above: Performed By: #### C MP ####[id number] [place] [address] ALP [Catalytic activity/Vol] 87 U/L Normal 33 - 110 [facility] Comment on above: Performed By: #### C MP ####[id number] [place] [address] ALT [Catalytic activity/Vol] 47 U/L High 7 - 45 [facility] Comment on above: Result Comment: Samantha ents treated with Sulfasalazine may generate falsely decreased results for ALT. Performed By: #### C MP ####[id number] [place] [address] Anion gap [Moles/Vol] 13 mmol/L Normal 10 - 20 [facility] Comment on above: Performed By: #### C MP ####[id number] [place] [address] AST [Catalytic activity/Vol] 66 U/L High 9 - 39 [facility] Comment on above: Performed By: #### C MP ####[id number] [place] [address] Bilirubin [Mass/Vol] 0.4 mg/dL Normal 0.0 - 1.2 [facility] Comment on above: Performed By: #### C MP ####[id number] [place] [address] Calcium [Mass/Vol] 9.1 mg/dL Normal 8.6 - 10.6 [facility] Comment on above: Performed By: #### C MP ####[id number] [place] [address] Chloride [Moles/Vol] 103 mmol/L Normal 98 - 107 [facility] Comment on above: Performed By: #### C MP ####[id number] [place] [address] Creatinine [Mass/Vol] 0.50 mg/dL Normal 0.50 - 1.05 [facility] Comment on above: Performed By: #### C MP ####[id number] [place] [address] GFR- AM. >60 Normal >60 [facility] Comment on above: Result Comment: CALC ULATIONS OF ESTIMATED GFR ARE PERFORMED USING THE MDRD STUDY EQUATION FOR THE IDMS-TRACEABLE CREATININE METHODS. CLIN CHEM 2007;53:766-72 Performed By: #### C MP ####[id number] [place] [address] GFR-NON AM. >60 Normal >60 [facility] Comment on above: Performed By: #### C MP ####[id number] [place] [address] Glucose [Mass/Vol] 142 mg/dL High 74 - 99 [facility] Comment on above: Performed By: #### C MP ####[id number] [place] [address] HCO3 (Bld) [Moles/Vol] 25 mmol/L Normal 21 - 32 [facility] Comment on above: Performed By: #### C MP ####[id number] [place] [address] Potassium [Moles/Vol] 3.9 mmol/L Normal 3.5 - 5.3 [facility] Comment on above: Performed By: #### C MP ####[id number] [place] [address] Protein [Mass/Vol] 6.8 g/dL Normal 6.4 - 8.2 [facility] Comment on above: Performed By: #### C MP ####[id number] [place] [address] Sodium [Moles/Vol] 137 mmol/L Normal 136 - 145 [facility] Comment on above: Performed By: #### C MP ####[id number] [place] [address] Urea nitrogen [Mass/Vol] 11 mg/dL Normal 6 - 23 [facility] Comment on above: Performed By: #### C MP ####[id number] [place] [address] Clinical Event Note-Update o n Plan of Careon 01-21-2021 Clinical Event Note-Update on Plan of Care Normal [facility] Complete Blood Count + Diffe rentialon 01-21-2021 Basophils/100 WBC (Bld) 0.8 % 0.0 - 2.0 M [facility] Work Phone: Erythrocyte distribution width (RBC) [Ratio] 16.7 % above high threshold See Below [facility] Work Phone: Comment on above: Reference Range: 11. 5 - 14.5 Hematocrit (Bld) [Volume fraction] 40.4 % See Below [facility] Work Phone: Comment on above: Reference Range: 36. 0 - 46.0 Hemoglobin (Bld) [Mass/Vol] 12.7 g/dL See Below [facility] Work Phone: Comment on above: Reference Range: 12. 0 - 16.0 Lymphocytes/100 WBC (Bld) 44.9 % See Below [facility] [place] Work Phone: Comment on above: Reference Range: 13. 0 - 44.0 MCHC (RBC) [Mass/Vol] 31.4 g/dL below low threshold See Below [facility] [place] Work Phone: Comment on above: Reference Range: 32. 0 - 36.0 MCV (RBC) [Entitic vol] 81 fL 80 - 100 M [facility] Work Phone: Monocytes/100 WBC (Bld) 5.0 % 2.0 - 10.0 M [facility] Work Phone: Neutrophils/100 WBC (Bld) 47.0 % See Below [facility] [employer] [facility] [place] Work Phone: Comment on above: Reference Range: 40. 0 - 80.0 Platelets (Bld) [#/Vol] 251 10*3/uL 150 - 450 [facility] [place] Work Phone: RBC (Bld) [#/Vol] 5.00 {x10E12/L} See Below [facility] [place] Work Phone: Comment on above: Reference Range: 4.0 0 - 5.20 WBC (Bld) [#/Vol] 6.6 10*3/uL 4.4 - 11.3 MG-Car diology- [facility] Work Phone: Complete Blood Count + Differential 0.05 {x10E9/L} See Below [facility] [place] Work Phone: Comment on above: Reference Range: 0.0 0 - 0.10 Complete Blood Count + Differential 0.12 {x10E9/L} See Below [facility] Work Phone: Comment on above: Reference Range: 0.0 0 - 0.70 Complete Blood Count + Differential 0.33 {x10E9/L} See Below [facility] Work Phone: Comment on above: Reference Range: 0.1 0 - 1.00 Complete Blood Count + Differential 2.97 {x10E9/L} See Below [facility] Work Phone: Comment on above: Reference Range: 1.2 0 - 4.80 Complete Blood Count + Differential 3.12 {x10E9/L} See Below [facility] Work Phone: Comment on above: Reference Range: 1.2 0 - 7.70 Complete Blood Count + Differential 1.8 % 0.0 - 6.0 [facility] Work Phone: Complete Blood Count + Differential 0.5 % 0.0 - 0.9 [facility] Work Phone: Comment on above: Immature Granulocyte Count (IG) includes promyelocytes, myelocytes and metamyelocytes but does not include bands. Percent differential counts (%) should be interpreted in the context of the absolute cell counts (cells/L). Complete Blood Count + Differential 0.0 {/100_WBC} 0.0-0.0 [facility] Work Phone: Consult-Cardiac Surgeryon Consult-Cardiac Surgery Normal [facility] Discharge Planning [id number] 0 01-21-2021 Discharge Planning Note2 Normal [facility] GLUCOSE-POCTon 01-21-2021 Glucose [Mass/Vol] 187 mg/dL High 74 - 99 [facility] Comment on above: Performed By: #### G PRASHANTH ####[id number] [place] [address] Glucose [Mass/Vol] 187 mg/dL High 74 - 99 [facility] Comment on above: Performed By: #### G PRASHANTH ####[id number] [place] [address] Glucose [Mass/Vol] 194 mg/dL High 74 - 99 [facility] Comment on above: Performed By: #### G PRASHANTH ####[id number] [place] [address] Glucose [Mass/Vol] 209 mg/dL High 74 - 99 [facility] Comment on above: Performed By: #### G PRASHANTH ####[id number] [place] [address] HEPARIN ASSAY,UFHon 01-22-20 21 HEPARIN ASSAY,UFH 0.3 IU/mL Normal [facility] Comment on above: Result Comment: The therapeutic reference range for UFH may be either 0.3-0.6 IU/mL or 0.3-0.7 IU/mL based on the clinical setting for anticoagulant therapy and the associated nomogram used. For heparin dosing guidelines based on clinical scenario and Heparin Assay results, please refer to local Pharmacy and [facility] Guidelines for Anticoagulation therapy available on the [facility] intranet at:https://counts include 234 beds at the [email or web address]/[email or web address]/Pages/[facility]_Guidelines_for_Anticoagu.aspx Performed By: #### H AUF ####[id number] [place] [address] HEPARIN ASSAY,UFH 0.4 IU/mL Normal [facility] Comment on above: Result Comment: The therapeutic reference range for UFH may be either 0.3-0.6 IU/mL or 0.3-0.7 IU/mL based on the clinical setting for anticoagulant therapy and the associated nomogram used. For heparin dosing guidelines based on clinical scenario and Heparin Assay results, please refer to local Pharmacy and [facility] Guidelines for Anticoagulation therapy available on the [facility] intranet at:[email or web address]://[email or web address]/Pages/[facility]_Guidelines_for_Anticoagu.aspx Performed By: #### H AUF ####[id number] [place] [address] HEPARIN ASSAY,UFH 0.1 IU/mL Normal [facility] Comment on above: Result Comment: The therapeutic reference range for UFH may be either 0.3-0.6 IU/mL or 0.3-0.7 IU/mL based on the clinical setting for anticoagulant therapy and the associated nomogram used. For heparin dosing guidelines based on clinical scenario and Heparin Assay results, please refer to local Pharmacy and the [facility] Guidelines for Anticoagulation therapy available on the [facility] intranet at:https://counts include 234 beds at the [email or web address]/[email or web address]/Pages/[facility]_Guidelines_for_Anticoagu.aspx Performed By: #### H AUF ####[id number] [place] [address] Heparin assay, UFHon 021 Heparin unfractionated Chromogenic method Qn (PPP) 0.3 {IU/mL} [facility] Work Phone: Comment on above: The therapeutic refe rence range for UFH may be either 0.3-0.6 IU/mL or 0.3-0.7 IU/mL based on the clinical setting for anticoagulant therapy and the associated nomogram used. For heparin dosing guidelines based on clinical scenario and Heparin Assay results, please refer to local Pharmacy and [facility] Guidelines for Anticoagulation therapy available on the [facility] intranet at:[email or web address]/[facility]_Guidelines_for_Anticoagu.aspx Heparin unfractionated Chromogenic method Qn (PPP) 0.4 {IU/mL} [facility] Work Phone: Comment on above: The therapeutic refe rence range for UFH may be either 0.3-0.6 IU/mL or 0.3-0.7 IU/mL based on the clinical setting for anticoagulant therapy and the associated nomogram used. For heparin dosing guidelines based on clinical scenario and Heparin Assay results, please refer to local Pharmacy and [facility] Guidelines for Anticoagulation therapy available on the [facility] intranet at:https://counts include 234 beds at the [email or web address]/Pharmacy/Pages/[facility]_Guidelines_for_Anticoagu.aspx Heparin unfractionated Chromogenic method Qn (PPP) 0.1 {IU/mL} [facility] Work Phone: Comment on above: The therapeutic refe rence range for UFH may be either 0.3-0.6 IU/mL or 0.3-0.7 IU/mL based on the clinical setting for anticoagulant therapy and the associated nomogram used. For heparin dosing guidelines based on clinical scenario and Heparin Assay results, please refer to local Pharmacy and the [facility] Guidelines for Anticoagulation therapy available on the [facility] intranet at:https://counts include 234 beds at the [email or web address]/Pharmacy/Pages/[facility]_Guidelines_for_Anticoagu.aspx Laboratory - Chemistry and C hemistry - challengeon 01-21-2021 Glucose [Mass/Vol] 187 mg/dL above high threshold 74 - 99 [facility] Work Phone: Glucose [Mass/Vol] 187 mg/dL above high threshold 74 - 99 [facility] Work Phone: Glucose [Mass/Vol] 194 mg/dL above high threshold 74 - 99 [facility] Work Phone: Glucose [Mass/Vol] 209 mg/dL above high threshold 74 - 99 [facility] Work Phone: Albumin BCP dye [Mass/Vol] 3.7 g/dL 3.4 - 5.0 [facility] Work Phone: ALP [Catalytic activity/Vol] 87 U/L 33 - 110 [facility] Work Phone: ALT With P-5'-P [Catalytic activity/Vol] 47 U/L above high threshold 7 - 45 [facility] [place] Work Phone: Comment on above: Patients treated wit h Sulfasalazine may generate falsely decreased results for ALT. Anion gap [Moles/Vol] 13 mmol/L 10 - 20 [facility] Work Phone: AST With P-5'-P [Catalytic activity/Vol] 66 U/L above high threshold 9 - 39 [facility] Work Phone: Bilirubin [Mass/Vol] 0.4 mg/dL 0.0 - 1.2 MG-C ardiology- [employer] Work Phone: Calcium [Mass/Vol] 9.1 mg/dL 8.6 - 10.6 [facility] diology- [facility] Work Phone: Chloride [Moles/Vol] 103 mmol/L 98 - 107 [facility] ardiology- [employer] Work Phone: CO2 [Moles/Vol] 25 mmol/L 21 - 32 [facility]io logy- [facility] Work Phone: Creatinine [Mass/Vol] 0.50 mg/dL See Below [facility] Work Phone: Comment on above: Reference Range: 0.5 0 - 1.05 Glucose [Mass/Vol] 142 mg/dL above high threshold 74 - 99 [facility] Work Phone: Potassium [Moles/Vol] 3.9 mmol/L 3.5 - 5.3 [facility] Work Phone: Protein [Mass/Vol] 6.8 g/dL 6.4 - 8.2 [facility] diology- [facility] Work Phone: Sodium [Moles/Vol] 137 mmol/L 136 - 145 [facility] diology- [facility] Work Phone: Urea nitrogen [Mass/Vol] 11 mg/dL 6 - 23 [facility] Work Phone: Laboratory - Coagulationon 0 01-21-2021 aPTT Coag (PPP) [Time] 25 s 25 - 35 [facility] Work Phone: Comment on above: THE APTT IS NO LONGE R USED FOR MONITORING UNFRACTIONATED HEPARIN THERAPY. FOR MONITORING HEPARIN THERAPY, USE THE HEPARIN ASSAY. INR Coag (PPP) [Relative time] 1.0 {INR} 0.9 - 1.1 -[facility] Work Phone: PT Coag (PPP) [Time] 11.7 s See Below MG-C [facility] Work Phone: Comment on above: Reference Range: 10. 1 - 13.3 Laboratory - Hematology and Cell countson 01-21-2021 Erythrocyte distribution width (RBC) [Ratio] 16.4 % above high threshold See Below [employer] [facility] Work Phone: Comment on above: Reference Range: 11. 5 - 14.5 Hematocrit (Bld) [Volume fraction] 45.1 % See Below [employer] Work Phone: Comment on above: Reference Range: 36. 0 - 46.0 Hemoglobin (Bld) [Mass/Vol] 13.4 g/dL See Below [employer] [facility] Work Phone: Comment on above: Reference Range: 12. 0 - 16.0 MCHC (RBC) [Mass/Vol] 29.7 g/dL below low threshold See Below [employer] [facility] Work Phone: Comment on above: Reference Range: 32. 0 - 36.0 MCV (RBC) [Entitic vol] 84 fL 80 - 100 M [facility] Work Phone: Platelets (Bld) [#/Vol] 242 10*3/uL 150 - 450 -[facility] [place] Work Phone: RBC (Bld) [#/Vol] 5.38 {x10E12/L} above high threshold See Below [employer] [facility] Work Phone: Comment on above: Reference Range: 4.0 0 - 5.20 WBC (Bld) [#/Vol] 7.3 10*3/uL 4.4 - 11.3 MG-[facility] diology- [employer] Work Phone: MAGNESIUMon 01-21-2021 Magnesium [Mass/Vol] 1.65 mg/dL Normal 1.60 - 2.40 [facility] Comment on above: Performed By: #### M G ####[id number] [place] [address] MRSA Screenon 01-21-2021 Staphylococcus sp identified Org specific cx Nom (Unsp spec) Abnormal [facility] Work Phone: Magnesium, Serumon Magnesium [Mass/Vol] 1.65 mg/dL See Below MG-C ardiology- [facility] Work Phone: Comment on above: Reference Range: 1.6 0 - 2.40 No Panel Informationon 01-21 0.0 {/100_WBC} 0.0-0.0 [facility]iol ogy[facility] Work Phone: ORDER RECD [facility] Work Phone: Comment on above: If this patient is R h Negative and if the Plateletproduct transfused is Rh Positive, review the useof WinRho Prophylaxis for this patient. >60 >60 [facility] Work Phone: Comment on above: CALCULATIONS OF YARA MATED GFR ARE PERFORMED USING THE MDRD STUDY EQUATION FOR THE IDMS-TRACEABLE CREATININE METHODS. CLIN CHEM 2007;53:766-72 Order Reconciliationon 01-21 Order Reconciliation Normal [facility] PLATELETSon 01-21-2021 PLATELETS ORDER RECD Normal [facility] Comment on above: Result Comment: If t his patient is Rh Negative and if the Plateletproduct transfused is Rh Positive, review the useof WinRho Prophylaxis for this patient. Performed By: #### P LT ####[id number] [place] [address] Patient Profile - Adult v2on 01-21-2021 Patient Profile - Adult v2 Normal [facility] RENAL FUNCTION PANELon 01-21 Albumin [Mass/Vol] 3.8 g/dL Normal 3.4 - 5.0 [facility] Comment on above: Performed By: #### R ENAL ####[id number] [place] [address] Anion gap [Moles/Vol] 14 mmol/L Normal 10 - 20 [facility] Comment on above: Performed By: #### R ENAL ####[id number] [place] [address] Calcium [Mass/Vol] 9.2 mg/dL Normal 8.6 - 10.6 [facility] Comment on above: Performed By: #### R ENAL ####[id number] [place] [address] Chloride [Moles/Vol] 101 mmol/L Normal 98 - 107 [facility] Comment on above: Performed By: #### R ENAL ####[id number] [place] [address] Creatinine [Mass/Vol] 0.58 mg/dL Normal 0.50 - 1.05 [facility] Comment on above: Performed By: #### R ENAL ####[id number] [place] [address] GFR- AM. >60 Normal >60 [facility] Comment on above: Result Comment: CALC ULATIONS OF ESTIMATED GFR ARE PERFORMED USING THE MDRD STUDY EQUATION FOR THE IDMS-TRACEABLE CREATININE METHODS. CLIN CHEM 2007;53:766-72 Performed By: #### R ENAL ####[id number] [place] [address] GFR-NON AM. >60 Normal >60 [facility] Comment on above: Performed By: #### R ENAL ####[id number] [place] [address] Glucose [Mass/Vol] 185 mg/dL High 74 - 99 [facility] Comment on above: Performed By: #### R ENAL ####[id number] [place] [address] HCO3 (Bld) [Moles/Vol] 26 mmol/L Normal 21 - 32 [facility] Comment on above: Performed By: #### R ENAL ####[id number] [place] [address] Phosphate [Mass/Vol] 4.1 mg/dL Normal 2.5 - 4.9 [facility] Comment on above: Result Comment: The performance characteristics of phosphorus testing in heparinized plasma have been validated by the individual laboratory site where testing is performed. Testing on heparinized plasma is not approved by the FDA; however, such approval is not necessary. Performed By: #### R ENAL ####[id number] [place] [address] Potassium [Moles/Vol] 3.9 mmol/L Normal 3.5 - 5.3 [facility] Comment on above: Performed By: #### R ENAL ####[id number] [place] [address] Sodium [Moles/Vol] 137 mmol/L Normal 136 - 145 [facility] Comment on above: Performed By: #### R ENAL ####[id number] [place] [address] Urea nitrogen [Mass/Vol] 11 mg/dL Normal 6 - 23 [facility] Comment on above: Performed By: #### R ENAL ####[id number] [place] [address] REQUEST-LEUKOREDUCED RED DARIUS LSon 01-21-2021 REQUEST-LEUKOREDUCED RED CELLS ORDER RECD Normal [facility] Comment on above: Performed By: #### O DROP HAMMER SET UP OPERATOR ####[id number] [place] [address] Renal Function Panelon 01-21 Albumin BCP dye [Mass/Vol] 3.8 g/dL 3.4 - 5.0 [facility] Work Phone: Anion gap [Moles/Vol] 14 mmol/L 10 - 20 [facility] Work Phone: Calcium [Mass/Vol] 9.2 mg/dL 8.6 - 10.6 [facility] diology- [facility] Work Phone: Chloride [Moles/Vol] 101 mmol/L 98 - 107 [facility] ardiology- [facility] Work Phone: CO2 [Moles/Vol] 26 mmol/L 21 - 32 [facility]io logy- [facility] Work Phone: Creatinine [Mass/Vol] 0.58 mg/dL See Below [facility] [place] Work Phone: Comment on above: Reference Range: 0.5 0 - 1.05 Glucose [Mass/Vol] 185 mg/dL above high threshold 74 - 99 [facility] [place] Work Phone: Phosphate [Mass/Vol] 4.1 mg/dL 2.5 - 4.9 [facility] Work Phone: Comment on above: The performance jam acteristics of phosphorus testing in heparinized plasma have been validated by the individual laboratory site where testing is performed. Testing on heparinized plasma is not approved by the FDA; however, such approval is not necessary. Potassium [Moles/Vol] 3.9 mmol/L 3.5 - 5.3 [facility] Work Phone: Sodium [Moles/Vol] 137 mmol/L 136 - 145 [facility] diology- [facility] Work Phone: Urea nitrogen [Mass/Vol] 11 mg/dL 6 - 23 [facility] Work Phone: Renal Function Panel >60 >60 MG-[facility] ardiology- [facility] Work Phone: Comment on above: CALCULATIONS OF YARA MATED GFR ARE PERFORMED USING THE MDRD STUDY EQUATION FOR THE IDMS-TRACEABLE CREATININE METHODS. CLIN CHEM 2007;53:766-72 STAPH/MRSA SCREENon 01-22-20 21 STAPH/MRSA SCREEN Normal [facility] Comment on above: Performed By: #### S TAP ####[id number] [place] [address] TROPONIN Ion 01-21-2021 Troponin I.cardiac [Mass/Vol] 1.25 ng/mL Critically high 0.00 - 0.03 [facility] Comment on above: Order Comment: RAVEN KIMBLE2 CALLED TO RIGO ELY, 01/21/2021 04:48 Result Comment: LESS THAN 0.04 NG/ML: NEGATIVEREPEAT TESTING IN THREE TO SIX HOURSIF CLINICALLY INDICATED.0.04 - 0.5 NG/ML: CONSISTENT WITH POSSIBLECARDIAC DAMAGE AND POSSIBLE INCREASEDCLINICAL RISK.SERIAL MEASUREMENTS MAY HELP ASSESS EXTENT OFMYOCARDIAL DAMAGE.>0.5 NG/ML: CONSISTENT WITH CARDIAC DAMAGE,INCREASED CLINICAL RISK AND MYOCARDIALINFARCTION. SERIAL MEASUREMENTS MAY HELPASSESS EXTENT OF MYOCARDIAL DAMAGE..Note: Troponin I testing is performed using differenttesting methodology at [facility] than [facility]. Direct result comparisons should onlybe made within the same method.. Biotin interference may cause falsely decreased results. Patients taking a Biotin dose of up to 5 mg/day should refrain from taking Biotin for 24 hours before sample collection. Providers may contact their laboratory for further information.{ Performed By: #### T ROP2 ####[id number] [place] [address] Troponin I, Serumon 01-22-20 21 Troponin I.cardiac [Mass/Vol] 1.25 ng/mL Critically high See Below [facility] Work Phone: Comment on above: Reference Range: 0.0 0 - 0.03LESS THAN 0.04 NG/ML: NEGATIVEREPEAT TESTING IN THREE TO SIX HOURSIF CLINICALLY INDICATED.0.04 - 0.5 NG/ML: CONSISTENT WITH POSSIBLECARDIAC DAMAGE AND POSSIBLE INCREASEDCLINICAL RISK.SERIAL MEASUREMENTS MAY HELP ASSESS EXTENT OFMYOCARDIAL DAMAGE.>0.5 NG/ML: CONSISTENT WITH CARDIAC DAMAGE,INCREASED CLINICAL RISK AND MYOCARDIALINFARCTION. SERIAL MEASUREMENTS MAY HELPASSESS EXTENT OF MYOCARDIAL DAMAGE..Note: Troponin I testing is performed using different testing methodology at [facility] than at other [facility]. Direct result comparisons should only be made within the same method.. Biotin interference may cause falsely decreased results. Patients taking a Biotin dose of up to 5 mg/day should refrain from taking Biotin for 24 hours before sample collection. Providers may contact their laboratory for further information. { Vital Signs Date Time Vital Sign Value Performing Clinician Facility 02-02-2024 08:08-0400 Body height 162.56 cm [facility] 02-02-2024 08:08-0400 Body mass index (BMI) [Ratio] 32.5 kg/m2 [facility] 02-02-2024 08:08-0400 Body temperature 96.9 [degF] [facility] 02-02-2024 08:08-0400 Body weight 86.18 kg [facility] 02-02-2024 08:08-0400 Diastolic blood pressure 78 mm[Hg] [facility] 02-02-2024 08:08-0400 Heart rate 71 /min [facility] 02-02-2024 08:08-0400 SaO2% (BldA) [Mass fraction] 99 % [facility] 02-02-2024 08:08-0400 Systolic blood pressure 92 mm[Hg] [facility] 12-31-2023 14:35-0400 Body height 162.56 cm [facility] 12-31-2023 14:35-0400 Body mass index (BMI) [Ratio] 32.9 kg/m2 [facility] 12-31-2023 14:35-0400 Body temperature 97.1 [degF] [facility] 12-31-2023 14:35-0400 Body weight 87.08 kg [facility] 12-31-2023 14:35-0400 Diastolic blood pressure 70 mm[Hg] [facility] 12-31-2023 14:35-0400 Heart rate 87 /min [facility] 12-31-2023 14:35-0400 Respiratory rate 18 /min [facility] 12-31-2023 14:35-0400 SaO2% (BldA) [Mass fraction] 99 % [facility] 12-31-2023 14:35-0400 Systolic blood pressure 110 mm[Hg] [facility] 11-02-2023 08:04-0400 Body height 162.56 cm [facility] 11-02-2023 08:04-0400 Body mass index (BMI) [Ratio] 33.7 kg/m2 [facility] [facility] 11-02-2023 08:04-0400 Body temperature 96.8 [degF] [facility] 11-02-2023 08:04-0400 Body weight 89.35 kg [facility] 11-02-2023 08:04-0400 Diastolic blood pressure 78 mm[Hg] [facility] 11-02-2023 08:04-0400 Heart rate 79 /min [facility] 11-02-2023 08:04-0400 Respiratory rate 16 /min [facility] 11-02-2023 08:04-0400 SaO2% (BldA) [Mass fraction] 99 % [facility] 11-02-2023 08:04-0400 Systolic blood pressure 122 mm[Hg] [facility] 09-14-2023 11:16-0400 Body height 162.56 cm [facility] 09-14-2023 11:16-0400 Body mass index (BMI) [Ratio] 34.4 kg/m2 [facility] 09-14-2023 11:16-0400 Body temperature 98 [degF] [facility] 09-14-2023 11:16-0400 Body weight 91.17 kg [facility] 09-14-2023 11:16-0400 Diastolic blood pressure 78 mm[Hg] [facility] 09-14-2023 11:16-0400 Heart rate 96 /min [facility] 09-14-2023 11:16-0400 SaO2% (BldA) [Mass fraction] 96 % [facility] 09-14-2023 11:16-0400 Systolic blood pressure 100 mm[Hg] [facility] 07-20-2023 08:12-0500 Diastolic blood pressure 80 mm[Hg] [facility] 07-20-2023 08:12-0500 Systolic blood pressure 120 mm[Hg] [facility] 07-20-2023 08:09-0500 Body temperature 97.3 [degF] [facility] 07-20-2023 08:09-0500 Body weight 92.07 kg [facility] 03-04-2024 08:09-0500 Heart rate 72 /min [facility] 07-20-2023 08:09-0500 SaO2% (BldA) [Mass fraction] 94 % [facility] 07-23-2022 16:30-0500 Body height 165.1 cm Husam Noah Other [employer] Other 07-23-2022 16:30-0500 Body mass index (BMI) [Ratio] 33.44 kg/m2 Husam Noah Other [employer] Other 07-23-2022 16:30-0500 Body temperature 96.9 [degF] Husam Noah Other [employer] Other 07-23-2022 16:30-0500 Body weight 91.17 kg Husam Noah Other [employer] Other 07-23-2022 16:30-0500 Diastolic blood pressure 78 mm[Hg] Husam Noah Other [employer] Other 07-23-2022 16:30-0500 Respiratory rate 20 /min Husam Noah Other [employer] Other 07-23-2022 16:30-0500 SaO2% (BldA) [Mass fraction] 98 % Husam Noah Other [employer] Other 07-23-2022 16:30-0500 Systolic blood pressure 122 mm[Hg] Husam Noah Other [employer] Other 06-05-2022 09:00-0500 Body height 165.1 cm Husam Noah Other [employer] Other 06-05-2022 09:00-0500 Body mass index (BMI) [Ratio] 33.11 kg/m2 Husam Noah Other [employer] Other 06-05-2022 09:00-0500 Body temperature 97.1 [degF] Husam Noah Other [employer] Other 06-05-2022 09:00-0500 Body weight 90.27 kg Husam Noah Other [employer] Other 06-05-2022 09:00-0500 Diastolic blood pressure 78 mm[Hg] Husam Noah Other [employer] Other 06-05-2022 09:00-0500 Respiratory rate 20 /min Husam Noah Other [employer] Other 06-05-2022 09:00-0500 SaO2% (BldA) [Mass fraction] 97 % Husam Noah Other [employer] Other 06-05-2022 09:00-0500 Systolic blood pressure 126 mm[Hg] Husam Noah Other [employer] Other 02-11-2022 16:15-0400 Body temperature 98.06 [degF] [facility] 02-11-2022 16:15-0400 Diastolic blood pressure 84 mm[Hg] [facility] 02-11-2022 16:15-0400 Heart rate 95 /min [facility] 02-11-2022 16:15-0400 Respiratory rate 16 /min [facility] 02-11-2022 16:15-0400 SaO2% (BldA) [Mass fraction] 97 % [facility] 02-11-2022 16:15-0400 Systolic blood pressure 128 mm[Hg] [facility] 07-01-2021 09:45-0500 50 1 Husam M Noah Work Phone: [facility] [address] [place] Work Phone: Comment on above: [id number] 06-25-2021 09:15-0500 Body height 165.1 cm Husam Noah Other [employer] Other 06-25-2021 09:15-0500 Body mass index (BMI) [Ratio] 33.61 kg/m2 Husam Noah Other [employer] Other 06-25-2021 09:15-0500 Body temperature 97.3 [degF] Husam Noah Other [employer] Other 06-25-2021 09:15-0500 Body weight 91.63 kg Husam Noah Other [employer] Other 06-25-2021 09:15-0500 Diastolic blood pressure 82 mm[Hg] Husam Noah Other [employer] Other 06-25-2021 09:15-0500 Respiratory rate 20 /min Husam Noah Other [employer] Other 06-25-2021 09:15-0500 SaO2% (BldA) [Mass fraction] 98 % Husam Noah Other [facility] [employer] Other 06-25-2021 09:15-0500 Systolic blood pressure 126 mm[Hg] Husam Noah Other [facility] [employer] Other 06-11-2021 09:17-0500 Heart rate 80 /min Husam M Noah Work Phone: [facility] [address] [place] Work Phone: 06-11-2021 08:59-0500 Body height 160.02 cm Husam M Noah Work Phone: [facility] [address] [place] Work Phone: 06-11-2021 08:59-0500 Body mass index (BMI) [Ratio] 35.07 kg/m2 Husam M Noah Work Phone: [facility] [address] [place] Work Phone: 06-11-2021 08:59-0500 Body surface area Derived from formula 1.93 m2 Husam M Noah Work Phone: [facility] [address] [place] Work Phone: 06-11-2021 08:59-0500 Body weight 89.81 kg Husam M Noah Work Phone: [facility] [address] [place] Work Phone: 06-11-2021 08:59-0500 Diastolic blood pressure 80 mm[Hg] Husam M Noah Work Phone: [facility] [address] [place] Work Phone: 06-11-2021 08:59-0500 Heart rate 96 /min Husam M Noah Work Phone: [facility] [address] [place] Work Phone: 06-11-2021 08:59-0500 Systolic blood pressure 126 mm[Hg] Husam M Noah Work Phone: [facility] [address] [place] Work Phone: 03-27-2021 16:45-0500 Body height 165.1 cm Husam Noah Other [place] [employer] Other 03-27-2021 16:45-0500 Body temperature 97.7 [degF] Husam Noah Other [employer] Other 03-27-2021 16:45-0500 Diastolic blood pressure 80 mm[Hg] Husam Noah Other [employer] Other 03-27-2021 16:45-0500 Respiratory rate 20 /min Husam Noah Other [employer] Other 03-27-2021 16:45-0500 SaO2% (BldA) [Mass fraction] 98 % Husam Noah Other [employer] Other 03-27-2021 16:45-0500 Systolic blood pressure 130 mm[Hg] Husam Noah Other [employer] Other 03-19-2021 09:00-0400 Body height 165.1 cm Husam Noah Other [employer] Other 03-19-2021 09:00-0400 Body mass index (BMI) [Ratio] 32.95 kg/m2 Husam Noah Other [employer] Other 03-19-2021 09:00-0400 Body temperature 97.4 [degF] Husam Noah Other [employer] Other 03-19-2021 09:00-0400 Body weight 89.81 kg Husam Noah Other [employer] Other 03-19-2021 09:00-0400 Diastolic blood pressure 68 mm[Hg] Husam Noah Other [employer] Other 03-19-2021 09:00-0400 Respiratory rate 20 /min Husam Noah Other [employer] Other 03-19-2021 09:00-0400 SaO2% (BldA) [Mass fraction] 97 % Husam Noah Other [employer] Other 03-19-2021 09:00-0400 Systolic blood pressure 108 mm[Hg] Husam Noah Other [employer] Other 02-27-2021 12:15-0400 Body height 165.1 cm Husam Noah Other [employer] Other 02-27-2021 12:15-0400 Body mass index (BMI) [Ratio] 33.11 kg/m2 Husam Noah Other [employer] Other 02-27-2021 12:15-0400 Body temperature 97.1 [degF] Husam Noah Other [employer] Other 02-27-2021 12:15-0400 Body weight 90.27 kg Husam Noah Other [employer] Other 02-27-2021 12:15-0400 Diastolic blood pressure 74 mm[Hg] Husam Noah Other [employer] Other 02-27-2021 12:15-0400 Respiratory rate 20 /min Husam Noah Other [employer] Other 02-27-2021 12:15-0400 SaO2% (BldA) [Mass fraction] 98 % Husam Noah Other [employer] Other 02-27-2021 12:15-0400 Systolic blood pressure 128 mm[Hg] Husam Noah Other [employer] Other 02-21-2021 11:12-0400 Body height 160.02 cm Husam M Noah Work Phone: [employer] [facility] [facility] [address] [place] Work Phone: 02-21-2021 11:12-0400 Body mass index (BMI) [Ratio] 35.36 kg/m2 Husam M Noah Work Phone: [employer] [place] [facility] [address] [place] Work Phone: 02-21-2021 11:12-0400 Body surface area Derived from formula 1.93 m2 Husam M Noah Work Phone: [employer] [place] [facility] [address] [place] Work Phone: 02-21-2021 11:12-0400 Body weight 90.54 kg Husam M Noah Work Phone: [employer] [facility] [facility] [address] [place] Work Phone: 02-21-2021 11:12-0400 Diastolic blood pressure 68 mm[Hg] Husam M Noah Work Phone: [facility] [address] [place] Work Phone: 02-21-2021 11:12-0400 Heart rate 89 /min Husam M Noah Work Phone: [facility] [place] Work Phone: 02-21-2021 11:12-0400 Systolic blood pressure 122 mm[Hg] Husam M Noah Work Phone: [facility] [place] Work Phone: 02-12-2021 10:00-0400 Body height 165.1 cm Husam Noah Other [employer] Other 02-12-2021 10:00-0400 Body mass index (BMI) [Ratio] 33.61 kg/m2 Husam Noah Other [employer] Other 02-12-2021 10:00-0400 Body temperature 98.3 [degF] Husam Noah Other [employer] Other 02-12-2021 10:00-0400 Body weight 91.63 kg Husam Noah Other [employer] Other 02-12-2021 10:00-0400 Diastolic blood pressure 70 mm[Hg] Husam Noah Other [employer] Other 02-12-2021 10:00-0400 Respiratory rate 20 /min Husam Noah Other [employer] Other 02-12-2021 10:00-0400 SaO2% (BldA) [Mass fraction] 94 % Husam Noah Other [employer] Other 02-12-2021 10:00-0400 Systolic blood pressure 106 mm[Hg] Husam Noah Other [facility] [employer] Other 02-08-2021 15:36-0400 Body height 160.02 cm Husam M Noah Work Phone: [facility] [address] [place] Work Phone: 02-08-2021 15:36-0400 Body mass index (BMI) [Ratio] 35.61 kg/m2 Husam M Noah Work Phone: AU-Jesbxlkdch-GQV [facility] [address] [place] Work Phone: 02-08-2021 15:36-0400 Body surface area Derived from formula 1.94 m2 Husam M Noah Work Phone: GP-Iktgtsewgp-GYD [facility] [address] [place] Work Phone: 02-08-2021 15:36-0400 Body weight 91.17 kg Husam M Noah Work Phone: AW-Inmleblijy-KDN [facility] [address] [place] Work Phone: 02-08-2021 15:36-0400 Diastolic blood pressure 67 mm[Hg] Husam M Noah Work Phone: RD-Eqjkncvkmw-KQG [facility] [address] [place] Work Phone: 02-08-2021 15:36-0400 Heart rate 80 /min Husam M Noah Work Phone: QA-Gpigxsheqw-OJT [facility] [address] [place] Work Phone: 02-08-2021 15:36-0400 SaO2% (BldA) [Mass fraction] 95 % Husam M Noah Work Phone: FT-Ubtozvafqg-AMI [facility] [address] [place] Work Phone: 02-08-2021 15:36-0400 Systolic blood pressure 113 mm[Hg] Husam M Noah Work Phone: QU-Aamllidfir-QBR [facility] [address] [place] Work Phone: 01-30-2021 19:53-0400 Body temperature 96.8 [degF] Husam Noah Other Phone: [facility] 01-30-2021 19:53-0400 Diastolic blood pressure 68 mm[Hg] Husam Noah Other Phone: [facility] 01-30-2021 19:53-0400 Heart rate 100 /min Husam Noah Other Phone: [facility] 01-30-2021 19:53-0400 Respiratory rate 20 /min Husam Noah Other Phone: [facility] 01-30-2021 19:53-0400 SaO2% (BldA) [Mass fraction] 98 % Husam Noah Other Phone: [facility] 01-30-2021 19:53-0400 Systolic blood pressure 108 mm[Hg] Husam Noah Other Phone: [facility] 01-30-2021 05:49-0400 Body weight 93.4 kg Husam Noah Other Phone: [facility] Encounters Encounter Date Encounter Type Care Provider Facility Start: 04-06-2024 End: 04-06-2024 Patient encounter procedure Husam Noah DO Work Phone: [facility] Work Phone: Start: 04-06-2024 End: 04-06-2024 ambulatory Husam M. Noah DO Work Phone: [facility] Work Phone: Start: 03-14-2024 ambulatory MARIO Gamboa ty:[facility] Start: 03-02-2024 End: 03-02-2024 ambulatory DO Husam M. Noah Work Phone: [facility] Work Phone: Start: 03-02-2024 End: 03-02-2024 Patient encounter procedure DO Husam Noah Work Phone: [facility] Work Phone: Start: 03-02-2024 End: 03-02-2024 Patient encounter procedure DO Husam Noah Work Phone: [facility] Start: 03-02-2024 End: 03-02-2024 ambulatory DO Husam M. Noah Work Phone: [facility] Work Phone: Start: 02-02-2024 End: 02-02-2024 ambulatory [facility] Work Phone: Start: 02-02-2024 End: 02-02-2024 Patient encounter procedure [facility] [place] Work Phone: Start: 01-05-2024 Non-patient / Non-visit [facility] Work Phone: Start: 12-31-2023 End: 12-31-2023 ambulatory [facility] Work Phone: Start: 12-31-2023 End: 12-31-2023 Patient encounter procedure [facility] [place] Work Phone: Start: 12-28-2023 Non-patient / Non-visit [facility] Work Phone: Start: 11-02-2023 End: 11-02-2023 ambulatory [facility] [place] Work Phone: Start: 11-02-2023 End: 11-02-2023 Patient encounter procedure [facility] [place] Work Phone: Start: 10-24-2023 Non-patient / Non-visit [facility] Work Phone: Start: 10-24-2023 End: 10-24-2023 ambulatory HUSAM M NOAH Facility:[facility] Start: 10-24-2023 End: 10-24-2023 Patient encounter procedure HUSAM M NOAH [facility] Start: 09-14-2023 End: 09-14-2023 ambulatory [facility] Work Phone: Start: 09-14-2023 End: 09-14-2023 Patient encounter procedure [facility] Work Phone: Start: 09-10-2023 Non-patient / Non-visit [facility] Work Phone: Start: 07-20-2023 End: 07-20-2023 Patient encounter procedure [facility] Work Phone: Start: 07-20-2023 Non-patient / Non-visit [facility] Work Phone: Start: 03-04-2023 End: 03-04-2023 ambulatory Husam Noah Other [employer] Other Start: 03-04-2023 Telephone encounter Husam Noah [facility] Start: 02-05-2023 End: 02-05-2023 ambulatory Husam Noah Other [employer] Other Start: 02-05-2023 Telephone encounter Husam Noah [facility] Start: 01-07-2023 End: 01-07-2023 ambulatory Husam Noah Other [employer] Other Start: 01-07-2023 Telephone encounter Husam Noah [facility] Start: 12-03-2022 End: 12-03-2022 ambulatory Husam Noah Other [employer] Other Start: 12-03-2022 Telephone encounter Husam Noah [facility] Start: 10-21-2022 End: 10-21-2022 ambulatory Husam Noah Other [employer] Other Start: 10-21-2022 Telephone encounter Husam Noah [facility] Start: 09-24-2022 End: 09-24-2022 ambulatory Husam Noah Other [employer] Other Start: 09-24-2022 Telephone encounter Husam Noah [facility] Start: 08-11-2022 End: 08-11-2022 ambulatory Husam Noah Other [employer] Other Start: 08-11-2022 Telephone encounter Husam Noah [facility] Start: 08-01-2022 End: 08-01-2022 ambulatory Husam Noha Other [employer] Other Start: 08-01-2022 Telephone encounter Husam Noah [facility] Start: 07-23-2022 End: 07-23-2022 ambulatory Husam Noah Other [employer] Other Start: 07-23-2022 Office outpatient visit 25 minutes Husam Noah [facility] Start: 06-30-2022 End: 06-30-2022 ambulatory Husam Noah Other [employer] Other Start: 06-30-2022 Telephone encounter Husam Noah [facility] Start: 06-05-2022 End: 06-05-2022 ambulatory Husam Noah Other [employer] Other Start: 06-05-2022 Office outpatient visit 15 minutes Husam Noah [facility] Start: 06-05-2022 Telephone encounter Husam Noah [facility] Start: 05-01-2022 End: 05-01-2022 ambulatory Husam Noah Other [employer] Other Start: 05-01-2022 Telephone encounter Husam Noah [facility] Start: 04-28-2022 End: 04-28-2022 ambulatory Husam Noah Other [employer] Other Start: 04-28-2022 Telephone encounter Husam Noah [facility] Start: 04-14-2022 End: 04-14-2022 ambulatory Husam Noah Other [employer] Other Start: 04-14-2022 Telephone encounter Husam Noah [facility] Start: 03-21-2022 End: 03-21-2022 ambulatory Husam Noah Other [employer] Other Start: 03-21-2022 Telephone encounter Husam Noah [facility] Start: 03-17-2022 End: 03-17-2022 ambulatory Husam Noah Other [employer] Other Start: 03-17-2022 Telephone encounter Husam Noah [facility] Start: 02-11-2022 End: 02-11-2022 Emergency department patient visit [facility] Start: 01-15-2022 End: 01-15-2022 ambulatory Husam Noah Other [employer] Other Start: 01-15-2022 Telephone encounter Husam Noah [facility] Start: 12-30-2021 End: 12-30-2021 ambulatory Husam Noah Other [employer] Other Start: 12-30-2021 Telephone encounter Husam Noah [facility] Start: 12-02-2021 End: 12-02-2021 ambulatory Husam Noah Other [employer] Other Start: 12-02-2021 Telephone encounter Husam Noah [facility] Start: 09-09-2021 End: 09-09-2021 ambulatory Husam Noah Other [employer] Other Start: 09-09-2021 Telephone encounter Husam Noah [facility] Start: 09-06-2021 End: 09-06-2021 ambulatory Husam Noah Other [employer] Other Start: 09-06-2021 Telephone encounter Husam Noah [facility] Start: 08-08-2021 End: 08-08-2021 ambulatory Sandra Easterwood Other [employer] Other Start: 08-08-2021 Telephone encounter Sandra Easterwood [facility] Start: 07-15-2021 End: 07-15-2021 ambulatory Husam Noah Other [employer] Other Start: 07-15-2021 Telephone encounter Husam Noah [facility] Start: 07-08-2021 End: 07-08-2021 ambulatory Husam Noah Other [employer] Other Start: 07-08-2021 Telephone encounter Husam Noah [facility] Start: 07-05-2021 End: 07-05-2021 ambulatory Husam Noah Other [employer] Other Start: 07-05-2021 Telephone encounter Husam Noah [facility] Start: 07-03-2021 End: 07-03-2021 ambulatory Husam Noah Other [employer] Other Start: 07-03-2021 Telephone encounter Husam Noah [facility] Start: 07-01-2021 Patient encounter procedure Husam M Noah Work Phone: [facility] [address] [place] Work Phone: Start: 06-25-2021 End: 06-25-2021 ambulatory Husam Noah Other [employer] Other Start: 06-25-2021 Office outpatient visit 15 minutes Husam Noah [facility] Start: 06-24-2021 End: 06-24-2021 ambulatory Husam Noah Other [employer] Other Start: 06-24-2021 Telephone encounter Husam Noah [facility] Start: 06-11-2021 AUDIT Husam M Noah Work Phone: [facility] [address] DO Work Phone: Start: 06-11-2021 Office outpatient visit 25 minutes Husam M Noah Work Phone: [facility] Work Phone: Start: 05-16-2021 End: 05-16-2021 ambulatory Husam Noah Other [employer] Other Start: 05-16-2021 Telephone encounter Husam Noah [facility] Start: 05-15-2021 End: 05-15-2021 ambulatory Husam Noah Other [employer] Other Start: 05-15-2021 Telephone encounter Husam Noah [facility] Start: 05-02-2021 End: 05-02-2021 ambulatory Husam Noah Other [employer] Other Start: 05-02-2021 Telephone encounter Husam Noah [facility] Start: 04-23-2021 End: 04-23-2021 ambulatory Husam Noah Other [employer] Other Start: 04-23-2021 Telephone encounter Husam Noah [facility] Start: 04-22-2021 End: 04-22-2021 ambulatory Husam Noah Other [employer] Other Start: 04-22-2021 Telephone encounter Husam Noah [facility] Start: 04-15-2021 End: 04-15-2021 ambulatory Husam Noah Other [employer] Other Start: 04-15-2021 Telephone encounter Husam Noah [facility] Start: 04-03-2021 End: 04-03-2021 ambulatory Husam Noah Other [employer] Other Start: 04-03-2021 Telephone encounter Husam Noah [facility] Start: 04-01-2021 End: 04-01-2021 ambulatory Husam Noah Other [employer] Other Start: 04-01-2021 Telephone encounter Husam Noah [facility] Start: 03-27-2021 End: 03-27-2021 ambulatory Husam Noah Other [employer] Other Start: 03-27-2021 Office outpatient visit 25 minutes Husam Noah [facility] Start: 03-25-2021 End: 03-25-2021 ambulatory Husam Noah Other [employer] Other Start: 03-25-2021 Telephone encounter Husam Noah [facility] Start: 03-22-2021 End: 03-22-2021 ambulatory Husam Noah Other [employer] Other Start: 03-22-2021 Telephone encounter Husam Noah [facility] Start: 03-20-2021 End: 03-21-[address] HUSAM ZAMORA Facility:[facility] Start: 03-19-2021 End: 03-19-2021 ambulatory Husam Noah Other [employer] Other Start: 03-19-2021 Office outpatient visit 15 minutes Husam Noah [facility] Start: 03-19-2021 Telephone encounter Husam Noah [facility] Start: 03-12-2021 End: 05-03-[address] COLLEEN HENDRIX Facility:[facility] Start: 02-27-2021 Office outpatient visit 15 minutes Husam Noah [facility] Start: 02-27-2021 Telephone encounter Husam Noah [facility] Start: 02-26-2021 Telephone encounter Husam Noah [facility] Start: 02-25-2021 Telephone encounter Husam Noah [facility] Start: 02-22-2021 POV, Provider: Chente Rios, Status: Pen, Time: 3:15 PM Husam Zamora Work Phone: [facility] [address] Work Phone: Start: 02-21-2021 Office outpatient ne w 60 minutes Husam M Noah Work Phone: [facility] [address] Work Phone: Start: 02-12-2021 Office outpatient visit 25 minutes Husam Noah [facility] Start: 02-08-2021 FUV, Provider: Chente Rios, Status: Pen, Time: 3:30 PM Husam M Noah Work Phone: [facility]Cwaxtrlygu[facility] [place] Work Phone: Start: 02-08-2021 Postop follow up vis it related to original px Husam M Noah Work Phone: EC-Pjcxgvjvzw-FWW [facility] [address] [place] Work Phone: Start: 02-07-2021 Patient encounter procedure Husam M Noah Work Phone: WW-Fdsrembwju-Dmjqq [place] Work Phone: Start: 01-21-2021 End: 01-30-2021 Evaluation and management of inpatient Chente Gabriel [facility] [id number] Rm [id number] Procedures Date Procedure Procedure Detail Performing Clinician Start: 03-02-2024 X-ray of lumbar spin e, four views DO Husam Noah Work Phone: Start: 03-02-2024 X-ray of left knee, three views DO Husam Noah Work Phone: Start: 07-01-2021 Echocardiography Husam M Noah Work Phone: Start: 01-30-2021 Echocardiography Start: 01-30-2021 Echocardiography Husam M Noah Work Phone: Start: 01-26-2021 Antibody screen Comment on above: Performed By: #### T +S ####[id number] [place] [address] Start: 01-26-2021 End: 01-26-2021 Arterial Full Panel -Stat Saira Lieberman Start: 01-24-2021 End: 01-24-2021 Arterial Full Panel -Stat Saira Lieberman Start: 01-23-2021 Antibody screen Comment on above: Performed By: #### T +S ####[id number] [address] Start: 01-22-2021 Echocardiography Start: 01-22-2021 Echocardiography Husam Zamora Work Phone: Start: 01-20-2021 Catheterization of l eft heart Triston Farzad Ablation Of Vaginal Lesion(S) Husam Zamora Work Phone: section Husam Stallworth les Work Phone: Cholecystectomy Triston Panda Coronary artery bypass graft Husam Zhenggles Work Phone: Gallbladder Surgery Husam M R uggles Work Phone: History of coronary artery bypass grafting S/P CABG x 3 Husam Zamora Work Phone: Comment on above: HOLLAND to LAD, SVG to OM, SVG to PDA; History Of Prior Surgery Set arina Zamora Work Phone: Comment on above: Lumpectomy; Hysterectomy Husam Zamora Work Phone: Hysterectomy Triston Panda Loop electrosurgical excision procedure Triston Greenberge Lumpectomy of left breast Roshni tarun Panda Thyroidectomy Triston Panda Plan of Treatment Date Care Activity Detail Author Start: 03-02-2024 X-ray of lumbar spin e, four views XR lumbar spine AP/LAT/FLX/EXT [facility] Start: 03-02-2024 XR Lumbar spine 4 Views [facility] Start: 03-02-2024 X-ray of left knee, three views XR knee LT 3V - NOT FOR ER USE [facility] Start: 03-02-2024 XR Knee - left 3 Views [facility] Start: 11-27-2021 FUV, Provider: Colleen Hendrix, Status: Pen, Time: 9:50 AM FUV, Provider: Colleen Hendrix, Status: Pen, Time: 9:50 AM [facility] 250 DO Work Phone: Start: 07-01-2021 ECHO, Provider: BRENDEN ORLANDO [facility] ULTRASOUND 01,[id number], Status: Pen, Time: 9:45 AM ECHO, Provider: JANNA [facility] ULTRASOUND 01,[id number], Status: Pen, Time: 9:45 AM [facility] Work Phone: Start: 06-20-2021 ECHO, Provider: BRENDEN ORLANDO [facility] ULTRASOUND 01,[id number], Status: Pen, Time: 9:45 AM ECHO, Provider: JANNA [facility] ULTRASOUND 01,[id number], Status: Pen, Time: 9:45 AM [facility] 250 DO Work Phone: Start: 06-11-2021 FUV, Provider: Colleen Hendrix, Status: Pen, Time: 8:50 AM FUV, Provider: Colleen Hendrix, Status: Pen, Time: 8:50 AM [facility] 600 DO Work Phone: Start: 02-22-2021 Patient encounter procedure [facility] Start: 02-22-2021 POV, Provider: Chente Rios, Status: Pen, Time: 3:15 PM POV, Provider: Chente Rios, Status: Pen, Time: 3:15 PM [facility] [place] Work Phone: Start: 02-21-2021 NPVRFRL, Provider: Colleen Hendrix, Status: Pen, Time: 11:00 AM NPVRFRL, Provider: Colleen Hendrix, Status: Pen, Time: 11:00 AM [facility] [place] Work Phone: Start: 02-07-2021 Patient encounter procedure Surgery Raymundo Start: 01-31-2021 End: 02-01-2022 [facility] Start: 01-30-2021 End: 01-31-2022 Perflutren Lipid Microsphere (Activated) 1.3 mL / NaCL 0.9% T.V. 10 mL Injectable . ; DOSE = 0.5 mL IntraVenous Push OnceCa.698647 mL/Kg/DOSE x 95.5 Kg = 0.5 mL/Dose (Daily Total is 0.5 mL)Clinician Notes: 1. Dilute 1.3 mL of activated DEFINITY with 8.7 mL of normal saline in a 10 mL syringe.2. Inject 0.5 mL of diluted DEFINITY when notified the images/film are unclear to enhance view of Left Ventricular borders.3. Repeat 0.5 mL of DEFINITY until clear images are obtained, not to exceed 10 mLs.4. Once images are obtained or limit of medication is reached, flush line with 10 mL of Normal Saline. Start: 30-Jan-2021 End: 30-Jan-2022 Ordered: 30-Jan-2021 Tere Wallace Intent Comments: 1. Dilute 1.3 mL of activated DEFINITY with 8.7 mL of normal saline in a 10 mL syringe.2. Inject 0.5 mL of diluted DEFINITY when notified the images/film are unclear to enhance view of Left Ventricular borders.3. Repeat 0.5 mL of DEFINITY until clear images are obtained, not to exceed 10 mLs.4. Once images are obtained or limit of medication is reached, flush line with 10 mL of Normal Saline. [facility] Comment on above: 1. Dilute 1.3 mL of activated DEFINITY with 8.7 mL of normal saline in a 10 mL syringe.2. Inject 0.5 mL of diluted DEFINITY when notified the images/film are unclear to enhance view of Left Ventricular borders.3. Repeat 0.5 mL of DEFINITY until clear images are obtained, not to exceed 10 mLs.4. Once images are obtained or limit of medication is reached, flush line with 10 mL of Normal Saline. Start: 01-25-2021 End: 01-26-2022 [facility] Comment on above: IF patient HAS a sec ure IV access & is Unconscious, Conscious, NPO or Unable to Eat or Drink. Repeat until BG reaches 100 mg/dL or greater. Push 2-3 mL/minute. Discontinue once BG reaches 100 mg/dL or greater. IF patient DOES NOT have secure IV access & is Unconscious, Conscious, NPO or Unable to Eat or Drink. Repeat until BG reaches 100 mg/dL or greater. Discontinue once BG reaches 100 mg/dL or greater. Start: 01-24-2021 End: 01-25-2022 Sodium Chloride 0.9% Injectable Flush Peripheral Line ; via Peripheral LineVolume = 1.5 mL IntraVenous Flush Every 8 Hours and as Needed Start: 24-Jan-2021 End: 24-Jan-2022 Ordered: 24-Jan-2021 Saira Lieberman Intent [facility] Start: 01-24-2021 Atherosclerosis of n ative coronary artery Atherosclerosis of [place] coronary artery Date: 24-Jan-2021 [facility] Start: 01-24-2021 Obesity Obesity Date: [facility] Start: 01-22-2021 Bruit Bruit Date: 22-Jan-2021 [facility] Start: 01-22-2021 Coronary insufficiency Coronar y insufficiency Date: 22-Jan-2021 [facility] Start: 01-22-2021 Encounter for other preprocedural examination Encounter for other preprocedural examination Date: 22-Jan-2021 [facility] Start: 01-22-2021 Peripheral vascular disease Peripheral vascular disease Date: 22-Jan-2021 [facility] Comprehensive metabo lic 2000 panel - Serum or Plasma [facility] Electromyography [facility] Estrogen [Mass/volum e] in Serum or Plasma [facility] Lutropin [Units/volu me] in Serum or Plasma [facility] Immunizations Immunization Date Immunization Notes Care Provider Tristian carias 04-13-2019 influenza, injectable, quadrivalent, contains preservative Patient Objection Husam Zamora Other Front App Other 02-15-2018 influenza, injectable, quadrivalent, contains preservative Husam M Noah Work Phone: [facility]Dbx[facility]kfydx[facility]ye [facility] [place] Work Phone: 02-15-2018 influenza, injectable, quadrivalent, preservative [facility] 07-17-2016 influenza, injectable, quadrivalent, contains preservative Patient Objection Husam Noah Other Front [facility] Other 01-29-2016 influenza, injectable, quadrivalent, contains preservative Patient Objection Husam Noah Other [facility] Other 11-09-2006 hepatitis B vaccine, adult dosage Husam M Noah Work Phone: KJ[facility]Xjozkxzrbo-Bteo n [place] Work Phone: 2006 hepatitis B vaccine, adult dosage Husam M Noah Work Phone: UP-Spkvqhkbib-Idwh n [place] Work Phone: NEGATED: Highlighted row has not occurred!04-13-2019 influenza, injectable, quadrivalent, contains preservative Patient Objection Husam Noah Other Front App Other NEGATED: Highlighted row has not occurred!07-17-2016 influenza, injectable, quadrivalent, contains preservative Patient Objection Husam Noah Other Front App Other NEGATED: Highlighted row has not occurred!01-29-2016 influenza, injectable, quadrivalent, contains preservative Patient Objection Husam Noah Other Front App Other Payers Date Payer Category Payer Self-pay [id number] 2023 Unknown 2023 Unknown [id number] 2015 Private Health Insurance [id number] 1967 Unknown [id number] [id number] 1967 Unknown [id number] [id number] [id number] 1967 Unknown [id number] 2.16.8 [id number] 1967 Unknown [id number] [id number] [id number] 1959 Private Health Insurance [id number] Unknown [id number] 2.16.8 [id number] Unknown [id number] 2.16.8 [id number] Social History Date Type Detail Facility [facility] Tobacco smoking consumption unknown [facility] Former smoker Former smoker [facility] Work Phone: Sex Assigned At Front App Other Start: 04-06-2021 End: 07-20-2023 Tobacco smoking status Ex-smoker (finding) [facility] Start: 1965 Sex Assigned At Female F [facility] Start: 04-07-2024 Sex Female (finding) [facility] Medical Equipment Procedure Code Equipment Code Equipment Origin al Text Equipment Identifier Dates Blood Glucose In Vitro Test Strips ; 1 blood sugar check 4 times a day before meals and at bedtime.[E11.65] Quantity: 120 Refills: 1 Ordered: 30-Jan-2021 Lizzy Carvalho Start: 30-Jan-2021 Generic Substitution Allowed [id number] Start: 01-30-2021 Pen [place] 31 G 8 mm ; 1 each injectable 4 times a day Quantity: 400 Refills: 2 Ordered: 30-Jan-2021 Lizzy Carvalho Start: 30-Jan-2021 End: 26-Oct-2021 Generic Substitution Allowed [id number] Start: 01-30-2021 End: 10-26-2021 Functional Status Date Assessment Result Facility 02-11-2022 Functional Status N/A [facility] Functional observable [facility] Mental Status Date Assessment Result Facility 01-29-2021 Cognitive functions 0219:38 [facility] Clinical Notes 01-21-2021 to 02-02-2024 Note Date & Type Note Facility 02-02-2024 Evaluation note Diagnosis Onset Date Resolution Diabetes mellitus type 2, controlled acute February 02, 2024 8:05am Diabetic neuropathy acute mb2023 8:05am Left knee DJD acute February 8:24am [facility] Work Phone: [phone]) 400-754906-08-2024 Evaluation + Plan note Diagnostic Tests Pending * FSH Level 10/24/23 * Luteinizing Hormone 10/24/23 * Estrogens Total 10/24/23 * Path. Review 10/24/23 [facility]08-23-2023 Evaluation note* Encounter Date Diagnosis Assessment Notes Treatment Notes Treatment Clinical Notes Dec, Acute cystitis with hematuria (ICD-10 - N30.01) [facility] Other 03-27-2023 Evaluation note* Encounter Date Diagnosis Assessment Notes Treatment Notes Treatment Clinical Notes Jul, Type 2 diabetes mellitus with hyperglycemia (ICD-10 - E11.65) [facility] Other 03-08-2023 Evaluation note* Encounter Date Diagnosis Assessment Notes Treatment Notes Treatment Clinical Notes Jul, Coronary artery disease involving [place] coronary artery of [place] heart without angina pectoris (ICD-10 - I25.10) Discussed with patient that certainly it is time to do some blood work and orders given. We will call her with results but also review these at length at her next appointment. Jul, Type 2 diabetes mellitus with hyperglycemia (ICD-10 - E11.65) Lengthy discussion with patient today that I really think a lot of her symptoms can be late at the feet of her uncontrolled diabetes. She voices agreement and understanding and has already made the proper adjustments to help this. Jul, Chronic fatigue (ICD-10 - R53.82) We will pursue some blood work, but I really think that it is the uncontrolled diabetes. Jul, Vitamin D deficiency (ICD-10 - E55.9) We will call with results and also review at next appointment. [facility] Other 01-19-2023 Evaluation note* Encounter Date Diagnosis Assessment Notes Treatment Notes Treatment Clinical Notes May, Type 2 diabetes mellitus with hyperglycemia (ICD-10 - E11.65) May, Depression with anxiety (ICD-10 - F41.8) May, Other The goal for diabetes is always to maintain a hemoglobin A1c less than 7.0%. Patient needs to monitor diet more carefully and increase activity/exercise . We will continue to monitor, and patient to make the changes discussed to diet and exercise. [facility] Other 09-27-2022 Hospital Discharge instructions Patient Education 02/11/2022 18:36:51 Knee Sprain, Adult Knee Sprain, Adult A knee sprain is a stretch or tear in a knee ligament. Knee ligaments are bands of tissue that connect bones in the knee to each other. What are the causes? This condition often results from: A fall. An injury to the knee. What are the signs or symptoms? Symptoms of this condition include: Trouble bending the leg. Swelling in the knee. Bruising around the knee. Tenderness or pain in the knee. Muscle spasms around the knee. How is this diagnosed? This condition may be diagnosed based on: A physical exam. What happened just before you started to have symptoms. Tests, including: ?An X-ray. This may be done to make sure no bones are broken. ?An MRI. This may be done to check if the ligament is torn. ?Stress testing of the knee. This may be done to check ligament damage. How is this treated? Treatment for this condition may involve: Keeping the knee still (immobilized) with a cast, brace, or splint. Applying ice to the knee. This helps with pain and swelling. Keeping the knee raised (elevated) above the level of your heart when you are resting. This helps with pain and swelling. Taking medicine for pain. Exercises to prevent or limit permanent weakness or stiffness in your knee. Surgery to reconnect the ligament to the bone or to reconstruct it. This may be needed if the ligament tore all the way. Follow these instructions at home: If you have a splint or brace: Wear the splint or brace as told by your health care provider. Remove it only as told by your health care provider. Loosen the splint or brace if your toes tingle, become numb, or turn cold and blue. Keep the splint or brace clean. If the splint or brace is not waterproof: ?Do not let it get wet. ?Cover it with a watertight covering when you take a bath or a shower. If you have a cast: Do not stick anything inside the cast to scratch your skin. Doing that increases your risk of infection. Check the skin around the cast every day. Tell your health care provider about any concerns. You may put lotion on dry skin around the edges of the cast. Do not put lotion on the skin underneath the cast. Keep the cast clean. If the cast is not waterproof: ?Do not let it get wet. ?Cover it with a watertight covering when you take a bath or a shower. Managing pain, stiffness, and swelling If directed, put ice on the injured area. ?If you have a removable splint or brace, remove it as told by your health care provider. ?Put ice in a plastic bag. ?Place a towel between your skin and the bag or between your cast and the bag. ?Leave the ice on for 20 minutes, 2 3 times a day. Gently move your toes often to avoid stiffness and to lessen swelling. Elevate the injured area above the level of your heart while you are sitting or lying down. Take vkhu-osy-rwgjpmo and prescription medicines only as told by your health care provider. General instructions Do exercises as told by your health care provider. Keep all follow-up visits as told by your health care provider. This is important. Contact a health care provider if: You have pain that gets worse. The cast, brace, or splint does not fit right. The cast, brace, or splint gets damaged. Get help right away if: You cannot use your injured joint to support any of your body weight (cannot bear weight). You cannot move the injured joint. You cannot walk more than a few steps without pain or without your knee buckling. You have significant pain, swelling, or numbness below the cast, brace, or splint. This information is not intended to replace advice given to you by your health care provider. Make sure you discuss any questions you have with your health care provider. Document Released: 05/04/2006 Document Revised: 08/26/2019 Document Reviewed: 11/21/2016 [employer] Patient Education 2019 [employer]. Follow Up Care 02/11/2022 16:11:45 With:Holland Sprague Address: [address] [place], [place] [address] Business (1) When:02/14/2022 18:32:06 [facility]07-18-2022 Evaluation note* Encounter Date Diagnosis Assessment Notes Treatment Notes Treatment Clinical Notes Nov, Bilateral hand numbness (ICD-10 - R20.0) Front [facility] Other 02-08-2022 Evaluation note* Encounter Date Diagnosis Assessment Notes Treatment Notes Treatment Clinical Notes Jun, Type 2 diabetes mellitus with hyperglycemia (ICD-10 - E11.65) E Rx sent. Due to cost concerns with the Lantus, we will try a different medication, specifically Basaglar. If this is also expensive she may need to discuss what options are available to her through her insurance. She voices agreement and understanding. Jun, Cough (ICD-10 - R05.9) Jun, Other The goal for diabetes is always to maintain a hemoglobin A1c less than 7.0%. Patient needs to monitor diet more carefully and increase activity/exercise. We will continue to monitor, and patient to make the changes discussed to diet and exercise. [facility] Other 02-07-2022 Evaluation note* Encounter Date Diagnosis Assessment Notes Treatment Notes Treatment Clinical Notes Jun, Close exposure to 2019-nCoV (ICD-10 - Z20.828) [facility] Other 11-15-2021 Evaluation note* Encounter Date Diagnosis Assessment Notes Treatment Notes Treatment Clinical Notes Mar, Neck stiffness (ICD-10 - M43.6) Mar, Acute pain of right shoulder (ICD-10 - M25.511) [facility] Other 11-10-2021 Evaluation note* Encounter Date Diagnosis Assessment Notes Treatment Notes Treatment Clinical Notes Mar, Acute pharyngitis, unspecified (ICD-10 - J02.9) E Rx sent. Patient to call if no improvement seen. Mar, Folliculitis (ICD-10 - L73.9) We again discussed at length that I still think this is a folliculitis. Should it worsen further, we may need to have patient see dermatology for review. Mar, Bilateral hand numbness (ICD-10 - R20.0) Pt to trial twice a day Lyrica - OR - could do just increased dose at night. He voices agreement and understanding. We also talked about the possibility of trialing Cymbalta. Front [facility] Other 11-02-2021 Evaluation note* Encounter Date Diagnosis Assessment Notes Treatment Notes Treatment Clinical Notes Mar, Bilateral hand numbness (ICD-10 - R20.0) [facility] Other 10-13-2021 Evaluation note* Encounter Date Diagnosis Assessment Notes Treatment Notes Treatment Clinical Notes Feb, Bilateral hand numbn ess (ICD-10 - R20.0) Will pursue EMG right away - consider seeing Ortho depending on results. Feb, Other chest pain (IC D-10 - R07.89) Feb, Pure hypercholestero lemia (ICD-10 - E78.00) Front [facility] Other 09-28-2021 Evaluation note* Encounter Date Diagnosis Assessment Notes Treatment Notes Treatment Clinical Notes Jan, Other chest pain (ICD-10 - R07.89) [facility] Rx sent. OARRs completed. Lengthy 30+ minute discussion with patient today regarding all of her current history and situation. I would make no change. I feel that her med list is certainly reasonable for her concerns. Jan, Other acute postprocedural pain (ICD-10 - G89.18) Jan, S/P CABG x 3 (ICD-10 - Z95.1) Jan, 2021 Other We did discuss her sugar to some degree and I would like her to simply monitor over the next month. Continue with the Lantus 60 and the short acting 10 mg 3 times a day. She voices agreement and understanding. Front App Other 09-15-2021 [facility]09-15-2021 Hospital Discharge instructions* Activity:activity as tolerated. Other activity instructions: Discuss starting cardiac rehab locallyat your cardiology follow- up visit. Typically starts 6-8 weeks postop after a stress test. * Labs 1 (Modify Template):Lab Test(s): Basic Metabolic Panel, CBC, MagnesiumDate To Be Drawn: once, the week following discharge, by home careCall Results To: Dr. Zamora and Dr. Hendrix * Oxygen:Other Instructions Incentive spirometer 10x/hr while awake. * Additional Orders:Blood Glucose Monitoring: before meals and at bedtime; keep a log and take to PCPVital Signs: every visit and as neededWeight: daily weights; keep a log and bring to all of your appointments * Call Provider If:Any new concerning symptoms. * Activity:- Continue to increase activity and use incentive spirometer, cough and deep breathing. - Pace activities as tolerated. Avoid heavy physical exertion and lifting. Balance rest periods with activity. - All medication refills will be obtained from the Primary Care Provider or Assembler Final. -For severe chest pain, extreme shortness of breath, coughing up frothy sputum, or fainting, GO DIRECTLY TO THE EMERGENCY ROOM OR CALL 911 IF YOU HAVE ANY OF THESE SYMPTOMS. - No pushing, pulling, or lifting objects greater than 10 pounds for 3 months (sternal precautions). - MAY shower. - MAY NOT drive for 4 to 6 weeks, until follow up visit with the surgeon. Discuss driving at your follow-up appointment. - Maintain a daily weight log. Use same scale, before breakfast, after voiding. Take the log to your follow-up appointments. - Inform Radiology of retained epicardial pacing wires if you ever need a MRI. Make an appointment with the Cardiac Surgeon if the wires ever poke out, or if you develop chronic drainage or pain from the site of the previous wires. No NSAIDs (common kwls-yev-irxylem NSAIDs are ibuprofen/Motrin/Advil, naproxen/Naprosyn/Aleve) for 3 months after cardiac surgery; ifNSAIDs needed after 3 months, clear use with product lister before starting. * Wound Instructions:- Cleanse incisions with soap and water daily. No dressing, leave open to air. No lotions, creams or tub soaks/swimming until healed. * Call Provider If:- Redness, drainage or other problems with incisions, notify the Cardiac Surgeon'soffice. - Signs and symptoms of Heart Failure: call your Assembler Final if you have weight gain of 3 pounds or more in less than 3 days; shortness of breath at rest, with activity, or when lying flat; dizziness or fainting. - Notify the Cardiac Surgeon s office of any readmission to a hospital beforeyour follow-up appointment with the Cardiac Surgeon. * Home Care Face to Face Certification:Home Care Services Needed: yesHome Care Agency: Other (with phone number)[facility]ai [phone] Disciplines Ordered: RN/LPNFace to Face Encounter Completed: yesDate of Encounter: [id number] Necessity for Homecare (based on clinical findings):Short-term correction is needed to monitor for signs and symptoms of decomposition/adverse events as s/p CABG. Patient at high risk for re-hospitalization. Homebound Status: homeboundHomebound Due to: Patient with recent cardiac surgery. Patient experiences dyspnea with minimal exertion. Ambulates limited distance. Patient has poor endurance.The totality of these findings support a considerable and taxing effort to leave home due to limited mobility and pain.Also unable to drive for 1 month due to sternal precautions. Face to Face Completed and Home Care Orders Reviewed: I certify that this patient is under my care. I have reviewed the information included in the face to face and certify that the home care services ordered are medically necessary for this patient. * Home Care Skilled Service:Home Care Skilled Service: CABG carepath, diabetes management, follow up teaching, labs, medication, weight check, wound careCABG: First Home Care Visit: Home Care to determineDiabetes Management: First Home Care Visit: Home Care to determineTeaching: First Home Care Visit: Home Care to determineLab Instructions: please see lab ordersMed Compliance: First Home Care Visit: Home Care to determineWeight Check: First Home Care Visit: Home Care to determineWound Care: [facility]: Home Care to determine, surgical incisions * Follow Up Appointment 1:Physician/Dept/Service: Dr. Husam Zamora Primary Care PhysicianScheduled Date/Time: 12-Feb-2021 09:00Location: [address] [facility]. [address], [place] [address]Xzghi Number: [phone]: Please arrive 10-15 minutes early, bring photo ID, insurance cards, discharge summary,and a list of current medications. Please call the office if you need to change this appointment. * Follow Up Appointment 2:Physician/Dept/Service: Dr. Colleen Hendrix CardiologyScheduled Date/Time: 21-Feb-2021 11:00Location: [address] [facility] [address], [facility], [address], [place] [address]Glbsq Number: [phone]: Please arrive 10-15 minutes early, bring photo ID, insurance cards, discharge summary, and a list of current medications. Please call the office if you need to change this appointment. * Follow Up Appointment 3:Physician/Dept/Service: Cardiac surgery RN - phone visitScheduled Date/Time: 07-Feb-2021 11:20Location: phone/virtual visitPhone Number: Dr Chente Rios's office [phone], opt#[phone] * Follow Up Appointment 4:Physician/Dept/Service: Chente Rios - cardiac surgeonScheduled Date/Time: 22-Feb-2021 14:15Location: [facility] - 2:15 chest xray in [facility] 5th floor radiology and 3:15 Appointment in [place] [address]Phone Number: Dr Chente Rios's office [phone], opt#3 [facility]09-09-2021 [facility]21 [facility]21 [facility] No data available for this section [facility]* Skin: [place], warm and dry. Midline sternotomy, L radial, R and L SVG incisions GIL, well approximated, no erythema or drainage. Multiple areas of ecchymosis including R thigh/groin and R upper armSurgibra in place.Eyes: Sclera clearENMT: mucous membranes moistHead/Neck: neck suppleRespiratory/Thorax: Nonlabored, fair chest expansion, diminished breath sounds bilaterally, thorax symmetric. Using IS. On room air. Sternum stable.Musculoskeletal: ROM intactGastrointestinal: Round, soft, non-tender, non-distended, +BS, +post op BM 01/28Genitourinary: voiding clear yellow without difficulty, c/o frequencyExtremities: Well perfused, trace bilateral lower extremity edema. No cyanosisNeurological: aler t and oriented x3, no focal deficitsPsychological: Appropriate mood and behaviorCardiovascular: RRR, no murmurs, 2+ equal pulses of the extremities bilaterally Tele: SR 80-90sepicardial wires cappedConstitutional: Awake and alert, oriented x3, sitting up in the chair, no acute distress, cooperative, pleasant. [facility] HospitalEvaluation noteNo InformationNoInd[facility] Coach[facility] Other Evaluation noteNoInd[facility] Regional Medical [facility] Other Evaluation note* Diagnosis Onset Date Resolution Status Diabetic neuropathy acute Type 2 diabetes mellitus with hyperglycemia acute Hot flashes noneactive Gastroenteritis noneactive [facility] Work Phone: Evaluation note* Diagnosis Onset Date Resolution Status Gastroenteritis noneactive Diabetic neuropathy acute Iron deficiency anemia acute Osteoarthritis acute Type 2 diabetes mellitus with hyperglycemia acute [facility] Work Phone: Evaluation note* Diagnosis Onset Date Resolution Status Diabetic neuropathy acute Iron deficiency anemia acute Osteoarthritis acute Type 2 diabetes mellitus with hyperglycemia acute [facility] Work Phone: Evaluation note* Diagnosis Onset Date Resolution Status Left knee pain noneactive Diabetes mellitus type 2, controlled acute Diabetic neuropathy acute [facility] Work Phone: Evaluation note* Diagnosis Onset Date Resolution Status Left knee pain noneactive Diabetes mellitus type 2, controlled acute Diabetic neuropathy acute Left knee DJD acute [facility] Work Phone: History general Narrative - Reported* Type Description Date Medical History GERD Medical History Cyst in vaginal wall Medical History HPV positive - historic Medical History PMS - severe Medical History Thrombophlebitis Medical History plantar fasciitis Medical History bone spurs Medical History stenosis Medical History scoliosis Medical History arthritis Medical History pinched nerves in shoulders Medical History achellies Medical History CAD - 01/2021 Surgical History LEEP 1992 Surgical History 1 2000 Surgical History novasure ablation 08/2009 Surgical History gall bladder Surgical History D&C Surgical History axillary incision Surgical History hysterectomy Surgical History thyroidectomy - partial 06/2015 Surgical History CABG x 3 01/2021 Hospitalization History see above Front App Other [facility] Other Hisjhbw [facility] Narrative - [facility] Other Hisvlyy general Narrative - [facility]ortedNob[facility] Other History of Present illness Narrative* She requested to be reviewed today as she was concerned about her wounds. * In general she is doing very well since the surgery and is. Shortness of with the radial artery washarvested. She was also concerned about some scabbing over the wounds. JE-Ytsmclbtyr-ODN Raymundo [address] [place] Work Phone: Hospital Discharge instructions No data available for this section [facility] note No data available for this section [facility] Reason for Referral * Reason for Referral: CABG x3 No InformationNo InformationNo InformationNo InformationNo InformationNo InformationNo InformationNo InformationNo InformationNo InformationNo InformationNo InformationNo InformationNo InformationNo InformationNo InformationNo InformationNo InformationNo InformationNo InformationNo InformationNo InformationNo InformationNo InformationNo InformationNo InformationNo InformationNo InformationNo InformationNo InformationNo InformationNo Information No data available for this section No InformationNo InformationNo InformationNo InformationNo InformationNo InformationNo InformationNo InformationNo InformationNo InformationNo InformationNo InformationNo InformationNo InformationNo InformationNo InformationNo InformationNo InformationNo Information No data available for this career consultant Complaint * A telephone visit (audio only) between the patient (at the originating site) and the provider (at the distant site) was utilized to provide this telehealth service. * Patient is having a cardiac surgery nurse visit via phone call following hospital discharge on January 30, 2021. Patient is here for a wound check s/p CABG x 3 on Jan 24, 2021. MAYCO Montes, RN.* FCO CONROY is being seen for New Patient. * Patient is a new patient to be followed in the office after having acute ST elevation anterior myocardial infarction on January 19, 2021 and was transferred from [facility] to [facility] and underwent three-vessel coronary artery bypass surgery by means of HOLLAND graft to the LAD, left radial artery bypass to marginal and saphenous vein graft to the right coronaryartery and the PDA. Her EF at that time was 45% by echocardiogram. The surgery was complicated by wound infection in the sternum which eventually healed and currently has healing wound in the left radial artery harvest site. The patient quit smoking the day of the event and has not been back to smoking and has no desire to do that anymore. She is known to be diabetic for nearly 15 years on medical therapy along with hypertension and dyslipidemia. She does have family history of diabetes. She issignificantly obese with a BMI of 35 kg/m . The patient is scheduled tomorrow to be seen by cardiacsurgery at [facility] for follow-up. Her EKG today revealed normal sinus rhythm with a heart rate in the upper 90s. Her cardiac summation is normal her lungs sounded normal and currently there is no oozing from the left radial artery harvest site. Sternal wounds have healed nicely. She co mplains of healing pains in the chest and reassurance is provided in that regard. Also since surgery she has numbness in her hands which I believe is related to trauma to the brachial plexus bilaterally during surgery which would likely be reversible over time. Her pulses are normal her hands are warm and the feet are warm. Her medical therapy was reviewed. Long-term therapy for secondary prevention of CAD were emphasized and discussed at length with the patient and her . * Assessment/recommendations: * 1 severe three-vessel coronary artery disease status post coronary artery bypass surgery January 2021 at [facility] using HOLLAND graft to LAD, left radial artery to left circumflex and saphenous vein graft to PDA. The patient was educated extensively on secondary prev ention for CAD. Currently she is stable and present medical therapy will be left unchanged. She will be enrolled in cardiac rehab at [facility] at her request. She is not allowed to drive yet.She will get the clearance from thoracic/cardiac surgery during next visit tomorrow. * 2 mild asymptomatic left ventricular systolic dysfunction, ejection fraction 45% by echocardiogram January 2021. Over time this may improve and currently she is on both beta-blockers and AGUSTINA inhibitors. The dose is small but will be titrated as tolerated down the road. * 3 longstanding diabetes with no evidence of retinopathy, neuropathy or nephropathy. This is been managed by PCP. * 4 hyperlipidemia on maximal dose atorvastatin. Patient was advised that her LDL cholesterol should be between 55 and 70 and more aggressive therapy will be provided if necessary. * 5 hypertension, currently under control * 6 longstanding history of tobacco abuse ended January 2021 with no plan to go back to smoking * 7 significant obesity. Patient was advised that her weight is come down with lifestyle modifications including aggressive dieting and exercise. * 8 infection at the site of left radial artery graft harvest, currently there is no bruising and thepatient will see surgery tomorrow. 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 * The patient will be back in the office in 3 months * FCO CONROY is being seen for a 3 month follow-up of. * Patient came back to the office for follow-up her last visit back in February and has had no events since except for developing COVID-19 infection which was mild. She finished cardiac rehab she is currently back working full-time in a [employer] in [place]. She is motivated lost 3 pounds with a plan to lose more. She denies any palpitations, chest pain or dyspnea. She feels great and has been compliant medical therapy. She had blood work since her last visit which we requested from PCP. She tolerated medical therapy without any problems. Apart from obesity physical examination was unremarkable. Her medical therapy was reviewed with her. She is known to have mild left ventricular systolic dysfunction at 45%, repeat echocardiogram will be scheduled * Assessment/recommendations: * 1 severe three-vessel coronary artery disease status post coronary artery bypass surgery January 2021 at [facility] using HOLLAND graft to LAD, left radial artery to left circumflex and saphenous vein graft to PDA. The patient was educated extensively on secondary prev ention for CAD. Currently she is stable and present medical therapy will be left unchanged. * 2 mild asymptomatic left ventricular systolic dysfunction, ejection fraction 45% by echocardiogram January 2021. A follow-up echocardiogram is scheduled * 3 longstanding diabetes with no evidence of retinopathy, neuropathy or nephropathy. This is been managed by PCP. * 4 hyperlipidemia on maximal dose atorvastatin. Target LDL 55-70, will retrieve recent lab done through PCP and make some determination on medical therapy * 5 hypertension, currently under control on a small dose of AGUSTINA inhibitor plus beta-javier therapy. * 6 longstanding history of tobacco abuse ended January 2021 with no plan to go back to smoking * 7 significant obesity. Patient was advised that her weight is come down with lifestyle modifications including aggressive dieting and exercise. 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 * The patient will be back in the office in 6 months Family History No Family History Records FoundUnknown Family Member Name Dates Details Family history of lung cance r: Father(V16.1, Z80.1) Status:Active Family history of diabetes m ellitus: Father, Sister(V18.0, Z83.3) Status:Active Family history of arthritis: Father, Mother, Brother, Sister(V17.7, Z82.61) Status:Active Family history of coronary a rtery disease: Father(V17.3, Z82.49) Status:Active Family history of thyroid di sease: Mother(V18.19, Z83.49) Status:Active Family history of chronic ob structive pulmonary disease: Mother, Sister(V17.6, Z82.5) Status:Active Family history of cerebrovas cular accident (CVA): Mother(V17.1, Z82.3) Status:Active Family history of Graves' di sease: Brother(V18.19, Z83.49) Status:Active Family history of cardiac ar rest: Sister(V17.49, Z82.49) Status:Active Unknown Family Member Name Dates Details Family history of lung cance r: Father(V16.1, Z80.1) Status:Active Family history of diabetes m ellitus: Father, Sister(V18.0, Z83.3) Status:Active Family history of arthritis: Father, Mother, Brother, Sister(V17.7, Z82.61) Status:Active Family history of coronary a rtery disease: Father(V17.3, Z82.49) Status:Active Family history of thyroid di sease: Mother(V18.19, Z83.49) Status:Active Family history of chronic ob structive pulmonary disease: Mother, Sister(V17.6, Z82.5) Status:Active Family history of cerebrovas cular accident (CVA): Mother(V17.1, Z82.3) Status:Active Family history of Graves' di sease: Brother(V18.19, Z83.49) Status:Active Family history of cardiac ar rest: Sister(V17.49, Z82.49) Status:Active Unknown Family Member Name Dates Details Family history of lung cance r: Father(V16.1, Z80.1) Status:Active Family history of diabetes m ellitus: Father, Sister(V18.0, Z83.3) Status:Active Family history of arthritis: Father, Mother, Brother, Sister(V17.7, Z82.61) Status:Active Family history of coronary a rtery disease: Father(V17.3, Z82.49) Status:Active Family history of thyroid di sease: Mother(V18.19, Z83.49) Status:Active Family history of chronic ob structive pulmonary disease: Mother, Sister(V17.6, Z82.5) Status:Active Family history of cerebrovas cular accident (CVA): Mother(V17.1, Z82.3) Status:Active Family history of Graves' di sease: Brother(V18.19, Z83.49) Status:Active Family history of cardiac ar rest: Sister(V17.49, Z82.49) Status:Active Unknown Family Member Name Dates Details Family history of lung cance r: Father(V16.1, Z80.1) Status:Active Family history of diabetes m ellitus: Father, Sister(V18.0, Z83.3) Status:Active Family history of arthritis: Father, Mother, Brother, Sister(V17.7, Z82.61) Status:Active Family history of coronary a rtery disease: Father(V17.3, Z82.49) Status:Active Family history of thyroid di sease: Mother(V18.19, Z83.49) Status:Active Family history of chronic ob structive pulmonary disease: Mother, Sister(V17.6, Z82.5) Status:Active Family history of cerebrovas cular accident (CVA): Mother(V17.1, Z82.3) Status:Active Family history of Graves' di sease: Brother(V18.19, Z83.49) Status:Active Family history of cardiac ar rest: Sister(V17.49, Z82.49) Status:Active Unknown Family Member Name Dates Details Family history of cardiac ar rest: Sister(V17.49, Z82.49) Status:Active Family history of Graves' di sease: Brother(V18.19, Z83.49) Status:Active Family history of cerebrovas cular accident (CVA): Mother(V17.1, Z82.3) Status:Active Family history of chronic ob structive pulmonary disease: Mother, Sister(V17.6, Z82.5) Status:Active Family history of thyroid di sease: Mother(V18.19, Z83.49) Status:Active Family history of coronary a rtery disease: Father(V17.3, Z82.49) Status:Active Family history of arthritis: Father, Mother, Brother, Sister(V17.7, Z82.61) Status:Active Family history of diabetes m ellitus: Father, Sister(V18.0, Z83.3) Status:Active Family history of lung cance r: Father(V16.1, Z80.1) Status:Active Unknown Family Member Name Dates Details Family history of cardiac ar rest: Sister(V17.49, Z82.49) Status:Active Family history of Graves' di sease: Brother(V18.19, Z83.49) Status:Active Family history of cerebrovas cular accident (CVA): Mother(V17.1, Z82.3) Status:Active Family history of chronic ob structive pulmonary disease: Mother, Sister(V17.6, Z82.5) Status:Active Family history of thyroid di sease: Mother(V18.19, Z83.49) Status:Active Family history of coronary a rtery disease: Father(V17.3, Z82.49) Status:Active Family history of arthritis: Father, Mother, Brother, Sister(V17.7, Z82.61) Status:Active Family history of diabetes m ellitus: Father, Sister(V18.0, Z83.3) Status:Active Family history of lung cance r: Father(V16.1, Z80.1) Status:Active Unknown Family Member Name Dates Details Family history of lung cance r: Father(V16.1, Z80.1) Status:Active Family history of diabetes m ellitus: Father, Sister(V18.0, Z83.3) Status:Active Family history of arthritis: Father, Mother, Brother, Sister(V17.7, Z82.61) Status:Active Family history of coronary a rtery disease: Father(V17.3, Z82.49) Status:Active Family history of thyroid di sease: Mother(V18.19, Z83.49) Status:Active Family history of chronic ob structive pulmonary disease: Mother, Sister(V17.6, Z82.5) Status:Active Family history of cerebrovas cular accident (CVA): Mother(V17.1, Z82.3) Status:Active Family history of Graves' di sease: Brother(V18.19, Z83.49) Status:Active Family history of cardiac ar rest: Sister(V17.49, Z82.49) Status:Active Relationship Condition Age at Onset Recorded Date/T rama father Diabetes mellitus Unknown Unknown Malignant neoplasm Unknown Not Specified Unknown sister Heart disease Unknown Diabetes mellitus Unknown Relationship Condition Age at Onset Recorded Date/T rama father Diabetes mellitus Unknown Unknown Malignant neoplasm Unknown mother Unknown sister Heart disease Unknown Diabetes mellitus Unknown Summary Purpose Advance Directives No Advanced Directives Records Found Advance Directive Response Recorded Date/ Time Advance Directives No December 14 11:28am Advance Directive Response Recorded Date/ Time Advance Directives No December 14 10:28am Chief Complaint and Reason for Visit Chief Complaint Amb Documentation follow up *LAB* diagnosed with flu on Reason for Visit Diabetic neuropathy Type 2 diabetes mellitus with hyperglycemia Hot flashes Gastroenteritis Chief Complaint *LAB* diagnosed with flu on 3 month follow up Reason for Visit Gastroenteritis Diabetic neuropathy Iron deficiency anemia Osteoarthritis Type 2 diabetes mellitus with hyperglycemia Chief Complaint 3 month follow up Amb Documentation would like Left knee injection Reason for Visit Diabetic neuropathy Iron deficiency anemia Osteoarthritis Type 2 diabetes mellitus with hyperglycemia Chief Complaint Amb Documentation would like Left knee injection Amb Documentation 3 month Reason for Visit Left knee pain Diabetes mellitus type 2, controlled Diabetic neuropathy Chief Complaint Amb Documentation would like Left knee injection Amb Documentation 3 month M25.562 - Pain in left knee CONSULT DR. NOAH GARCIA KNEE PAIN, NX Reason for Visit Left knee pain Diabetes mellitus type 2, controlled Diabetic neuropathy Left knee DJD Chief Complaint Admit Date 3 month February 02, 2024 8:05am M25.562 - Pain in left knee February 6:21am CONSULT DR. NOAH GARCIA KNEE PAIN, NX Oct armen 2023 8:24am R20.0 R20.2 April 06, 2024 8:21am Reason for Visit Admit Date Diabetes mellitus type 2, controlled Sep tember 2023 8:05am Diabetic neuropathy February 02, 2024 8:05am Left knee DJD March 02, 2024 8 :24am Additional Source Comments <item> Privacy Markings (unrecogniz ed section and content) Section Author: Lakeisha Aranda PROHIBITION ON REDISCLOSURE OF CONFIDENTIAL INFORMATION This notice accompanies a disclosure of information concerning a client made to you with the consent of such client. INFORMATION SOURCE (unrecogn ized section and content) DATE CREATED AUTHOR 05/04/2021 [facility] DATE CREATED AUTHOR AUTHOR'S ORGANIZ ATION 06/12/2021 [facility] DATE CREATED AUTHOR AUTHOR'S ORGANIZ ATION 07/02/2021 [facility] DATE CREATED AUTHOR AUTHOR'S ORGANIZ ATION 12/03/2021 [facility] DATE CREATED AUTHOR AUTHOR'S ORGANIZ ATION 10/25/2023 [facility] DATE CREATED AUTHOR AUTHOR'S ORGANIZ ATION 10/29/2023 [facility] DATE CREATED AUTHOR AUTHOR'S ORGANIZ ATION 04/12/2024 [facility] DATE CREATED AUTHOR AUTHOR'S ORGANIZ ATION 04/17/2024 [facility] REASON FOR VISIT (unrecogniz ed section and content) Hospital follow up/ [facility] for [facility]ref[facility] Dischargenumbness in fingers of right hand, left hand is also numb but not as severe as the right- feels like I fell asleep on my hands 08/12 , incision on chest came open last night and started bleeding, tender spot on chest, Refill Lisinopril, Humalog, Metoprolol, Atorvastatin, Plavix-Ad[facility], [facility], would like refill of oxycodoneEMG referralRefill LyricaRefill HumalogPatient QuestionsCough, scratchy throat x 1 day, rash on stomach and several other areasClinical Acute IllnessClinical Acute IllnessRefill januvialyrica updateFlexeril RxClinical Acute IllnessClinical Acute Medicine3 month Follow upsee in lab, needs [id number] metoprololCovid Test Reqrefills severalrefill esomeprazolerefill cyclobenzaprineClinical Acute Illnessrefill duloxetinerefill Cymbaltarefill nexiumrefills severalrefill duloxitinerefill flexerilrefill nexiumClinical Acute Illnessrefill duloxetineRefill Flexerilrefill flexerilrefill lipitor, cyclobenzaprineRefillrefill cyclobenzaprinefollow up, hasn't started either insulin because of cost.. but says she can start soon now.. wants to see if there's another alternative for januvia.. hasn't taken d/t finances as well, has yeast infection d/t sugars being high she says- wants diflucan to [facility], a couple months ago she had something going on with her right leg- no injury noted- but not long after that she was walking down 2 steps and heard a pop in my right knee saw ortho and received steroid injection into right knee and helped greatlyrefill duloxetineDiscuss physical and mental concerns, she is having hard time focusing_ _ she has always been prioritized and last month, very scatter brained . making silly mistakes at work that she normally wouldn't make- she is dealing with some type of depression_ _ this is not her normal as well. she also is waking up in the middle of night, feels like my ankle joints are frozen .. can't move/ stuck.. and sometimes intense luigi horse pain in her calves.. lasts 5 minutes or longer even when standing/ walking- this is more frequent than ever, even though has had before in past, arms/ legs hurt sometimes.. she will wake up feeling like she's run a marathonrefill cyclobenzaprinerefill actosrefill flexeril, lipitorrefills severalrefill cymbalta 30 mgseveral issuesCall Back RequestCall Back Req Care Team (unrecognized sect ion and content) Team Status: Active Member Role Status Dates Husam Zamora , DO Primary Care Provider Active Team Status: Inactive Member Role Status Dates Husam Zamora DO Primary Care Provid er, Attending Provider Active Start: February 02, 2024 End: February 02, 2024 Team Status: Inactive Member Role Status Dates Husam Zamora DO Primary Care Provider Active Start: March 02, 2024 End: March 02, 2024 Mario Sánchez , Attending Provider Active S tart: March 02, 2024 End: March 02, 2024 Team Status: Inactive Member Role Status Dates Husam Zamora DO Primary Care Provider Active Start: April 06, 2024 End: April 06, 2024 Mario Sánchze DO Attending Provider Active S tart: April 06, 2024 End: April 06, 2024 Team Status: Active Member Role Status Dates Husam Zamora DO Primary Care Provider Active Start: July 20, 2023 Sridhar Atkins LPN Attending Provider Active St art: July 20, 2023 Team Status: Inactive Member Role Status Dates Husam Zamora DO Primary Care Provid er, Attending Provider Active Start: July 20, 2023 End: July 20, 2023 Team Status: Active Member Role Status Dates Husam Zamora DO Primary Care Provid er, Attending Provider Active Start: September 10, 2023 Team Status: Inactive Member Role Status Dates Husam Zamora DO Primary Care Provid er, Attending Provider Active Start: September 14, 2023 End: September 14, 2023 Team Status: Active Member Role Status Dates Husam Zamora DO Primary Care Provid er, Attending Provider Active Start: October 24, 2023 Team Status: Inactive Member Role Status Dates Husam Zamora DO Primary Care Provid er, Attending Provider Active Start: November 02, 2023 End: November 02, 2023 Team Status: Active Member Role Status Dates Husam Zamora , Primary Care Provider Active Start: December 28, 2023 Sridhar Atkins LPN Attending Provider Active St art: December 28, 2023 Team Status: Inactive Member Role Status Dates Husam Zamora DO Primary Care Provid er, Attending Provider Active Start: December 31, 2023 End: December 31, 2023 Team Status: Active Member Role Status Dates Husam Zamora DO Primary Care Provider Active Start: January 05, 2024 Sridhar Atkins LPN Attending Provider Active St art: January 05, 2024 Team Status: Active Member Role Status Dates Husam Zamora DO Primary Care Provider Active Start: March 02, 2024 Mario Sánchez , Attending Provider Active S tart: March 02, 2024 Goals (unrecognized section and content) Goals may be documented in a n alternate section FOR RECORDS PERTAINING TO PATIENTS WHO ARE OR HAVE BEEN ENROLLED IN A CHEMICAL DEPENDENCY/SUBSTANCEABUSE PROGRAM, SOME INFORMATION MAY BE OMITTED. This clinical summary was aggregated from multiple sources. Caution should be exercised in using it in the provision of clinical care. This summary normalizes information from multiple sources, and as a consequence, information in this document may materially change the coding, format and clinical context of patient data. In addition, data may be omitted in some cases. CLINICAL DECISIONS SHOULD BE BASED ON THE PRIMARY CLINICAL RECORDS. [employer] [facility]. provides no warranty or guarantee of the accuracy or completeness of information in this document.
[2024-05-18] MEDS: DICYCLOMINE HCL 20 MG/2 ML VIAL IM (01:03)
[2024-05-18 01:13] LABS: Basophils Percent Auto 0.4 % (0.2-2.0); Eosinophils Percent Auto 0.1 % (0.9-7.0); Hematocrit 44.7 % (36.0-48.0); Hemoglobin 14.4 g/dL (12.0-16.0); Immature Granulocytes Abs Auto 0.04 10^3/uL (0.00-0.03); Immature Granulocytes Pct Auto 0.4 % (0.0-0.5); Lymphocytes Absolute Auto 1.2 10^3/uL (1.2-3.8); Lymphocytes Percent Auto 12.1 % (20.5-60.0); Mean Corpuscular HGB Conc 32.2 g/dL (29.9-35.2); Mean Corpuscular Hemoglobin 27.7 pg (26.7-34.0); Mean Corpuscular Volume 86.1 fL (81.0-99.0); Monocytes Absolute Auto 0.2 10^3/uL (0.3-0.8); Neutrophils Absolute Auto 8.4 10^3/uL (1.4-6.5); Platelet Count 311 10^3/uL (150-450); Red Blood Count 5.19 10^6/uL (4.20-5.40); Red Cell Distribution Width 14.1 % (11.0-15.0); White Blood Count 9.8 10^3/uL (4.0-11.0)
[2024-05-18] MEDS: HYDROMORPHONE HCL 0.5 MG/0.5 ML SYRINGE IV ×2 (01:14→02:29)
[2024-05-18] MEDS: ONDANSETRON PF 4 MG/2 ML VIAL IV ×2 (01:19→02:28)
[2024-05-18 01:24] LABS: Alanine Aminotransferase 19 U/L (14-59); Albumin Globulin Ratio 0.9; Albumin Level 3.8 g/dL (3.4-5.0); Alkaline Phosphatase 96 U/L (46-116); Anion Gap 16.2; Aspartate Amino Transferase 12 U/L (15-37); BUN Creatinine Ratio 18.8; Bilirubin Total 0.4 mg/dL (0.2-1.0); Calcium 9.3 mg/dL (8.5-10.1); Carbon Dioxide 25.8 mmol/L (21.0-32.0); Chloride 100 mmol/L (98-107); Estimated GFR (African America >60 (>=60 mL/min/1.73m^2); Estimated GFR (Non-African Ame >60 (>=60 mL/min/1.73m^2); Globulin 4.3 g/dL; Glucose 258 mg/dL (74-106); Sodium 138 mmol/L (136-145); Total Protein 8.1 g/dL (6.4-8.2)
[2024-05-18] MEDS: PROMETHAZINE HCL 12.5 MG in 0.9 % SODIUM CHLORIDE 50 ML 202 MG IV ×2 (01:24→04:47)
[2024-05-18] MEDS: 0.9 % SODIUM CHLORIDE 1,000 ML 1000 ML IV (01:33)
[2024-05-18] MEDS: FAMOTIDINE/PF 20 MG/2 ML VIAL IV (01:34)
--- NOTE | 2024-05-18 01:45 | CT_ITS ---
[place] [id number] Patient Name: FCO CONROY MRN: [id number] date: 1965 Sex: F Assigned Patient Location: ER Current Patient Location: Accession/Order Number: [id number] Exam Date: 05/18/2024 02:00 Report Date: 05/18/2024 02:56 At the request of: SAJI MIKE Procedure: CT abdomen pelvis w con EXAMINATION: CT abdomen pelvis w con HISTORY: upper abd pain , epigastric pain, nausea and vomiting COMPARISON: No relevant comparison available. TECHNIQUE: Axial, Coronal, and Sagittal images were obtained without and/or with IV contrast as indicated by examination type. Dose reduction techniques were achieved by using automated exposure control and/or adjustment of mA and/or kV according to patient size and/or use of iterative reconstruction technique. FINDINGS: LUNG BASES: No visible pulmonary or pleural disease. LIVER: No enlargement, atrophy, suspicious density, or significant focal lesion. BILIARY: Cholecystectomy. PANCREAS: No lesion, fluid collection, or abnormal duct dilatation. SPLEEN: No enlargement or focal lesion. ADRENALS: No mass or enlargement. KIDNEYS: No mass, obstruction, or calcification. BOWEL/MESENTERY: Relatively empty colon. Slight wall thickening of distal colon, likely due to lack of distention. No visible mass, obstruction, or bowel wall thickening. AORTA/VASCULAR: No aneurysm or dissection. RETROPERITONEUM: No mass or adenopathy. LYMPH NODES: No adenopathy. URINARY BLADDER: No visible focal wall thickening, lesion, or calculus. PELVIC ORGANS: Hysterectomy. ABDOMINAL WALL: No mass or hernia. BONES: No bony lesion or fracture. OTHER: Negative. CT/CT abdomen pelvis w con IMPRESSION: 1. Relatively empty colon. Slight wall thickening of distal colon suspected to be due to lack of distention. Mild colitis cannot be completely excluded. 2. No suspicious upper abdominal findings to account for patient's symptoms. Electronically authenticated by: NAMITA CHANG Date: 05/18/2024 02:56
[2024-05-18 01:48] LABS: Bilirubin Urine NEGATIVE (NEGATIVE); Blood Urine SMALL (NEGATIVE); Clarity Urine CLEAR (CLEAR); Color Urine LT. YELLOW (YELLOW); Glucose Urine UA 250 mg/dL (NEGATIVE); Ketones Urine NEGATIVE (NEGATIVE); Leukocyte Esterase Urine NEGATIVE (NEGATIVE); Nitrite Urine NEGATIVE (NEGATIVE); Protein Urine NEGATIVE (NEG/TRACE); Specific Gravity Urine 1.015 (1.005-1.025); Urobilinogen Urine 0.2 EU/dL (0.2-1.0)
[2024-05-18 01:50] LABS: Urine Microscopic Indicated YES
[2024-05-18 02:01] LABS: Bacteria Urine NONE SEEN #/HPF (NONE SEEN); Cast Seen? NONE SEEN #/LPF (NONE SEEN); Crystals Seen? None Seen #/HPF (None Seen); Mucus Urine NONE SEEN (NONE SEEN); RBC Urine 0-2 #/HPF (0-2); Squamous Epithelial Cell Urine RARE #/LPF (NONE/RARE); WBC Urine 0-2 #/HPF (NONE SEEN)
[2024-05-18 02:04] VITALS: O2SAT 98
[2024-05-18] MEDS: KETOROLAC TROMETHAMINE 30 MG/ML VIAL 15 MG IVP (02:28)
--- NOTE | 2024-05-18 05:24 | ED_ITS ---
HPI HPI - General Adult General Chief complaint: Abdominal Pain Stated complaint: VOMITTING/ABDOMINAL PAIN/ FEVER Time Seen by Provider: 05/18/24 00:33 Source: patient and family Mode of arrival: walk-in History of Present Illness HPI narrative: 58-year-old female to the emergency department with chief complaint of nausea, vomiting. Symptoms began suddenly this evening. She reports that she ate out at a restaurant and then a few hours later developed severe cramping abdominal pain associate with nausea vomiting and episode of diarrhea. It has been persistent since onset however. She did recently increase her Ozempic dose 3 days ago. She denies any fever, sweats, chills. No chest pain or shortness of breath. Related Data Home Medications ?Medication ?Instructions ?Recorded ?Confirmed cyclobenzaprine 5 mg tablet 5 mg PO TID 09/10/23 05/18/24 esomeprazole magnesium 40 mg 40 mg PO DAILY 09/10/23 05/18/24 capsule,delayed release lisinopril 2.5 mg tablet 2.5 mg PO DAILY 09/10/23 05/18/24 pioglitazone 30 mg tablet 30 mg PO DAILY 09/10/23 05/18/24 Previous Rx's ?Medication ?Instructions ?Recorded dicyclomine 10 mg capsule 10 mg PO QID PRN abdominal pain 05/18/24 #12 caps ondansetron 4 mg disintegrating 4 mg PO Q8H PRN nausea and 05/18/24 tablet vomiting 4 days #16 tabs promethazine 25 mg rectal 25 mg AR Q6H PRN nausea and 05/18/24 suppository vomiting #12 ea Allergies Allergy/AdvReac Type Severity Reaction Status Date / Time sulfamethoxazole (From AdvReac Mild Hives Verified 05/18/24 00:42 Bactrim) trimethoprim (From Bactrim) AdvReac Mild hives Verified 05/18/24 00:42 Opioid HPI Opioid Management Most Recent Opioid Data: Last Pain Scale 9 05/18/24 02:29 05/18/24 Last ED Pain Assessment 05/18/24 02:04 Last MAR Pain Assessment 05/18/24 02:29 Review of Systems ROS Status of ROS 10 or more systems reviewed and unremark able except as noted in history and below PFSH PFSH Social History Little interest or pleasure in doing things: not at all Feeling down, depressed, or hopeless: not at all Exam Narrative Exam Narrative: VITALS: I have reviewed the triage vital signs. GENERAL: Vomiting adult female NEURO: Alert and oriented. Moves all extremities. Face is symmetric and expressive. EYES: PERRL. No scleral icterus or conjunctival injection. No discharge. HENT: Normocephalic, atraumatic. Hearing is grossly intact. Nares grossly patent and without discharge. Mucous membranes moist. NECK: No JVD. Patient moves neck without restriction. CARDIO: Rhythm regular. Normal rate. No murmur, rub, or gallop. Pulses equal bilaterally in the upper and lower extremity. No lower extremity edema. PULM: Lungs clear to auscultation in all watson. No wheezes, rales, or rhonchi. No conversational dyspnea. No splinting, stridor, or accessory muscle use. GI/: Mild epigastric tenderness. Normoactive bowel sounds. EXTREMITIES: Symmetric muscle bulk. No joint swelling. No clubbing, cyanosis, or deformity. SKIN: Warm and dry. Normal turgor. No rash or lesions appreciated. PSYCH: Mood, affect, and interaction is appropriate to the setting. Constitutional Vital Signs, click to edit/add: Last Vital Signs Temp 98.2 F 05/18/24 00:31 Pulse 92 H 05/18/24 00:31 Resp 18 05/18/24 00:31 BP 146/96 H 05/18/24 00:31 Pulse Ox 98 05/18/24 02:04 O2 Del Method Room Air 05/18/24 02:04 Course Vital Signs Vital signs: Vital Signs Temperature 98.2 F 05/18/24 00:31 Pulse Rate 92 H 05/18/24 00:31 Respiratory Rate 18 05/18/24 00:31 Blood Pressure 146/96 H 05/18/24 00:31 Pulse Oximetry 99 05/18/24 00:31 Oxygen Delivery Method Room Air 05/18/24 00:31 Temperature 98.2 F 05/18/24 00:31 Pulse Rate 92 H 05/18/24 00:31 Respiratory Rate 18 05/18/24 00:31 Blood Pressure 146/96 H 05/18/24 00:31 Pulse Oximetry 98 05/18/24 02:04 Oxygen Delivery Method Room Air 05/18/24 02:04 Medical Decision Making [facility] Narrative Medical decision making narrative: 58-year-old female to the emergency department with chief complaint of nausea vomiting abdominal pain. Vital stable, the patient is afebrile. She has some tenderness in her upper abdomen. CT scan, basic labs. Patient agrees with this plan. Zofran, Dilaudid, Pepcid, Bentyl for symptoms. Symptoms or not controlled with above regimen. Phenergan was added. Lab work reviewed and noted. CBC and chemistry without major abnormality. Lipase is normal. CT scan of her abdomen pelvis without any acute findings. P.o. challenge was attempted however she remains significantly nauseous. Additional dose of Phenergan and pain medication was given. Patient was eventually able to tolerate p.o. challenge. She would like discharge home. I did offer admission given the significant amount of medications it took to get her symptoms controlled. We discussed food poisoning versus gastroenteritis versus Ozempic side effects or a combination of the above. Zofran, Bentyl, Phenergan were prescribed for home. Return precautions were discussed. All questions were answered. The patient was discharged home at her request. Medical Records Medical records reviewed: Yes I reviewed the patient's medical records Lab Data Lab results reviewed: Yes I reviewed the patient's lab results Labs: Lab Results 05/18/24 05/18/24 Range/Units 01:00 01:32 WBC 9.8 (4.0-11.0) 10^3/uL RBC 5.19 (4.20-5.40) 10^6/uL Hgb 14.4 (12.0-16.0) g/dL Hct 44.7 (36.0-48.0) % MCV 86.1 (81.0-99.0) fL MCH 27.7 (26.7-34.0) pg MCHC 32.2 (29.9-35.2) g/dL RDW 14.1 (11.0-15.0) % Plt Count 311 (150-450) 10^3/uL MPV 10.0 (9.5-13.5) fL Neut % (Auto) 85.0 H (43.0-75.0) % Lymph % (Auto) 12.1 L (20.5-60.0) % [place] % (Auto) 2.0 (1.7-12.0) % Eos % (Auto) 0.1 L (0.9-7.0) % Baso % (Auto) 0.4 (0.2-2.0) % Neut # (Auto) 8.4 H (1.4-6.5) 10^3/uL Lymph # (Auto) 1.2 (1.2-3.8) 10^3/uL [place] # (Auto) 0.2 L (0.3-0.8) 10^3/uL Eos # (Auto) 0.0 (0.0-0.7) 10^3/uL Baso # (Auto) 0.0 (0.0-0.1) 10^3/uL Abs Immat Gran (auto) 0.04 H (0.00-0.03) 10^3/uL Imm/Tot Granulo (auto) 0.4 (0.0-0.5) % Sodium 138 (136-145) mmol/L Potassium 4.0 (3.5-5.1) mmol/L Chloride 100 (98-107) mmol/L Carbon Dioxide 25.8 (21.0-32.0) mmol/L Anion Gap 16.2 BUN 13.0 (7.0-18.0) mg/dL Creatinine 0.69 (0.55-1.02) mg/dL Est GFR ( Amer) >60 (>=60 mL/min/1.73m^2) Est GFR (Non-Af Amer) >60 (>=60 mL/min/1.73m^2) BUN/Creatinine Ratio 18.8 Glucose 258 H (74-106) mg/dL Calcium 9.3 (8.5-10.1) mg/dL Total Bilirubin 0.4 (0.2-1.0) mg/dL AST 12 L (15-37) U/L ALT 19 (14-59) U/L Alkaline Phosphatase 96 (46-116) U/L Total Protein 8.1 (6.4-8.2) g/dL Albumin 3.8 (3.4-5.0) g/dL Globulin 4.3 g/dL Albumin/Globulin Ratio 0.9 Lipase 32.0 (16.0-77.0) U/L Urine Color Lt. yellow (YELLOW) Urine Clarity Clear (CLEAR) Urine pH 6.0 (5.0-9.0) Ur Specific [place] 1.015 (1.005-1.025) Urine Protein Negative (NEG/TRACE) mg/dL Urine Glucose (UA) 250 A (NEGATIVE) mg/dL Urine Ketones Negative (NEGATIVE) mg/dL Urine Occult Blood Small A (NEGATIVE) Urine Nitrite Negative (NEGATIVE) Urine Bilirubin Negative (NEGATIVE) Urine Urobilinogen 0.2 (0.2-1.0) EU/dL Ur Leukocyte Esterase Negative (NEGATIVE) Urine RBC 0-2 (0-2) #/HPF Urine WBC 0-2 A (NONE SEEN) #/HPF Ur Squamous Epith Cells Rare (NONE/RARE) #/LPF Urine Crystals None seen (None Seen) #/HPF Urine Bacteria None seen (NONE SEEN) #/HPF Urine Casts None seen (NONE SEEN) #/LPF Urine Mucus None seen (NONE SEEN) Imaging Data CT scan - abdomen: Attestation: I have reviewed the pertinent imaging results. Radiologist's impression: ITS Impressions Abdomen/Pelvis CT 05/18/24 01:45 IMPRESSION: 1. Relatively empty colon. Slight wall thickening of distal colon suspected to be due to lack of distention. Mild colitis cannot be completely excluded. 2. No suspicious upper abdominal findings to account for patient's symptoms. Electronically authenticated by: NAMITA CHANG Date: 05/18/2024 02:56 Discharge Plan Discharge Chief Complaint: Abdominal Pain Clinical Impression: Nausea vomiting and diarrhea, Generalized abdominal pain Patient Disposition: Home, Self-Care Time of Disposition Decision: 05:18 Condition: Good Mode of Transportation: Private Vehicle Prescriptions / Home Meds: New ondansetron 4 mg tablet,disintegrating 4 mg PO Q8H PRN (Reason: nausea and vomiting) 4 Days Qty: 16 0RF dicyclomine 10 mg capsule 10 mg PO QID PRN (Reason: abdominal pain) Qty: 12 0RF promethazine 25 mg suppository 25 mg AR Q6H PRN (Reason: nausea and vomiting) Qty: 12 0RF No Action cyclobenzaprine 5 mg tablet 5 mg PO TID esomeprazole magnesium 40 mg capsule,delayed release(DR/EC) 40 mg PO DAILY lisinopril 2.5 mg tablet 2.5 mg PO DAILY pioglitazone 30 mg tablet 30 mg PO DAILY Print Language: Irish Instructions: Acute Nausea and Vomiting (DC), Abdominal Pain (ED) Additional Instructions: Call the office of your primary care doctor to arrange for follow-up within the above-stated timeframe. Your ED visit was focused on your acute issue and does not replace primary care. You should review your labs, imaging, and diagnoses from this ED visit with your primary care physician. There may be non-emergent/ incidental findings that need further evaluation. You should review your vital signs including blood pressure with your PCP. If you were prescribed medications you should discuss possible side-effects and drug interactions with your pharmacist. Call 911 or go to the nearest Emergency Department if you develop any new or worsening symptoms. Seek immediate medical attention if you develop: worsening abdominal pain, new or worsening nausea, new or worsening vomiting, new or worsening diarrhea, chest pain, shortness of breath, pain with urination, problems urinating, fever, chills, weakness, or any new or worsening symptoms. Referrals: HUSAM GREWAL [Primary Care Provider] - 1 week
[2024-05-18 05:28] VITALS: PULSE 78
== END 2024-05-18 05:30 | disposition home or self-care (01) ==
PROVIDERS: Emergency Provider Student in an Organized Health Care Education/Training Program; PCP Family Medicine
DX: R11.2 Nausea with vomiting, unspecified (principal); R19.7 Diarrhea, unspecified; R10.84 Generalized abdominal pain; Z90.710 Acquired absence of both cervix and uterus; Z90.49 Acquired absence of other specified parts of digestive tract
CPT/HCPCS: 36415; 74177; 80053; 81001; 83605; 83690; 84484; 85025; 96365; 96366; 96372; 96375; 96376; 99284; J0500; J1171; J1885; J2405; J2550; Q9967